=== PATIENT | female | born 1940 | race Caucasian/White ===

== ENCOUNTER → 2018-04-11 15:29 | Outpatient (CLI) | payer MEDICARE, SELFPAY ==
[2018-04-11 18:07] LABS: Anion Gap 8 (5-15); BUN 13 mg/dL (7-18); Calcium,Total 9.4 mg/dL (8.5-10.1); Chloride 106 mmol/L (98-107); Creatinine, Serum 0.76 mg/dL (0.55-1.02); EST Glomerular Filtration Rate 78 mL/min (>60); Est Glom Filt Rate - Afr Amer 94 mL/min (>60); Glucose 94 mg/dL (74-106); Potassium 4.1 mmol/L (3.5-5.1); Sodium Level 141 mmol/L (136-145); Thyroid Stim Hormone (TSH) 0.84 uIU/mL (0.358-3.74)
== END ==
PROVIDERS: Family Provider Family Medicine; PCP Family Medicine; Visit Provider Family Medicine
DX: I10 Essential (primary) hypertension (principal); L65.8 Other specified nonscarring hair loss
CPT/HCPCS: 36415; 80048; 84443

== ENCOUNTER 2019-03-14 10:12 | Emergency (ER) | payer MEDICARE, SELFPAY ==
[2019-03-14] VITALS (13 sets, daily range): BP systolic 48–124; BP diastolic 26–79; PULSE 61–100; RESP 12–33; TEMP 35.9–37.2; O2SAT 90–99; BMI 27.4
--- NOTE | 2019-03-14 10:29 | EKG12_ITS ---
Test Reason : REPEAT EKG Blood Pressure : / mmHG Vent. Rate : 066 BPM Atrial Rate : 066 BPM P-R Int : 168 ms QRS Dur : 150 ms QT Int : 460 ms P-R-T Axes : 068 -45 139 degrees QTc Int : 482 ms Sinus rhythm with Premature atrial complexes Left axis deviation Left bundle branch block Abnormal ECG Confirmed by APRIL RECINOS ([id number]), manuscript editor SANDEE CASTILLO ([id number]) on 03/18/2019 2:01:02 PM Referred By: MINE Confirmed By:APRIL RECINOS
--- NOTE | 2019-03-14 10:30 | CT_ITS ---
STUDY: CT ABDOMEN AND PELVIS WITHOUT CONTRAST REASON FOR EXAM: Female, 78 years old. RADIATION DOSAGE (If Supplied By Facility): CTDIvol = ( 17.87 ) mGy, DLP = ( 867.31 ) mGycm TECHNIQUE: Transaxial images were obtained from the dome of the diaphragm to the symphysis pubis without oral contrast, and without intravenous contrast. Sagittal and coronal images were reconstructed. Individualized dose optimization techniques were used for this CT. COMPARISON: None. FINDINGS: The visualized lung bases are unremarkable. The visualized portions of the heart are within normal limits except for coronary calcification. Normal liver. Normal gallbladder and extrahepatic biliary system. Multiple calcified granulomas seen within the spleen. The pancreas is unremarkable. Normal bilateral adrenal glands. Both kidneys are normal in size, shape and position with fullness of the renal pelves bilaterally. Normal visualized stomach. Normal small intestine. The colon is loaded with stool.. The appendix could not be seen. Normal abdominal aorta showed atherosclerotic changes. Normal inferior vena cava. Normal retroperitoneum. No free or free fluid within the peritoneal cavity. Normal urinary bladder. Normal abdominal wall. Significant spondylotic and degenerative changes in the lumbar spine with vacuum disc phenomena. CT/Abdomen/Pelvis without Cont IMPRESSION: Multiple calcified granulomas in the spleen Fullness of the renal pelves bilaterally. Degenerative changes of the spine. Electronically Signed: Radha Rodriguez, at 13:19 EDT Tel , Service support ,
--- NOTE | 2019-03-14 10:30 | CT_ITS ---
STUDY: CT CHEST WITHOUT CONTRAST REASON FOR EXAM: Female, 78 years old. RADIATION DOSAGE (If Supplied By Facility): CTDIvol = ( 15.25 ) mGy, DLP = ( 434.14 ) mGycm TECHNIQUE: Transaxial imaging was performed without the administration of intravenous contrast material. Individualized dose optimization techniques were used for this CT. COMPARISON: None. FINDINGS: The lungs are normal. There is no evidence of pleural effusion or pneumothorax. Normal heart and pericardium. Normal mediastinum. There is 1.9 cm lymph node behind the ascending aorta. Normal hilar regions there is tortuosity of the thoracic aorta. Calcifications noted in the cartilages of the trachea and main bronchi. Calcified coronary arteries noted Moderate hypertrophic changes involving the thoracic spine with mild kyphosis There is no demonstrated abnormality of the visualized upper abdomen. Except for multiple calcified granulomas in the spleen. CT/Chest without Contrast IMPRESSION: 1.9 cm lymph node in the pulmonary/aortic window i.e. behind the ascending aorta. Dose of the study is negative except for multiple calcified granulomata in the spleen Electronically Signed: Radha Rodriguez, at 12:48 EDT Tel , Service support ,
--- NOTE | 2019-03-14 10:30 | CT_ITS ---
STUDY: CT CERVICAL SPINE WITHOUT CONTRAST REASON FOR EXAM: Female, 78 years old. RADIATION DOSAGE (If Supplied By Facility): CTDIvol = ( 16.15 ) mGy, DLP = ( 283.35 ) mGycm TECHNIQUE: High resolution transaxial imaging was performed without contrast material. Sagittal and coronal images were reconstructed. Individualized dose optimization techniques were used for this CT. COMPARISON: None FINDINGS: There is anterior fixation of the cervical spine with metallic plate and screws from the level of C5 down to C7 with disc spacers in the spleen may be simply the intervertebral bodies at these levels. No abnormality detected at the craniovertebral junction ,C1-C2 or at C2-3. At the level of C3-4 there is narrowing of the intervertebral disc with endplates changes. There is narrowing at the level of C4-5. There is evidence of anterior fusion of the cervical vertebral bodies between C5-6 and C7 with disc spacers in between the these vertebral bodies. No spinal stenosis is noted. The facet joints and spinous processes are unremarkable. CT/Spine Cervical without Contras IMPRESSION: Anterior fixation of the cervical spine from the level of C5 down to C7 with disc spacers between C5-6 and C6-7. No fracture or subluxation seen. Electronically Signed: Radha Rodriguez, at 12:58 EDT Tel , Service support ,
--- NOTE | 2019-03-14 10:30 | CT_ITS ---
STUDY: CT BRAIN WITHOUT CONTRAST REASON FOR EXAM: Female, 78 years old. RADIATION DOSAGE (If Supplied By Facility): CTDIvol = ( 44.99 ) mGy, DLP = ( 880.47 ) mGycm TECHNIQUE: Transaxial CT imaging of the brain was performed without administration of intravenous contrast material. Individualized dose optimization techniques were used for this CT. COMPARISON: No relevant priors. FINDINGS: Normal soft tissue structures. Normal calvarium. Normal size ventricles and extra-axial spaces for the patient's age. Normal white matter tracts of the cerebral hemispheres. Normal basal ganglia and thalami. Normal brainstem. Normal cerebellum. There is no intracranial hemorrhage. There are no findings of an acute ischemic infarction. Normal visualized paranasal sinuses. CT/Brain/Head without Contrast IMPRESSION: Normal unenhanced CT scan of the brain. Electronically Signed: Radha Rodriguez, at 13:08 EDT Tel , Service support ,
--- NOTE | 2019-03-14 10:30 | NURSING ---
CALLED [facility] ABOUT TRANSFER.
--- NOTE | 2019-03-14 10:36 | RAD_ITS ---
STUDY: X-RAY - RIGHT RADIUS AND ULNA REASON FOR EXAM: Female, 78 years old. TECHNIQUE: view(s) of the forearm. COMPARISON: None. FINDINGS: There is comminuted fracture involving the midshaft of the radius with slight displacement. Also noted there is evidence of fracture of the distal radius. X--ray study of the wrist is suggested. Osteoarthritic changes involving the 1st metacarpal-carpal joints. Moderate osteoporosis is seen throughout the visualized bones. IMPRESSION: Fractures of the mid shaft of the radius as well as the distal radius as mentioned above. Electronically Signed: Radha Rodriguez, at 11:28 EDT Tel , Service support , RAD/Forearm 2 Views
--- NOTE | 2019-03-14 10:38 | RAD_ITS ---
STUDY: X-RAY - PELVIS REASON FOR EXAM: Female, 78 years old. TECHNIQUE: One view of the pelvis was obtained. COMPARISON: None. FINDINGS: The study is somewhat limited however both iliac bones and hips are unremarkable sacroiliac joints, evaluated because of the haziness. There are degenerative changes involving the disc in the lower lumbar spine. There is urinary bladder catheter RAD/Pelvis 1 or 2 Views IMPRESSION: No fracture noted Electronically Signed: Radha Rodriguez, at 11:50 EDT Tel , Service support ,
--- NOTE | 2019-03-14 10:39 | NURSING ---
ACCEPTED BY DR ZAMORA [facility] WITH MULTIPLE TRAUMAS, HYPOTHERMIA
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
[2019-03-14] MEDS: morphine 8 MG/ML Syringe IV (10:40)
[2019-03-14] MEDS: Ondansetron 4 MG/2 ML Vial IV ×2 (10:40→13:11)
[2019-03-14 10:47] LABS: Absolute Lymphocyte Count 1.83 X10^3/ul (0.83-4.51); Absolute Neutrophil Count 6.1 X10^3/uL (2.0-7.7); Basophil# 0.08 X10^3/uL; Basophil% 0.9 % (0-1); Eosinophil# 0.19 X10^3/uL; Eosinophils% 2.2 % (0-5); Hematocrit 39.6 % (37-47); Hemoglobin 14.1 g/dl (12.0-15.0); Lymphocyte # 1.83 X10^3/ul (4.0); Lymphocyte % 21.2 % (19-41); Mean Corp Hgb Conc 35.6 g/gl (32-36); Mean Corpuscular Hgb 31.8 pg (27.0-32.0); Mean Corpuscular Volume 89.2 fL (81-99); Mean Platelet Vol. 9.7 fl (6.2-12.0); Monocyte# 0.41 X10^3/uL; Monocyte% 4.7 % (0-10); Neutrophil % 70.7 % (47-70); Platelet Count 241 K/mm3 (150-450); RBC Distribution Width CV 13.4 % (11.6-14.6); RBC Distribution Width SD 43.5 fl (35.1-43.9); Red Blood Count 4.44 M/mm3 (4.2-5.4); White Blood Count 8.6 K/mm3 (4.4-11.0)
[2019-03-14 10:48] LABS: POSITIVE COUNT NO; POSITIVE DIFFERENTIAL NO; POSITIVE MORPHOLOGY NO
[2019-03-14] MEDS: 0.9% Normal Saline 1,000 ML 1000 ML IV (10:49)
--- NOTE | 2019-03-14 10:50 | RAD_ITS ---
STUDY: X-RAY CHEST REASON FOR EXAM: Female, 78 years old. TECHNIQUE: COMPARISON: None. FINDINGS: The heart is not enlarged. The lung wilson are clear. Both pulmonary arteries are prominent. There is mild tortuosity of the thoracic aorta. No pleural effusion or pneumothorax seen. There is anterior fixation of the cervical spine. Minimal osteoarthritis seen in the AC joint and left shoulder. The bony thorax is intact. Electronically Signed: Radha Rodriguez, at 11:45 EDT Tel , Service support , RAD/Chest 1 View (Portable)
[2019-03-14 10:54] LABS: International Normalized Ratio 1.1; Prothrombin Time (Protime)PT. 13.9 SECONDS (11.7-14.9)
[2019-03-14 11:06] LABS: AST(SGOT) 22 U/L (15-37); Alanine Aminotransfer ALT/SGPT 24 U/L (13-56); Albumin, Serum 3.6 g/dL (3.2-5.0); Alkaline Phosphatase 84 U/L (45-117); Anion Gap 12 (5-15); BUN 17 mg/dL (7-18); BUN/Creat Ratio 20.8 RATIO (10-20); Bilirubin, Direct 0.13 mg/dL (0.00-0.30); Calcium,Total 8.7 mg/dL (8.5-10.1); Chloride 109 mmol/L (98-107); Creatinine, Serum 0.82 mg/dL (0.55-1.02); EST Glomerular Filtration Rate 72 mL/min (>60); Est Glom Filt Rate - Afr Amer 87 mL/min (>60); Estimated Creatinine Clearance 45.44 ml/min; Globulin 3.8 g/dL (2.2-4.2); Glucose 110 mg/dL (74-106); Lipase 258 U/L (73-393); Potassium 3.6 mmol/L (3.5-5.1); Protein, Total 7.4 g/dL (6.4-8.2); Sodium Level 142 mmol/L (136-145)
[2019-03-14] MEDS: 0.9% Normal Saline 1,000 ML 500 ML IV ×3 (11:30→13:34)
--- NOTE | 2019-03-14 11:45 | NURSING ---
CALLED [facility] FOR TRANSPORT, NO MEDIC CALLED [facility] FOR TRANSPORT, ETA WOULD BE 2 HRS CALLED [facility] FOR TRANSPORT. ETA IS 45 MIN TO 1 HR
--- NOTE | 2019-03-14 12:40 | ED.RN ---
REPORT CALLED TO [facility] ED, JIN MELO.
--- NOTE | 2019-03-14 12:57 | ED.RN ---
PT C/O INCREASED CP, SOB AND FEELING FUNNY. SBP IN 60'S. DR MELENDEZ CALLED TO BEDSIDE. VERBAL ORDERS FOR ANOTHER 1L NACL BOLUS, EKG, AND STAT CHEST XRAY. CALLED FOR ALL.
--- NOTE | 2019-03-14 13:09 | RAD_ITS ---
STUDY: X-RAY CHEST REASON FOR EXAM: Female, 78 years old. TECHNIQUE: COMPARISON: The earlier in the day. FINDINGS: The lungs are clear and expanded with heavy markings centrally. There is no demonstrated pleural abnormality. Normal size heart. Normal mediastinum and chucky. Prominence of the pulmonary arteries. Atherosclerotic changes of the aortic knob . Normal visualized thoracic spine. Normal visualized ribs, clavicles, and shoulders except for mild osteoarthritis of the AC joint on the left. There is no demonstrated abnormality of the visualized soft tissue structures of the upper abdomen. RAD/Chest 1 View (Portable) IMPRESSION: No active intrathoracic disease Electronically Signed: Radha Rodriguez, at 13:35 EDT Tel , Service support ,
--- NOTE | 2019-03-14 13:10 | ED.RN ---
PT C/O NAUSEA AND STARTED TO DRY HEAVE. IV ZOFRAN GIVEN PER ORDERS. PT REPOSITIONED FOR COMFORT. DR MELENDEZ GIVES VERBAL ORDER FOR 1 UNIT OF TRAUMA BLOOD.
--- NOTE | 2019-03-14 13:16 | EKG12_ITS ---
Test Reason : TRAUMA Blood Pressure : / mmHG Vent. Rate : 082 BPM Atrial Rate : 082 BPM P-R Int : 170 ms QRS Dur : 140 ms QT Int : 418 ms P-R-T Axes : 062 -48 105 degrees QTc Int : 488 ms Normal sinus rhythm with sinus arrhythmia Left bundle branch block Abnormal ECG Confirmed by APRIL RECINOS ([id number]), proposal editor SANDEE CASTILLO ([id number]) on 03/18/2019 2:01:26 PM Referred By: MINE Confirmed By:APRIL RECINOS
--- NOTE | 2019-03-14 13:24 | ED.RN ---
TRAUMA BLOOD INITIATED. PT NAME, , M NUMBER VERIFIED. PER TRAUMA BLOOD POLICY.
--- NOTE | 2019-03-14 13:26 | ED.RN ---
LEFT AC IV INFILTRATED WITH IV SALINE BOLUSES. IV D/C'D PER POLICY. LEFT EJ PLACED BY Karen GARCIA RN. IV FLUID BOLUSES AND TRAUMA BLOOD RESUMED.
--- NOTE | 2019-03-14 13:51 | ED.RN ---
[facility] AT BEDSIDE. REPORT GIVEN BY DR MELENDEZ. ASSISTED IN GETTING PATIENT SWITCHED OVER TO TRANSFERS COT AND MONITOR. TRANSPORT DENIES ANY FURTHER NEED FOR HELP.
--- NOTE | 2019-03-14 13:52 | ED.RN ---
CARE HANDED OVER TO [facility] AT THIS TIME. TRANSPORT DENIES ANY NEEDS. THIS RN REMAINS AT BEDSIDE UNTIL PATIENT DEPARTURE.
--- NOTE | 2019-03-14 13:59 | ED.RN ---
PT DEPARTS ED AT THIS TIME.
== END 2019-03-14 14:01 | disposition short-term general hospital (02) ==
PROVIDERS: Emergency Provider Emergency Medicine; Family Provider Family Medicine; PCP Family Medicine
DX: S52.301A Unspecified fracture of shaft of right radius, initial encounter for closed fracture (principal); S80.02XA Contusion of left knee, initial encounter; S80.01XA Contusion of right knee, initial encounter; T68.XXXA Hypothermia, initial encounter; V59.9XXA Occupant (driver) (passenger) of pick-up truck or van injured in unspecified traffic accident, initial encounter; Y93.9 Activity, unspecified; Y92.828 Other wilderness area as the place of occurrence of the external cause; Y99.9 Unspecified external cause status; I95.9 Hypotension, unspecified; I10 Essential (primary) hypertension
CPT/HCPCS: 70450; 71045; 71250; 72125; 72170; 73090; 74176; 80048; 80076; 83690; 84484; 85025; 85610; 86850; 86900; 93005; 96361; 96374; 96375; 96376; 99285; J7030; P9016; A4216; J2405

== ENCOUNTER → 2019-07-16 10:44 | Outpatient (CLI) | payer MEDICARE, SELFPAY ==
[2019-03-14 10:13] VITALS: BMI 27.4
--- NOTE | 2019-07-16 10:52 | ECHOD_ITS ---
Reason For Study: CARDIOMYOPATHY Procedure This was a 2D Doppler, Color Flow transthoracic echocardiogram. Exam performed in department. Left Ventricle Normal LV size. Concentric left ventricular hypertrophy. The estimated ejection fraction is 60 %. Normal diastology for age. No regional wall motion abnormalities noted. Right Ventricle Normal RV size. Normal systolic function. Atria Normal left atrium. Normal right atrium. No doppler evidence for ASD. Mitral Valve There is no mitral valve stenosis. Mild (1+) mitral valve insufficiency. Tricuspid Valve There is no tricuspid stenosis. Trivial tricuspid valve insufficiency. Pulmonary artery systolic pressure is 30 mmHg. Aortic Valve Aortic sclerosis, no stenosis. There is no aortic stenosis. Mild (1+) aortic valve insufficiency. Pulmonic Valve There is no pulmonic valvular stenosis. No pulmonic valve insufficiency. Great Vessels Normal aortic root. Pericardium/Pleural No pericardial effusion. MMode/2D Measurements & Calculations LVIDd: 3.5 cm IVSd: 1.2 cm Ao root diam: 2.9 cm LVIDs: 2.4 cm LVPWd: 1.00 cm RVDd: 3.5 cm FS: 30.2 % LAV(MOD-bp): 33.9 ml LVAd ap4: 24.0 cm2 SV(MOD-sp4): 36.8 ml LAV(MOD-bp) Indexed: 23.0 ml/m2 EDV(MOD-sp4): 63.1 ml LAV(MOD-sp2): 40.6 ml EDV(sp4-el): 68.0 ml LAV(MOD-sp4): 24.8 ml LVAs ap4: 14.0 cm2 ESV(MOD-sp4): 26.3 ml ESV(sp4-el): 27.5 ml EF(MOD-sp4): 58.3 % EF(sp4-el): 59.5 % SV(sp4-el): 40.5 ml LA A4 area: 11.4 cm2 LA dimension(2D): 3.4 cm RA A4 area: 10.1 cm2 Time Measurements MV dec time: 0.34 sec Doppler Measurements & Calculations MV E max ahmet: 53.5 cm/sec Lat Peak E' Ahmet: 8.3 cm/sec Med Peak E' Ahmet: 5.6 cm/sec MV A max ahmet: 85.8 cm/sec E/E' lat: 6.4 E/E' med: 9.5 MV E/A: 0.62 Ao V2 max: 168.2 cm/sec AI max ahmet: 426.5 cm/sec LV V1 max: 166.5 cm/sec Ao max P.3 mmHg AI max P.8 mmHg LV V1 max P.1 mmHg AI dec slope: 144.1 cm/sec2 AI P1/2t: 867.1 msec PA V2 max: 132.7 cm/sec TR max ahmet: 259.1 cm/sec TR max P.9 mmHg Interpretation Summary The estimated ejection fraction is 60 %. Mild (1+) mitral valve insufficiency. Aortic sclerosis, no stenosis. Mild (1+) aortic valve insufficiency. Ordering Physician: ELAINE SERRANO Referring Physician: ISAAC TOWNSEND Performed By: Ana Lucio RDCS
== END ==
PROVIDERS: Family Provider Family Medicine; PCP Family Medicine
DX: I51.81 Takotsubo syndrome (principal)
CPT/HCPCS: 93306

== ENCOUNTER → 2020-07-14 12:01 | Outpatient (CLI) | payer MEDICARE, SELFPAY ==
[2019-03-14 10:13] VITALS: BMI 27.4
[2020-07-14 13:18] LABS: AST(SGOT) 21 U/L (15-37); Alanine Aminotransfer ALT/SGPT 24 U/L (13-56); Albumin, Serum 3.8 g/dL (3.2-5.0); Alkaline Phosphatase 87 U/L (45-117); Anion Gap 5 (5-15); BUN 13 mg/dL (7-18); BUN/Creat Ratio 18.6 RATIO (10-20); Calcium,Total 9.1 mg/dL (8.5-10.1); Chloride 107 mmol/L (98-107); Cholesterol 190 mg/dL (200); EST Glomerular Filtration Rate 86 mL/min (>60); Est Glom Filt Rate - Afr Amer 104 mL/min (>60); Globulin 3.9 g/dL (2.2-4.2); Glucose 89 mg/dL (74-106); High Density Lipoprotein 71 mg/dL; Potassium 3.8 mmol/L (3.5-5.1); Protein, Total 7.7 g/dL (6.4-8.2); Sodium Level 141 mmol/L (136-145); Triglycerides 95 mg/dL; Very Low Density Lipoprotein 19 mg/dL (5-40)
== END ==
PROVIDERS: PCP Family Medicine
DX: I25.10 Atherosclerotic heart disease of native coronary artery without angina pectoris (principal); I42.2 Other hypertrophic cardiomyopathy; I10 Essential (primary) hypertension; E78.5 Hyperlipidemia, unspecified; R06.00 Dyspnea, unspecified
CPT/HCPCS: 36415; 80053; 80061

== ENCOUNTER 2020-07-29 10:57 | Observation (INO) | payer MEDICARE, SELFPAY ==
[2019-03-14 10:13] VITALS: BMI 27.4
[2020-07-29] VITALS (10 sets, daily range): BP systolic 95–192; BP diastolic 56–117; PULSE 60–72; RESP 17–25; TEMP 36.6–37; O2SAT 96–100; BMI 24.3; BMI 22.4; BMI 22.5
--- NOTE | 2020-07-29 12:00 | ED.DCSUM_ITS ---
History of Present Illness Chief Complaint: Dizziness Narrative: Patient presenting for evaluation secondary to a near syncopal episode. Patient states that she was feeling well today, not having any signs of illness. Patient was standing at the counter filling out some birthday cards, and had a sudden onset of severe lightheadedness and feelings as though she was going to pass out. This was accompanied by a feeling of nausea. Patient then reports that she became diaphoretic. Patient states that she lowered herself down to the ground, her daughter was coming over to her house and she was unable to open the door for her. She denies that she completely lost consciousness. No recent fevers chills night sweats cough nausea vomiting or diarrhea. Patient does have a history of hypertension, she sees a structural layout worker but denies any history of of cardiac disease. No DVT or PE risk factors. She denies any sick contacts. Patient states that her symptoms have since resolved. Review of systems otherwise negative. Past Medical History - Allergies and Home Meds Allergies/Adverse Reactions: Allergies procaine [From Novocain] Allergy (Verified 07/29/20 10:58) NEEDS FOLLOW-UP Past Medical History: - - Hypertension Surgical History: noncontributory Lives: Alone Smoking Status: Never smoker Alcohol: None Drugs: None Review of Systems All systems negative except as indicated General: Reports: - - Diaphoresis Eyes: Denies: Visual changes - bilaterally, Diplopia ENT: Denies: Rhinorrhea, Sore throat Cardiovascular: Reports: - - Near syncope Respiratory: Denies: Dyspnea, Cough, Dyspnea on exertion Gastrointestinal: Reports: Nausea Genitourinary: Denies: Dysuria, Hematuria, Frequency Musculoskeletal: Denies: Back pain, Extremity Pain Skin: Denies: Rash, Wounds Neurological: Denies: Headache, Weakness, Numbness Physical Exam Vital Signs/Narrative: Vital Signs Temp Pulse Resp BP Pulse Ox 07/29/20 11:01 67 17 159/82 H 96 07/29/20 10:59 98.1 F 64 17 159/82 H 97 Inital Vital Signs reviewed: Yes General: Well nourished, Well developed, No Acute Distress Head: Normocephalic, Atraumatic Eyes: Perrl, EOMI ENT: Moist mucous membranes, No rhinorrhea Neck: Supple, Nontender Cardiovascular: Regular rhythm, No murmurs, Bradycardia - Minimal, - - 2+ radial pulses bilaterally symmetric Respiratory: No distress, CTA bilaterally, Chest nontender Abdomen: Soft, Nontender, Nondistended, Normal bowel sounds Back: Nontender, Normal Inspection Extremities: Nontender, No edema Skin: Normal color, No rash Neurological: Alert, Oriented x3, Cranial nerves II-XII grossly intact, Normal Strength, Normal Sensation Psychological: Normal affect, Normal Mood Diagnostic/Tx/Re-eval Clinical Impression(s) from Imaging Studies Chest X-Ray 07/29/20 12:56 IMPRESSION: Hyperinflation. The lungs are clear. Electronically Signed: David Arnett, at 13:34 EST , Service support , Laboratory Data 07/29/20 07/29/20 07/29/20 12:19 12:19 15:38 WBC 8.3 RBC 4.37 Hgb 13.8 Hct 39.8 MCV 91.1 MCH 31.6 MCHC 34.7 RDW Std Deviation 41.8 RDW Coeff of Criselda 12.6 Plt Count 252 MPV 10.1 Immature Gran % (Auto) 0.400 Neut % (Auto) 79.4 H Lymph % (Auto) 12.7 L Johnson % (Auto) 6.2 Eos % (Auto) 0.6 Baso % (Auto) 0.7 Absolute Neuts (auto) 6.6 Absolute Lymphs (auto) 1.06 Nucleated RBC % 0 Sodium 137 Potassium 3.8 Chloride 107 Carbon Dioxide 23.0 Anion Gap 7 BUN 15 Creatinine 0.79 Estim Creat Clear Calc 34.42 Est GFR (MDRD) Af Amer 91 Est GFR (MDRD) Non-Af 75 BUN/Creatinine Ratio 19.1 Glucose 102 Calcium 9.6 Troponin I 0.037 0.055 H - EKG Initial EKG Interpretation: - - Sinus rhythm of 59 with left bundle branch block morphology. Isoelectric ST segments, normal T waves, no gross changes from prior EKG in 2019. - Medical Decision Making Patient presented secondary to a presyncopal episode. EKG was obtained which showed left bundle branch block that was unchanged from prior EKG. Laboratory work-up initially was benign, although the patient's symptoms were concerning so I did perform a 3-hour delta troponin which unfortunately was found to be upward trending to 0.05. This point there is some concern for the possibility of patient having malignant arrhythmia causing her symptoms, but regardless she requires admission for observation and further cardiac work-up. I discussed this with the hospitalist. ED Disposition - Plan for ED Patient: Disposition: Acute Care Hospital [facility] Diagnosis: Syncope, Elevated troponin
--- NOTE | 2020-07-29 12:02 | EKG12_ITS ---
Test Reason : Blood Pressure : / mmHG Vent. Rate : 063 BPM Atrial Rate : 063 BPM P-R Int : 174 ms QRS Dur : 142 ms QT Int : 468 ms P-R-T Axes : 042 -48 103 degrees QTc Int : 478 ms Normal sinus rhythm Left axis deviation Left bundle branch block Abnormal ECG Confirmed by ZEV MENENDEZ, IGOR ([id number]), loan expeditor SANDEE CASTILLO ([id number]) on 08/01/2020 2:34:10 PM Referred By: MR Confirmed By:IGOR BROTHERS MD
[2020-07-29 12:23] LABS: Absolute Lymphocyte Count 1.06 X10^3/uL (0.83-4.51); Absolute Neutrophil Count 6.6 X10^3/uL (2.0-7.7); Basophil# 0.06 X10^3/uL; Basophil% 0.7 % (0-1); Eosinophil# 0.05 X10^3/uL; Eosinophils% 0.6 % (0-5); Hematocrit 39.8 % (37-47); Hemoglobin 13.8 g/dL (12.0-15.0); Lymphocyte # 1.06 X10^3/ul (4.0); Lymphocyte % 12.7 % (19-41); Mean Corp Hgb Conc 34.7 g/dL (32-36); Mean Corpuscular Hgb 31.6 pg (27.0-32.0); Mean Corpuscular Volume 91.1 fL (81-99); Mean Platelet Vol. 10.1 fl (6.2-12.0); Monocyte# 0.52 X10^3/uL; Monocyte% 6.2 % (0-10); NRBC Flagged by Analyzer 0 % (0-5); Neutrophil # 6.62 X10^3/uL (2.7-7.7); Neutrophil % 79.4 % (47-70); Platelet Count 252 K/mm3 (150-450); RBC Distribution Width CV 12.6 % (11.6-14.6); RBC Distribution Width SD 41.8 fl (35.1-43.9); Red Blood Count 4.37 M/mm3 (4.2-5.4); White Blood Count 8.3 K/mm3 (4.4-11.0)
[2020-07-29 12:44] LABS: Anion Gap 7 (5-15); BUN 15 mg/dL (7-18); BUN/Creat Ratio 19.1 RATIO (10-20); Calcium,Total 9.6 mg/dL (8.5-10.1); Chloride 107 mmol/L (98-107); Creatinine, Serum 0.79 mg/dL (0.55-1.02); EST Glomerular Filtration Rate 75 mL/min (>60); Est Glom Filt Rate - Afr Amer 91 mL/min (>60); Estimated Creatinine Clearance 34.42 ml/min; Glucose 102 mg/dL (74-106); Potassium 3.8 mmol/L (3.5-5.1); Sodium Level 137 mmol/L (136-145)
--- NOTE | 2020-07-29 12:56 | RAD_ITS ---
STUDY: X-RAY CHEST REASON FOR EXAM: Female, 80 years old. CHEST PAIN -- WEAKNESS TECHNIQUE: AP and lateral views of the chest. COMPARISON: Comparison is made with prior study dated 03/14/2019. FINDINGS: EKG electrodes are seen. Hyperinflation. The lungs are clear. There is no demonstrated pleural abnormality. Normal size heart. Normal mediastinum and chucky. Normal visualized pulmonary arteries. There is atherosclerotic calcification of the aortic arch with tortuosity. There are diffuse degenerative changes of the visualized thoracic spine. Demineralization of the thoracic vertebrae. Prior fusion in the lower cervical spine. There is no demonstrated abnormality of the visualized soft tissue structures of the upper abdomen. RAD/Chest PA and Lateral IMPRESSION: Hyperinflation. The lungs are clear. Electronically Signed: David Arnett, at 13:34 EST , Service support ,
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
--- NOTE | 2020-07-29 18:59 | EKG12_ITS ---
Test Reason : DIZZINESS Blood Pressure : / mmHG Vent. Rate : 059 BPM Atrial Rate : 059 BPM P-R Int : 174 ms QRS Dur : 150 ms QT Int : 482 ms P-R-T Axes : 037 -45 099 degrees QTc Int : 477 ms Sinus bradycardia Left axis deviation Left bundle branch block Abnormal ECG Confirmed by ZEV MENENDEZ, IGOR ([id number]), photographic editor SANDEE CASTILLO ([id number]) on 08/01/2020 2:34:25 PM Referred By: MR Confirmed By:IGOR BROTHERS MD
[2020-07-29] MEDS: Metoprolol Tartrate 25 MG Tablet 12.5 MG PO (21:41)
--- NOTE | 2020-07-29 22:20 | EKG12_ITS ---
Test Reason : POSITIVE TROPONIN Blood Pressure : / mmHG Vent. Rate : 060 BPM Atrial Rate : 060 BPM P-R Int : 180 ms QRS Dur : 146 ms QT Int : 464 ms P-R-T Axes : 041 -44 110 degrees QTc Int : 464 ms Normal sinus rhythm Left axis deviation Left bundle branch block Abnormal ECG When compared with ECG of 29-JUL-2020 16:01, MANUAL COMPARISON REQUIRED, DATA IS UNCONFIRMED Confirmed by CHIQUITA MENENDEZ, KAN ([id number]), science editor CHRISSY MARTINEZ ([id number]) on 08/02/2020 11:17:41 AM Referred By: DR KUMARI Confirmed By:KAN PORRAS MD
[2020-07-30] VITALS (9 sets, daily range): BP systolic 112–135; BP diastolic 60–81; PULSE 55–77; RESP 16–18; TEMP 36.5–36.8; O2SAT 95–97
[2020-07-30] MEDS: Aspirin E.C. 81 MG Tablet PO (06:32)
[2020-07-30] MEDS: Lisinopril 40 MG Tablet PO (06:32)
[2020-07-30 08:03] LABS: Cholesterol 185 mg/dL (200); High Density Lipoprotein 61 mg/dL; Triglycerides 64 mg/dL; Very Low Density Lipoprotein 13 mg/dL (5-40)
--- NOTE | 2020-07-30 08:26 | ECHOD_ITS ---
Reason For Study: SYNCOPE Procedure This was a 2D Doppler, Color Flow transthoracic echocardiogram. The exam was of adequate technical quality. Exam performed portable in patient room. Left Ventricle Normal LV size. Left ventricular systolic function is normal. The estimated ejection fraction is 55 %. No evidence for diastolic dysfunction. No regional wall motion abnormalities noted. Right Ventricle Normal RV size. Normal systolic function. Atria Normal left atrium. Normal right atrium. No doppler evidence for ASD. Mitral Valve There is no mitral annular calcification. Mild focal mitral valve calcification of the anterior leaflet. Mild (1+) eccentric mitral valve insufficiency. Tricuspid Valve Normal tricuspid valve. Mild tricuspid valve insufficiency. Right ventricular systolic pressure estimated to be 26 mmHg. Aortic Valve Trisinus/trileaflet aortic valve. Moderate focal aortic valve calcification. Trivial aortic valve insufficiency. Pulmonic Valve The pulmonic valve is not well visualized. Trivial pulmonic valve insufficiency. Great Vessels Normal sized aortic root. Pericardium/Pleural No pericardial effusion. MMode/2D Measurements & Calculations LVIDd: 3.1 cm IVSd: 1.4 cm Ao root diam: 3.4 cm LVIDs: 2.3 cm LVPWd: 0.91 cm RVDd: 3.5 cm FS: 26.1 % LAV(MOD-bp): 30.0 ml LA A4 area: 11.4 cm2 LA dimension(2D): 3.5 cm LAV(MOD-bp) Indexed: 19.8 ml/m2 LAV(MOD-sp2): 42.7 ml LAV(MOD-sp4): 21.3 ml RA A4 area: 9.4 cm2 Time Measurements MV dec time: 0.36 sec Doppler Measurements & Calculations MV E max ahmet: 57.8 cm/sec Lat Peak E' Ahmet: 9.6 cm/sec Med Peak E' Ahmet: 4.8 cm/sec MV A max ahmet: 81.2 cm/sec E/E' lat: 6.1 E/E' med: 11.9 MV E/A: 0.71 Ao V2 max: 148.3 cm/sec AI max ahmet: 423.1 cm/sec PA V2 max: 109.6 cm/sec Ao max P.2 mmHg AI max P.6 mmHg AI dec slope: 190.5 cm/sec2 AI P1/2t: 650.6 msec TR max ahmet: 237.7 cm/sec TR max P.6 mmHg Interpretation Summary Left ventricular systolic function is normal. The estimated ejection fraction is 55 %. Mild focal mitral valve calcification of the anterior leaflet. Mild (1+) eccentric mitral valve insufficiency. Mild tricuspid valve insufficiency. Moderate focal aortic valve calcification. Trivial aortic valve insufficiency. Trivial pulmonic valve insufficiency. Right ventricular systolic pressure estimated to be 26 mmHg. No evidence for diastolic dysfunction. Ordering Physician: Isaac Restrpeo Referring Physician: ISAAC TOWNSEND Performed By: Liliam Mayen, ELFEGO, RVT
--- NOTE | 2020-07-30 15:33 | PCM.DC ---
- Discharge Diagnoses Current Active Problems: Current Active and Chronic Problems Syncope (Acute) Elevated troponin (Acute) Hyperlipemia (Chronic) Takotsubo cardiomyopathy (Chronic) You will use the following diet at home:: Cardiac Discharge Activity: Return to Normal Activity Call your doctor if you observe: Shortness of breath, Dizziness, Fainting spells, Chest pain Allergies/Adverse Reactions: Allergies procaine [From Novocain] Allergy (Verified 07/29/20 17:31) passed out Medications to take at Discharge Lisinopril 40 mg PO DAILY 07/29/20 Metoprolol Succinate [Toprol Xl] 12.5 mg PO BID 07/29/20 Aspirin E.C. [Ecotrin] 81 mg PO DAILY@0800 #60 tab 07/30/20 Atorvastatin Calcium 10 mg PO QHS #60 tab 07/30/20 The following prescriptions were given: Atorvastatin Calcium 10 mg PO QHS #60 tab Transmission Status: Pending to [facility] Aspirin E.C. [Ecotrin] 81 mg PO DAILY@0800 #60 tab Transmission Status: Pending to [facility] [address] Primary Care Physician: Ilya Jade MD [Primary Care Provider] - Please follow up with your Primary Care Physician in: 1 Week Test Results: Test results from this visit will be discussed in further detail at your follow-up appointment, if applicable. Please Follow Up With: Primary Government Services Professional - [facility] When: As scheduled next week Proposed Discharge Date: 07/30/20
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
== END 2020-07-30 15:34 | disposition home or self-care (01) ==
LOC: ED 12:05 → PCU 16:59
PROVIDERS: Nurse Practitioner Family; Admitting Provider Internal Medicine; Emergency Provider Emergency Medicine; PCP Family Medicine; Visit Provider Internal Medicine
DX: R55 Syncope and collapse (principal); Z79.899 Other long term (current) drug therapy; I25.2 Old myocardial infarction; E78.5 Hyperlipidemia, unspecified; I11.9 Hypertensive heart disease without heart failure; R79.89 Other specified abnormal findings of blood chemistry; I25.10 Atherosclerotic heart disease of native coronary artery without angina pectoris
CPT/HCPCS: 36415; 71046; 80048; 80061; 84484; 85025; 93005; 93306; 97162; 97165; 99218; 99285; A4216; G0378

== ENCOUNTER 2022-09-26 21:09 | Inpatient (IN) | payer MEDICARE, SELFPAY ==
[2022-09-26 21:11] VITALS: BP 170/79; PULSE 74; RESP 15; TEMP 36.7; O2SAT 97; BMI 26.4
--- NOTE | 2022-09-26 21:45 | RAD_ITS ---
INDICATION: pt stated fall, hip pain, immobilizing mat in place, positioning limited EXAMINATION/TECHNIQUE: X-RAY - RIGHT XR Knee 1 or 2 Views 2 VIEWS COMPARISON: None. FINDINGS: SOFT TISSUES: No soft tissue swelling or gas. No radiopaque foreign body. BONES/JOINTS: There is normal bony alignment, joint space narrowing involving the medial lateral compartments is noted. No fracture or destructive bony process.. RAD/Knee 1 or 2 Views IMPRESSION: 1. No evidence of fracture or malalignment, degenerative changes noted with medial and lateral joint space narrowing. No acute destructive bony process. Electronically Signed: Casper Rivera MD at 23:29 EST ,
--- NOTE | 2022-09-26 21:45 | EKG12_ITS ---
Test Reason : DYSRHYTHMIA Blood Pressure : / mmHG Vent. Rate : 071 BPM Atrial Rate : 071 BPM P-R Int : 152 ms QRS Dur : 144 ms QT Int : 434 ms P-R-T Axes : 043 -46 114 degrees QTc Int : 471 ms Normal sinus rhythm Left axis deviation Left bundle branch block Abnormal ECG Confirmed by CULLEN MENENDEZ, JYOTSNA ([id number]), map editor CHRISSY MARTINEZ ([id number]) on 09/28/2022 6:36:54 AM Referred By: MICHELET Confirmed By:KURT BERMAN MD
--- NOTE | 2022-09-26 21:45 | RAD_ITS ---
INDICATION: pt stated fall, hip pain, immobilizing mat in place, positioning limited EXAMINATION/TECHNIQUE: X-RAY - RIGHT XR Hip Unilateral with Pelvis when performed; 2-3 Views 3 VIEWS COMPARISON: None. FINDINGS: SOFT TISSUES: No soft tissue swelling or gas. No radiopaque foreign body. BONES/JOINTS: There is a mildly displaced RIGHT femoral neck fracture. No dislocation noted. Pelvic ring is intact. LEFT hip has normal alignment. Sacrum and sacroiliac joints have normal appearance. RAD/HIP, UNI W/ Pelvis 2-3 Views IMPRESSION: 1. Mildly displaced RIGHT femoral neck fracture. 2. No other fracture, no dislocation noted. Electronically Signed: Casper Rivera MD at 23:30 EST ,
--- NOTE | 2022-09-26 21:45 | RAD_ITS ---
INDICATION: pt stated fall, hip pain, immobilizing mat in place, positioning limited EXAMINATION/TECHNIQUE: X-RAY - XR Chest 1 View COMPARISON: 07/29/2020 FINDINGS: LIFE-SUPPORT AND LINES: 1. None HEART AND VESSELS: The cardiac silhouette, pulmonary vasculature have normal appearance. No evidence of congestive failure. LUNGS AND PLEURAL SPACES: Lungs are clear. No focal infiltrate, consolidation or effusions. No evidence of pneumothorax. No pulmonary mass is noted. MEDIASTINUM AND HILAR REGIONS: No masses adenopathy noted. No areas of calcification. Visualized upper airway is normal in position. BONY ELEMENTS: No acute bony changes noted. Postop changes involving the visualized lower cervical spine. RAD/Chest 1 View (Portable) IMPRESSION: 1. No evidence of acute cardiopulmonary process Electronically Signed: Casper Rivera MD at 23:31 EST ,
--- NOTE | 2022-09-26 21:46 | EDS_ITS ---
HPI History of Present Illness Chief Complaint: Fall Narrative Narrative: 82-year-old female presenting with right hip pain and right knee pain. She states her right knee pain has been fairly chronic but she had a mechanical fall in her kitchen today and fell onto her right hip and was unable to get up. She states he was dragging her self with her left arm and left leg but it was excruciating. She states she did not hit her head or lose consciousness when she fell. She tried to grab the counter but missed. Patient states that she is only on medication for high blood pressure. Other than that she has been otherwise well. PFSH PFS Home Medications lisinopril 40 mg tablet 40 mg PO DAILY BP 07/29/20 [History Last Taken 07/29/20] Allergy/AdvReac Type Severity Reaction Status Date / Time procaine [From Novocain] Allergy passed out Verified 09/26/22 21:16 Social History Smoking Status: Never smoker ROS ROS ED Constitutional Constitutional ED: Denies chills, fever(s) or sweats Eyes Eyes: Denies blurry vision or change in vision ENT ENT ED: Denies ear pain or sore throat Cardiovascular Cardiovascular: Denies chest pain, palpitations or racing heartbeat Respiratory/Chest Respiratory/Chest: Denies cough, dyspnea or sputum Gastrointestinal Gastrointestinal: Denies abdominal pain, constipation, diarrhea, nausea or vomiting Genitourinary Genitourinary ED: Denies dysuria, hematuria or urinary frequency Musculoskeletal Musculoskeletal: Reports other Details: Right hip and knee pain ; Denies arthralgias, myalgias or neck pain Integumentary Denies abscess, Abrasions or rash Neurologic Neurologic: Denies headache(s), paresthesias or weakness Psychiatric Psychiatric: Denies anxiety, depression, suicidal ideation or suicidal thoughts Endocrine Endocrinology: Denies polydipsia or polyuria EXAM Physical Exam Const Vital Signs: 09/26/22 21:11 09/26/22 23:43 Temperature 98.1 F Temperature Source Temporal Pulse Rate 74 78 Respiratory Rate 15 15 Blood Pressure 170/79 H 155/62 H Blood Pressure Mean 109 93 Pulse Ox 97 96 Oxygen Delivery Method Room Air Room Air Positive well nourished General Appearance ED: NAD HEENT atraumatic Resp normal respiratory effort and clear to auscultation bilaterally MDM MDM MDM Narrative Medical decision making narrative: Patient presenting with right hip pain. I suspect this that she has a rib fracture. Her knee does not appear to be ultimately very tender to palpation but I will x-ray this as well because she is complaining she fell on it. Patient was given morphine and Zofran in the ER. Apparently she got 25 of fentanyl by EMS. Will obtain medical clearance labs, EKG, chest x-ray in addition to right hip and right knee x-ray. EKG obtained for medical clearance shows a normal sinus rhythm with a ventricular to 71 bpm without sign of ischemic change or dysrhythmia. Labwork was obtained also for medical clearance. CBC shows a slight leukocytosis of 14.3. Hemoglobin hematocrit are stable. Platelets are normal. Renal function electrolytes within normal limits. Chest x-ray on my interpretation shows no acute cardiopulmonary process. Radiologist services and agrees. X-rays of the right knee were obtained due to her complaint of knee pain and these are negative for acute fracture my interpretation. The right hip x-ray does show a slightly displaced right femoral neck fracture. She was given another dose of morphine. I discussed case with Dr. Conrad who recommends medical admission. I will speak to the hospitalist. Impression: 1. Mechanical fall 2. Right hip fracture 3. Leukocytosis Lab Data Attestation: I reviewed the patient's lab results. Labs: Laboratory Results - last 24 hr 09/26/22 09/26/22 22:00 22:00 WBC 14.3 H RBC 4.18 L Hgb 13.5 Hct 39.1 MCV 93.5 MCH 32.3 H MCHC 34.5 RDW Std Deviation 44.6 H RDW Coeff of Criselda 12.8 Plt Count 252 MPV 9.6 Immature Gran % (Auto) 1.200 H Neut % (Auto) 86.5 H Lymph % (Auto) 6.5 L [place] % (Auto) 5.1 Eos % (Auto) 0.2 Baso % (Auto) 0.5 Absolute Neuts (auto) 12.3 H Absolute Lymphs (auto) 0.93 Nucleated RBC % 0 Sodium 141 Potassium 3.5 Chloride 109 H Carbon Dioxide 28.0 Anion Gap 4 L BUN 18 Creatinine 0.69 Estim Creat Clear Calc 31.69 Est GFR (MDRD) Af Amer 105 Est GFR (MDRD) Non-Af 87 BUN/Creatinine Ratio 26.1 H Glucose 126 H Calcium 9.4 Radiography Diagnostic Testing: Clinical Impression(s) from Imaging Studies Chest X-Ray 09/26/22 21:45 IMPRESSION: 1. No evidence of acute cardiopulmonary process Electronically Signed: Casper Rivera MD at 23:31 EST , Hip/Pelvis X-Ray 09/26/22 21:45 IMPRESSION: 1. Mildly displaced RIGHT femoral neck fracture. 2. No other fracture, no dislocation noted. Electronically Signed: Casper Rivera MD at 23:30 EST , Knee X-Ray 09/26/22 21:45 IMPRESSION: 1. No evidence of fracture or malalignment, degenerative changes noted with medial and lateral joint space narrowing. No acute destructive bony process. Electronically Signed: Casper Rivera MD at 23:29 EST , Discharge Plan Triage Chief Complaint: Fall ED Provider: London Cruz Dx/Rx/DC Orders Prescriptions: No Action lisinopril 40 MG tablet 40 mg PO DAILY Primary Care Provider: Ilya Jade Referrals: Ilya Jade MD [Primary Care Provider] -
[2022-09-26] MEDS: Ondansetron 4 MG/2 ML Vial IV (22:08)
[2022-09-26] MEDS: Morphine 4 MG/ML Syringe IV ×2 (22:09→23:33)
[2022-09-26 22:17] LABS: Absolute Lymphocyte Count 0.93 X10^3/uL (0.83-4.51); Absolute Neutrophil Count 12.3 X10^3/uL (2.0-7.7); Basophil# 0.07 X10^3/uL; Basophil% 0.5 % (0-1); Eosinophil# 0.03 X10^3/uL; Eosinophils% 0.2 % (0-5); Hematocrit 39.1 % (37-47); Hemoglobin 13.5 g/dL (12.0-15.0); Lymphocyte # 0.93 X10^3/ul (0.83-4.51); Lymphocyte % 6.5 % (19-41); Mean Corp Hgb Conc 34.5 g/dL (32-36); Mean Corpuscular Hgb 32.3 pg (27.0-32.0); Mean Corpuscular Volume 93.5 fL (81-99); Mean Platelet Vol. 9.6 fl (6.2-12.0); Monocyte# 0.73 X10^3/uL; Monocyte% 5.1 % (0-10); NRBC Flagged by Analyzer 0 % (0-5); Neutrophil # 12.32 X10^3/uL (2.7-7.7); Neutrophil % 86.5 % (47-70); Platelet Count 252 K/mm3 (150-450); RBC Distribution Width CV 12.8 % (11.6-14.6); RBC Distribution Width SD 44.6 fl (35.1-43.9); Red Blood Count 4.18 M/mm3 (4.2-5.4); White Blood Count 14.3 K/mm3 (4.4-11.0)
[2022-09-26 22:29] LABS: Anion Gap 4 (5-15); BUN 18 mg/dL (7-18); BUN/Creat Ratio 26.1 RATIO (10-20); Calcium,Total 9.4 mg/dL (8.5-10.1); Chloride 109 mmol/L (98-107); Creatinine, Serum 0.69 mg/dL (0.55-1.02); EST Glomerular Filtration Rate 87 mL/min (>60); Est Glom Filt Rate - Afr Amer 105 mL/min (>60); Estimated Creatinine Clearance 31.69 ml/min; Glucose 126 mg/dL (74-106); Potassium 3.5 mmol/L (3.5-5.1); Sodium Level 141 mmol/L (136-145)
[2022-09-26 23:43] VITALS: BP 155/62; PULSE 78; RESP 15; O2SAT 96
[2022-09-26] MEDS: 0.9% Normal Saline 1,000 ML 1000 ML IV (23:49)
[2022-09-26 23:52] LABS: Mucous, Urine 0 SEEN /hpf (<or=2+); Red Blood Cells-Urine 0 SEEN /hpf (0-5); White Blood Cells 0 SEEN /hpf (0-5)
[2022-09-27] VITALS (16 sets, daily range): BP systolic 106–174; BP diastolic 59–113; PULSE 61–118; RESP 16–18; TEMP 36.3–38.2; O2SAT 92–100; BMI 23.7
--- NOTE | 2022-09-27 | HIP_PTH ---
PATIENT: MAK SNOW LOC: [facility] U#:[id number] AGE/SX: 82/F [facility]OM: [facility] RE09/27/[address]: Dr. Trinity Mercado MD : 1940 BED: 1 DIS: 10/01/2022 SPEC #: [id number] RECD: 09/28/22 07:59 STATUS: MAIK REQ #: [id number] DIGNA: 09/27/22 00:[address]: Guanako Conrad DEPT: SURGICAL PATHOLOGY RECD BY: Semaj Sebastian ENTERED: 09/28/22 10:34 SP TYPE: TOTAL HIP OTHR DR: MD Dr. Ilya Castro MD Dr. Nicholas F Kotsonis, MD Tissues: Hip, NOS Procedures: Decalcification bone/plaque Surgery Specimen Level IV Comments: @ Ordering doctor for DEC edited from to @ by LEANDER at 09/28/22 1511 @ Ordering doctor for SUIV edited from to @ by LEANDER at 09/28/22 1511 @ Submitting doctor edited from to @ by LEANDER at 09/28/22 1511 HEADER OPERATION: Right total hip replacement PRE-OP DIAGNOSIS: Hip fracture TISSUE SUBMITTED: Right femoral head MICROSCOPIC DIAGNOSIS Bone and tissue of right hip, fracture: Consistent with organizing fracture site. Degenerative joint disease. AM:efren 10/03/2022 MICROSCOPIC DESCRIPTION Slides are reviewed. GROSS DESCRIPTION Received is one container labeled with the patient's name and designated right femoral head. The specimen consists of a blake femoral head measuring 4 x 4 x 3.5 cm. The articular surface is smooth with a focal area of erosion. A small piece of soft tissue is noted at the top of the femoral head measuring 2 x 0.2 x 0.1 cm. Resection margin is irregular and hemorrhagic. Lumber Racker sections are submitted in three cassettes as follows: 1 - soft tissue, entirely submitted, 2 & 3 - femoral head after decalcification. / SJ:efren 09/28/2022 TC:5 CPT: 41896, 32935
[2022-09-27 00:01] LABS: Color, Urine Yellow (Yellow); Glucose, Dipstick Normal (Normal); Ketone-Dipstick Negative (Negative); Leukocyte Esterase-Dipstick Negative /ul (Negative); Nitrite-Dipstick Negative (Negative); Occult Blood-Urine 25 /ul (Negative); Protein-Dipstick 15 mg/dl (Negative); Urine Bilirubin Dipstick Negative (Negative); Urine Clarity Clear (Clear); Urine Urobilinogen Normal (Normal)
[2022-09-27 00:08] LABS: Bacteria RARE /hpf (None Seen); Squamous Epithelial Cells - UA 0-5 SEEN /hpf (5-10)
--- NOTE | 2022-09-27 00:08 | HP.PCM.HOS_ITS ---
HPI - General General Date of Admission: 09/27/22 Date of Service: 09/27/22 Chief Complaint: fall HPI Narrative MAK SNOW, is a 82 F with a significant history of hypertension who presents emergency department with a mechanical fall. Patient's shoes got stuck at her home and she fell. She reports excruciating pain in her right hip. She describes her right hip pain as spasms. The pain is so severe that she was shivering. COUNT INCLUDES THE [facility] Medical History Hypertension Home Medications lisinopril 40 mg tablet 40 mg PO DAILY BP 07/29/20 [History Last Taken 09/26/22] Allergy/AdvReac Type Severity Reaction Status Date / Time procaine [From Novocain] Allergy passed out Verified 09/26/22 21:16 Family History Other Heart disease Surgical History H/O neck surgery History of surgery on arm Social History Smoking Status: Never smoker ROS ROS Narrative Pertinent positives and pertinent negatives as noted in HPI. All other systems were reviewed and are negative Vital Signs Vital Signs Vital Signs: 09/26/22 21:11 09/26/22 23:43 Temperature 98.1 F Temperature Source Temporal Pulse Rate 74 78 Respiratory Rate 15 15 Blood Pressure 170/79 H 155/62 H Blood Pressure Mean 109 93 Pulse Ox 97 96 Oxygen Delivery Method Room Air Room Air Weight Weight: 61.4 kg Body Mass Index (BMI) 26.4 Physical Exam Narrative Physical exam: General: Well-nourished, well-developed. Head: Normocephalic, atraumatic, no tenderness Eyes: Vision is grossly intact. EOMI ENT, no trauma, moist mucous membranes, no rhinorrhea Neck: Nontender, No thyromegaly. CVS: Regular rate and rhythm. S1-S2 present. No murmur, gallop or rub. Respiratory : clear to auscultation bilaterally, chest wall nontender, no wheezing Abdomen: Soft, nontender, nondistended, normal bowel sounds, no masses : Deferred Back: Nontender, no CVA tenderness, no midline spinal tenderness, deformities, step-offs Extremities: No tenderness in bilateral lower extremities. Skin: Normal color, no trauma, abrasions Neuro: Alert, oriented, cranial nerves II through XII grossly intact. Psychiatry: Normal mood. Normal affect. Not depressed. Not anxious. Results Lab / Micro Data Result Diagrams: 09/26/22 22:00 09/27/22 05:19 Labs: Laboratory Results - last 24 hr 09/26/22 22:00: WBC 14.3 H, RBC 4.18 L, Hgb 13.5, Hct 39.1, MCV 93.5, MCH 32.3 H , MCHC 34.5, RDW Std Deviation 44.6 H, RDW Coeff of Criselda 12.8, Plt Count 252, MPV 9.6, Immature Gran % (Auto) 1.200 H, Neut % (Auto) 86.5 H, Lymph % (Auto) 6.5 L, [place] % (Auto) 5.1, Eos % (Auto) 0.2, Baso % (Auto) 0.5, Absolute Neuts (auto) 12.3 H, Absolute Lymphs (auto) 0.93, Nucleated RBC % 0 09/26/22 22:00: Sodium 141, Potassium 3.5, Chloride 109 H, Carbon Dioxide 28.0, Anion Gap 4 L, BUN 18, Creatinine 0.69, Estim Creat Clear Calc 31.69, Est GFR (MDRD) Af Amer 105, Est GFR (MDRD) Non-Af 87, BUN/Creatinine Ratio 26.1 H, Glucose 126 H, Calcium 9.4 09/26/22 23:45: Urine Color Yellow, Urine Clarity Clear, Urine pH 6.0, Ur Specific [place] 1.020, Urine Protein 15 H, Urine Glucose (UA) Normal, Urine Ketones Negative, Urine Occult Blood 25 H, Urine Nitrite Negative, Urine Bilirubin Negative, Urine Urobilinogen Normal, Ur Leukocyte Esterase Negative, Urine RBC 0 SEEN, Urine WBC 0 SEEN, Ur Squamous Epith Cells 0-5 SEEN, Urine Bacteria RARE, Urine Mucus 0 SEEN Radiology Impression Chest X-Ray 09/26/22 21:45 IMPRESSION: 1. No evidence of acute cardiopulmonary process Electronically Signed: Casper Rivera MD at 23:31 EST , Hip/Pelvis X-Ray 09/26/22 21:45 IMPRESSION: 1. Mildly displaced RIGHT femoral neck fracture. 2. No other fracture, no dislocation noted. Electronically Signed: Casper Rivera MD at 23:30 EST Reading Location ID and State: [facility] / [place] Tel , Service support , Knee X-Ray 09/26/22 21:45 IMPRESSION: 1. No evidence of fracture or malalignment, degenerative changes noted with medial and lateral joint space narrowing. No acute destructive bony process. Electronically Signed: Casper Rivera MD at 23:29 EST , Assessment & Plan Assessment/Plan (1) Hypertension: (2) Hip fracture: PLAN: Plan Right femoral neck fracture Hip and pelvis x-ray was visualized and independently interpreted and I agree with radiologist interpretation Emergent department doctor discussed the case with Dr. Dolan. Inpatient consult for orthopedic surgery. Morphine IV and oxycodone as needed ordered. Tylenol as needed ordered. Bowel protocol and antiemetics IV ordered. Keep n.p.o. While n.p.o. lactated Ringer's ordered. Check vitamin D level. Preoperative EKG unremarkable ACS NSQIP surgical risk calculator with below surgical risk. Hypertension Blood pressure is not within goal Home blood pressure medication Trend blood pressure and adjust blood pressure medications. DVT prophylaxis SCDs ordered Charges/Coding Visit Charges Inpatient E&M: 65639 Init Hosp L2
[2022-09-27] MEDS: Lactated Ringers 1,000 ML 75 ML IV ×3 (00:52→23:35)
[2022-09-27] MEDS: Morphine 2 MG/ML Syringe IV ×5 (01:12→17:07)
[2022-09-27 02:03] LABS: ALB/GLOB Ratio 1.1 RATIO (0.9-2.4); AST(SGOT) 27 U/L (15-37); Alanine Aminotransfer ALT/SGPT 26 U/L (13-56); Albumin, Serum 3.7 g/dL (3.2-5.0); Alkaline Phosphatase 90 U/L (45-117); Anion Gap 8 (5-15); BUN 15 mg/dL (7-18); BUN/Creat Ratio 22.5 RATIO (10-20); Calcium,Total 8.9 mg/dL (8.5-10.1); Chloride 112 mmol/L (98-107); Creatinine, Serum 0.67 mg/dL (0.55-1.02); EST Glomerular Filtration Rate 90 mL/min (>60); Est Glom Filt Rate - Afr Amer 109 mL/min (>60); Estimated Creatinine Clearance 31.69 ml/min; Globulin 3.5 g/dL (2.2-4.2); Glucose 109 mg/dL (74-106); Potassium 3.7 mmol/L (3.5-5.1); Protein, Total 7.2 g/dL (6.4-8.2); Sodium Level 143 mmol/L (136-145)
[2022-09-27 02:54] LABS: Vitamin D,25 Hydroxy 20.4 ng/mL
[2022-09-27 06:10] LABS: Anion Gap 9 (5-15); BUN 15 mg/dL (7-18); BUN/Creat Ratio 22.2 RATIO (10-20); Calcium,Total 8.6 mg/dL (8.5-10.1); Chloride 111 mmol/L (98-107); Creatinine, Serum 0.68 mg/dL (0.55-1.02); EST Glomerular Filtration Rate 89 mL/min (>60); Est Glom Filt Rate - Afr Amer 107 mL/min (>60); Estimated Creatinine Clearance 31.69 ml/min; Glucose 121 mg/dL (74-106); Potassium 3.5 mmol/L (3.5-5.1); Sodium Level 143 mmol/L (136-145)
[2022-09-27 14:47] LABS: Absolute Lymphocyte Count 1.38 X10^3/uL (0.83-4.51); Absolute Neutrophil Count 12.6 X10^3/uL (2.0-7.7); Basophil# 0.07 X10^3/uL; Basophil% 0.5 % (0-1); Eosinophil# 0.01 X10^3/uL; Eosinophils% 0.1 % (0-5); Hematocrit 39.6 % (37-47); Hemoglobin 13.6 g/dL (12.0-15.0); Lymphocyte # 1.38 X10^3/ul (0.83-4.51); Lymphocyte % 9.2 % (19-41); Mean Corp Hgb Conc 34.3 g/dL (32-36); Mean Corpuscular Hgb 32.3 pg (27.0-32.0); Mean Corpuscular Volume 94.1 fL (81-99); Mean Platelet Vol. 10.7 fl (6.2-12.0); Monocyte# 0.79 X10^3/uL; Monocyte% 5.3 % (0-10); NRBC Flagged by Analyzer 0 % (0-5); Neutrophil # 12.63 X10^3/uL (2.7-7.7); Neutrophil % 84.3 % (47-70); Platelet Count 240 K/mm3 (150-450); RBC Distribution Width CV 12.9 % (11.6-14.6); RBC Distribution Width SD 44.4 fl (35.1-43.9); Red Blood Count 4.21 M/mm3 (4.2-5.4)
--- NOTE | 2022-09-27 15:30 | CASEMGMT ---
JIN JONES DC Planning Assessment: Face to Face with patient for initial transition planning/care coordination assessment. JIN JONES introduced self and role at [facility], pt voiced understanding. Pt's daughter Anahi at bedside and pt provided permission to speak in front of daughter. Care providers, insurance benefits, and demographics verified. PCP: Yasmany Specialists: Loretta (cardiology) Preferred Pharmacy: [facility] Insurance: [place] [employer] Prescription Benefit: Yes Living Will/HPOA: Yes/Yes: HPOA daughter Anahi Cannon first and son Mark Napier second LNOK: childresabran Christian and Mark Living Arrangements: Pt lives alone in a single story home with two step to enter without a handrail or 2 steps from the garage with a handrail. Pt has been independent with all ADLs. Pt's daughter lives around the corner from pt and is available to assist intermittently. Transportation: Pt drives and daughter is able to drive if needed DME: None HHC/SNF: No previous providers Plan: Pt states she plans on continued rehabilitation at discharge a SNF. States her first choice is [facility]CU and second choice is [facility] based on previous experiences visiting others. Call placed to [facility] who states they do not accept pt's insurance and do not have any open beds. Call placed to Danna at [facility] who states they do not take pt's insurance. List from [facility] of SNF providers in-network with pt's insurance and consistent with pt's preferred geographic and inclusive of quality and resource use data was provided to pt. Pt and daughter to review the list and provide additional choices. Educated on star ratings and quality data provided on [facility] list and ability to visit facilities. Pt and daughter expressed understanding and denied any further questions. Will continue to monitor pt's progress and assist with transition to a SNF LOC at discharge. Pallavi Linares RN CM
--- NOTE | 2022-09-27 16:30 | CASEMGMT ---
JIN JONES Follow-up: Call received from pt's daughter stating they would like a referral sent to [facility]. Will send via [facility]. Pallavi Linares RN CM
[2022-09-27] MEDS: 0.9% Saline Lock 10 ML Syringe IV (17:07)
--- NOTE | 2022-09-27 17:32 | NURSING ---
2nd chlorahex bath given. Down to surgery via bed at this time.
--- NOTE | 2022-09-27 19:02 | CONS.ORTHO ---
HPI Consult Data Date of Consult: 09/27/22 HPI Narrative Reason for Consultation: Right hip pain HPI Narrative: MAK SNOW, is a 82 F who presents with right hip pain status post mechanical fall. Patient has minimal medical history. Currently treated for hypertension with lisinopril. 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 Patient lives at home independently. She cares for all of her ADLs. She continues to drive. She does report a history of previous right hip pain on occasion with activities. Patient has 10 out of 10 pain with motion. She is relief of her pain with immobilization. She is currently on bedrest. Her daughter who is power of arranging funeral director is at bedside for the entire consultation. She is currently unable to bear weight. Denies any chest pain or shortness of breath. Patient ambulates independently and does not use a walker or a cane. [facility] Medical History Hypertension Home Medications lisinopril 40 mg tablet 40 mg PO DAILY BP 07/29/20 [History Last Taken 09/26/22] Allergy/AdvReac Type Severity Reaction Status Date / Time procaine [From Novocain] Allergy passed out Verified 09/26/22 21:16 Family History Other Heart disease no significant family history Surgical History H/O neck surgery History of surgery on arm Social History Smoking Status: Never smoker ROS Constitutional Constitutional: Reports systems reviewed and no addt'l complaints, except as documented Eyes Eyes: Reports systems reviewed and no addt'l complaints, except as documented ENT HEENT: Reports systems reviewed and no addt'l complaints, except as documented Cardiovascular Cardiovascular: Reports systems reviewed and no addt'l complaints, except as documented Respiratory/Chest Respiratory/Chest: Reports systems reviewed and no addt'l complaints, except as documented Gastrointestinal Gastrointestinal: Reports systems reviewed and no addt'l complaints, except as documented Genitourinary Genitourinary: Reports systems reviewed and no addt'l complaints, except as documented Musculoskeletal Musculoskeletal: Reports systems reviewed and no addt'l complaints, except as documented Integumentary Integumentary: Reports systems reviewed and no addt'l complaints, except as documented Neurologic Neurologic: Reports systems reviewed and no addt'l complaints, except as documented Psychiatric Psychiatric: Reports systems reviewed and no addt'l complaints, except as documented Vital Signs Vital Signs Vital Signs: 09/26/22 21:11 09/26/22 23:43 09/27/22 01:08 Temperature 98.1 F 99.7 F H Temperature Source Temporal Oral Pulse Rate 74 78 102 H Respiratory Rate 15 15 16 Respiratory Effort Respiratory Depth Respiratory Pattern Blood Pressure 170/79 H 155/62 H 174/79 H Blood Pressure Mean 109 93 110 Blood Pressure Source Monitor Blood Pressure Position Semi-Fowlers Blood Pressure Location Right Arm Pulse Ox 97 96 93 Oxygen Delivery Method Room Air Room Air Room Air 09/27/22 01:30 09/27/22 02:59 09/27/22 03:54 Temperature 97.8 F Temperature Source Oral Pulse Rate 95 Respiratory Rate 18 Respiratory Effort Normal Respiratory Depth Normal Respiratory Pattern Normal Blood Pressure 161/83 H Blood Pressure Mean 109 Blood Pressure Source Monitor Blood Pressure Position Semi-Fowlers Blood Pressure Location Left Arm Pulse Ox 95 95 Oxygen Delivery Method Room Air Room Air Room Air 09/27/22 06:42 09/27/22 07:20 09/27/22 09:07 Temperature 97.7 F L 97.4 F L Temperature Source Oral Oral Pulse Rate 83 76 Respiratory Rate 18 18 Respiratory Effort Respiratory Depth Respiratory Pattern Blood Pressure 150/63 H 110/68 Blood Pressure Mean 92 82 Blood Pressure Source Monitor Monitor Blood Pressure Position Semi-Fowlers Semi-Fowlers Blood Pressure Location Left Arm Left Arm Pulse Ox 96 96 92 Oxygen Delivery Method Room Air Room Air Room Air 09/27/22 07:00 09/27/22 07:34 09/27/22 14:00 Temperature Temperature Source Pulse Rate 82 68 Respiratory Rate Respiratory Effort Normal Non-Labored Respiratory Depth Normal Respiratory Pattern Normal Blood Pressure Blood Pressure Mean Blood Pressure Source Blood Pressure Position Blood Pressure Location Pulse Ox Oxygen Delivery Method Room Air 09/27/22 16:53 Temperature 99.2 F H Temperature Source Oral Pulse Rate 73 Respiratory Rate 18 Respiratory Effort Respiratory Depth Respiratory Pattern Blood Pressure 144/61 H Blood Pressure Mean 88 Blood Pressure Source Monitor Blood Pressure Position Semi-Fowlers Blood Pressure Location Left Arm Pulse Ox 94 Oxygen Delivery Method Room Air Weight Weight: 121 lb 7.595 oz Body Mass Index (BMI) 23.7 Physical Exam Const alert, oriented x3 and well nourished General Appearance: cooperative HEENT normocephalic Eyes PERRL Neck no JVD Resp normal respiratory effort Cardio Cardio Narrative: Regular pulse rate GI non-distended Extremity Extremity Narrative: Right lower extremity: Skin clean, dry, and intact. Limb is shortened and externally rotated Motor is intact dorsiflexion, EHL and plantar flexion. Sensation is intact to light touch saphenous, josef,l superficial peroneal, deep peroneal and tibial distributions. Calves are soft and supple. Skin no rashes or lesions noted Neuro CN's II-XII intact bilaterally Psych affect normal Medical Records Data Attestation: I reviewed the patient's medical records Lab / Micro Data Attestation: I reviewed the patient's lab results. Result Diagrams: 09/27/22 01:17 09/27/22 05:19 Labs: Laboratory Results - last 24 hr 09/26/22 22:00: WBC 14.3 H, RBC 4.18 L, Hgb 13.5, Hct 39.1, MCV 93.5, MCH 32.3 H, MCHC 34.5, RDW Std Deviation 44.6 H, RDW Coeff of Criselda 12.8, Plt Count 252, MPV 9.6, Immature Gran % (Auto) 1.200 H, Neut % (Auto) 86.5 H, Lymph % (Auto) 6.5 L, [place] % (Auto) 5.1, Eos % (Auto) 0.2, Baso % (Auto) 0.5, Absolute Neuts (auto) 12.3 H, Absolute Lymphs (auto) 0.93, Nucleated RBC % 0 09/26/22 22:00: Sodium 141, Potassium 3.5, Chloride 109 H, Carbon Dioxide 28.0, Anion Gap 4 L, BUN 18, Creatinine 0.69, Estim Creat Clear Calc 31.69, Est GFR (MDRD) Af Amer 105, Est GFR (MDRD) Non-Af 87, BUN/Creatinine Ratio 26.1 H, Glucose 126 H, Calcium 9.4 09/26/22 23:45: Urine Color Yellow, Urine Clarity Clear, Urine pH 6.0, Ur Specific [place] 1.020, Urine Protein 15 H, Urine Glucose (UA) Normal, Urine Ketones Negative, Urine Occult Blood 25 H, Urine Nitrite Negative, Urine Bilirubin Negative, Urine Urobilinogen Normal, Ur Leukocyte Esterase Negative, Urine RBC 0 SEEN, Urine WBC 0 SEEN, Ur Squamous Epith Cells 0-5 SEEN, Urine Bacteria RARE, Urine Mucus 0 SEEN 09/27/22 01:17: Sodium 143, Potassium 3.7, Chloride 112 H, Carbon Dioxide 23.0, Anion Gap 8, BUN 15, Creatinine 0.67, Estim Creat Clear Calc 31.69, Est GFR (MDRD) Af Amer 109, Est GFR (MDRD) Non-Af 90, BUN/Creatinine Ratio 22.5 H, Glucose 109 H, Calcium 8.9, Total Bilirubin 0.50, AST 27, ALT 26, Alkaline Phosphatase 90, Total Protein 7.2, Albumin 3.7, Globulin 3.5, Albumin/Globulin Ratio 1.1 09/27/22 01:17: Vitamin D 25-Hydroxy 20.4 09/27/22 01:17: WBC 15.0 H, RBC 4.21, Hgb 13.6, Hct 39.6, MCV 94.1, MCH 32.3 H, MCHC 34.3, RDW Std Deviation 44.4 H, RDW Coeff of Criselda 12.9, Plt Count 240, MPV 10.7, Immature Gran % (Auto) 0.600, Neut % (Auto) 84.3 H, Lymph % (Auto) 9.2 L, [place] % (Auto) 5.3, Eos % (Auto) 0.1, Baso % (Auto) 0.5, Absolute Neuts (auto) 12.6 H, Absolute Lymphs (auto) 1.38, Nucleated RBC % 0 09/27/22 01:17: Blood Type A POSITIVE, Antibody Screen NEGATIVE 09/27/22 05:19: Sodium 143, Potassium 3.5, Chloride 111 H, Carbon Dioxide 23.0, Anion Gap 9, BUN 15, Creatinine 0.68, Estim Creat Clear Calc 31.69, Est GFR (MDRD) Af Amer 107, Est GFR (MDRD) Non-Af 89, BUN/Creatinine Ratio 22.2 H, Glucose 121 H, Calcium 8.6 Radiology Impression Chest X-Ray 09/26/22 21:45 IMPRESSION: 1. No evidence of acute cardiopulmonary process Electronically Signed: Casper Rivera MD at 23:31 EST , Hip/Pelvis X-Ray 09/26/22 21:45 IMPRESSION: 1. Mildly displaced RIGHT femoral neck fracture. 2. No other fracture, no dislocation noted. Electronically Signed: Casper Rivera MD at 23:30 EST , On my own review of the hip x-rays patient has subcapital right femoral neck fracture with displacement. She has mild joint space narrowing with evidence of femoral acetabular impingement and acetabular impaction on the lateral rim. Knee X-Ray 09/26/22 21:45 IMPRESSION: 1. No evidence of fracture or malalignment, degenerative changes noted with medial and lateral joint space narrowing. No acute destructive bony process. Electronically Signed: Casper Rivera MD at 23:29 EST , Assessment & Plan Assessment/Plan (1) Hip fracture: PLAN: Natural history of the disease process and treatment options were discussed with the patient as well as her family. Her power of arranging funeral director daughter was at the bedside. They were given the opportunity ask questions all questions were answered to the greatest of my ability. Treatment options were discussed including nonoperative intervention which was not recommended, percutaneous pinning which was not recommended secondary to high risk of failure and nonunion as well as a vast necrosis. We discussed partial versus total hip replacement. Based on patient's activity level x-ray findings consistent with degenerative changes and overall health and expected longevity I did explain to the patient that I recommended total replacement as an appropriate treatment option at this time. We discussed the increased risk of dislocation with total replacement as well as the increased expectation of longevity and decreased risk of failure due to acetabular erosion and arthrosis. General risk of surgery included in our discussion were infections, blood loss, DVTs, PEs, nervous damage, periprosthetic infections intra and postoperatively, general risk of anesthesia including loss of life. Infections could require multiple surgeries and debridement including loss of function of the limb. Patient and power of arranging funeral director both agreed to proceed with surgery and power of arranging funeral director was able to sign the informed consent today for the patient. Antibiotics ordered on-call to the operating room. We will proceed with surgery this evening. (2) Osteoarthritis of right hip: PLAN: Due to patient's degenerative changes on radiographs as well as her overall activity level and health I did recommend total replacement.
--- NOTE | 2022-09-27 19:12 | PCM.OPRPT ---
Report of Operation Date of Procedure: 09/27/22 Pre-Operative Diagnosis: Right hip primary osteoarthritis with acute displaced subcapital femoral neck fracture Post-Operative Diagnosis: Right hip primary osteoarthritis with acute displaced subcapital femoral neck fracture Surgery/Procedure Performed:: Right direct anterior total hip replacement Description of Surgical Findings:: Stable hip with equal leg length Surgeon: Guanako Conrad regional climate change analyst: Frantz Corral Type of Anesthesia: General Anesthesiologist: Prashant Soliz Special Medications: 2 g Ancef, 1 g TXA at incision, 1 g TXA closure, 10 mg Decadron, joint cocktail (5 mg Duramorph, 30 mL of 0.5% Ropivicaine, 1000 units of epinephrine, 30 mg of Toradol) Specimen's removed: Bony cuts Description of Procedure: Components used: 1. Insignia Yung femoral stem size 4 high offset 2. [place] trident 2 acetabular shell size 46 mm 3. Yung X3 polyethylene MDM liner 36C 4. Yung cobalt-chromium 22.2 mm, 0 mm femoral head 5. [place] cobalt-chromium MDM acetabular liner C Brief history operative indications: 82 yo f who sustained a right subcapital femoral neck fracture. Total hip replacement was discussed with the patient with risks and benefits including but not limited to blood loss, DVTs, PEs, neurovascular damage, dislocation, general risks of anesthesia including loss of life. Patient demonstrated an understanding medical clearance is obtained the patient was consented for surgery. Procedure: On the date of procedure the patient's right hip was marked in the preoperative area. Patient was then taken back to the operating room where anesthesia assumed control of the C-spine and airway and administered anesthetic. Patient was transferred to the operating table and placed in the supine position. The hips were placed at the break of the bed and a sacral bump was placed. The right lower extremity was then prepped out in a sterile fashion using chlorhexidine while the surgeon scrubbed. The PA was vital in the positioning of the patient. Upon reentering the room the right lower extremity was draped in the standard orthopedic fashion and the incision was marked. A timeout was called and everyone agreed upon the side, the site, the procedure be performed, antibody given, and patient's identity. At this time incision was made through skin, subcutaneous tissue, and fat down to fascia. The fascia was then incised and the TFL was retracted laterally. A retractor was placed on the lateral border of the femoral neck. Attention was directed to the inferior portion of the approach and all crossing vessels were identified and appropriately coagulated. A retractor was then placed on the medial portion of the femoral neck. The anterior capsule was then cleared of all soft tissue and then H shaped capsulotomy was made. The retractors were then placed inside the capsule. The femoral neck was identified and a cleanup cut was made. At this time a power corkscrew was used to remove the femoral head. Attention was then turned toward the acetabulum where the soft tissues were appropriately retracted and the acetabulum was sequentially reamed to 46 mm. A 46 mm cup was then selected and impacted into place. Acetabular liner was impacted into place and locking mechanism was verified. The position of the acetabular cup was then verified under live fluoroscopy. Attention was then turned to the femur. Soft tissue releases on the medial and lateral femoral neck were appropriately done, the leg was externally rotated and lateralized. A Black retractor was placed medially and proximally to the greater trochanter this allowed appropriate visualization and exposure of the femoral canal. [place] was then used to remove excess lateral bone. A canal finder and entry broach were used to open the proximal canal. Once we verified we were down the femoral canal we subsequently broached up to a size 4 femur. The appropriate neck was placed in the previously selected head was trialed with a 0 mm neck. Traction was pulled and the hip was reduced with internal rotation. Once it was appropriately reduced and stability was checked. There was minimal shuck, equal leg lengths and appropriate stability with hyperextension and external rotation as well as with 90? flexion and internal rotation. Fluoroscopy was then also used to verify the position of the components and leg lengths using the contralateral side for comparison. The trial components were then dislocated the proximal femur was again exposed and the components were removed from the wound. The final components were verified and opened. The wound was copiously irrigated out with normal saline. The acetabulum was checked for any residual debris. The final components were placed and impacted. Traction and internal rotation were again used to reduce the hip. After adequate reduction the hip remained stable with appropriate leg lengths. The final components were once again checked with live fluoroscopy and were found to be satisfactory. The wound was then copiously irrigated with normal saline once more, and hemostasis was obtained. Closure was then done using #1 Vicryl runner to close the fascia. A 2-0 vicryl interuppted sutures were used to close the subcutaneous skin. A 3-0 nylon sutures were used for final skin closure. A Silverlon dressing was placed. Patient was awakened by anesthesia and transferred to the [facility]. Patient was then transferred to the PACU for recovery. During the course of the procedure the physician construction grip (PE) played a vital role. Their intimate knowledge of my steps in the procedure aided in safe and expedient completion of the procedure. The PE played a vital rolls in positioning particularly in obtaining the appropriate positioning of the sacral bump. The PE was also vital in the retraction of soft tissues during the exposure and especially the femoral work as this is a vital part of the procedure to prevent complications and fractures. The PE was also vital and protecting soft tissues during times of bony cuts and reaming. He also played a vital role in closure with my direct supervision. The PE was also important during reduction and dislocation of the joint and trials intraoperatively. Postoperative plan: Patient will get 24 hours postop antibiotics. Patient will get in-house physical therapy and will be weight-bear as tolerated. Patient will follow up in office in 2 weeks for a wound check and x-rays. Aspirin 81 mg twice daily. Complications No intraoperative complications Admit VTE Documentation VTE Present on Admission: No VTE Mechan Device Prophylaxis: SCD's and Thigh High BO Hose VTE Pharm Prophylaxis ordered?: Yes
[2022-09-27] MEDS: Cefazolin 2 GM in 0.9% Normal Saline 100 ML IV (20:10)
--- NOTE | 2022-09-27 20:17 | RAD_ITS ---
EXAM: XR RIGHT HIP WITH PELVIS WHEN PERFORMED, 1 VIEW CLINICAL INDICATION: FX TECHNIQUE: Frontal view of the right hip with pelvis when performed. This report was created using [employer] report generation technology. COMPARISON: None. FINDINGS: BONES/JOINTS: Images were obtained intraoperatively which a placement of a right hip prosthesis in anatomic alignment. No displaced fracture. No destructive or sclerotic lesions. Note that overlapping bowel shadows may however obscure fine detail. Sacroiliac joint is unremarkable. No widening of the pubic symphysis. SOFT TISSUES: Unremarkable. No soft tissue swelling or gas. RAD/Hip 1 view with Pelvis IMPRESSION: Placement of a right hip prosthesis in anatomic alignment. Electronically Signed: Jason Hunt MD at 22:18 EST ,
--- NOTE | 2022-09-27 22:15 | RAD_ITS ---
EXAM: XR RIGHT HIP WITH PELVIS WHEN PERFORMED, 2 OR 3 VIEWS CLINICAL INDICATION: Post Op -- AP both hips on single tian/lateral of op hip PACU TECHNIQUE: Two or three views of the right hip with pelvis when performed. This report was created using [employer] report generation technology. COMPARISON: None. FINDINGS: BONES/JOINTS: There is a total right hip prosthesis in anatomic alignment. No displaced fracture. No destructive or sclerotic lesions. Note that overlapping bowel shadows may however obscure fine detail. Sacroiliac joint is unremarkable. No widening of the pubic symphysis. SOFT TISSUES: Unremarkable. No soft tissue swelling or gas. RAD/Hip Min 2 Views (Portable) IMPRESSION: Right hip prosthesis in anatomic alignment. There is no acute osseous abnormality. Electronically Signed: Jason Hunt MD at 22:40 EST ,
[2022-09-27] MEDS: Lactated Ringers 1,000 ML 15 ML IV (22:22)
[2022-09-28] VITALS (14 sets, daily range): BP systolic 60–148; BP diastolic 36–95; PULSE 56–100; RESP 16–18; TEMP 36.4–37.4; O2SAT 93–98
[2022-09-28] MEDS: Lactated Ringers 1,000 ML 75 ML IV (06:11)
--- NOTE | 2022-09-28 06:55 | PN.ORTHO_ITS ---
Subjective Subjective The patient was sitting in bed upon examination. Patient denies any chest pain, shortness of breath, dizziness, lightheadedness, nausea or vomiting, or calf pain. Pain is controlled on medications. No adverse overnight events. Patient overall is doing well this morning. She is in no acute distress. Patient ates her fall occurred while she was at home in the kitchen. She does live home alone. Her daughter does live close by. She denies any numbness and tingling. She does have some thigh soreness today. Objective Data Objective Data Vital Signs: Vital Signs Temp Pulse Resp BP Pulse Ox O2 Del Method O2 Flow Rate 98.3 F 68 16 97/80 98 Room Air 2 09/28/22 06:50 09/28/22 06:50 09/28/22 06:50 09/28/22 06:50 09/28/22 06:50 09/28/22 06:50 09/28/22 03:18 Oxygen Flow Rate (L/min) 2 Oxygen Delivery Method Room Air Weight: 55.1 kg Body Mass Index (BMI) 23.7 Intake & Output: Intake and Output for Last 24 Hours 09/26/22 09/27/22 09/28/22 23:59 23:59 23:59 Intake Total 3128.5 / 3128.5 795 / 795 Output Total 2075 / 2075 850 / 850 Balance 1053.5 / 1053.5 -55 / -55 Lab / Micro Data Result Diagrams: 09/27/22 01:17 09/27/22 05:19 Labs: Laboratory Results - last 24 hr 09/27/22 01:17: WBC 15.0 H, RBC 4.21, Hgb 13.6, Hct 39.6, MCV 94.1, MCH 32.3 H, MCHC 34.3, RDW Std Deviation 44.4 H, RDW Coeff of Criselda 12.9, Plt Count 240, MPV 10.7, Immature Gran % (Auto) 0.600, Neut % (Auto) 84.3 H, Lymph % (Auto) 9.2 L, [place] % (Auto) 5.3, Eos % (Auto) 0.1, Baso % (Auto) 0.5, Absolute Neuts (auto) 12.6 H, Absolute Lymphs (auto) 1.38, Nucleated RBC % 0 Radiography Diagnostic Testing: Radiology Impression Hip/Pelvis X-Ray 09/27/22 20:17 IMPRESSION: Placement of a right hip prosthesis in anatomic alignment. Electronically Signed: Jason Hunt MD at 22:18 EST , Hip X-Ray 09/27/22 22:15 IMPRESSION: Right hip prosthesis in anatomic alignment. There is no acute osseous abnormality. Electronically Signed: Jason Hunt MD at 22:40 EST , Physical Exam Narrative Vital signs stable and afebrile. SCDs and BO hose are in place bilaterally Patient is able to plantarflex and dorsiflex actively. Sensation is intact to light touch to saphenous, sural, superficial and deep peroneal, and tibial distribution. Dressing is clean dry and intact. There is some minimal reactive erythema surrounding the proximal incision under the dressing Negative Homans bilaterally, negative signs and symptoms of DVT. Const alert, oriented x3 and no apparent distress Assessment & Plan Assessment/Plan (1) S/P total right hip arthroplasty: PLAN: 1. S/P direct anterior right total hip arthroplasty secondary to fracture POD #1 2. Continue Pain Medications: Tylenol and oxycodone as needed 3. DVT Prophylaxis: Recommend patient take 81 mg aspirin twice daily for 4 weeks postoperatively for DVT prophylaxis. Patient denies any previous history of DVT or pulmonary embolism. 4. PT/OT: Weightbearing as tolerated with walker 5. H & H: No current lab work, asymptomatic. 6. Continue postoperative medical management per medicine 7. Encouraged Incentive Spirometry 8. Disposition: Patient appears to be in no acute distress this morning and her pain is well controlled. At this time patient will need to be assessed by physical therapy for appropriate discharge planning. She does live home alone but has a daughter who lives close by. Patient may require group home facility versus rehab center to continue to focus on ambulation and strength. With regards to the dressing this should remain on until October 02, 2022. Patient is able to shower with this dressing but not submerge underwater for 6 weeks postoperatively. She will remove the dressing on her own. Once the dressing is removed she can continue to shower and get the incision wet. She has not the place any ointments, Neosporin or topical sprays over the incision for 6 weeks postoperatively. Orthopedics recommends aspirin 81 mg twice daily for 4 weeks postoperatively for DVT prophylaxis. She can continue with Tylenol and oxycodone as needed for pain control. Case management will be involved for appropriate discharge planning. Please contact orthopedics with any concerns or questions while in the hospital. I also discussed with the patient with this surgery from a direct anterior approach it is common to have thigh soreness and swelling in this region. Continue to use ice over this area as needed. Patient will require 2-week follow-up with Dr. Guanako Conrad or Mahendra Corral PA-C with repeat x-rays. This dictation was created using voice recognition software. Phonetic and/or grammatical errors may exist. (2) Hip fracture:
[2022-09-28 07:10] LABS: Absolute Lymphocyte Count 1.39 X10^3/uL (0.83-4.51); Absolute Neutrophil Count 8.1 X10^3/uL (2.0-7.7); Basophil# 0.06 X10^3/uL; Basophil% 0.6 % (0-1); Eosinophil# 0.13 X10^3/uL; Eosinophils% 1.2 % (0-5); Hematocrit 31.9 % (37-47); Hemoglobin 10.6 g/dL (12.0-15.0); Lymphocyte # 1.39 X10^3/ul (0.83-4.51); Lymphocyte % 13.2 % (19-41); Mean Corp Hgb Conc 33.2 g/dL (32-36); Mean Corpuscular Hgb 32.5 pg (27.0-32.0); Mean Corpuscular Volume 97.9 fL (81-99); Monocyte# 0.76 X10^3/uL; Monocyte% 7.2 % (0-10); NRBC Flagged by Analyzer 0 % (0-5); Neutrophil # 8.09 X10^3/uL (2.7-7.7); Neutrophil % 76.9 % (47-70); Platelet Count 155 K/mm3 (150-450); RBC Distribution Width CV 13.3 % (11.6-14.6); RBC Distribution Width SD 47.8 fl (35.1-43.9); Red Blood Count 3.26 M/mm3 (4.2-5.4); White Blood Count 10.5 K/mm3 (4.4-11.0)
[2022-09-28 07:34] LABS: Anion Gap 3 (5-15); BUN 14 mg/dL (7-18); BUN/Creat Ratio 20.9 RATIO (10-20); Calcium,Total 8.1 mg/dL (8.5-10.1); Chloride 108 mmol/L (98-107); Creatinine, Serum 0.67 mg/dL (0.55-1.02); EST Glomerular Filtration Rate 90 mL/min (>60); Est Glom Filt Rate - Afr Amer 109 mL/min (>60); Estimated Creatinine Clearance 31.69 ml/min; Glucose 103 mg/dL (74-106); Potassium 4.2 mmol/L (3.5-5.1); Sodium Level 138 mmol/L (136-145)
[2022-09-28 09:19] LABS: Vitamin D,25 Hydroxy 14.1 ng/mL
[2022-09-28] MEDS: Senna/Docusate Sodium 1 Tablet 2 TABLET PO ×2 (10:29→20:48)
[2022-09-28] MEDS: Tamsulosin HCl 0.4 MG Capsule PO (10:29)
[2022-09-28] MEDS: Lisinopril 40 MG Tablet PO (10:30)
[2022-09-28] MEDS: Aspirin 81 MG TAB.CHEW PO ×2 (10:30→16:43)
[2022-09-28] MEDS: oxyCODONE 5 MG Tablet PO (10:36)
[2022-09-28] MEDS: Acetaminophen 325 MG Tablet 650 MG PO ×2 (10:36→16:43)
--- NOTE | 2022-09-28 13:00 | NURSING ---
this RN answered call light at 1245 to pt with family at bedside, pt stating she felt very warm nauseated and dizzy. negative for facial droop, arm raises even, pt remains alert and oriented x3. blood sugar and vital signs taken. BP low at 60/36, HR 64. pt assisted back to bed and laid flat. BP improved to 97/55, HR 71. MD notified.
--- NOTE | 2022-09-28 13:02 | PN.HOSP_ITS ---
Subjective Subjective Doing well, pain is controlled in the right hip. We will get her up and moving with physical therapy today Objective Data Objective Data Vital Signs: Vital Signs Temp Pulse Resp BP Pulse Ox O2 Del Method O2 Flow Rate 99.3 F H 98 16 148/72 H 94 Room Air 2 09/28/22 10:25 09/28/22 10:25 09/28/22 10:25 09/28/22 10:25 09/28/22 10:25 09/28/22 10:25 09/28/22 03:18 Oxygen Flow Rate (L/min) 2 Oxygen Delivery Method Room Air Weight: 121 lb 7.595 oz Body Mass Index (BMI) 23.7 Intake & Output: Intake and Output for Last 24 Hours 09/27/22 09/28/22 09/29/22 03:59 03:59 03:59 Intake Total 1000 / 1000 2228.5 / 2228.5 1036.25 / 1036.25 Output Total 2525 / 2525 400 / 400 Balance 1000 / 1000 -296.5 / -296.5 636.25 / 636.25 Lab / Micro Data Result Diagrams: 09/28/22 06:35 09/28/22 06:35 Labs: Laboratory Results - last 24 hr 09/27/22 01:17: WBC 15.0 H, RBC 4.21, Hgb 13.6, Hct 39.6, MCV 94.1, MCH 32.3 H, MCHC 34.3, RDW Std Deviation 44.4 H, RDW Coeff of Criselda 12.9, Plt Count 240, MPV 10.7, Immature Gran % (Auto) 0.600, Neut % (Auto) 84.3 H, Lymph % (Auto) 9.2 L, [place] % (Auto) 5.3, Eos % (Auto) 0.1, Baso % (Auto) 0.5, Absolute Neuts (auto) 12.6 H, Absolute Lymphs (auto) 1.38, Nucleated RBC % 0 09/28/22 06:35: Vitamin D 25-Hydroxy 14.1 09/28/22 06:35: WBC 10.5, RBC 3.26 L, Hgb 10.6 L, Hct 31.9 L, MCV 97.9, MCH 32.5 H, MCHC 33.2, RDW Std Deviation 47.8 H, RDW Coeff of Criselda 13.3, Plt Count 155, MPV 10.0, Immature Gran % (Auto) 0.900, Neut % (Auto) 76.9 H, Lymph % (Auto) 13.2 L, [place] % (Auto) 7.2, Eos % (Auto) 1.2, Baso % (Auto) 0.6, Absolute Neuts (auto) 8.1 H, Absolute Lymphs (auto) 1.39, Nucleated RBC % 0 09/28/22 06:35: Sodium 138, Potassium 4.2, Chloride 108 H, Carbon Dioxide 27.0, Anion Gap 3 L, BUN 14, Creatinine 0.67, Estim Creat Clear Calc 31.69, Est GFR (MDRD) Af Amer 109, Est GFR (MDRD) Non-Af 90, BUN/Creatinine Ratio 20.9 H, Glucose 103, Calcium 8.1 L Radiography Diagnostic Testing: Radiology Impression Hip/Pelvis X-Ray 09/27/22 20:17 IMPRESSION: Placement of a right hip prosthesis in anatomic alignment. Electronically Signed: Jason Hunt MD at 22:18 EST , Hip X-Ray 09/27/22 22:15 IMPRESSION: Right hip prosthesis in anatomic alignment. There is no acute osseous abnormality. Electronically Signed: Jason Hunt MD at 22:40 EST , Physical Exam Narrative General: Alert, Oriented x3, Cooperative, No apparent distress HEENT: Atraumatic, PERRLA, EOMI, Normocephalic Oral: Moist Mucosa Neck: Supple, No JVD Lungs: Clear to auscultation, Normal air movement, No rhonchi, No wheeze, No rales Cardiovascular: Regular rate, Regular Rhythm, Normal S1, Normal S2, No murmurs Abdomen: Soft, Non Tender, Non-Distended, No Hepato-splenomegaly Extremities: No edema, Capillary Refill Less than 3 Seconds Skin: Dressing intact on the right hip Musculoskeletal: No Tenderness to Palpation of Joints or Extremities Neurological: Cranial nerves II-XII grossly intact, Motor Exam 5/5 strength throughout, Sensory exam intact to light touch and pain Psych/Mental Status: Normal Affect, Appropriate Assessment & Plan Assessment/Plan (1) Hypertension: (2) Hip fracture: PLAN: Plan 1. Right femoral neck fracture status postrepair on 09/27/2022 ? Continue with PT/OT for possible placement ? Continue with pain management ? vitamin D levels pending ? He does have a Chaudhry in place and per family she has retention issues once she has a Chaudhry in so we will place her on Flomax 2. HTN ? Blood pressures are stable, can continue with her home blood pressure medic patients DVT: SCDs Charges/Coding Visit Charges Inpatient E&M: 77034 Subs Hosp L2
[2022-09-28 13:40] LABS: Bedside Glucose 114 mg/dL (74-106)
--- NOTE | 2022-09-28 16:25 | CASEMGMT ---
Social Work Referral sent to [facility]. Return call from [place] and they do not have any beds available at this time. SW met with pt and daughter and second choice is [facility]. Family would like pt to be in [place]. Referral to [facility] and they have no beds available. Phone call to [facility] and [facility] [place] who confirm they are not in network with insurance. Family requesting TCU. [facility] in TCU confirmed that they are not in network with insurance. SW met with pt and dgt and updated on the above and their next choices [facility]. Referrals sent to both facilities via [facility]. SW will await determination of acceptance. Pt will need precert to go to SNF. Plan: [facility] pending acceptance and precert RISA Arroyo
--- NOTE | 2022-09-28 17:19 | CASEMGMT ---
Social Work Phone call to [facility] and they are not in network with insurance. SW spoke with [facility] and they are able to accept pt. SW met with pt and dgt and they are agreeable to admission to [facility]. Phone call to [facility] and precert has been started with Case #[id number]. Clinicals faxed. [facility] updated. Plan: [facility], pending precert. RISA Arroyo
[2022-09-29] VITALS (9 sets, daily range): BP systolic 104–131; BP diastolic 43–95; PULSE 74–100; RESP 16–18; TEMP 36.6–37.4; O2SAT 95–98
[2022-09-29] MEDS: oxyCODONE 5 MG Tablet PO ×2 (01:00→23:01)
[2022-09-29 08:05] LABS: Absolute Lymphocyte Count 0.93 X10^3/uL (0.83-4.51); Absolute Neutrophil Count 7.8 X10^3/uL (2.0-7.7); Basophil# 0.03 X10^3/uL; Basophil% 0.3 % (0-1); Eosinophil# 0.05 X10^3/uL; Eosinophils% 0.5 % (0-5); Hematocrit 27.2 % (37-47); Hemoglobin 9.3 g/dL (12.0-15.0); Lymphocyte # 0.93 X10^3/ul (0.83-4.51); Lymphocyte % 9.7 % (19-41); Mean Corp Hgb Conc 34.2 g/dL (32-36); Mean Corpuscular Hgb 32.6 pg (27.0-32.0); Mean Corpuscular Volume 95.4 fL (81-99); Mean Platelet Vol. 10.4 fl (6.2-12.0); Monocyte# 0.73 X10^3/uL; Monocyte% 7.6 % (0-10); NRBC Flagged by Analyzer 0 % (0-5); Neutrophil # 7.79 X10^3/uL (2.7-7.7); Neutrophil % 81.4 % (47-70); Platelet Count 142 K/mm3 (150-450); RBC Distribution Width CV 12.6 % (11.6-14.6); Red Blood Count 2.85 M/mm3 (4.2-5.4); White Blood Count 9.6 K/mm3 (4.4-11.0)
[2022-09-29 08:17] LABS: Anion Gap 4 (5-15); BUN 15 mg/dL (7-18); BUN/Creat Ratio 26.6 RATIO (10-20); Calcium,Total 8.3 mg/dL (8.5-10.1); Chloride 102 mmol/L (98-107); Creatinine, Serum 0.56 mg/dL (0.55-1.02); EST Glomerular Filtration Rate 110 mL/min (>60); Est Glom Filt Rate - Afr Amer 133 mL/min (>60); Estimated Creatinine Clearance 31.69 ml/min; Glucose 113 mg/dL (74-106); Potassium 4.1 mmol/L (3.5-5.1); Sodium Level 134 mmol/L (136-145)
[2022-09-29] MEDS: Aspirin 81 MG TAB.CHEW PO ×2 (08:55→16:16)
[2022-09-29] MEDS: Senna/Docusate Sodium 1 Tablet 2 TABLET PO ×2 (08:55→23:01)
[2022-09-29] MEDS: Lisinopril 40 MG Tablet PO (08:56)
--- NOTE | 2022-09-29 10:18 | PN.HOSP_ITS ---
Subjective Subjective Doing well, no issues overnight Objective Data Objective Data Vital Signs: Vital Signs Temp Pulse Resp BP Pulse Ox O2 Del Method O2 Flow Rate 99.3 F H 90 18 112/60 95 Room Air 2 09/29/22 08:40 09/29/22 08:40 09/29/22 08:40 09/29/22 08:40 09/29/22 08:40 09/29/22 08:44 09/28/22 03:18 Oxygen Flow Rate (L/min) 2 Oxygen Delivery Method Room Air Weight: 121 lb 7.595 oz Body Mass Index (BMI) 23.7 Intake & Output: Intake and Output for Last 24 Hours 09/28/22 09/29/22 09/30/22 03:59 03:59 03:59 Intake Total 2228.5 / 2228.5 1756.25 / 1756.25 Output Total 2525 / 2525 1000 / 1000 250 / 250 Balance -296.5 / -296.5 756.25 / 756.25 -250 / -250 Lab / Micro Data Result Diagrams: 09/29/22 07:30 09/29/22 07:30 Labs: Laboratory Results - last 24 hr 09/28/22 12:46: POC Glucose 114 H 09/29/22 07:30: WBC 9.6, RBC 2.85 L, Hgb 9.3 L, Hct 27.2 L, MCV 95.4, MCH 32.6 H , MCHC 34.2, RDW Std Deviation 44.0 H, RDW Coeff of Criselda 12.6, Plt Count 142 L, MPV 10.4, Immature Gran % (Auto) 0.500, Neut % (Auto) 81.4 H, Lymph % (Auto) 9.7 L, [place] % (Auto) 7.6, Eos % (Auto) 0.5, Baso % (Auto) 0.3, Absolute Neuts (auto) 7.8 H, Absolute Lymphs (auto) 0.93, Nucleated RBC % 0 09/29/22 07:30: Sodium 134 L, Potassium 4.1, Chloride 102, Carbon Dioxide 28.0, Anion Gap 4 L, BUN 15, Creatinine 0.56, Estim Creat Clear Calc 31.69, Est GFR (MDRD) Af Amer 133, Est GFR (MDRD) Non-Af 110, BUN/Creatinine Ratio 26.6 H, Glucose 113 H, Calcium 8.3 L Physical Exam Narrative General: Alert, Oriented x3, Cooperative, No apparent distress HEENT: Atraumatic, PERRLA, EOMI, Normocephalic Oral: Moist Mucosa Neck: Supple, No JVD Lungs: Clear to auscultation, Normal air movement, No rhonchi, No wheeze, No rales Cardiovascular: Regular rate, Regular Rhythm, Normal S1, Normal S2, No murmurs Abdomen: Soft, Non Tender, Non-Distended, No Hepato-splenomegaly Extremities: No edema, Capillary Refill Less than 3 Seconds Skin: Dressing intact on the right hip Musculoskeletal: No Tenderness to Palpation of Joints or Extremities Neurological: Cranial nerves II-XII grossly intact, Motor Exam 5/5 strength throughout, Sensory exam intact to light touch and pain Psych/Mental Status: Normal Affect, Appropriate Assessment & Plan Assessment/Plan (1) Hypertension: (2) Hip fracture: PLAN: Plan 1. Right femoral neck fracture status postrepair on 09/27/2022 ? Continue with PT/OT for possible placement ? Continue with pain management ? vitamin D levels is 14, will place on vitamin D replacement ?Chaudhry has been removed, and she is urinating on her own if necessary can obtain bladder scan to make sure that she is not having any large residuals 2. HTN ? Blood pressures are stable, can continue with her home blood pressure medic patients DVT: SCDs Charges/Coding Visit Charges Inpatient E&M: 91398 Subs Hosp L2
[2022-09-29] MEDS: Ensure Surgery 237 ML LIQUID PO ×2 (11:27→16:16)
[2022-09-29] MEDS: Ergocalciferol 1.25 MG (50, 000 UNIT) Capsule PO (11:29)
[2022-09-29] MEDS: Acetaminophen 325 MG Tablet 650 MG PO (13:03)
[2022-09-30] VITALS (8 sets, daily range): BP systolic 106–128; BP diastolic 56–79; PULSE 77–87; RESP 16–18; TEMP 36.6–36.8; O2SAT 94–100
[2022-09-30] MEDS: oxyCODONE 5 MG Tablet PO ×3 (04:14→20:58)
[2022-09-30] MEDS: Aspirin 81 MG TAB.CHEW PO ×2 (08:33→17:55)
[2022-09-30] MEDS: Lisinopril 40 MG Tablet PO (10:42)
[2022-09-30] MEDS: Senna/Docusate Sodium 1 Tablet 2 TABLET PO ×2 (10:43→20:57)
--- NOTE | 2022-09-30 11:20 | PCM.PN.HOSP ---
Subjective Subjective Doing well, no issues overnight Objective Data Objective Data Vital Signs: Vital Signs Temp Pulse Resp BP Pulse Ox O2 Del Method O2 Flow Rate 98 F 77 18 128/65 H 94 Room Air 2 09/30/22 08:15 09/30/22 08:15 09/30/22 08:15 09/30/22 08:15 09/30/22 08:15 09/30/22 08:15 09/28/22 03:18 Oxygen Flow Rate (L/min) 2 Oxygen Delivery Method Room Air Weight: 121 lb 7.595 oz Body Mass Index (BMI) 23.7 Intake & Output: Intake and Output for Last 24 Hours 09/29/22 09/30/22 10/01/22 03:59 03:59 03:59 Intake Total 1756.25 / 1756.25 400 / 400 200 / 200 Output Total 1000 / 1000 800 / 800 400 / 400 Balance 756.25 / 756.25 -400 / -400 -200 / -200 Lab / Micro Data Result Diagrams: 09/29/22 07:30 09/29/22 07:30 Physical Exam Narrative General: Alert, Oriented x3, Cooperative, No apparent distress HEENT: Atraumatic, PERRLA, EOMI, Normocephalic Oral: Moist Mucosa Neck: Supple, No JVD Lungs: Clear to auscultation, Normal air movement, No rhonchi, No wheeze, No rales Cardiovascular: Regular rate, Regular Rhythm, Normal S1, Normal S2, No murmurs Abdomen: Soft, Non Tender, Non-Distended, No Hepato-splenomegaly Extremities: No edema, Capillary Refill Less than 3 Seconds Skin: Dressing intact on the right hip Musculoskeletal: No Tenderness to Palpation of Joints or Extremities Neurological: Cranial nerves II-XII grossly intact, Motor Exam 5/5 strength throughout, Sensory exam intact to light touch and pain Psych/Mental Status: Normal Affect, Appropriate Assessment & Plan Assessment/Plan (1) Hypertension: (2) Hip fracture: PLAN: Plan 1. Right femoral neck fracture status postrepair on 09/27/2022 ? Continue with PT/OT for possible placement ? Continue with pain management ? vitamin D levels is 14, will place on vitamin D replacement ?Chaudhry has been removed, and she is urinating on her own if necessary can obtain bladder scan to make sure that she is not having any large residuals 2. HTN ? Blood pressures are stable, can continue with her home blood pressure medic patients DVT: Aspirin 81 twice daily Charges/Coding Visit Charges Inpatient E&M: 80307 Subs Hosp L2
[2022-09-30] MEDS: Ensure Surgery 237 ML LIQUID PO ×2 (12:23→17:57)
[2022-10-01 02:57] VITALS: BP 113/54; PULSE 86; RESP 18; TEMP 36.5; O2SAT 99
[2022-10-01 07:33] VITALS: BP 96/58; PULSE 88; RESP 18; TEMP 37.1; O2SAT 100
[2022-10-01] MEDS: Aspirin 81 MG TAB.CHEW PO (07:45)
[2022-10-01] MEDS: Senna/Docusate Sodium 1 Tablet 2 TABLET PO (07:45)
[2022-10-01] MEDS: Ensure Surgery 237 ML LIQUID PO ×2 (07:46→12:17)
[2022-10-01 07:48] VITALS: PULSE 90
[2022-10-01 08:26] VITALS: O2SAT 98
--- NOTE | 2022-10-01 08:59 | CASEMGMT ---
Social Work SW called [facility] to check status of insurance auth. SW spoke to Jewell, who shared precert was approved on Saturday and provided the number that was called to share the approval. Number given was incorrect. Jewell stated due to error would update auth from 09/30 to 10/01-10/05. BARTOLO informed Dr. Mercado of precert. Dr. Mercado anticipates d/c this day after meeting with pt to confirm pt is medically ready. BARTOLO updated [facility] via [employer]. PLAN: D/c to [facility], after Dr. Mercado sees pt RISA Ramirez
[2022-10-01 10:25] VITALS: BP 105/64; PULSE 99
[2022-10-01] MEDS: Lisinopril 40 MG Tablet PO (10:27)
--- NOTE | 2022-10-01 14:46 | TREXTCAR_ITS ---
Diet Diet Order/Speech Therapy: 09/28/22 07:22 Diet: Regular - General Is pt able to select menu?: Yes Routine Orders/Code Status Suppository Type: Dulcolax 10mg Suppository Frequency: Daily PRN Wound(s) Rt Hip: Wound Type: Surgical Incision Therapies Weight Bearing: Weight bearing as tolerated Problem/Diagnosis (1) Hypertension: Status: Chronic Code(s): I10 - Essential (primary) hypertension (2) Hip fracture: Status: Acute Code(s): S72.009A - Fracture of unspecified part of neck of unspecified femur, initial encounter for closed fracture Plan 82-year-old with history of hypertension who presented 09/27/2022 after a mechanical fall. Her shoe got stuck at home and after she fell on her right side she began to have significant right hip pain and spasms. Hip and pelvics x-ray demonstrated right femoral neck fracture. Orthopedics consulted and she had a right direct anterior total hip replacement on 09/[address] Conrad. She tolerated this well and was continued on her lisinopril and also found to have low vitamin D of 14 and was put on replacement. Chaudhry had been removed and she was urinating on her own. Was having some problems with good bowel movements but has been placed on bowel regimen and is passing gas and does not have any significant abdominal pain. Discussed with her and her daughter at bedside in stable for correction facility. On day of discharge she reports she does still have pain when moving around but feels like it is fairly well managed and has no pain at rest. Aside from not having good stool output she denies other complaints. Discharge instructions as follows: ?You will need aspirin 81 mg twice daily for 4 weeks ? Weightbearing as tolerated with walker ? You have been having difficulty with constipation, would recommend increasing fiber and water intake as well as daily MiraLAX and scheduled senna docusate and further adjustment at the discretion of the skilled care facility ?You are also noted to have low vitamin D and you were started on supplementation, please take this daily -Mepilex dressing: This should be removed on October 02, 2022.? It is okay to shower and get wet with this dressing.? Once removed it is okay to continue to shower but only use gentle soap and water over the incision.? -Patient will require 2-week follow-up with Dr. Guanako Conrad or Mahendra Corral PA-C with repeat x-rays. -Please call your primary care provider's office upon discharge to schedule a hospital follow up within 1 week. -For any concerning signs or symptoms please call 911 or proceed to the nearest emergency department Allergies/Procedures Done in Hospital Allergies procaine [From Novocain] Allergy (Verified 09/26/22 21:16) passed out Procedures: - (Right direct anterior total hip replacement) Type of Care/Length of Stay Estimated LOS: Convalescent Care Less Than 30 days Type of Care Needed: Skilled Rehab Potential: Good Prognosis: Good Additional Orders/Day of Discharge Day of Discharge: 10/01/22 Discharge Plan Admission Admit Date/Time: 09/27/22 00:01 Primary Reason for Your Visit: Femur fracture Attending Provider: Trinity Mercado Primary Care Provider: Ilya Jade Consulting Providers: Herson Chan ; Slade Kumar Instructions Patient Instructions: ED Fall Prevention Additional Instructions / Restrictions: DISCHARGE INSTRUCTIONS PLEASE READ ?You will need aspirin 81 mg twice daily for 4 weeks ? Weightbearing as tolerated with walker ? You have been having difficulty with constipation, would recommend increasing fiber and water intake as well as daily MiraLAX and scheduled senna docusate and further adjustment at the discretion of the skilled care facility ?You are also noted to have low vitamin D and you were started on supplementation, please take this daily -Mepilex dressing: This should be removed on October 02, 2022. It is okay to shower and get wet with this dressing. Once removed it is okay to continue to shower but only use gentle soap and water over the incision. -Patient will require 2-week follow-up with Dr. Guanako Conrad or Mahendra Corral PA-C with repeat x-rays. -Please call your primary care provider's office upon discharge to schedule a hospital follow up within 1 week. -For any concerning signs or symptoms please call 911 or proceed to the nearest emergency department Discharge Orders/Prescriptions Prescriptions: New aspirin 81 mg Tablet,Chewable 81 mg PO BIDCM 26 Days Qty: 52 0RF ergocalciferol (vitamin D2) [Vitamin D2] 1,250 mcg (50,000 unit) Capsule 1,250 mcg PO Sa@1000 Qty: 30 0RF sennosides-docusate sodium [Stool Softener-Stimulant Laxat] 8.6-50 mg Tablet 2 tab PO BID Qty: 60 0RF acetaminophen [Tylenol] 325 mg Tablet 650 mg PO Q6H PRN PRN (Reason: Pain 1-10 Or Fever >100.7) Qty: 30 0RF Continued lisinopril 40 MG tablet 40 mg PO DAILY Referrals / Follow Up: Ilya Jade MD [Primary Care Provider] - Within 1 Week Guanako Conrad MD [Med Staff - Active Staff] - Within 2 Weeks Disposition Disposition (needs filled in before D/C Order can be placed): [facility]
--- NOTE | 2022-10-01 15:00 | DS.PCM_ITS ---
Providers Date of Admission: 09/27/22 Date of Discharge: 10/01/22 Primary Care Physician: Dr. Ilya Jade MD Reason For Visit: ACUTE R FEMORAL NECK FRACTURE Diagnosis Discharge Diagnosis (1) Hypertension: Status: Chronic Code(s): I10 - Essential (primary) hypertension (2) Hip fracture: Status: Acute Code(s): S72.009A - Fracture of unspecified part of neck of unspecified femur, initial encounter for closed fracture Plan ?You will need aspirin 81 mg twice daily for 4 weeks ? Weightbearing as tolerated with walker ? You have been having difficulty with constipation, would recommend increasing fiber and water intake as well as daily MiraLAX and scheduled senna docusate and further adjustment at the discretion of the skilled care facility ?You are also noted to have low vitamin D and you were started on hoyos pplementation, please take this daily -Mepilex dressing: This should be removed on October 02, 2022.? It is okay to shower and get wet with this dressing.? Once removed it is okay to continue to shower but only use gentle soap and water over the incision.? -Patient will require 2-week follow-up with Dr. Guanako Conrad or Mahendra Corral PA-C with repeat x-rays. -Please call your primary care provider's office upon discharge to schedule a hospital follow up within 1 week. -For any concerning signs or symptoms please call 911 or proceed to the nearest emergency department Medications at Discharge Home Medications lisinopril 40 mg tablet 40 mg PO DAILY BP 07/29/20 acetaminophen 325 mg tablet (Tylenol) 650 mg PO Q6H PRN PRN Pain 1-10 Or Fever >100.7 #30 tabs 10/01/22 aspirin 81 mg chewable tablet 81 mg PO BIDCM 26 days #52 tabs 10/01/22 ergocalciferol (vitamin D2) 1,250 mcg (50,000 unit) capsule (Vitamin D2) 1,250 mcg PO Sa@1000 #30 caps 10/01/22 sennosides 8.6 mg-docusate sodium 50 mg tablet (Stool Softener-Stimulant Laxative) 2 tab PO BID #60 tabs 10/01/22 Hospital Course Operations total hip replacement (R total direct hip) Summary of Care Provided Minutes Spent on Discharge: 35 Hospital Course: 82-year-old with history of hypertension who presented 09/27/2022 after a [facility] anical fall. Her shoe got stuck at home and after she fell on her right side she began to have significant right hip pain and spasms. Hip and pelvics x-ray demonstrated right femoral neck fracture. Orthopedics consulted and she had a right direct anterior total hip replacement on 09/[address] Conrad. She tolerated this well and was continued on her lisinopril and also found to have low vitamin D of 14 and was put on replacement. Chaudhry had been removed and she was urinating on her own. Was having some problems with good bowel movements but has been placed on bowel regimen and is passing gas and does not have any significant abdominal pain. Discussed with her and her daughter at [facility]. On day of discharge she reports she does still have pain when moving around but feels like it is fairly well managed and has no pain at rest. Aside from not having good stool output she denies other complaints. Discharge instructions as follows: ?You will need aspirin 81 mg twice daily for 4 weeks ? Weightbearing as tolerated with walker ? You have been having difficulty with constipation, would recommend increasing fiber and water intake as well as daily MiraLAX and scheduled senna docusate and further adjustment at the discretion of the skilled care facility ?You are also noted to have low vitamin D and you were started on supplementation, please take this daily -Mepilex dressing: This should be removed on October 02, 2022.? It is okay to shower and get wet with this dressing.? Once removed it is okay to continue to shower but only use gentle soap and water over the incision.? -Patient will require 2-week follow-up with Dr. Guanako Conrad or Mahendra Corral PA-C with repeat x-rays. -Please call your primary care provider's office upon discharge to schedule a hospital follow up within 1 week. -For any concerning signs or symptoms please call 911 or proceed to the nearest emergency department Physical Exam Const alert and no apparent distress Constitutional Narrative: Oriented HEENT normocephalic and head/scalp atraumatic Eyes Eyes Narrative: EOM grossly intact, anicteric Neck supple Resp normal respiratory effort and clear to auscultation bilaterally Cardio regular rate and regular rhythm GI soft to palpation, non-tender and non-distended GI Narrative: Good bowel sounds Extremity Extremity Narrative: No edema appreciated, SCDs in place Neuro Neuro Narrative: No overt focal deficits appreciated Psych Psych Narrative: Cooperative Weight / BMI Weight Weight: 55.1 kg Body Mass Index (BMI) 23.7 ABG / Lab / Microbiology Data Result Diagrams: 09/29/22 07:30 09/29/22 07:30 Microbiology: Microbiology 10/01/22 10:15 Nasal Secretion SARS-CoV-2 Antigen (Rapid) - Final D/C Instructions Discharge Diet: No restrictions Meaningful Use Info Meaningful Use Diagnoses (Choose all that apply): None applicable Discharge Plan Admission Admit Date/Time: 09/27/22 00:01 Primary Reason for Your Visit: Femur fracture Attending Provider: Trinity Mercado Primary Care Provider: Ilya Jade Consulting Providers: Herson Chan ; Slade Kumar Instructions Patient Instructions: ED Fall Prevention Additional Instructions / Restrictions: DISCHARGE INSTRUCTIONS PLEASE READ ?You will need aspirin 81 mg twice daily for 4 weeks ? Weightbearing as tolerated with walker ? You have been having difficulty with constipation, would recommend increasing fiber and water intake as well as daily MiraLAX and scheduled senna docusate and further adjustment at the discretion of the skilled care facility ?You are also noted to have low vitamin D and you were started on supplementation, please take this daily -Mepilex dressing: This should be removed on October 02, 2022. It is okay to shower and get wet with this dressing. Once removed it is okay to continue to shower but only use gentle soap and water over the incision. -Patient will require 2-week follow-up with Dr. Guanako Conrad or Mahendra Corral PA-C with repeat x-rays. -Please call your primary care provider's office upon discharge to schedule a hospital follow up within 1 week. -For any concerning signs or symptoms please call 911 or proceed to the nearest emergency department Discharge Orders/Prescriptions Prescriptions: New aspirin 81 mg Tablet,Chewable 81 mg PO BIDCM 26 Days Qty: 52 0RF ergocalciferol (vitamin D2) [Vitamin D2] 1,250 mcg (50,000 unit) Capsule 1,250 mcg PO Sa@1000 Qty: 30 0RF sennosides-docusate sodium [Stool Softener-Stimulant Laxat] 8.6-50 mg Tablet 2 tab PO BID Qty: 60 0RF acetaminophen [Tylenol] 325 mg Tablet 650 mg PO Q6H PRN PRN (Reason: Pain 1-10 Or Fever >100.7) Qty: 30 0RF Continued lisinopril 40 MG tablet 40 mg PO DAILY Referrals / Follow Up: Ilya Jade MD [Primary Care Provider] - Within 1 Week Guanako Conrad MD [Med Staff - Active Staff] - Within 2 Weeks Disposition Disposition (needs filled in before D/C Order can be placed[facility] Charges/Coding Visit Charges Inpatient E&M: 04910 Disch Hosp >30min
--- NOTE | 2022-10-01 15:27 | CASEMGMT ---
Social Work ? BARTOLO [facility] pt and [facility] BARTOLO completed 7000 convalescent form in [facility]. Set up cot transportation through [facility] for 3:30 pm. BARTOLO faxed all discharge orders to [facility] via [facility] and notified of discharge time. BARTOLO notified pt nurse of transport time. BARTOLO made copies of discharge orders and placed on pt chart. Sent original orders in envelope with pt upon discharge.?? Disposition: [facility], skilled, convalescent, level of care? RISA Ramirez
[2022-10-01] MEDS: oxyCODONE 5 MG Tablet PO (15:32)
--- NOTE | 2022-10-01 15:34 | NURSING ---
report called to [facility], spoke with Hoda carver.
--- NOTE | 2022-10-01 15:55 | PHA.DC.MR ---
Pharmacy Service has performed discharge medication reconciliation for this patient. The patient's discharge medication list was reviewed for discrepancies and discrepancies were resolved. Home Medications lisinopril 40 mg tablet 40 mg PO DAILY BP 07/29/20 acetaminophen 325 mg tablet (Tylenol) 650 mg PO Q6H PRN PRN Pain 1-10 Or Fever >100.7 #30 tabs 10/01/22 aspirin 81 mg chewable tablet 81 mg PO BIDCM 26 days #52 tabs 10/01/22 ergocalciferol (vitamin D2) 1,250 mcg (50,000 unit) capsule (Vitamin D2) 1,250 mcg PO Sa@1000 #30 caps 10/01/22 sennosides 8.6 mg-docusate sodium 50 mg tablet (Stool Softener-Stimulant Laxative) 2 tab PO BID #60 tabs 10/01/22
== END 2022-10-01 15:50 | disposition skilled nursing facility (03) | DRG 522 ==
LOC: ED 22:26 → MS3 09-27 03:22
PROVIDERS: Family Medicine; Specialist; Admitting Provider Hospitalist; Emergency Provider Student in an Organized Health Care Education/Training Program; PCP Family Medicine; Visit Provider Internal Medicine
PROC: 0SR902A Replacement of Right Hip Joint with Metal on Polyethylene Synthetic Substitute, Uncemented, Open Approach (ICD-10-PCS; CPT 27125; principal; 2022-09-27 18:10)
DX: S72.011A Unspecified intracapsular fracture of right femur, initial encounter for closed fracture (principal); I10 Essential (primary) hypertension; M16.11 Unilateral primary osteoarthritis, right hip; K59.00 Constipation, unspecified; W18.39XA Other fall on same level, initial encounter; Z79.899 Other long term (current) drug therapy
CPT/HCPCS: 36415; 71045; 73501; 73502; 73560; 76000; 80048; 80053; 81001; 82306; 82962; 85025; 86850; 86900; 86901; 87426; 88305; 88311; 93005; 97110; 97116; 97162; 97166; 97530; 97535; 99252; 99283; C1776; J7030; J7120; A4216; G0463; J2405

== ENCOUNTER → 2022-11-15 | Outpatient (CLI) | payer MEDICARE, SELFPAY ==
[2022-11-15 11:45] LABS: Bacteria 0 SEEN /hpf (None Seen); Mucous, Urine 0 SEEN /hpf (<or=2+)
[2022-11-15 12:11] LABS: Color, Urine Straw (Yellow); Glucose, Dipstick Normal (Normal); Ketone-Dipstick Negative (Negative); Leukocyte Esterase-Dipstick Negative /ul (Negative); Nitrite-Dipstick Negative (Negative); Occult Blood-Urine 10 /ul (Negative); Protein-Dipstick Negative (Negative); Urine Bilirubin Dipstick Negative (Negative); Urine Clarity Clear (Clear); Urine Urobilinogen Normal (Normal)
[2022-11-15 12:19] LABS: Red Blood Cells-Urine 0-5 SEEN /hpf (0-5); Squamous Epithelial Cells - UA 0-5 SEEN /hpf (5-10); White Blood Cells 0-5 SEEN /hpf (0-5)
[2022-11-15 12:31] LABS: Vitamin B12 382 pg/mL (211-911)
[2022-11-15 12:52] LABS: Absolute Lymphocyte Count 1.49 X10^3/uL (0.83-4.51); Absolute Neutrophil Count 2.6 X10^3/uL (2.0-7.7); Basophil# 0.06 X10^3/uL; Basophil% 1.3 % (0-1); Eosinophil# 0.12 X10^3/uL; Eosinophils% 2.6 % (0-5); Hematocrit 36.7 % (37-47); Hemoglobin 11.9 g/dL (12.0-15.0); Lymphocyte # 1.49 X10^3/ul (0.83-4.51); Mean Corp Hgb Conc 32.4 g/dL (32-36); Mean Corpuscular Hgb 31.2 pg (27.0-32.0); Mean Corpuscular Volume 96.1 fL (81-99); Mean Platelet Vol. 10.1 fl (6.2-12.0); Monocyte# 0.35 X10^3/uL; Monocyte% 7.5 % (0-10); NRBC Flagged by Analyzer 0 % (0-5); Neutrophil # 2.62 X10^3/uL (2.7-7.7); Neutrophil % 56.2 % (47-70); Platelet Count 306 K/mm3 (150-450); RBC Distribution Width SD 49.7 fl (35.1-43.9); Red Blood Count 3.82 M/mm3 (4.2-5.4); White Blood Count 4.7 K/mm3 (4.4-11.0)
[2022-11-15 12:59] LABS: AST(SGOT) 21 U/L (15-37); Alanine Aminotransfer ALT/SGPT 13 U/L (13-56); Albumin, Serum 3.9 g/dL (3.2-5.0); Alkaline Phosphatase 102 U/L (45-117); Anion Gap 7 (5-15); BUN 12 mg/dL (7-18); BUN/Creat Ratio 23.3 RATIO (10-20); Calcium,Total 9.9 mg/dL (8.5-10.1); Chloride 108 mmol/L (98-107); Creatinine, Serum 0.52 mg/dL (0.55-1.02); EST Glomerular Filtration Rate 122 mL/min (>60); Est Glom Filt Rate - Afr Amer 147 mL/min (>60); Glucose 93 mg/dL (74-106); Potassium 3.6 mmol/L (3.5-5.1); Protein, Total 7.9 g/dL (6.4-8.2); Sodium Level 142 mmol/L (136-145); Thyroid Stim Hormone (TSH) 0.94 uIU/mL (0.358-3.74)
== END | disposition home or self-care (01) ==
LOC: BIMLAB 11:20
PROVIDERS: PCP Internal Medicine; Referring Provider Internal Medicine; Visit Provider Internal Medicine
DX: I10 Essential (primary) hypertension (principal); R35.0 Frequency of micturition; E55.9 Vitamin D deficiency, unspecified
CPT/HCPCS: 36415; 80053; 81001; 82306; 82607; 84443; 85025

== ENCOUNTER → 2022-12-04 | Outpatient (CLI) | payer MEDICARE, SELFPAY ==
--- NOTE | 2022-12-04 15:26 | BD_ITS ---
STUDY: DUAL ENERGY X-RAY ABSORPTIOMETRY / DXA REASON FOR EXAM: Female, 82 years old. Osteoporosis TECHNIQUE: Bone Mineral Density (BMD) measurements of lumbar spine and left hip were obtained. COMPARISON: Comparison is made with prior study dated September 14, 2014. FINDINGS: Lumbar Spine (L1-L4): g/cm2 (0.692) / T-score (-3.2) / Z-score (-0.5) Findings are suggestive of osteoporosis with a high fracture risk. Left Femur Total: g/cm2 (0.521) / T-score (-3.5) / Z-score (-1.3) Left Femoral Neck: g/cm2 (0.432) / T-score (-3.8) / Z-score (-1.4) The T-Scores on the most recent prior examination were: Lumbar Spine (L1-L4): There has been worsening of bone density since the previous examination. Left Femur Total: which represents a worsening of 15.9%. BD/Dexa Bone Density Study IMPRESSION: The patient is considered osteoporotic as outlined below according to World Bladimir Organization (WHO) criteria with a high fracture risk. There has been worsening of bone density since the previous examination. Reference Information: The T-score is the number of standard deviations above or below the standard which is normal for young adults at their peak bone mineral density. The World Health Organization (WHO) interprets the T-scores as follows: Above -1 Normal bone density Between -1 and -2.5 Osteopenia Equal to / or below -2.5 Osteoporosis As a practical clinical guideline, osteopenia may be graded as follows: Mild -1 through -1.5 Moderate -1.6 through -2.0 Severe -2.1 through -2.4 The Z-score is the number of standard deviations above or below age-matched controls. A Z-score of less than -1.5 would be considered abnormal. References: 1. NIH Osteoporosis and Related Bone Diseases www osteo.org 2. International Society for Clinical Densitometry www iscd.org 3. National Osteoporosis Foundation www nof.org Electronically Signed: David Arnett MD at 12:50 EDT ,
== END | disposition home or self-care (01) ==
PROVIDERS: PCP Internal Medicine; Visit Provider Internal Medicine
DX: M81.0 Age-related osteoporosis without current pathological fracture (principal)
CPT/HCPCS: 77080

== ENCOUNTER 2023-01-20 07:16 | Inpatient (IN) | payer MEDICARE, SELFPAY ==
[2023-01-20] VITALS (7 sets, daily range): BP systolic 105–161; BP diastolic 55–86; PULSE 67–128; RESP 16–28; TEMP 36.3–36.7; O2SAT 94–99; BMI 21.9; BMI 21.2
--- NOTE | 2023-01-20 07:33 | RAD_ITS ---
STUDY: X-RAY CHEST REASON FOR EXAM: Female, 82 years old. chest pain TECHNIQUE: Single AP portable view of the chest. COMPARISON: September 26, 2022 FINDINGS: Cervical spine hardware redemonstrated. No visualized consolidation. The lungs are clear and expanded. There is no demonstrated pleural abnormality. Normal size heart. Normal mediastinum and chucky. Normal visualized pulmonary arteries. There is atherosclerotic tortuosity of the aortic arch and descending thoracic aorta. There are diffuse degenerative changes of the visualized thoracic spine. Normal visualized ribs, clavicles, and shoulders. There is no demonstrated abnormality of the visualized soft tissue structures of the upper abdomen. RAD/Chest 1 View (Portable) IMPRESSION: Degenerative changes, as described above. No demonstrated acute cardiopulmonary process. Electronically Signed: Don Davila MD at 8:47 EDT ,
--- NOTE | 2023-01-20 07:33 | EDS_ITS ---
HPI History of Present Illness Chief Complaint: Shortness of Breath Informant: patient Onset/Context/Timing Onset: Days Context: gradual Timing: Continuous Quality: Positive for Dyspnea on exertion Current Severity: Mild Maximum Severity: Mild Worsened by: Exertion Relieved by: Rest Associated Symptoms Negative for cough, fever or sore throat Chest Pain: Positive for None Narrative Narrative: 82-year-old history of hypertension mitral valve prolapse. No underlying coronary disease. No prior cardiac history. Non-smoker. States the last several days she just felt more short of breath. Worse with exertion. No chest pain. No hemoptysis. No history of DVT or PE. Most recent hospitalization and surgery was 3 months ago. Denies any leg pain or swelling. Denies any fever, chills or significant cough. No melena. No dysuria. PE Risk Factors: Negative for Cancer, OCP + Smoking + > 35, Prior DVT or PE, Recent immobilization, Recent surgery or Recent travel Prior similar symptoms: Yes Recent Illness/Hospitalization: No PFSH PFSH Medical History Arthritis Broken arm Glaucoma Hearing deficit Heart valve problem Hx of headache Hypertension Syncope Home Medications lisinopril 40 mg tablet 40 mg PO DAILY BP 07/29/20 [History Last Taken 09/26/22] acetaminophen 325 mg tablet (Tylenol) 650 mg PO Q6H PRN PRN Pain 1-10 Or Fever >100.7 #30 tabs 10/01/22 [Rx Last Taken Unknown] bisacodyl 5 mg tablet,delayed release (Dulcolax (bisacodyl)) 5 mg PO ONCE 11/15/22 [History Last Taken Unknown] handicap placard #1 ea 11/15/22 [Rx Last Taken Unknown] ergocalciferol (vitamin D2) 1,250 mcg (50,000 unit) capsule (Vitamin D2) 1,250 mcg PO Sa@1000 #4 caps 11/27/22 [Rx Last Taken Unknown] Allergy/AdvReac Type Severity Reaction Status Date / Time procaine [From Novocain] Allergy passed out Verified 01/20/23 07:19 Family History Father Heart disease Surgical History H/O neck surgery History of hip replacement History of surgery on arm Social History household members: none current occupational 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 Review of Systems ROS Unobtainable: Denies due to encephalopathy Constitutional Constitutional ED: Denies chills or fever(s) Eyes Eyes: Denies blurry vision ENT ENT ED: Denies ear pain Cardiovascular Cardiovascular: Reports palpitations; Denies chest pain Respiratory/Chest Respiratory/Chest: Reports dyspnea and dyspnea on exertion; Denies cough Gastrointestinal Gastrointestinal: Denies abdominal pain Genitourinary Genitourinary ED: Denies dysuria Musculoskeletal Musculoskeletal: Denies arthralgias Integumentary Denies abscess Neurologic Neurologic: Denies headache(s) Psychiatric Psychiatric: Denies anxiety Endocrine Endocrinology: Denies cold intolerance Hematologic/Lymphatic Hematologic/Lymphatic: Denies easy bleeding Allergic/Immunologic Allergic/Immunologic ED: Denies mouth swelling or tongue swelling EXAM Physical Exam Narrative Exam Narrative: 82-year-old female no acute distress. Vital signs stable. She is tachycardic around 115. Pulse ox 99% on room air no signs of hypoxia. She is in no distress. HEENT exam unremarkable. Neck nontender no JVD. Lungs clear to auscultation bilaterally. Heart tachycardic no murmur appreciated. Chest wall nontender. Abdomen soft nontender. Normal bowel sounds no peritoneal signs. Moving all 4 extremities. Calves are nontender without edema or cords. Back unremarkable. Neurologically she is awake alert moving all 4 extremities. Const Vital Signs: 01/20/23 07:16 01/20/23 07:33 01/20/23 09:16 Temperature 97.9 F Temperature Source Temporal Pulse Rate 117 H 115 H Respiratory Rate 24 H 16 Blood Pressure 161/86 H 155/70 H Blood Pressure Mean 111 98 Pulse Ox 99 98 Oxygen Delivery Method Room Air Room Air Room Air Positive well nourished and well developed; Negative for obese, cachectic, contractures or unkempt General Appearance ED: well developed and NAD; Negative for unkempt, cachectic, contractures or pallor Nutritional Appearance: Negative for cachectic or obese HEENT Reports moist mucous membranes; Denies dry mucous membranes atraumatic; Negative for trauma or tenderness Mouth ED: No dry mucous membranes Mouth: No dry mucous membranes Eyes PERRL and EOMs intact bilaterally General Eye ED: Negative for pale conjunctiva or scleral icterus Neck no lymphadenopathy, supple, no meningeal signs and no JVD General: Negative for tenderness Lymph Lymphatic: Negative for other Chest Wall Chest: Negative for other Resp normal respiratory effort and clear to auscultation bilaterally Effort and Inspection: Negative for pain with movement Auscultation: Negative for rales, rhonchi or wheezes Cardio regular rhythm, S1 normal heart sound, S2 normal heart sound and no murmurs; Negative for regular rate Rate: tachycardic Rhythm: Negative for abnormal rhythm GI non-tender, non-distended and no masses Inspection: Negative for other Auscultation: normoactive bowel sounds Palpation: soft; Negative for tender or guarding Back/Spine no CVA tenderness and normal to inspection General Back: Negative for CVA tenderness or tenderness Extremity normal to inspection General Extremety ED: Negative for edema or tenderness General Extremity: Negative for edema Neuro oriented x3, CN's II-XII intact bilaterally and no sensory deficits noted Sensorium / Orientation: alert, oriented to person, oriented to place and oriented to time; Negative for orientation impaired, confused, lethargic or stuporous Speech: speech normal Gait (Neuro): normal gait Motor Exam: strength 5/5 throughout Psych mental status grossly normal Appearance: Negative for unkempt Attitude: No agitated Mood & Affect: Negative for depressed, anxious or tearful Thought Process: normal thought process Skin no wounds and skin turgor normal General Skin Exam: Negative for jaundice or pallor Lesions: no lesions Rashes: no rashes Trauma: Negative for abrasion or laceration MDM MDM MDM Narrative Medical decision making narrative: Patient with subjective shortness of breath. Her pulse ox is 99%. She has no history of underlying lung disease. Exam is benign other than a mild tachycardia. She undergo a cardiac work-up. Clinically I do not think this is a pulmonary embolus she does not have any risk factors or history she is tachycardic and D-dimer will be obtained also. Differential would include CHF which clinically she does not have signs of, anemia, pneumonia, pleural effusion, underlying coronary disease, dysrhythmia etc. Repeat exam unchanged. Patient complaining of some head discomfort to be given Tylenol. We went over all of her test results. Troponin is elevated. This is the new high-sensitivity troponin. She has had a full troponins that were slightly above normal. But not on the high-sensitivity troponins been done in the past. I will speak to the hospitalist about admission. History & Record Review Discussion w/independent historian: Patient and Family Lab Data Attestation: I reviewed the patient's lab results. Lab results narrative: CBC shows white count 13.9. H&H 13.7 and 41. Platelets 231. D-dimer elevated 1.2. Electrolytes show a gap of 5 BUN and creatinine 22 0.6. Troponins elevated at 147. BNP is only 22. Due to the elevated D-dimer a CTA will be obtained. Labs: Laboratory Results - last 24 hr 01/20/23 01/20/23 01/20/23 07:48 07:48 07:48 WBC 13.9 H RBC 4.50 Hgb 13.7 Hct 41.2 MCV 91.6 MCH 30.4 MCHC 33.3 RDW Std Deviation 46.1 H RDW Coeff of Criselda 13.8 Plt Count 231 MPV 9.5 Immature Gran % (Auto) 0.400 Neut % (Auto) 90.1 H Lymph % (Auto) 5.1 L [place] % (Auto) 3.6 Eos % (Auto) 0.4 Baso % (Auto) 0.4 Absolute Neuts (auto) 12.6 H Absolute Lymphs (auto) 0.71 L Nucleated RBC % 0 D-Dimer Quant (PE/DVT) 1.20 H* Sodium 138 Potassium 3.6 Chloride 107 Carbon Dioxide 26.0 Anion Gap 5 BUN 22 H Creatinine 0.64 Est GFR (MDRD) Af Amer 114 Est GFR (MDRD) Non-Af 94 BUN/Creatinine Ratio 34.3 H Glucose 100 Calcium 9.5 Troponin I High Sens 147 H* B-Natriuretic Peptide 01/20/23 07:48 WBC RBC Hgb Hct MCV MCH MCHC RDW Std Deviation RDW Coeff of Criselda Plt Count MPV Immature Gran % (Auto) Neut % (Auto) Lymph % (Auto) [place] % (Auto) Eos % (Auto) Baso % (Auto) Absolute Neuts (auto) Absolute Lymphs (auto) Nucleated RBC % D-Dimer Quant (PE/DVT) Sodium Potassium Chloride Carbon Dioxide Anion Gap BUN Creatinine Est GFR (MDRD) Af Amer Est GFR (MDRD) Non-Af BUN/Creatinine Ratio Glucose Calcium Troponin I High Sens B-Natriuretic Peptide 22.1 Radiography Chest X-Ray - ED: 1 View, Read by ED Physician, Read by Radiologist, Heart, Lungs, Mediastinum, Bony Structures, No Acute Disease and Chronic Changes Diagnostic Testing: Clinical Impression(s) from Imaging Studies Chest X-Ray 01/20/23 07:33 IMPRESSION: Degenerative changes, as described above. No demonstrated acute cardiopulmonary process. Electronically Signed: Don Davila MD at 8:47 EDT , Chest CTA 01/20/23 09:00 IMPRESSION: 1. COPD. No visualized infiltrates or pulmonary edema or pleural effusion. 2. No pulmonary embolism or arterial dissection. Electronically Signed: Don Davila MD at 9:57 EDT , Chest x-ray, portable, single view interpreted both by the radiologist myself shows chronic changes no acute process. COPD. CTA no PE. Rhythm Strip Rhythm Strip: Sinus Tach Rate: 115 Ectopy: None EKG Initial EKG: Attestation: I personally reviewed and interpreted this EKG as follows: Interpretation: Sinus Tachycardia Comments: Sinus tachycardia rate of 115 no acute signs of [place] or ischemia. Left bundle branch block. Prior EKG tracings: available for review Prior: Unchanged Differential Diagnosis Chest pain/SOB: pulmonary embolism, ACS, pneumothorax, pneumonia, CHF and COPD Management Discussion w/another healthcare provider: Hospitalist Discharge Plan Dx/Rx/DC Orders Clinical Impression: Acute dyspnea, Elevated troponin Disposition Disposition: [facility]
[2023-01-20 07:55] LABS: Absolute Lymphocyte Count 0.71 X10^3/uL (0.83-4.51); Absolute Neutrophil Count 12.6 X10^3/uL (2.0-7.7); Basophil# 0.05 X10^3/uL; Basophil% 0.4 % (0-1); Eosinophil# 0.06 X10^3/uL; Eosinophils% 0.4 % (0-5); Hematocrit 41.2 % (37-47); Hemoglobin 13.7 g/dL (12.0-15.0); Lymphocyte # 0.71 X10^3/ul (0.83-4.51); Lymphocyte % 5.1 % (19-41); Mean Corp Hgb Conc 33.3 g/dL (32-36); Mean Corpuscular Hgb 30.4 pg (27.0-32.0); Mean Corpuscular Volume 91.6 fL (81-99); Mean Platelet Vol. 9.5 fl (6.2-12.0); Monocyte% 3.6 % (0-10); NRBC Flagged by Analyzer 0 % (0-5); Neutrophil # 12.57 X10^3/uL (2.7-7.7); Neutrophil % 90.1 % (47-70); Platelet Count 231 K/mm3 (150-450); RBC Distribution Width CV 13.8 % (11.6-14.6); RBC Distribution Width SD 46.1 fl (35.1-43.9); White Blood Count 13.9 K/mm3 (4.4-11.0)
[2023-01-20 08:22] LABS: BNP,B-Type NATRIURETIC PEPTIDE 22.1 pg/mL (0-100)
[2023-01-20 08:25] LABS: Anion Gap 5 (5-15); BUN 22 mg/dL (7-18); BUN/Creat Ratio 34.3 RATIO (10-20); Calcium,Total 9.5 mg/dL (8.5-10.1); Chloride 107 mmol/L (98-107); Creatinine, Serum 0.64 mg/dL (0.55-1.02); EST Glomerular Filtration Rate 94 mL/min (>60); Est Glom Filt Rate - Afr Amer 114 mL/min (>60); Glucose 100 mg/dL (74-106); Potassium 3.6 mmol/L (3.5-5.1); Sodium Level 138 mmol/L (136-145); Troponin-I HS 147 pg/mL (3.0-54.0)
--- NOTE | 2023-01-20 09:00 | CT_ITS ---
STUDY: CTA CHEST REASON FOR EXAM: Female, 82 years old. dyspnea. elevated d-dimer RADIATION DOSAGE (If Supplied By Facility): CTDIvol = ( 5.78 ) mGy, DLP = ( 254.13 ) mGycm TECHNIQUE: The examination was performed with the intravenous administration of IV 100mL Isovue-370. Post-processing of the angiographic images was performed, with multiplanar reformation and 3D reconstruction. Individualized dose optimization techniques were used for this CT. Respiratory motion artifact is present. COMPARISON: Chest x-ray dated January 20, 2023 FINDINGS: Normal enhancement of the main pulmonary artery and right and left pulmonary arteries. Normal enhancement of the bilateral peripheral pulmonary arteries. There is no demonstrated pulmonary embolism. There is atherosclerotic calcification of the aortic arch with tortuosity. There is no demonstrated aortic dissection. Normal heart and pericardium. There are calcifications of the coronary arteries. Normal mediastinum. Normal hilar regions. Normal visualized trachea and bronchi. The lungs are hyper expanded, with flattening of the hemidiaphragms. There is no demonstrated consolidation or pulmonary edema or pleural effusion. Normal pleura. Normal chest wall structures. There are degenerative changes of thoracic spine. Cervical spine hardware is present. Unremarkable visualized upper abdomen. Multiple splenic granulomata. There are several small cysts of the left kidney. CT/CTA Chest W/WO Contrast IMPRESSION: 1. COPD. No visualized infiltrates or pulmonary edema or pleural effusion. 2. No pulmonary embolism or arterial dissection. Electronically Signed: Don Davila MD at 9:57 EDT ,
--- NOTE | 2023-01-20 10:47 | NURSING ---
DR OLIVAS FOR DR SHANKS
--- NOTE | 2023-01-20 10:56 | NURSING ---
PCU OBS OLIVAS DYSPNEA, ELEVATED TROP
--- NOTE | 2023-01-20 11:25 | HP.PCM.HOS_ITS ---
HPI - General General Date of Admission: 01/20/23 Date of Service: 01/20/23 Chief Complaint: Shortness of breath HPI Narrative MAK SNOW, is a 82 F with history of Takotsubo cardiomyopathy, OA, hypertension presented to [facility] 01/20/2023 with intermittent shortness of breath. In the ED she was noted to have a troponin of 147 and a D- dimer of 1.2, CTA no PE or other underlying pathology appreciated. No chest pain but given NSTEMI and shortness of breath hospitalist consulted for admission. EKG with left axis deviation left bundle branch block which was previously known and in comparison looks relatively unchanged from September. She reports that for multiple years she has had intermittent episodes of presyncope and that she has been having them over this past week as well with associated shortness of breath and her blood pressure taken by her daughter this morning when she had an episode of presyncope this morning was 98/58 and subsequently increased to 120/60, but taken by daughter. She said that the monitor beeped indicating possible irregular heart rhythm. She does at times note some racing heart and possible palpitations. History confounded by feeling of hot and cold as well as some possible congestion and a little bit of cough over the past several days but nonproductive. No swelling in lower extremities. At present feeling somewhat better but does have headache and still has some shortness of breath. Also reports intermittent constipation but said she has been having fair p.o. intake. Slight tachypnea and was tachycardic on eval. [facility] Medical History Arthritis Broken arm Glaucoma Hearing deficit Heart valve problem Hx of headache Hypertension Syncope Home Medications lisinopril 40 mg tablet 40 mg PO DAILY BP 07/29/20 [History Last Taken 09/26/22] acetaminophen 325 mg tablet (Tylenol) 650 mg PO Q6H PRN PRN Pain 1-10 Or Fever >100.7 #30 tabs 10/01/22 [Rx Last Taken Unknown] bisacodyl 5 mg tablet,delayed release (Dulcolax (bisacodyl)) 5 mg PO ONCE 11/15/22 [History Last Taken Unknown] handicap placard #1 ea 11/15/22 [Rx Last Taken Unknown] ergocalciferol (vitamin D2) 1,250 mcg (50,000 unit) capsule (Vitamin D2) 1,250 mcg PO Sa@1000 #4 caps 11/27/22 [Rx Last Taken Unknown] Allergy/AdvReac Type Severity Reaction Status Date / Time procaine [From Novocain] Allergy passed out Verified 01/20/23 07:19 Family History Father Heart disease Surgical History H/O neck surgery History of hip replacement History of surgery on arm Social History household members: none 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 occupational 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 Status: Never smoker Electronic Cigarette Use: not used alcohol intake: never substance use type: does not use what type of physical activity do you participate in: none do you feel safe at home: Yes ROS ROS Narrative General: Has intermittently felt hot and cold HENT: Gets headaches and does currently have 1 EYES: Denies changes in vision Resp: Slight cough, intermittent shortness of breath Cardiac: Denies chest pain GI: Denies abdominal pain, intermittent constipation, denies nausea/vomiting : Denies changes in urination Extremity: Denies swelling MSK: Somewhat generally weak and almost passed out earlier Neuro: Denies any numbness/tingling Heme: Easy bruising Skin: Denies rashes Psychiatric: No complaints voiced Vital Signs Vital Signs Vital Signs: 01/20/23 07:16 01/20/23 07:33 01/20/23 09:16 Temperature 97.9 F Temperature Source Temporal Pulse Rate 117 H 115 H Respiratory Rate 24 H 16 Blood Pressure 161/86 H 155/70 H Blood Pressure Mean 111 98 Pulse Ox 99 98 Oxygen Delivery Method Room Air Room Air Room Air 01/20/23 11:09 Temperature 97.3 F L Temperature Source Temporal Pulse Rate 128 H Respiratory Rate 28 H Blood Pressure 127/76 H Blood Pressure Mean 93 Pulse Ox 94 Oxygen Delivery Method Room Air Weight Weight: 47.627 kg Body Mass Index (BMI) 21.9 Physical Exam Narrative General: Alert, oriented, no apparent distress HEENT: Atraumatic, normocephalic Eyes: Anicteric, normal conjunctiva, extraocular movements grossly intact Neck: Supple Respiratory: Clear to auscultation bilaterally, slight increase in respiratory effort Cardiovascular: Mildly tachycardic GI: Soft, nontender, nondistended Extremities: No edema Musculoskeletal: Moving all extremities Neuro: No overt focal neurological deficits Skin: No rashes appreciated Psych: Cooperative Results Lab / Micro Data Result Diagrams: 01/20/23 07:48 01/20/23 07:48 Labs: Laboratory Results - last 24 hr 01/20/23 07:48: WBC 13.9 H, RBC 4.50, Hgb 13.7, Hct 41.2, MCV 91.6, MCH 30.4, MCHC 33.3, RDW Std Deviation 46.1 H, RDW Coeff of Criselda 13.8, Plt Count 231, MPV 9.5, Immature Gran % (Auto) 0.400, Neut % (Auto) 90.1 H, Lymph % (Auto) 5.1 L, M marleen % (Auto) 3.6, Eos % (Auto) 0.4, Baso % (Auto) 0.4, Absolute Neuts (auto) 12.6 H, Absolute Lymphs (auto) 0.71 L, Nucleated RBC % 0 01/20/23 07:48: D-Dimer Quant (PE/DVT) 1.20 H* 01/20/23 07:48: Sodium 138, Potassium 3.6, Chloride 107, Carbon Dioxide 26.0, Anion Gap 5, BUN 22 H, Creatinine 0.64, Est GFR (MDRD) Af Amer 114, Est GFR (MDRD) Non-Af 94, BUN/Creatinine Ratio 34.3 H, Glucose 100, Calcium 9.5, Troponin I High Sens 147 H* 01/20/23 07:48: B-Natriuretic Peptide 22.1 Rhythm Strip Rhythm Strip: Sinus Tach Rate: 115 Ectopy: None Radiology Impression Chest X-Ray 01/20/23 07:33 IMPRESSION: Degenerative changes, as described above. No demonstrated acute cardiopulmonary process. Electronically Signed: Don Davila MD at 8:47 EDT Reading Location ID and State: [facility] / ID , Service support , Chest CTA 01/20/23 09:00 IMPRESSION: 1. COPD. No visualized infiltrates or pulmonary edema or pleural effusion. 2. No pulmonary embolism or arterial dissection. Electronically Signed: Don Davila MD at 9:57 EDT Reading Location ID and State: [facility] / ID , Service support , Assessment & Plan Assessment/Plan (1) Pre-syncope: (2) Elevated troponin: PLAN: Plan #Presyncope -Suspect underlying arrhythmia given her reports of palpitations and rapid heartbeat at times -EKG in the ED with left axis deviation and left bundle branch block unchanged from September -Was more tachycardic at time of exam, will repeat EKG to assess for change in rhythm -Admit to PCU -We will check TSH -Orthostats -Echo ordered #NSTEMI -Suspect type II secondary to possible A-fib with RVR/arrhythmia -Trend troponin -Echo -Admit to telemetry -Low threshold for cardiology consult #Shortness of breath -Has been intermittent and around the time she will get lightheaded, also suspect that this may be related to an underlying arrhythmia -CTA negative for PE, no infiltrates suggestive of bacterial pneumonia -We will check COVID and respiratory panel as she is also felt congested and had cough -Did have white blood cell count of 13 which may be reactive but with her reported hot and cold spells and low BP at home and tachycardia will obtain lactic acid and UA though less likely infection and more likely cardiac in nature based on history -Given the tachycardia in addition to the tachypnea will obtain ABG as well #DVT ppx: Heparin subcu CODE status: Discussed CODE status at length including difference between FULL code, DNR-CCA, and DNR-CC status. Following discussions about the differences in these status, requested full code. Had to discuss the differences at length with her and daughter as she used multiple conditions of as long as I am not brain and discussed that there is no way to know that. After further discussion explaining she did she is full code. Advanced Care Planning Face to Face Time: 15 minutes. Trinity Mercado MD Time spent in the patient's overall evaluation,decision-making process, review of diagnostic data, adjustment of management, discussion with other providers, nursing nursing and ancillary staff involved in patient's care documentation, 60 minutes Charges/Coding Visit Charges Inpatient E&M: 58403 Init Hosp L2 Procedures Hospitalists Procedures: 86786 Advncd Care Plan 30 Min
--- NOTE | 2023-01-20 11:33 | ECHOD_ITS ---
Reason For Study: Syncope Procedure This was a 2D Doppler, Color Flow transthoracic echocardiogram. Exam performed portable in patient room. Left Ventricle Normal LV size. Left ventricular systolic function is normal. The estimated ejection fraction is 55 %. Stage 1 diastolic dysfunction. No regional wall motion abnormalities noted. Right Ventricle Normal RV size. Normal systolic function. Atria Normal left atrium. Normal right atrium. Mitral Valve Normal mitral valve. Mild (1+) eccentric mitral valve insufficiency. Tricuspid Valve Normal tricuspid valve. Mild (1+) tricuspid valve insufficiency. Aortic Valve Mild diffuse aortic valve thickening. Mild (1+) aortic valve insufficiency. Pulmonic Valve Normal pulmonic valve. Great Vessels Normal aortic root. The pulmonary artery is normal size. Normal inferior vena cava. Pericardium/Pleural No pericardial effusion. MMode/2D Measurements & Calculations LVIDd: 3.7 cm IVSd: 1.2 cm LA dimension: 3.3 cm LVIDs: 2.7 cm LVPWd: 0.97 cm RVDd: 3.4 cm FS: 27.7 % LAV(MOD-bp): 36.0 ml LA A4 area: 11.1 cm2 RA A4 area: 10.4 cm2 LAV(MOD-bp) Indexed: 25.5 ml/m2 LAV(MOD-sp2): 45.7 ml LAV(MOD-sp4): 23.6 ml Time Measurements MV dec time: 0.27 sec Doppler Measurements & Calculations MV E max ahmet: 71.1 cm/sec Lat Peak E' Ahmet: 10.7 cm/sec Med Peak E' Ahmet: 7.4 cm/sec MV A max ahmet: 95.4 cm/sec E/E' lat: 6.7 E/E' med: 9.6 MV E/A: 0.75 MV V2 max: 100.0 cm/sec MV dec slope: 271.6 cm/sec2 Ao V2 max: 145.5 cm/sec MV max P.0 mmHg Ao max P.5 mmHg MV V2 mean: 51.7 cm/sec MV mean P.3 mmHg MV V2 VTI: 31.6 cm AI max ahmet: 448.1 cm/sec LV V1 max: 130.0 cm/sec MR max ahmet: 538.7 cm/sec AI max P.6 mmHg LV V1 max P.8 mmHg MR max P.1 mmHg LV V1 mean P.9 mmHg AI dec slope: 176.5 cm/sec2 LV V1 mean: 105.9 cm/sec AI P1/2t: 743.7 msec LV V1 VTI: 28.9 cm PA V2 max: 118.4 cm/sec TR max ahmet: 247.2 cm/sec PA V2 mean: 72.8 cm/sec TR max P.4 mmHg ECHO/Echo Complete Interpretation Summary Normal LV size. Left ventricular systolic function is normal. The estimated ejection fraction is 55 %. Mild (1+) eccentric mitral valve insufficiency. Mild (1+) tricuspid valve insufficiency. Stage 1 diastolic dysfunction. Mild (1+) aortic valve insufficiency. Ordering Physician: Trinity Mercado Performed By: Farhad Mccoy RCS
--- NOTE | 2023-01-20 11:33 | EKG12_ITS ---
Test Reason : INITIAL Blood Pressure : / mmHG Vent. Rate : 109 BPM Atrial Rate : 109 BPM P-R Int : 166 ms QRS Dur : 130 ms QT Int : 370 ms P-R-T Axes : 042 -46 116 degrees QTc Int : 498 ms Sinus tachycardia Left axis deviation Left bundle branch block Abnormal ECG When compared with ECG of 20-JAN-2023 07:27, MANUAL COMPARISON REQUIRED, DATA IS UNCONFIRMED Confirmed by CHIQUITA MENENDEZ, KAN ([id number]), assistant film editor CHRISSY MARTINEZ ([id number]) on 01/22/2023 11:47:04 AM Referred By: DEISY Confirmed By:KAN PORRAS MD
[2023-01-20 12:33] LABS: Lactic Acid 2.2 mmol/L (0.4-1.9)
[2023-01-20 12:35] LABS: Base Excess 0 mmol/L (-2 to +2); Bicarbonate 22.8 mmol/L (22-26); Blood Gas Specimen Type ART; PO2 69 mmHG (75-100); SITE L Radial; SO2 96 % (95-99); Total Carbon Dioxide 24 mmol/L; pCO2 26.8 mmHg (35-45); pH 7.54 (7.35-7.45)
[2023-01-20 12:48] LABS: Procalcitonin 0.69 ng/mL (0.00-0.09)
[2023-01-20] MEDS: Acetaminophen 325 MG Tablet 650 MG PO ×2 (12:53→19:00)
[2023-01-20 13:03] LABS: AST(SGOT) 20 U/L (15-37); Alanine Aminotransfer ALT/SGPT 20 U/L (13-56); Albumin, Serum 3.7 g/dL (3.2-5.0); Alkaline Phosphatase 86 U/L (45-117); Bilirubin, Direct 0.22 mg/dL (0.00-0.30); Globulin 3.8 g/dL (2.2-4.2); Magnesium 2.1 mg/dL (1.6-2.6); Protein, Total 7.5 g/dL (6.4-8.2); Thyroid Stim Hormone (TSH) 0.77 uIU/mL (0.358-3.74); Troponin-I HS 159 pg/mL (3.0-54.0)
[2023-01-20 13:05] LABS: Bacteria 0 SEEN /hpf (None Seen); Mucous, Urine 0 SEEN /hpf (<or=2+); White Blood Cells 0 SEEN /hpf (0-5)
[2023-01-20 13:07] LABS: Color, Urine Yellow (Yellow); Glucose, Dipstick Normal (Normal); Ketone-Dipstick Negative (Negative); Leukocyte Esterase-Dipstick Negative /ul (Negative); Nitrite-Dipstick Negative (Negative); Occult Blood-Urine 10 /ul (Negative); Protein-Dipstick Negative (Negative); Urine Bilirubin Dipstick Negative (Negative); Urine Clarity Clear (Clear); Urine Urobilinogen Normal (Normal)
[2023-01-20] MEDS: 0.9% Normal Saline 1,000 ML 75 ML IV (13:22)
[2023-01-20 16:03] LABS: Reflex Lactate? Y
[2023-01-20] MEDS: Heparin Injection (Vial) 5,000 UNIT/ML VIAL 5000 UNIT SC ×2 (16:25→21:09)
[2023-01-20 16:51] LABS: Lactic Acid 1.4 mmol/L (0.4-1.9)
[2023-01-20 16:55] LABS: Troponin-I HS 131 pg/mL (3.0-54.0)
--- NOTE | 2023-01-20 17:02 | PN.HOSP_ITS ---
Hospitalist Note EKG on the floor confirmed sinus tach and not A-fib with RVR or abnormal rhythm so she is not given metoprolol, patient given fluids when she got to the floor and broad labs obtained. Her Pro-Juan C was 0.69 and lactic 2.2 but there is no evidence of pneumonia on CT, UA unremarkable, nothing else that would point to infection is the culprit as she got better with just fluids and afebrile. White blood cell count was slightly elevated but again seems reactive in nature. If spikes any temperatures overnight can get cultures and start empiric a ntibiotics. Awaiting echo. Did have ABG with a pH of 7.54 with a PCO2 of 26.8 and a PaO2 of 69 but again she has improved with fluids and tachypnea improved and O2 sats are maintaining. We will continue current work-up and management.
[2023-01-20 17:23] LABS: Red Blood Cells-Urine 0-5 SEEN /hpf (0-5); Squamous Epithelial Cells - UA 0-5 SEEN /hpf (5-10)
[2023-01-21 03:30] VITALS: BP 116/56; PULSE 74; RESP 16; TEMP 36.2; O2SAT 98
[2023-01-21 05:17] VITALS: BMI 21.5
[2023-01-21] MEDS: Heparin Injection (Vial) 5,000 UNIT/ML VIAL 5000 UNIT SC ×2 (05:26→13:47)
[2023-01-21 05:46] LABS: Absolute Lymphocyte Count 1.88 X10^3/uL (0.83-4.51); Absolute Neutrophil Count 7.9 X10^3/uL (2.0-7.7); Basophil# 0.04 X10^3/uL; Basophil% 0.4 % (0-1); Eosinophil# 0.44 X10^3/uL; Eosinophils% 4.2 % (0-5); Hematocrit 33.7 % (37-47); Hemoglobin 11.7 g/dL (12.0-15.0); Lymphocyte # 1.88 X10^3/ul (0.83-4.51); Lymphocyte % 17.9 % (19-41); Mean Corp Hgb Conc 34.7 g/dL (32-36); Mean Corpuscular Hgb 31.8 pg (27.0-32.0); Mean Corpuscular Volume 91.6 fL (81-99); Mean Platelet Vol. 9.8 fl (6.2-12.0); Monocyte# 0.28 X10^3/uL; Monocyte% 2.7 % (0-10); NRBC Flagged by Analyzer 0 % (0-5); Neutrophil # 7.85 X10^3/uL (2.7-7.7); Neutrophil % 74.5 % (47-70); Platelet Count 199 K/mm3 (150-450); RBC Distribution Width CV 14.3 % (11.6-14.6); RBC Distribution Width SD 47.9 fl (35.1-43.9); Red Blood Count 3.68 M/mm3 (4.2-5.4); White Blood Count 10.5 K/mm3 (4.4-11.0)
[2023-01-21 06:10] LABS: Anion Gap 5 (5-15); BUN 16 mg/dL (7-18); BUN/Creat Ratio 33.3 RATIO (10-20); Chloride 111 mmol/L (98-107); Creatinine, Serum 0.48 mg/dL (0.55-1.02); EST Glomerular Filtration Rate 132 mL/min (>60); Est Glom Filt Rate - Afr Amer 159 mL/min (>60); Glucose 84 mg/dL (74-106); Magnesium 2.1 mg/dL (1.6-2.6); Potassium 4.1 mmol/L (3.5-5.1); Sodium Level 141 mmol/L (136-145)
--- NOTE | 2023-01-21 07:56 | PCM.PN.HOSP ---
Reason for Visit Reason for Visit: Diagnoses Syncope and collapse (01/20/23) Other specified abnormalities of plasma proteins (01/20/23) Objective Data Objective Data Vital Signs: Vital Signs Temp Pulse Resp BP Pulse Ox O2 Del Method 97.1 F L 74 16 116/56 L 98 Room Air 01/21/23 03:30 01/21/23 03:30 01/21/23 03:30 01/21/23 03:30 01/21/23 03:30 01/21/23 03:37 Oxygen Delivery Method Room Air Weight: 103 lb 2.821 oz Body Mass Index (BMI) 21.5 Intake & Output: Intake and Output for Last 24 Hours 01/19/23 01/20/23 01/21/23 23:59 23:59 23:59 Intake Total 1237.5 / 1237.5 Balance 1237.5 / 1237.5 Lab / Micro Data Result Diagrams: 01/21/23 05:24 01/21/23 05:24 Labs: Laboratory Results - last 24 hr 01/20/23 07:48: D-Dimer Quant (PE/DVT) 1.20 H* 01/20/23 07:48: Sodium 138, Potassium 3.6, Chloride 107, Carbon Dioxide 26.0, Anion Gap 5, BUN 22 H, Creatinine 0.64, Est GFR (MDRD) Af Amer 114, Est GFR (MDRD) Non-Af 94, BUN/Creatinine Ratio 34.3 H, Glucose 100, Calcium 9.5, Troponin I High Sens 147 H* 01/20/23 07:48: B-Natriuretic Peptide 22.1 01/20/23 11:57: Magnesium 2.1, Total Bilirubin 0.80, Direct Bilirubin 0.22, AST 20, ALT 20, Alkaline Phosphatase 86, Troponin I High Sens 159 H*, Total Protein 7.5, Albumin 3.7, Globulin 3.8, TSH 0.77 01/20/23 11:57: Lactic Acid 2.2 H* 01/20/23 11:57: Procalcitonin 0.69 H 01/20/23 13:00: Urine Color Yellow, Urine Clarity Clear, Urine pH 8.0, Ur Specific [place] 1.010, Urine Protein Negative, Urine Glucose (UA) Normal, Urine Ketones Negative, Urine Occult Blood 10 H, Urine Nitrite Negative, Urine Bilirubin Negative, Urine Urobilinogen Normal, Ur Leukocyte Esterase Negative, Urine RBC 0-5 SEEN, Urine WBC 0 SEEN, Ur Squamous Epith Cells 0-5 SEEN, Urine Bacteria 0 SEEN, Urine Mucus 0 SEEN 01/20/23 16:20: Lactic Acid 1.4 01/20/23 16:20: Troponin I High Sens 131 H* 01/21/23 05:24: WBC 10.5, RBC 3.68 L, Hgb 11.7 L, Hct 33.7 L, MCV 91.6, MCH 31.8, MCHC 34.7, RDW Std Deviation 47.9 H, RDW Coeff of Criselda 14.3, Plt Count 199, MPV 9.8, Immature Gran % (Auto) 0.300, Neut % (Auto) 74.5 H, Lymph % (Auto) 17.9 L, [place] % (Auto) 2.7, Eos % (Auto) 4.2, Baso % (Auto) 0.4, Absolute Neuts (auto) 7.9 H, Absolute Lymphs (auto) 1.88, Nucleated RBC % 0 01/21/23 05:24: Sodium 141, Potassium 4.1, Chloride 111 H, Carbon Dioxide 25.0, Anion Gap 5, BUN 16, Creatinine 0.48 L, Estim Creat Clear Calc 32.60, Est GFR (MDRD) Af Amer 159, Est GFR (MDRD) Non-Af 132, BUN/Creatinine Ratio 33.3 H, Glucose 84, Calcium 9.0, Magnesium 2.1 Micro: Microbiology 01/20/23 12:02 Mucosa - Nasopharyngeal Respiratory Panel (PCR) - Final 01/20/23 12:07 Nasal Secretion SARS-CoV-2 & FLU Antigen (Rapid) - Final ABG Data ABG results: ABG 01/20/23 12:31 Specimen Type ART Sample Site L Radial pH 7.54 H Bicarbonate Actual 22.8 Total CO2 24 Base Excess 0 O2 Saturation 96 ABG pCO2 26.8 L ABG pO2 69 L Radiography Diagnostic Testing: Radiology Impression Chest X-Ray 01/20/23 07:33 IMPRESSION: Degenerative changes, as described above. No demonstrated acute cardiopulmonary process. Electronically Signed: Don Davila MD at 8:47 EDT Reading Location ID and State: [facility] / [place] , Service support , Chest CTA 01/20/23 09:00 IMPRESSION: 1. COPD. No visualized infiltrates or pulmonary edema or pleural effusion. 2. No pulmonary embolism or arterial dissection. Electronically Signed: Don Davila MD at 9:57 EDT Reading Location ID and State: [facility] / [place] , Service support , Rhythm Strip Rhythm Strip: Sinus Tach Rate: 115 Ectopy: None Assessment & Plan Assessment/Plan (1) Pre-syncope: (2) Elevated troponin: PLAN: Plan #Presyncope -Suspect underlying arrhythmia given her reports of palpitations and rapid heartbeat at times -EKG in the ED with left axis deviation and left bundle branch block unchanged from September -Was more tachycardic at time of exam, will repeat EKG to assess for change in rhythm -Admit to PCU -We will check TSH -Orthostats -Echo ordered #NSTEMI -Suspect type II secondary to possible A-fib with RVR/arrhythmia -Trend troponin -Echo -Admit to telemetry -Low threshold for cardiology consult #Shortness of breath -Has been intermittent and around the time she will get lightheaded, also suspect that this may be related to an underlying arrhythmia -CTA negative for PE, no infiltrates suggestive of bacterial pneumonia -We will check COVID and respiratory panel as she is also felt congested and had cough -Did have white blood cell count of 13 which may be reactive but with her reported hot and cold spells and low BP at home and tachycardia will obtain lactic acid and UA though less likely infection and more likely cardiac in nature based on history -Given the tachycardia in addition to the tachypnea will obtain ABG as well #DVT ppx: Heparin subcu CODE status: Discussed CODE status at length including difference between FULL code, DNR-CCA, and DNR-CC status. Following discussions about the differences in these status, requested full code. Had to discuss the differences at length with her and daughter as she used multiple conditions of as long as I am not brain and discussed that there is no way to know that. After further discussion explaining she did she is full code. Advanced Care Planning Face to Face Time: 15 minutes.
[2023-01-21 09:30] VITALS: BP 122/67; PULSE 76; RESP 18; TEMP 36.6; O2SAT 99
--- NOTE | 2023-01-21 10:25 | CASEMGMT ---
JIN JONES Face to Face with patient for initial transition planning/care coordination assessment. RN CM introduced self and role at [facility]. Patient sitting in chair, alert and oriented, daughter at bedside. Patient willing to participate in assessment and is able to answer all questions appropriately. Care providers, pharmacy, and demographics verified. Patient wishes to discharge home, denies need for home health at this time. Patient states she has no further needs or concerns at this time. CM to follow for discharge planning needs that may arise. PCP: Ofelia Specialists: William assistant athletic trainer Taylor Cristina Pharmacy: [facility] Insurance: APX Prescription Benefit: yes Living Will/HPOA: yes, daughter Anahi Love LNOK: daughter Living Arrangements: Patient lives alone in a single story home with 2 steps and railing to enter the home. Patient states she is independent at home. Transportation: daughter DME/HHC: Patient has shower chair, raised toilet, cane, rollator, medical alert, and grab bars at home. Patient has been to [email or web address] in the past. Patient has had [facility] in the past. Disposition Plan: Paitent to discharge home with family support and follow-up plans in place. Fide LOBATO, RN, CM
--- NOTE | 2023-01-21 10:35 | DCINST_ITS ---
Discharge Instructions Diet Discharge Diet: 2000 mg Sodium Diet Activity Discharge Activity: Return to Normal Activity Weight Bearing Status: Weight bearing as tolerated Dressing / Incision Call your doctor if you observe: Fever of 101 or Higher, Coldness, Increased Pain, Numbness or Tingling, Change in Color, Inability to urinate, Inability to have a bowel movement, Using more than 1 pad per hour, Shortness of breath, Dizziness, Fainting spells, Swelling in the ankles, Chest pain, Prolonged hiccupping, Increased palpitations (irregular heartbeat) and Calf discomfort Follow Up Care When: IN 2 WEEKS Test Results: Test results from this visit will be discussed in further detail at your follow- up appointment, if applicable. Discharge Plan Admission Admit Date/Time: 01/20/23 11:25 Primary Reason for Your Visit: Near syncope Attending Provider: Santy Miller Primary Care Provider: Domonique Gilbert Consulting Providers: Trinity Mercado Instructions Additional Instructions / Restrictions: Follow-up with motor vehicle technician Dr. RITCHIE in 2 weeks Discharge Orders/Prescriptions Prescriptions: Continued bisacodyl [Dulcolax (bisacodyl)] 5 mg tablet,delayed release (DR/EC) 5 mg PO ONCE (DME) handicap placard See Rx Instructions .ROUTE .MEDSUPPLY Qty: 1 0RF Rx Instructions: Length of time: 1 years acetaminophen [Tylenol] 325 mg Tablet 650 mg PO Q6H PRN PRN (Reason: Pain 1-10 Or Fever >100.7) Qty: 30 0RF ergocalciferol (vitamin D2) [Vitamin D2] 1,250 mcg (50,000 unit) capsule 1,250 mcg PO Sa@1000 Label Comments: Patient states she does not take this medication anymore Changed lisinopril 40 MG tablet 20 mg PO DAILY 30 Days Qty: 0 0RF Rx Instructions: Hold for SBP less than 130 mmHg Referrals / Follow Up: Domonique Gilbert MD [Primary Care Provider] - Within 1 Week Uday Esteves MD [Med Staff - Active Staff] - Within 1 Month (for PFT, occasional cough, sore throat probably allergic respiratory disorder/asthma) Disposition Disposition (needs filled in before D/C Order can be placed): Home, Self Care
[2023-01-21 11:32] VITALS: O2SAT 97
[2023-01-21 11:34] VITALS: PULSE 85; RESP 20
[2023-01-21] MEDS: Albuterol 2.5 MG/3 ML VIAL.NEB. INHALATION (11:34)
[2023-01-21] MEDS: Acetaminophen 325 MG Tablet 650 MG PO (13:43)
[2023-01-21 16:00] VITALS: BP 118/74; PULSE 74; RESP 16; TEMP 36.3; O2SAT 98
--- NOTE | 2023-01-21 16:03 | PCM.DC.SUM ---
Providers Date of Admission: 01/20/23 Date of Discharge: 01/21/23 Primary Care Physician: Dr. Domonique Gilbert MD Reason For Visit: PRESYNCOPE Diagnosis Discharge Diagnosis (1) Pre-syncope: Status: Acute Code(s): R55 - Syncope and collapse (2) Elevated troponin: Status: Acute Code(s): R77.8 - Other specified abnormalities of plasma proteins Plan 82-year-old female was admitted with feeling of dizziness/intermittent presyncope for past 1 week along with mild shortness of breath. Her blood pressure was also low at 98/58 when she had a near syncope episode. She also felt like mildly scratchy throat, occasional cough. 1. Presyncope most likely due to low blood pressure: Patient was admitted in PCU. Twelve-lead EKG shows LAD, and left bundle branch block, unchanged from the previous September 2022 EKG. Orthostatic blood pressure was done and does not meet criteria for orthostatic hypotension. Patient also did not have chest pain or tightness. property assessment monitor shows sinus rhythm heart rate around 90s to 100.Baseline heart rate 74/min. Patient had 2D echo. 2D echo reported mild TR mild eccentric MR mild diffuse aortic valve thickening and mild aortic insufficiency. EF 55% with stage I diastolic dysfunction consistent with chronic HFpEF. Patient has history of chronic LBBB and Takotsubo syndrome and follows echo and medicinal chemist Dr. Rick Bowser. TSH normal. 2. Elevated troponin most likely due to myocardial injury probably sinus tachycardia: Her troponins were elevated 147, 159 and 131 but did not show dynamic changes. I do not think ACS/non-STEMI because of her elevated troponin. 3. Intermittent shortness of breath with scratchy throat and occasional cough probably due to acute respiratory allergy. ABG 7.54/. FiO2 not mentioned in ABG. Pulse ox 98% on room air. No hypoxia on pulse oximetry. Patient advised to follow-up in pulmonary clinic in 4 weeks for PFT. #DVT ppx: Heparin subcu Discharge medication reconciliation done. Discharge follow-up instructions completed. Discharge process discussed with the patient and all questions were answered to patient's satisfaction in presence of her daughter. Total time spent, exact 35 minutes on discharge meds reconciliation, examination, coordination of care with nurses and ancillary staff, review of imaging and blood test and discussion with the patient on follow-up instructions. Medications at Discharge Home Medications acetaminophen 325 mg tablet (Tylenol) 650 mg PO Q6H PRN PRN Pain 1-10 Or Fever >100.7 #30 tabs 10/01/22 bisacodyl 5 mg tablet,delayed release (Dulcolax (bisacodyl)) 5 mg PO ONCE constipation 11/15/22 handicap placard #1 ea 11/15/22 ergocalciferol (vitamin D2) 1,250 mcg (50,000 unit) capsule (Vitamin D2) 1,250 mcg PO Sa@1000 . 01/20/23 lisinopril 40 mg tablet 20 mg PO DAILY BP 30 days #0 tabs 01/21/23 Physical Exam Narrative Seen and examined. Patient dizziness has resolved. At present she does not have chest pain tightness shortness of breath. Physical exam General: Alert, Oriented x3, Cooperative HEENT: Atraumatic, PERRLA, EOMI, Normocephalic Oral: No Gingival or Mucosal Lesions/ Ulcerations Neck: Supple, No JVD, Negative Carotid Bruits. Lungs: Air entry diminished in bilateral lung bases. No crepitation/rhonchi Cardiovascular: Regular rate, Regular Rhythm, Normal S1, Normal S2, Systolic murmur LLSB and cardiac apex. Abdomen: Bowel Sounds Present, Soft, Non Tender, Non-Distended : No renal angle tenderness. No suprapubic tenderness. Extremities: No edema, Capillary Refill Less than 3 Seconds Skin: No rashes, No breakdown Musculoskeletal: No Tenderness to Palpation of Joints or Extremities Neurological: Cranial nerves II-XII grossly intact, DTR 2+/4 and Symmetrical, Neuro grossly intact Psych/Mental Status: Normal Affect, Appropriate. Weight / BMI Weight Weight: 103 lb 2.821 oz Body Mass Index (BMI) 21.5 ABG / Lab / Microbiology Data Result Diagrams: 01/21/23 05:24 01/21/23 05:24 Laboratory: Laboratory Results - last 24 hr 01/20/23 13:00: Urine RBC 0-5 SEEN, Urine WBC 0 SEEN, Ur Squamous Epith Cells 0-5 SEEN, Urine Bacteria 0 SEEN, Urine Mucus 0 SEEN 01/20/23 16:20: Lactic Acid 1.4 01/20/23 16:20: Troponin I High Sens 131 H* 01/21/23 05:24: WBC 10.5, RBC 3.68 L, Hgb 11.7 L, Hct 33.7 L, MCV 91.6, MCH 31.8, MCHC 34.7, RDW Std Deviation 47.9 H, RDW Coeff of Criselda 14.3, Plt Count 199, MPV 9.8, Immature Gran % (Auto) 0.300, Neut % (Auto) 74.5 H, Lymph % (Auto) 17.9 L, [place] % (Auto) 2.7, Eos % (Auto) 4.2, Baso % (Auto) 0.4, Absolute Neuts (auto) 7.9 H, Absolute Lymphs (auto) 1.88, Nucleated RBC % 0 01/21/23 05:24: Sodium 141, Potassium 4.1, Chloride 111 H, Carbon Dioxide 25.0, Anion Gap 5, BUN 16, Creatinine 0.48 L, Estim Creat Clear Calc 32.60, Est GFR (MDRD) Af Amer 159, Est GFR (MDRD) Non-Af 132, BUN/Creatinine Ratio 33.3 H, Glucose 84, Calcium 9.0, Magnesium 2.1 Microbiology: Microbiology 01/20/23 12:02 Mucosa - Nasopharyngeal Respiratory Panel (PCR) - Final 01/20/23 12:07 Nasal Secretion SARS-CoV-2 & FLU Antigen (Rapid) - Final D/C Instructions Discharge Diet: 2000 mg Sodium Diet Weight Bearing Status: Weight bearing as tolerated Call your doctor if you observe: Fever of 101 or Higher, Coldness, Increased Pain, Numbness or Tingling, Change in Color, Inability to urinate, Inability to have a bowel movement, Using more than 1 pad per hour, Shortness of breath, Dizziness, Fainting spells, Swelling in the ankles, Chest pain, Prolonged hiccupping, Increased palpitations (irregular heartbeat) and Calf discomfort When: IN 2 WEEKS Meaningful Use Info Meaningful Use Diagnoses (Choose all that apply): None applicable Discharge Plan Admission Admit Date/Time: 01/20/23 11:25 Primary Reason for Your Visit: Near syncope Attending Provider: Santy Miller Primary Care Provider: Domonique Gilbert Consulting Providers: Trinity Mercado Instructions Additional Instructions / Restrictions: Follow-up with medicinal chemist Dr. BOWSER in 2 weeks Discharge Orders/Prescriptions Prescriptions: Continued bisacodyl [Dulcolax (bisacodyl)] 5 mg tablet,delayed release (DR/EC) 5 mg PO ONCE (DME) handicap placard See Rx Instructions .ROUTE .MEDSUPPLY Qty: 1 0RF Rx Instructions: Length of time: 1 years acetaminophen [Tylenol] 325 mg Tablet 650 mg PO Q6H PRN PRN (Reason: Pain 1-10 Or Fever >100.7) Qty: 30 0RF ergocalciferol (vitamin D2) [Vitamin D2] 1,250 mcg (50,000 unit) capsule 1,250 mcg PO Sa@1000 Label Comments: Patient states she does not take this medication anymore Changed lisinopril 40 MG tablet 20 mg PO DAILY 30 Days Qty: 0 0RF Rx Instructions: Hold for SBP less than 130 mmHg Referrals / Follow Up: Domonique Gilbert MD [Primary Care Provider] - Within 1 Week Uday Esteves MD [Med Staff - Active Staff] - Within 1 Month (for PFT, occasional cough, sore throat probably allergic respiratory disorder/asthma) Disposition Disposition (needs filled in before D/C Order can be placed): Home, Self Care Charges/Coding Visit Charges Inpatient E&M: 95461 Disch Hosp >30min
== END 2023-01-21 16:17 | disposition home or self-care (01) | DRG 315 ==
LOC: ED 10:55 → PCU 11:41
PROVIDERS: Admitting Provider Internal Medicine; Emergency Provider Emergency Medicine; PCP Internal Medicine; Visit Provider Internal Medicine
DX: I95.9 Hypotension, unspecified (principal); I5A Non-ischemic myocardial injury (non-traumatic); I50.32 Chronic diastolic (congestive) heart failure; I11.0 Hypertensive heart disease with heart failure; I44.7 Left bundle-branch block, unspecified; R00.0 Tachycardia, unspecified; Z79.899 Other long term (current) drug therapy
CPT/HCPCS: 36415; 36600; 71045; 71275; 80048; 80076; 81001; 82803; 83605; 83735; 83880; 84145; 84443; 84484; 85025; 85379; 87428; 87633; 93005; 93306; 94640; 97162; 97166; 99283; J7030; J7040; Q9967

== ENCOUNTER 2023-03-08 15:42 | Inpatient (IN) | payer MEDICARE, SELFPAY ==
[2023-03-08 15:43] VITALS: BP 150/78; PULSE 77; RESP 19; TEMP 37.1; O2SAT 100
[2023-03-08 15:45] VITALS: BMI 23.0
[2023-03-08 16:14] VITALS: BMI 23.0
[2023-03-08 16:19] VITALS: BMI 22.2
--- NOTE | 2023-03-08 16:19 | EKG12_ITS ---
Test Reason : Blood Pressure : / mmHG Vent. Rate : 068 BPM Atrial Rate : 068 BPM P-R Int : 166 ms QRS Dur : 138 ms QT Int : 460 ms P-R-T Axes : 059 -53 111 degrees QTc Int : 489 ms Normal sinus rhythm Left axis deviation Left bundle branch block Abnormal ECG Confirmed by CULLEN MENENDEZ, JYOTSNA ([id number]), development editor CHRISSY MARTINEZ ([id number]) on 03/11/2023 10:51:09 A M Referred By: Confirmed By:KURT BERMAN MD
--- NOTE | 2023-03-08 16:19 | CT_ITS ---
We are attempting to reach an attending provider to discuss findings. An addendum with communication details will be sent when the communication is complete. INDICATION: Neuro deficit, acute, stroke suspected EXAMINATION: CT BRAIN - CT Head Stroke Protocol W/O Contrast Injection TECHNIQUE: Multiple axial images were obtained of the head without intravenous contrast. A radiation dose optimization technique was used for this scan. IV Contrast dosage and agent: None. COMPARISON: 03/14/2019 FINDINGS: BRAIN PARENCHYMA: Irregular mildly heterogeneous decreased attenuation along the medial right temporal lobe and right occipital lobe. Findings are consistent with acute or subacute infarct. No hemorrhage. No significant mass effect. No other changes. No intra- or extra-axial hemorrhage. No intracranial mass or mass effect. There is preservation of the castaneda/white matter interface. Posterior fossa structures are unremarkable. CSF SPACES: Mild diffuse atrophy, stable No hydrocephalus. Basal cisterns are patent. CALVARIUM, SKULL BASE, PARANASAL SINUSES AND MASTOID AIR CELLS: Clear. No discrete lytic or blastic abnormalities. ORBITS: Both globes, extraocular muscles, optic nerves and retrobulbar fat appear unremarkable. 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 No hemorrhage. Electronically Signed: Telly Lopez MD at 17:08 EDT ,
--- NOTE | 2023-03-08 16:21 | ED.VIS.STROK ---
HPI History of Present Illness Chief Complaint: Neuro S/Sx Narrative Narrative: 82-year-old female presents with left upper quadrant hemianopsia/strokelike symptoms. She denies any headache or paresthesias. She states that her symptoms began on Saturday night at around 10 PM, greater than 48 hours ago. She is having problems seeing in the left upper quadrant in her field of vision out of both eyes. She reportedly went to the [facility] who sent her in for concern for right-sided CVA affecting the left upper quadrant of her vision in both eyes. She and her family relate history that she was seen here in January, and did have elevated markers and was concerned for blood clot in the lungs because she was very short of breath. They state that the CTA was negative but wondered if she had problems at that time. She denies any exacerbating or alleviating factors. She states she was seen in the pulmonary lab today, and then she had extensive work-up by ophthalmology and sent for further evaluation. [facility] Medical History Arthritis Broken arm Chronic dyspnea Glaucoma Hearing deficit Heart valve problem Hx of headache Hypertension Syncope Home Medications acetaminophen 325 mg tablet (Tylenol) 650 mg PO Q6H PRN PRN Pain 1-10 Or Fever >100.7 #30 tabs 10/01/22 [Rx Last Taken Unknown] bisacodyl 5 mg tablet,delayed release (Dulcolax (bisacodyl)) 5 mg PO ONCE constipation 11/15/22 [History Last Taken Unknown] handicap placard #1 ea 11/15/22 [Rx Last Taken Unknown] lisinopril 40 mg tablet 20 mg PO DAILY BP 30 days #0 tabs 01/21/23 [Rx Last Taken 09/26/22] ipratropium 20 mcg-albuterol 100 mcg/actuation mist for inhalation (Combivent Respimat) 1 puff inhalation Q6H #4 grams 03/05/23 [Rx Last Taken Unknown] naproxen sodium 220 mg tablet (Aleve) 220 mg PO BID PRN 03/05/23 [History Last Taken Unknown] Allergy/AdvReac Type Severity Reaction Status Date / Time procaine [From Novocain] Allergy passed out Verified 03/08/23 15:45 Family History Father Heart disease Surgical History H/O neck surgery History of hip replacement History of surgery on arm Social History household members: none current occupational 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 HEENT: No sore throat. No neck pain. Positive loss of vision out of both wilson of vision left upper quadrant. No rhinorrhea. Cardiovascular: No chest pain. No palpitations. No pedal edema. Respiratory: No cough, no shortness of breath. Abdominal: No abdominal pain. No nausea. No vomiting. Genitourinary: No dysuria. No hematuria. Musculoskeletal: No myalgias. No arthralgias. Neurologic: No headaches. No dizziness. No lightheadedness. Skin: No rash. No change in color. Psychiatric: No depression. No anxiety. EXAM Physical Exam Narrative Exam Narrative: Afebrile. Vital signs noted. HEENT: Normocephalic. Atraumatic. 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 Neck soft and supple. No point tenderness or step off. Cardiovascular: Regular rate and rhythm. No murmurs, rubs, or gallops appreciated. Respiratory: No tachypnea. Lungs clear to auscultation bilaterally. Gastrointestinal: Abdomen soft, nontender, with normoactive bowel sounds. No rebound or guarding. Neurological: Awake. Alert. Nonfocal, nonlateralizing. Positive left upper quadrant hemianopsia. Skin: No rash. Normal color. No pallor. Musculoskeletal: No pedal edema. Full range of motion extremities. Const Vital Signs: 03/08/23 15:43 Temperature 98.7 F Temperature Source Temporal Pulse Rate 77 Respiratory Rate 19 H Blood Pressure 150/78 H Blood Pressure Mean 102 Pulse Ox 100 Oxygen Delivery Method Room Air MDM MDM MDM Narrative Medical decision making narrative: Patient is greater than 48 hours since the beginning of her symptoms. I do not feel that stroke team is indicated. CT imaging will be obtained of the brain to look for ischemic change/stroke. I will also obtain initial stroke orders. I interpreted her EKG independently and on my interpretation it demonstrates normal sinus rhythm at 68 bpm without ectopy or acute ST changes. No STEMI. There is a left bundle branch block and there is no significant change from previous EKG dated January 20, 2023. She does have an elevated troponin above 200, but her baseline appears to be in the 130s. I feel this is a chronic elevation of her troponins. I do not feel that she requires heparin infusion or emergent cardiac catheterization. I reviewed her laboratory work and she has normal white count of 5.7, hemoglobin 12.5, hematocrit 36.5, platelet count normal at 234. Coagulation studies are normal with an INR of 1.1 and a PTT of 27.5, BMP shows sodium normal at 140 with potassium 3.8, BUN elevated at 20 with a creatinine of 0.56. Glucose is 88. CT of the brain was reviewed and I do see a right occipital stroke on my interpretation. I reviewed the radiology report and did receive a call from the radiologist regarding this, and they are calling in a right medial temporal to right occipital infarct. At this point in time, I do feel that given her subacute stroke, that she will require admission in the PCU. Patient discussed with the hospitalist, Dr. Baez. Disposition is admit in stable condition.. History & Record Review Discussion w/independent historian: Patient and Family Additional record(s) reviewed:: Prior inpatient record, Prior ED visit and Prior labs Lab Data Attestation: I reviewed the patient's lab results. Labs: Laboratory Results - last 24 hr 03/08/23 03/08/23 03/08/23 16:35 16:35 16:35 WBC 5.7 RBC 4.00 L Hgb 12.5 Hct 36.5 L MCV 91.3 MCH 31.3 MCHC 34.2 RDW Std Deviation 46.2 H RDW Coeff of Criselda 13.6 Plt Count 234 MPV 10.1 Immature Gran % (Auto) 0.400 Neut % (Auto) 65.4 Lymph % (Auto) 25.8 [place] % (Auto) 6.3 Eos % (Auto) 0.7 Baso % (Auto) 1.4 H Absolute Neuts (auto) 3.7 Absolute Lymphs (auto) 1.47 Nucleated RBC % 0 PT 14.4 INR 1.1 APTT 27.5 Sodium 140 Potassium 3.8 Chloride 106 Carbon Dioxide 24.0 Anion Gap 10 BUN 20 H Creatinine 0.56 Estim Creat Clear Calc 34.69 Est GFR (MDRD) Af Amer 132 Est GFR (MDRD) Non-Af 109 BUN/Creatinine Ratio 35.5 H Glucose 88 Calcium 9.9 Troponin I High Sens 216 H* Radiography Diagnostic Testing: Clinical Impression(s) from Imaging Studies Brain CT 03/08/23 16:19 IMPRESSION: Finding consistent with acute or subacute right medial temporal and occipital infarct. No hemorrhage. Electronically Signed: Telly Lopez MD at 17:08 EDT Reading Location ID and State: [facility] / [place] , Service support , ADDENDUM: 03/08/23 1720 IMPRESSION: Finding consistent with acute or subacute right medial temporal and occipital infarct. No hemorrhage. N.B. : The above Results were Read Back by Telly Lopez MD to Simone Beasley MD, and understanding confirmed on 03/08/2023 17:13:29 (ET). Electronically Signed: Telly Lopez MD at 17:08 EDT Reading Location ID and State: [facility] / [place] , Service support , Chest X-Ray 03/08/23 16:58 IMPRESSION: No definite acute or significant abnormality seen. Electronically Signed: Telly Lopez MD at 17:09 EDT Reading Location ID and State: [facility] / [place] , Service support , Discharge Plan Dx/Rx/DC Orders Clinical Impression: Stroke, Elevated troponin, Bilateral hemianopia Disposition Disposition: Acute Care [facility]
[2023-03-08 16:46] LABS: Absolute Lymphocyte Count 1.47 X10^3/uL (0.83-4.51); Absolute Neutrophil Count 3.7 X10^3/uL (2.0-7.7); Basophil# 0.08 X10^3/uL; Basophil% 1.4 % (0-1); Eosinophil# 0.04 X10^3/uL; Eosinophils% 0.7 % (0-5); Hematocrit 36.5 % (37-47); Hemoglobin 12.5 g/dL (12.0-15.0); Lymphocyte # 1.47 X10^3/ul (0.83-4.51); Lymphocyte % 25.8 % (19-41); Mean Corp Hgb Conc 34.2 g/dL (32-36); Mean Corpuscular Hgb 31.3 pg (27.0-32.0); Mean Corpuscular Volume 91.3 fL (81-99); Mean Platelet Vol. 10.1 fl (6.2-12.0); Monocyte# 0.36 X10^3/uL; Monocyte% 6.3 % (0-10); NRBC Flagged by Analyzer 0 % (0-5); Neutrophil # 3.73 X10^3/uL (2.7-7.7); Neutrophil % 65.4 % (47-70); Platelet Count 234 K/mm3 (150-450); RBC Distribution Width CV 13.6 % (11.6-14.6); RBC Distribution Width SD 46.2 fl (35.1-43.9); White Blood Count 5.7 K/mm3 (4.4-11.0)
[2023-03-08 16:55] LABS: International Normalized Ratio 1.1; Prothrombin Time (Protime)PT. 14.4 SECONDS (11.7-14.9)
[2023-03-08 16:56] LABS: Partial Thromboplast Time 27.5 Seconds (24.1-36.2)
--- NOTE | 2023-03-08 16:58 | RAD_ITS ---
STUDY: X-RAY CHEST REASON FOR EXAM: Female, 82 years old. Neuro deficit, acute, stroke suspected TECHNIQUE: Single AP portable view of the chest. COMPARISON: 01/20/2023. FINDINGS: The lungs are clear and expanded. There is no demonstrated pleural abnormality. Normal size heart. Normal mediastinum and chucky. Normal visualized pulmonary arteries. There is atherosclerotic tortuosity of the aortic arch and descending thoracic aorta. Normal visualized thoracic spine. Normal visualized ribs, clavicles, and shoulders. There is no demonstrated abnormality of the visualized soft tissue structures of the upper abdomen. RAD/Chest 1 View IMPRESSION: No definite acute or significant abnormality seen. Electronically Signed: Telly Lopez MD at 17:09 EDT ,
[2023-03-08 17:07] LABS: Anion Gap 10 (5-15); BUN 20 mg/dL (7-18); BUN/Creat Ratio 35.5 RATIO (10-20); Calcium,Total 9.9 mg/dL (8.5-10.1); Chloride 106 mmol/L (98-107); Creatinine, Serum 0.56 mg/dL (0.55-1.02); EST Glomerular Filtration Rate 109 mL/min (>60); Est Glom Filt Rate - Afr Amer 132 mL/min (>60); Estimated Creatinine Clearance 34.69 ml/min; Glucose 88 mg/dL (74-106); Potassium 3.8 mmol/L (3.5-5.1); Sodium Level 140 mmol/L (136-145); Troponin-I HS 216 pg/mL (3.0-54.0)
--- NOTE | 2023-03-08 17:40 | ED.RN ---
OK TO STOP [facility] PER DR KAMINSKI
--- NOTE | 2023-03-08 17:42 | HP.PCM.HOS_ITS ---
HPI - General General Date of Admission: 03/08/23 Date of Service: 03/08/23 Chief Complaint: stroke like symptoms HPI Narrative MAK SNOW, is a 82 F with a PMH as outlined who presents via the ED on 02/26/2023 with a complaint of stroke like symptoms. She couldnt see out of her left eye, mainly in the left upper field. Her symptoms had started 3 days prior to admission at around 10pm on Saturday night, and couldnt see out of the left upper quadrant of both eyes. She went the ophthalmology office today and was sent to the ED due to concern for occipital stroke. She denied any weakness in any extremity, any mouth droop or slurred speech or any tingling or numbness. Review of systems otherwise negative. She was seen in the hospital in January 2023 due to concern for blood clots as she was very short of breath. CT of the chest was negative for any evidence of PE at that time. Review of systems otherwise negative. Vitals in the ED where blood pressure 150/78, pulse rate of 77 and respiratory rate of 19. Temperature was 98.7 Fahrenheit and he was saturating at 100% on room air. CBC showed hemoglobin of 12.5 with WBC of 5.7 and platelets of 234. INR was 1.1. Chemistry shows sodium of 140 with bicarb of 24 and creatinine of 0.56. Initial troponin was 216. Chest x-ray showed no acute cardiopulmonary pathology. CT of the brain showed findings consistent with acute or subacute right medial temporal and occipital infarcts with no hemorrhage. She has been admitted to be managed for acute versus subacute CVA. [facility] Medical History Arthritis Broken arm Chronic dyspnea Glaucoma Hearing deficit Heart valve problem Hx of headache Hypertension Syncope Home Medications acetaminophen 325 mg tablet (Tylenol) 650 mg PO Q6H PRN PRN Pain 1-10 Or Fever >100.7 #30 tabs 10/01/22 [Rx Last Taken Unknown] handicap placard #1 ea 11/15/22 [Rx Last Taken Unknown] lisinopril 40 mg tablet 20 mg PO DAILY BP 30 days #0 tabs 01/21/23 [Rx Last Taken 09/26/22] naproxen sodium 220 mg tablet (Aleve) 220 mg PO BID PRN Pain 03/05/23 [History Last Taken Unknown] ipratropium 20 mcg-albuterol 100 mcg/actuation mist for inhalation (Combivent Respimat) 1 puff inhalation Q6H shortness of breath 03/09/23 [History Last Taken Unknown] Allergy/AdvReac Type Severity Reaction Status Date / Time procaine [From Novocain] Allergy passed out Verified 03/08/23 15:45 Family History Father Heart disease Surgical History H/O neck surgery History of hip replacement History of surgery on arm Social History household members: none 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 occupational 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 Status: Never smoker Electronic Cigarette Use: not used alcohol intake: never substance use type: does not use what type of physical activity do you participate in: none do you feel safe at home: Yes ROS Constitutional Constitutional: Denies anorexia, change in weight, chills, fatigue, fever(s), malaise or weakness Eyes Eyes: Reports change in vision and loss of vision; Denies discharge from eye(s) or double vision ENT HEENT: Denies abnormal hearing, dysphagia, ear pain or headache(s) Cardiovascular Cardiovascular: Denies chest pain, dyspnea on exertion, edema, lightheadedness, orthopnea, palpitations, paroxysmal nocturnal dyspnea, rapid heart rate or syncope Respiratory/Chest Respiratory/Chest: Denies cough, dyspnea, productive cough, shortness of breath at rest or shortness of breath with exertion Gastrointestinal Gastrointestinal: Denies abdominal pain, nausea or vomiting Genitourinary Genitourinary: Denies burning urination Musculoskeletal Musculoskeletal: Denies arthralgias Neurologic Neurologic: Denies confusion, dizziness, focal weakness, headache(s), numbness, paresthesias, seizure-like activity, seizures or syncope Psychiatric Psychiatric: Denies anxiety Vital Signs Vital Signs Vital Signs: 03/08/23 15:43 Temperature 98.7 F Temperature Source Temporal Pulse Rate 77 Respiratory Rate 19 H Blood Pressure 150/78 H Blood Pressure Mean 102 Pulse Ox 100 Oxygen Delivery Method Room Air Weight Weight: 109 lb 12.643 oz Body Mass Index (BMI) 23.0 Physical Exam Const alert, oriented x3 and no apparent distress General Appearance: cooperative HEENT normocephalic, head/scalp atraumatic, hearing grossly normal bilaterally and moist oral mucous membranes Mouth: oral and palatal mucosa normal Eyes PERRL, EOMs intact bilaterally and conjunctivae normal Neck no lymphadenopathy, supple and no JVD Resp normal respiratory effort, no use of accessory muscles and clear to auscultation bilaterally Cardio regular rate, regular rhythm, S1 normal heart sound, S2 normal heart sound and no murmurs GI normal to inspection, nondistended, normoactive bowel sounds, soft to palpation, non-tender and non-distended Extremity normal to inspection, full ROM and no clubbing, cyanosis or edema Neuro oriented x3, moves all extremities and no focal motor deficits Sensorium / Orientation: awake and alert Motor Exam: strength 5/5 throughout Psych affect normal Results Lab / Micro Data Result Diagrams: 03/09/23 06:20 03/09/23 06:20 Labs: Laboratory Results - last 24 hr 03/08/23 16:35: WBC 5.7, RBC 4.00 L, Hgb 12.5, Hct 36.5 L, MCV 91.3, MCH 31.3, MCHC 34.2, RDW Std Deviation 46.2 H, RDW Coeff of Criselda 13.6, Plt Count 234, MPV 10.1, Immature Gran % (Auto) 0.400, Neut % (Auto) 65.4, Lymph % (Auto) 25.8, [place] % (Auto) 6.3, Eos % (Auto) 0.7, Baso % (Auto) 1.4 H, Absolute Neuts (auto) 3.7, Absolute Lymphs (auto) 1.47, Nucleated RBC % 0 03/08/23 16:35: PT 14.4, INR 1.1, APTT 27.5 03/08/23 16:35: Sodium 140, Potassium 3.8, Chloride 106, Carbon Dioxide 24.0, Anion Gap 10, BUN 20 H, Creatinine 0.56, Estim Creat Clear Calc 34.69, Est GFR (MDRD) Af Amer 132, Est GFR (MDRD) Non-Af 109, BUN/Creatinine Ratio 35.5 H, Glucose 88, Calcium 9.9, Troponin I High Sens 216 H* Radiology Impression Brain CT 03/08/23 16:19 IMPRESSION: Finding consistent with acute or subacute right medial temporal and occipital infarct. No hemorrhage. Electronically Signed: Telly Lopez MD at 17:08 EDT , ADDENDUM: 03/08/23 1720 IMPRESSION: Finding consistent with acute or subacute right medial temporal and occipital infarct. No hemorrhage. N.B. : The above Results were Read Back by Telly Lopez MD to Simone Beasley MD, and understanding confirmed on 03/08/2023 17:13:29 (ET). Electronically Signed: Telly Lopez MD at 17:08 EDT , Chest X-Ray 03/08/23 16:58 IMPRESSION: No definite acute or significant abnormality seen. Electronically Signed: Telly Lopez MD at 17:09 EDT , Assessment & Plan Assessment/Plan (1) Stroke: (2) Bilateral hemianopia: PLAN: Plan #Acute vs subacute CVA * Patient admitted with 3-day history of change in vision from both eyes. She is unable to see out of the upper left quadrants of both eyes. * She went to the test consultant today and was sent to the ED to be evaluated for an occipital stroke. * CT of the brain shows findings consistent with acute or subacute right medial temporal and occipital infarct with no hemorrhage. * Will admit to PCU. * P.o. aspirin and Plavix as well as high intensity statin. Get 2D echo. * Get MRI of the brain and CTA of the head and neck. Consult neurology * PT OT consulted. Fall precautions * #Tach hypertension: Hold lisinopril to allow for permissive hypertension. #Elevated troponin. * Initial troponin is 216. Does have a history of chronically elevated troponin but this is the most elevated has been. * 2D echo ordered for tomorrow. * Cycle troponins to see if there is a further upward trend. * DVT prophylaxis; SCDs Code status: full code * Patient counseled extensively about different types of CODE STATUS including full code, DNR CCA and DNR CCA. Patient elects to be full code. Total [id number] time 16 minutes. Charges/Coding Visit Charges Inpatient E&M: 27826 Init Hosp L2 Procedures Hospitalists Procedures: 94170 Advncd Care Plan 30 Min
[2023-03-08 17:43] VITALS: BP 129/67
[2023-03-08 17:45] VITALS: BP 129/67; PULSE 94; RESP 21; TEMP 36.6
[2023-03-08 18:00] VITALS: BP 118/66
--- NOTE | 2023-03-08 18:00 | CT_ITS ---
STUDY: CTA HEAD AND NECK WITH CONTRAST REASON FOR EXAM: Female, 82 years old. Neuro deficit, acute, stroke suspected RADIATION DOSAGE (If Supplied By Facility): CTDIvol = ( 19.98 ) mGy, DLP = ( 514.23 ) mGycm TECHNIQUE: CT angiography was performed with a multi-detector CT scanner. Data acquisition was obtained from the skull base through the vertex following intravenous administration of IV 100mL [id number]-370. MIP images were reconstructed from the axial data set. Post-processing of the angiographic images was performed, with multiplanar reformation and 3D reconstruction. Individualized dose optimization techniques were used for this CT. COMPARISON: No relevant priors. FINDINGS: Normal bilateral petrous carotid arteries. There is calcified plaque formation of the right cavernous carotid artery, with a mild stenosis (less than 50%). There is calcified plaque formation of the left cavernous carotid artery, with a mild stenosis (less than 50%). Normal right A1 segments of the anterior cerebral artery. Normal left A1 segments of the anterior cerebral artery. Normal intact anterior communicating artery (ACOM). Normal bilateral A2 segments of the anterior cerebral arteries. Normal right M1 and M2 segments of the middle cerebral arteries, with a normal M1 bifurcation. Normal left M1 and M2 segments of the middle cerebral arteries, with a normal M1 bifurcation. Normal right posterior communicating artery (PCOM). Normal left posterior communicating artery (PCOM). Normal bilateral vertebral arteries. Normal basilar artery with a normal basilar bifurcation. The visualized bilateral superior cerebellar (SCA) arteries are normal. Normal bilateral P1, P2 and visualized P3 segments of the posterior cerebral arteries. There is no demonstrated aneurysm of the moapa of Lin. There is no demonstrated abnormality of the visualized brain. AORTIC ARCH: Normal visualized aortic arch. Normal origins of the brachiocephalic, left common carotid, and left subclavian arteries. RIGHT CAROTID ARTERIES: Normal right common carotid artery (CCA). Normal right common carotid bulb. There is mild atherosclerotic plaque formation of the origin of the right internal carotid artery with less than 50% cross sectional diameter stenosis. There is atherosclerotic tortuous elongation of the cervical portion of the right internal carotid artery. Normal origin of the right external carotid artery (ECA). LEFT CAROTID ARTERIES: Normal left common carotid artery (CCA). There is mild atherosclerotic plaque formation with minimal narrowing of the left carotid bulb. There is mild atherosclerotic plaque formation of the origin of the left internal carotid artery with less than 50% cross sectional diameter stenosis. There is atherosclerotic tortuous elongation of the cervical portion of the left internal carotid artery. Normal origin of the left external carotid artery (ECA). VERTEBRAL ARTERIES: Normal bilateral vertebral arteries. CT/STROKE CTA Head AND Neck W/Con IMPRESSION: Bilateral carotid bulb and ICA plaque with less than 50% stenosis. No large vessel occlusion seen within the head. Bilateral carotid plaque with less than 50% stenosis of the cavernous carotid arteries. N.B. : The above Results were Read Back by Telly Lopez MD to Simone Britt RN, and understanding confirmed on 03/08/2023 18:44:04 (ET). Electronically Signed: Telly Lopez MD at 18:46 EDT ,
[2023-03-08 19:35] VITALS: BMI 22.2
--- NOTE | 2023-03-08 19:35 | ECHOD_ITS ---
Version 2 Reason For Study: CVA/TIA Procedure This was a limited 2D transthoracic echocardiogram. Exam performed portable in patient room. Left Ventricle Normal LV size. The estimated ejection fraction is 60 %. Unable to assess diastolic dysfunction. No regional wall motion abnormalities noted. Right Ventricle Normal RV size. Normal systolic function. Atria Normal left atrium. Normal right atrium. Few bubbles seen on the left side 3-4 beats after arriving on the right side. Borderline positive bubble study. Mitral Valve There is no mitral valve stenosis. Not assessed. Tricuspid Valve There is no tricuspid stenosis. Not assessed. Aortic Valve Aortic sclerosis, no stenosis. Not assessed. Pulmonic Valve There is no pulmonic valvular stenosis. Great Vessels Normal aortic root. Pericardium/Pleural No pericardial effusion. Medication Performed a rapid injection of agitated mix of 9 cc saline and 1cc air to assess for atrial septal defect. MMode/2D Measurements & Calculations LVIDd: 3.8 cm IVSd: 1.3 cm Ao root diam: 2.5 cm LVIDs: 2.4 cm LVPWd: 0.79 cm RVDd: 3.1 cm FS: 36.1 % LAV(MOD-bp): 20.7 ml LVAd ap4: 22.3 cm2 LVAd ap2: 23.1 cm2 LAV(MOD-bp) Indexed: 14.7 ml/m2 LVLd ap4: 7.2 cm LVLd ap2: 7.5 cm LAV(MOD-sp2): 27.8 ml EDV(MOD-sp4): 53.2 ml EDV(MOD-sp2): 58.0 ml LAV(MOD-sp4): 15.0 ml EDV(sp4-el): 58.7 ml EDV(sp2-el): 60.2 ml LVAs ap4: 13.5 cm2 LVAs ap2: 12.4 cm2 LVLs ap4: 6.2 cm LVLs ap2: 6.4 cm ESV(MOD-sp4): 24.1 ml ESV(MOD-sp2): 20.6 ml ESV(sp4-el): 25.1 ml ESV(sp2-el): 20.5 ml EF(MOD-sp4): 54.7 % EF(MOD-sp2): 64.5 % EF(sp4-el): 57.3 % SV(MOD-sp4): 29.1 ml SV(MOD-sp2): 37.4 ml SV(sp4-el): 33.6 ml LA A4 area: 8.7 cm2 LA dimension(2D): 2.5 cm RA A4 area: 11.3 cm2 ECHO/Echo Complete Interpretation Summary The estimated ejection fraction is 60 %. Unable to assess diastolic dysfunction. Few bubbles seen on the left side 3-4 beats after arriving on the right side. B orderline positive bubble study Ordering Physician: Connie Baez Performed By: Courtney Mancera RDCS
[2023-03-08 19:42] VITALS: BP 133/51; PULSE 64; RESP 14; TEMP 36.5; O2SAT 100
[2023-03-08 21:06] LABS: Troponin-I HS 221 pg/mL (3.0-54.0)
[2023-03-08] MEDS: Atorvastatin Calcium 80 MG Tablet PO (22:12)
[2023-03-08] MEDS: Clopidogrel Bisulfate 75 MG Tablet PO (22:12)
[2023-03-08 22:23] LABS: Troponin-I HS 207 pg/mL (3.0-54.0)
[2023-03-08] MEDS: Contrast Allergy Safety Check IV (22:38)
[2023-03-09] VITALS (9 sets, daily range): BP systolic 100–162; BP diastolic 58–102; PULSE 58–96; RESP 16–20; TEMP 36.4–37; O2SAT 95–99; BMI 22.2
[2023-03-09 06:38] LABS: Absolute Lymphocyte Count 1.64 X10^3/uL (0.83-4.51); Basophil# 0.08 X10^3/uL; Basophil% 1.8 % (0-1); Eosinophil# 0.24 X10^3/uL; Eosinophils% 5.5 % (0-5); Hematocrit 37.2 % (37-47); Hemoglobin 12.7 g/dL (12.0-15.0); Lymphocyte # 1.64 X10^3/ul (0.83-4.51); Lymphocyte % 37.6 % (19-41); Mean Corp Hgb Conc 34.1 g/dL (32-36); Mean Corpuscular Hgb 31.3 pg (27.0-32.0); Mean Corpuscular Volume 91.6 fL (81-99); Mean Platelet Vol. 9.8 fl (6.2-12.0); Monocyte% 9.2 % (0-10); NRBC Flagged by Analyzer 0 % (0-5); Neutrophil # 1.99 X10^3/uL (2.7-7.7); Neutrophil % 45.7 % (47-70); Platelet Count 231 K/mm3 (150-450); RBC Distribution Width CV 13.6 % (11.6-14.6); RBC Distribution Width SD 46.2 fl (35.1-43.9); Red Blood Count 4.06 M/mm3 (4.2-5.4); White Blood Count 4.4 K/mm3 (4.4-11.0)
[2023-03-09 07:38] LABS: Anion Gap 6 (5-15); BUN 18 mg/dL (7-18); BUN/Creat Ratio 31.7 RATIO (10-20); Calcium,Total 9.7 mg/dL (8.5-10.1); Chloride 108 mmol/L (98-107); Cholesterol 185 mg/dL (200); Creatinine, Serum 0.57 mg/dL (0.55-1.02); EST Glomerular Filtration Rate 109 mL/min (>60); Est Glom Filt Rate - Afr Amer 132 mL/min (>60); Estimated Creatinine Clearance 33.65 ml/min; Glucose 87 mg/dL (74-106); High Density Lipoprotein 65 mg/dL; Potassium 3.9 mmol/L (3.5-5.1); Sodium Level 139 mmol/L (136-145); Triglycerides 51 mg/dL; Very Low Density Lipoprotein 10 mg/dL (5-40)
[2023-03-09] MEDS: Clopidogrel Bisulfate 75 MG Tablet PO (08:25)
[2023-03-09] MEDS: Aspirin 81 MG TAB.CHEW PO (08:25)
[2023-03-09] MEDS: Enoxaparin 40 MG/0.4 ML Syringe SC (08:25)
--- NOTE | 2023-03-09 10:00 | MRI_ITS ---
EXAM: MR HEAD WITHOUT INTRAVENOUS CONTRAST CLINICAL INDICATION: Stroke. TECHNIQUE: Multiplanar and multisequence MR images of the brain were obtained without intravenous contrast. COMPARISON: CT head without contrast 03/08/2023. FINDINGS: BRAIN AND EXTRA-AXIAL SPACES: Abnormal diffusion restriction along the right lingual gyrus and a small portion of the right cuneus. These are also visible on the T2 FLAIR sequence. They''re consistent with subacute cortical gyral ischemic infarction. Few scattered T2 FLAIR hyperintensity in the white matter of the cerebral hemispheres are chronic white matter ischemic changes. They are confluent in the forceps major. No intra- or extra-axial hemorrhage. No intracranial mass or mass effect. Posterior fossa structures are unremarkable. Ventricles are appropriate for age. No hydrocephalus. Basal cisterns are patent. SELLA: Unremarkable. Normal sella turcica, pituitary gland, infundibular stalk, optic chiasm and hypothalamus. AUDITORY SYSTEM: Unremarkable. The internal auditory canals are patent. BONES/JOINTS: Unremarkable. No discrete lytic or blastic abnormalities. SINUSES: Unremarkable as visualized. Clear. MASTOID AIR CELLS: Unremarkable as visualized. Clear. ORBITS: Unremarkable as visualized. Both globes, extraocular muscles, optic nerves and retrobulbar fat appear unremarkable. VASCULATURE: Unremarkable as visualized. Normal flow voids in the major intracranial circulation. MRI/Brain without Contrast IMPRESSION: 1. Subacute cortical gyral ischemic infarct along the right lingual gyrus and a portion of the right cuneus. This corresponds to the hypodense ischemic infarct seen on CT head scan done yesterday. 2. No MRI evidence of intracranial bleeding. 3. Few chronic white matter ischemic changes in the cerebral hemispheres. Electronically Signed: Simone Casanova MD at 10:27 EDT ,
[2023-03-09 10:26] LABS: Hemoglobin A1c 4.8 % (3.8-5.6)
--- NOTE | 2023-03-09 10:50 | CASEMGMT ---
RN?CM?[employer]?CM?to room to meet with patient for initial transition planning/care coordination?assessment.?RN?CM?introduced self and role at [facility].? Pt voices understanding and consents to?assessment?at this time.? Pt resting in bed in no distress at this time.?Dtr/POEj, Anahi, @ bedside and pt agreeable to her being present during assessment. Pt is A/O at this time and answers all questions appropriately.?? Care providers, pharmacy, and demographics verified/updated at this time. PCP: Dr Gilbert Specialists:Dr Thomas-steaming cabinet tender @ [facility]/[place], Dr Esteves-pulmonology Preferred Pharmacy: [facility] Insurance: [place] Secure Prescription Benefit:?Yes Living Will/HPOA:?Has both LW and HCPOA, who is her dtr, Anahi. Pt and Anahi made aware these are not on file @ [facility]. Anahi states will bring them in some time. LNOK: Dtr/Anahi BLACKMAN. Son, Mark Living Arrangements: Lives alone in one-story home w/basement and one step to enter. Pt does not have to go to the basement. Pt is indep w/ADL's, manages her meds, and prepares her own meals. Dtr gets her groceries and able to assist as needed. Transportation:?Dtr/Anahi DME: ?States has the following DME:?walker, adjustable bed, grab bars, medical alert ?Pt states no need for further DME at this time.? HHC/SNF: Hx going to [facility] and has had [facility] HHC in the past. Pt declines wanting HHC, stating she still continues to do the exercises she was taught to do in the past. Pt and dtr made aware, if she is interested in HHC once she returns home, to f/u with PCP. They voice understanding. Pt wishes to return home and states has no concerns with going home at time of discharge.? PLAN:?Home? Karri BSN?RN?CM
--- NOTE | 2023-03-09 12:37 | NURSING ---
This RN into room, SOC presently evaluating patient. Noted pt to start pursed lip breathing, constantly yawning. Pt stating that she is short of breath and just needs to catch her breath. SpO2 99% RA, HR 65, RR 20, lung sounds clear, 2L NC placed on pt. Pt breathing short and through her mouth as if panting; coached on breathing in through nose and out through mouth. Pt stated that the panting helps her to catch her breath. Educated on hyperventilating and how it can cause respiratory status to worsen. Agus RT at bedside, reinforced breathing techniques. Per daughter at bedside, these episodes have been occurring and this is why they have been following with Dr Brown, and pt was just recently prescribed combivent inhaler. Notified Dr Baez of episode, order obtained for duonebs q4hr PRN. Agus RT aware of new duoneb order.
--- NOTE | 2023-03-09 13:05 | CASEMGMT ---
Social Work Pt completed PHQ-9 with pt, pt scored a 0, no indications of depression at this time. MCKENZIE Maldonado
--- NOTE | 2023-03-09 14:49 | PN_ITS ---
Subjective Subjective Patient seen and examined. She still complained of loss of peripheral vision mainly in the left eye. She however had no complaints overnight and has remained stable. Review of systems otherwise negative. Patient was hemodynamically stable all morning and so she was reviewed by neurology and during that review she became acutely short of breath and was panting for air. Objective Data Objective Data Vital Signs: Vital Signs Temp Pulse Resp BP Pulse Ox O2 Del Method 98 F 65 20 H 162/102 H 99 Room Air 03/09/23 12:35 03/09/23 12:35 03/09/23 12:35 03/09/23 12:35 03/09/23 12:35 03/09/23 12:35 Oxygen Delivery Method Room Air Weight: 106 lb 8 oz Body Mass Index (BMI) 22.2 Intake & Output: Intake and Output for Last 24 Hours 03/07/23 03/08/23 03/09/23 23:59 23:59 23:59 Intake Total 560 / 560 Balance 560 / 560 Lab / Micro Data Result Diagrams: 03/09/23 06:20 03/09/23 06:20 Labs: Laboratory Results - last 24 hr 03/08/23 16:35: WBC 5.7, RBC 4.00 L, Hgb 12.5, Hct 36.5 L, MCV 91.3, MCH 31.3, MCHC 34.2, RDW Std Deviation 46.2 H, RDW Coeff of Criselda 13.6, Plt Count 234, MPV 10.1, Immature Gran % (Auto) 0.400, Neut % (Auto) 65.4, Lymph % (Auto) 25.8, [place] % (Auto) 6.3, Eos % (Auto) 0.7, Baso % (Auto) 1.4 H, Absolute Neuts (auto) 3.7, Absolute Lymphs (auto) 1.47, Nucleated RBC % 0 03/08/23 16:35: PT 14.4, INR 1.1, APTT 27.5 03/08/23 16:35: Sodium 140, Potassium 3.8, Chloride 106, Carbon Dioxide 24.0, Anion Gap 10, BUN 20 H, Creatinine 0.56, Estim Creat Clear Calc 34.69, Est GFR (MDRD) Af Amer 132, Est GFR (MDRD) Non-Af 109, BUN/Creatinine Ratio 35.5 H, Glucose 88, Calcium 9.9, Troponin I High Sens 216 H* 03/08/23 20:33: Troponin I High Sens 221 H* 03/08/23 21:58: Troponin I High Sens 207 H* 03/09/23 06:20: WBC 4.4, RBC 4.06 L, Hgb 12.7, Hct 37.2, MCV 91.6, MCH 31.3, MCHC 34.1, RDW Std Deviation 46.2 H, RDW Coeff of Criselda 13.6, Plt Count 231, MPV 9.8, Immature Gran % (Auto) 0.200, Neut % (Auto) 45.7 L, Lymph % (Auto) 37.6, [place] % (Auto) 9.2, Eos % (Auto) 5.5 H, Baso % (Auto) 1.8 H, Absolute Neuts (auto) 2.0, Absolute Lymphs (auto) 1.64, Nucleated RBC % 0 03/09/23 06:20: Sodium 139, Potassium 3.9, Chloride 108 H, Carbon Dioxide 25.0, Anion Gap 6, BUN 18, Creatinine 0.57, Estim Creat Clear Calc 33.65, Est GFR (MDRD) Af Amer 132, Est GFR (MDRD) Non-Af 109, BUN/Creatinine Ratio 31.7 H, Glucose 87, Calcium 9.7, Triglycerides 51, Cholesterol 185, LDL Cholesterol 110, VLDL Cholesterol 10, HDL Cholesterol 65 03/09/23 06:20: Hemoglobin A1c 4.8 Radiography Diagnostic Testing: Radiology Impression Brain CT 03/08/23 16:19 IMPRESSION: Finding consistent with acute or subacute right medial temporal and occipital infarct. No hemorrhage. Electronically Signed: Telly Lopez MD at 17:08 EDT , ADDENDUM: 03/08/23 1720 IMPRESSION: Finding consistent with acute or subacute right medial temporal and occipital infarct. No hemorrhage. N.B. : The above Results were Read Back by Telly Lopez MD to Simone Beasley MD, and understanding confirmed on 03/08/2023 17:13:29 (ET). Electronically Signed: Telly Lopez MD at 17:08 EDT , Chest X-Ray 03/08/23 16:58 IMPRESSION: No definite acute or significant abnormality seen. Electronically Signed: Telly Lopez MD at 17:09 EDT , Head/Neck CTA 03/08/23 18:00 IMPRESSION: Bilateral carotid bulb and ICA plaque with less than 50% stenosis. No large vessel occlusion seen within the head. Bilateral carotid plaque with less than 50% stenosis of the cavernous carotid arteries. N.B. : The above Results were Read Back by Telly Lopez MD to Simone Britt RN, and understanding confirmed on 03/08/2023 18:44:04 (ET). Electronically Signed: Telly Lopez MD at 18:46 EDT , ADDENDUM: 03/08/23 1853 IMPRESSION: Bilateral carotid bulb and ICA plaque with less than 50% stenosis. No large vessel occlusion seen within the head. Bilateral carotid plaque with less than 50% stenosis of the cavernous carotid arteries. N.B. : The above Results were Read Back by Telly Lopez MD to Siomne Britt RN, and understanding confirmed on 03/08/2023 18:44:04 (ET). Electronically Signed: Telly Lopez MD at 18:46 EDT , Echocardiogram 03/08/23 19:35 Interpretation Summary The estimated ejection fraction is 60 %. Unable to assess diastolic dysfunction. Few bubbles seen on the left side 3-4 beats after arriving on the right side. Borderline positive bubble study Ordering Physician: Connie Baez Performed By: Courtney Mancera RDCS Brain MRI 03/09/23 10:00 IMPRESSION: 1. Subacute cortical gyral ischemic infarct along the right lingual gyrus and a portion of the right cuneus. This corresponds to the hypodense ischemic infarct seen on CT head scan done yesterday. 2. No MRI evidence of intracranial bleeding. 3. Few chronic white matter ischemic changes in the cerebral hemispheres. Electronically Signed: Simone Casanova MD at 10:27 EDT , Physical Exam Const alert, oriented x3 and no apparent distress General Appearance: cooperative HEENT normocephalic, head/scalp atraumatic, moist oral mucous membranes and oropharynx normal Mouth: dry mucous membranes Eyes PERRL and EOMs intact bilaterally Neck no lymphadenopathy and supple Lymph Lymphatic: no lymphadenopathy noted and no lymphedema noted Resp normal respiratory effort, no use of accessory muscles and clear to auscultation bilaterally Resp Narrative: diminished breath sounds bibasally, no wheezes or crackles. On room air. Cardio regular rate, regular rhythm, S1 normal heart sound, S2 normal heart sound and no murmurs GI normal to inspection, nondistended, normoactive bowel sounds, soft to palpation, non-tender and non-distended Extremity normal capillary refill, no clubbing, cyanosis or edema and no calf tenderness Skin General Skin Exam: no breakdown Neuro no focal motor deficits, no sensory deficits noted and deep tendon reflexes 2+ bilaterally Neuro Narrative: loss of peripheral vision in upper outer quadrant of left eye Sensorium / Orientation: awake and alert Motor Exam: strength 5/5 throughout Psych affect normal Assessment & Plan Assessment/Plan (1) Stroke: (2) Bilateral hemianopia: PLAN: Plan #Acute vs subacute CVA * Patient admitted with 3-day history of change in vision from both eyes. She was unable to see out of the upper left quadrants of both eyes. * She went to the counselor [facility] today and was sent to the ED to be evaluated for an occipital stroke. * CT of the brain shows findings consistent with acute or subacute right medial temporal and occipital infarct with no hemorrhage. * MRI of the brain showed subacute cortical gyral ischemic infarct along the right sublingual gyrus and a portion of the right continuous but no evidence of bleeding and few chronic white matter ischemic changes in the cerebral hemisphere. * 2D echo shows EF of 60% with no regional wall motion abnormalities noted and borderline positive bubble study. * Neurology reviewed patient. On aspirin and Plavix. To continue dual antiplatelet therapy for 21 days and then to continue with aspirin monotherapy * High intensity statin * CTA of the head and neck showed no evidence of large vessel occlusion. * PT OT consulted. Fall precautions * # hypertension: lisinopril resumed #Elevated troponin. * Initial troponin is 216, and trended upwards to 221 and came down to 207. Does have a history of chronically elevated troponin but this is the most elevated has been. * 2D echo as above * Cardiology consulted as patient became acutely short of breath today but this subsequently resolved. * I believe this has been going on every so pulmonology recently who placed patient on breathing treatments. * EKG done showed no acute ST changes and showed no evidence of A-fib. Await cardiology recs. DVT prophylaxis; SCDs Code status: full code Charges/Coding Visit Charges Inpatient E&M: 37998 Subs Hosp L2
--- NOTE | 2023-03-09 15:38 | PCM.CONS.C ---
Assessment & Plan Assessment/Plan (1) Elevated troponin: PLAN: Troponin was elevated during prior admission as well. Troponin is currently elevated in the indeterminate range. No specific treatment needed for this at this time. Echo showed no regional wall motion abnormalities. EF was preserved. (2) Palpitations: PLAN: Telemetry was unremarkable except for sinus tachycardia. It appears that she has been following with a master electrician for this. 2-week event monitor in 2019 did not reveal any A-fib. Apparently she had short runs of tachycardia which from her description appears to be sinus tachycardia. She may benefit from a 30-day event monitor at the time of discharge. Continue telemetry monitoring while she is in the hospital (3) Abnormal echocardiogram: PLAN: Bubble study was borderline positive. Patient has difficulty swallowing pills. Discussed NISHA versus cardiac MRI versus clinical monitoring without further testing with the patient in detail. At this point when we look at the risks versus benefits of NISHA the risks outweigh the benefits because of patient's significant dysphagia. She will discuss the bubble study findings with her primary master electrician as an outpatient. Antiplatelet/anticoagulation recommendations for CVA with borderline positive bubble study as per neurology. HPI Consult Data Date of Consult: 03/09/23 HPI Narrative Reason for Consultation: Shortness of breath, palpitations HPI Narrative: MAK SNOW, is a 82 F who presents with a CVA. While she was talking to the neurologist patient had an episode where she was short of breath and had palpitations. Telemetry was reviewed and showed no significant supraventricular or ventricular arrhythmias. Patient has a master electrician in [place] who she follows with. Apparently she had a 2-week event monitor in 2019 which revealed short episodes of fast heart rate but these were apparently when she got up in the middle of the night to go to the bathroom. She was just being monitored for this. She has no history of atrial fibrillation and her telemetry monitoring does not reveal any episodes of A-fib. 2D echo reveals preserved EF and a borderline positive bubble study. [facility] Medical History Arthritis Broken arm Chronic dyspnea Glaucoma Hearing deficit Heart valve problem Hx of headache Hypertension Syncope Home Medications acetaminophen 325 mg tablet (Tylenol) 650 mg PO Q6H PRN PRN Pain 1-10 Or Fever >100.7 #30 tabs 10/01/22 [Rx Last Taken Unknown] handicap placard #1 ea 11/15/22 [Rx Last Taken Unknown] lisinopril 40 mg tablet 20 mg PO DAILY BP 30 days #0 tabs 01/21/23 [Rx Last Taken 09/26/22] naproxen sodium 220 mg tablet (Aleve) 220 mg PO BID PRN Pain 03/05/23 [History Last Taken Unknown] ipratropium 20 mcg-albuterol 100 mcg/actuation mist for inhalation (Combivent Respimat) 1 puff inhalation Q6H shortness of breath 03/09/23 [History Last Taken Unknown] Allergy/AdvReac Type Severity Reaction Status Date / Time procaine [From Novocain] Allergy passed out Verified 03/08/23 15:45 Family History (Reviewed 03/08/23 @ : by Simone Beasley MD) Father Heart disease Surgical History H/O neck surgery History of hip replacement History of surgery on arm Social History household members: none current occupational status: 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 [employer] Smoking Status: Never smoker Electronic Cigarette Use: not used alcohol intake: never substance use type: does not use what type of physical activity do you participate in: none do you feel safe at home: Yes Physical Exam Const alert and oriented x3 HEENT normocephalic Eyes no scleral icterus Resp normal respiratory effort and clear to auscultation bilaterally Cardio regular rate and regular rhythm Extremity no pedal edema Skin no rashes or lesions noted Psych mental status grossly normal Risk Stratification Risk Stratification Applicable: No Charges/Coding Visit Charges Inpatient E&M: 91767 Init Hosp L1 Objective Data Vital Signs: Vital Signs Temp Pulse Resp BP Pulse Ox O2 Del Method 98 F 65 20 H 162/102 H 99 Room Air 03/09/23 12:35 03/09/23 12:35 03/09/23 12:35 03/09/23 12:35 03/09/23 12:35 03/09/23 12:35 Oxygen Delivery Method Room Air Weight: 106 lb 8 oz Body Mass Index (BMI) 22.2 Intake & Output: Intake and Output for Last 24 Hours 03/07/23 03/08/23 03/09/23 23:59 23:59 23:59 Intake Total 560 / 560 Balance 560 / 560 Lab / Micro Data Result Diagrams: 03/09/23 06:20 03/09/23 06:20 Labs: Laboratory Results - last 24 hr 03/08/23 16:35: WBC 5.7, RBC 4.00 L, Hgb 12.5, Hct 36.5 L, MCV 91.3, MCH 31.3, MCHC 34.2, RDW Std Deviation 46.2 H, RDW Coeff of Criselda 13.6, Plt Count 234, MPV 10.1, Immature Gran % (Auto) 0.400, Neut % (Auto) 65.4, Lymph % (Auto) 25.8, [place] % (Auto) 6.3, Eos % (Auto) 0.7, Baso % (Auto) 1.4 H, Absolute Neuts (auto) 3.7, Absolute Lymphs (auto) 1.47, Nucleated RBC % 0 03/08/23 16:35: PT 14.4, INR 1.1, APTT 27.5 03/08/23 16:35: Sodium 140, Potassium 3.8, Chloride 106, Carbon Dioxide 24.0, Anion Gap 10, BUN 20 H, Creatinine 0.56, Estim Creat Clear Calc 34.69, Est GFR (MDRD) Af Amer 132, Est GFR (MDRD) Non-Af 109, BUN/Creatinine Ratio 35.5 H, Glucose 88, Calcium 9.9, Troponin I High Sens 216 H* 03/08/23 20:33: Troponin I High Sens 221 H* 03/08/23 21:58: Troponin I High Sens 207 H* 03/09/23 06:20: WBC 4.4, RBC 4.06 L, Hgb 12.7, Hct 37.2, MCV 91.6, MCH 31.3, MCHC 34.1, RDW Std Deviation 46.2 H, RDW Coeff of Criselda 13.6, Plt Count 231, MPV 9.8, Immature Gran % (Auto) 0.200, Neut % (Auto) 45.7 L, Lymph % (Auto) 37.6, [place] % (Auto) 9.2, Eos % (Auto) 5.5 H, Baso % (Auto) 1.8 H, Absolute Neuts (auto) 2.0, Absolute Lymphs (auto) 1.64, Nucleated RBC % 0 03/09/23 06:20: Sodium 139, Potassium 3.9, Chloride 108 H, Carbon Dioxide 25.0, Anion Gap 6, BUN 18, Creatinine 0.57, Estim Creat Clear Calc 33.65, Est GFR (MDRD) Af Amer 132, Est GFR (MDRD) Non-Af 109, BUN/Creatinine Ratio 31.7 H, Glucose 87, Calcium 9.7, Triglycerides 51, Cholesterol 185, LDL Cholesterol 110, VLDL Cholesterol 10, HDL Cholesterol 65 03/09/23 06:20: Hemoglobin A1c 4.8 Cardiology Labs/Tests 03/08/23 16:35: WBC 5.7, RBC 4.00 L, Hgb 12.5, Hct 36.5 L, MCV 91.3, MCH 31.3, MCHC 34.2, Plt Count 234, MPV 10.1, Immature Gran % (Auto) 0.400, Neut % (Auto) 65.4, Lymph % (Auto) 25.8, [place] % (Auto) 6.3, Eos % (Auto) 0.7, Baso % (Auto) 1.4 H, Absolute Neuts (auto) 3.7, Nucleated RBC % 0 03/08/23 16:35: PT 14.4, INR 1.1, APTT 27.5 03/08/23 16:35: Sodium 140, Potassium 3.8, Chloride 106, Carbon Dioxide 24.0, Anion Gap 10, BUN 20 H, Creatinine 0.56, Est GFR (MDRD) Af Amer 132, Est GFR (MDRD) Non-Af 109, BUN/Creatinine Ratio 35.5 H, Glucose 88, Calcium 9.9 03/09/23 06:20: WBC 4.4, RBC 4.06 L, Hgb 12.7, Hct 37.2, MCV 91.6, MCH 31.3, MCHC 34.1, Plt Count 231, MPV 9.8, Immature Gran % (Auto) 0.200, Neut % (Auto) 45.7 L, Lymph % (Auto) 37.6, [place] % (Auto) 9.2, Eos % (Auto) 5.5 H, Baso % (Auto) 1.8 H, Absolute Neuts (auto) 2.0, Nucleated RBC % 0 03/09/23 06:20: Sodium 139, Potassium 3.9, Chloride 108 H, Carbon Dioxide 25.0, Anion Gap 6, BUN 18, Creatinine 0.57, Est GFR (MDRD) Af Amer 132, Est GFR (MDRD) Non-Af 109, BUN/Creatinine Ratio 31.7 H, Glucose 87, Calcium 9.7, Triglycerides 51, Cholesterol 185, LDL Cholesterol 110, VLDL Cholesterol 10, HDL Cholesterol 65 03/09/23 06:20: Hemoglobin A1c 4.8 Rhythm: EKG: ECHO: Stress Test: Cardiac Cath: PCI: CT Surgery: Holter monitor: EPS: PPM: CXR: Chest CT Scan: Radiography Diagnostic Testing: Radiology Impression Brain CT 03/08/23 16:19 IMPRESSION: Finding consistent with acute or subacute right medial temporal and occipital infarct. No hemorrhage. Electronically Signed: Telly Lopez MD at 17:08 EDT Reading Location ID and State: [facility] / [place] , Service support , ADDENDUM: 03/08/23 1720 IMPRESSION: Finding consistent with acute or subacute right medial temporal and occipital infarct. No hemorrhage. N.B. : The above Results were Read Back by Telly Lopez MD to Simone Beasley MD, and understanding confirmed on 03/08/2023 17:13:29 (ET). Electronically Signed: Telly Lopez MD at 17:08 EDT Reading Location ID and State: [facility] / [place] , Service support , Chest X-Ray 03/08/23 16:58 IMPRESSION: No definite acute or significant abnormality seen. Electronically Signed: Telly Lopez MD at 17:09 EDT Reading Location ID and State: [facility] / [place] , Service support , Head/Neck CTA 03/08/23 18:00 IMPRESSION: Bilateral carotid bulb and ICA plaque with less than 50% stenosis. No large vessel occlusion seen within the head. Bilateral carotid plaque with less than 50% stenosis of the cavernous carotid arteries. N.B. : The above Results were Read Back by Telly Lopez MD to Simone Britt RN, and understanding confirmed on 03/08/2023 18:44:04 (ET). Electronically Signed: Telly Lopez MD at 18:46 EDT Reading Location ID and State: [facility] / [place] , Service support , ADDENDUM: 03/08/23 1853 IMPRESSION: Bilateral carotid bulb and ICA plaque with less than 50% stenosis. No large vessel occlusion seen within the head. Bilateral carotid plaque with less than 50% stenosis of the cavernous carotid arteries. N.B. : The above Results were Read Back by Telly Lopez MD to Simone Britt RN, and understanding confirmed on 03/08/2023 18:44:04 (ET). Electronically Signed: Telly Lopez MD at 18:46 EDT Reading Location ID and State: [facility] / [place] , Service support , Echocardiogram 03/08/23 19:35 Interpretation Summary The estimated ejection fraction is 60 %. Unable to assess diastolic dysfunction. Few bubbles seen on the left side 3-4 beats after arriving on the right side. Borderline positive bubble study Ordering Physician: Connie Baez Performed By: Courtney Mancera RDCS Brain MRI 03/09/23 10:00 IMPRESSION: 1. Subacute cortical gyral ischemic infarct along the right lingual gyrus and a portion of the right cuneus. This corresponds to the hypodense ischemic infarct seen on CT head scan done yesterday. 2. No MRI evidence of intracranial bleeding. 3. Few chronic white matter ischemic changes in the cerebral hemispheres. Electronically Signed: Simone Casanova MD at 10:27 EDT ,
--- NOTE | 2023-03-09 15:46 | OT ---
Edu pt on BUE AROM exercises to increase strength and endurance for adls and transfers.
[2023-03-09] MEDS: Ipratropium/Albuterol Sulfate 3 ML AMPUL.NEB INHALATION (16:39)
[2023-03-10] VITALS (7 sets, daily range): BP systolic 127–138; BP diastolic 51–76; PULSE 62–72; RESP 16; TEMP 36.3–36.5; O2SAT 97–98; BMI 22.2
[2023-03-10] MEDS: Atorvastatin Calcium 80 MG Tablet PO (00:25)
[2023-03-10 06:43] LABS: Absolute Lymphocyte Count 0.75 X10^3/uL (0.83-4.51); Absolute Neutrophil Count 2.7 X10^3/uL (2.0-7.7); Basophil# 0.07 X10^3/uL; Basophil% 1.6 % (0-1); Eosinophil# 0.25 X10^3/uL; Eosinophils% 5.9 % (0-5); Hematocrit 34.5 % (37-47); Hemoglobin 11.9 g/dL (12.0-15.0); Lymphocyte # 0.75 X10^3/ul (0.83-4.51); Lymphocyte % 17.6 % (19-41); Mean Corp Hgb Conc 34.5 g/dL (32-36); Mean Corpuscular Hgb 31.6 pg (27.0-32.0); Mean Corpuscular Volume 91.5 fL (81-99); Mean Platelet Vol. 10.1 fl (6.2-12.0); Monocyte# 0.46 X10^3/uL; Monocyte% 10.8 % (0-10); NRBC Flagged by Analyzer 0 % (0-5); Neutrophil # 2.72 X10^3/uL (2.7-7.7); Neutrophil % 63.6 % (47-70); Platelet Count 227 K/mm3 (150-450); RBC Distribution Width CV 13.4 % (11.6-14.6); RBC Distribution Width SD 45.2 fl (35.1-43.9); Red Blood Count 3.77 M/mm3 (4.2-5.4); White Blood Count 4.3 K/mm3 (4.4-11.0)
[2023-03-10 07:02] LABS: Anion Gap 6 (5-15); BUN 18 mg/dL (7-18); BUN/Creat Ratio 34.7 RATIO (10-20); Calcium,Total 9.3 mg/dL (8.5-10.1); Chloride 108 mmol/L (98-107); Creatinine, Serum 0.52 mg/dL (0.55-1.02); EST Glomerular Filtration Rate 121 mL/min (>60); Est Glom Filt Rate - Afr Amer 146 mL/min (>60); Estimated Creatinine Clearance 33.65 ml/min; Glucose 82 mg/dL (74-106); Potassium 3.7 mmol/L (3.5-5.1); Sodium Level 139 mmol/L (136-145)
[2023-03-10] MEDS: Enoxaparin 40 MG/0.4 ML Syringe SC (09:03)
[2023-03-10] MEDS: Clopidogrel Bisulfate 75 MG Tablet PO (09:03)
[2023-03-10] MEDS: Aspirin 81 MG TAB.CHEW PO (09:03)
[2023-03-10] MEDS: Lisinopril 20 MG Tablet PO (09:07)
[2023-03-10] MEDS: Umeclidinium Bromide Inhaler 1 PUFF INHALATION (09:07)
--- NOTE | 2023-03-10 09:15 | DCINST_ITS ---
Discharge Instructions Diet Discharge Diet: Low fat / Low cholesterol Activity Discharge Activity: Return to Normal Activity Weight Bearing Status: Weight bearing as tolerated Dressing / Incision Call your doctor if you observe: Fever of 101 or Higher, Shortness of breath, Dizziness, Swelling in the ankles and Chest pain Follow Up Care Test Results: Test results from this visit will be discussed in further detail at your follow- up appointment, if applicable. Discharge Plan Admission Admit Date/Time: 03/08/23 17:53 Primary Reason for Your Visit: acute CVA Attending Provider: Connie Baez Primary Care Provider: Domonique Gilbert Consulting Providers: Vielka Medel Instructions Patient Instructions: Preparing Your Home After Stroke, Risk Factors for Stroke, Stroke Prevention Eating Healthy Additional Instructions / Restrictions: Patient counseled no driving due to her impaired peripheral vision from stroke Discharge Orders/Prescriptions Prescriptions: New aspirin 81 mg Tablet,Chewable 81 mg PO BREAKFAST Qty: 30 2RF clopidogrel 75 mg Tablet 75 mg PO DAILY Qty: 21 0RF atorvastatin 40 mg tablet 40 mg PO QHS Qty: 30 2RF Continued (DME) handicap placard See Rx Instructions .ROUTE .MEDSUPPLY Qty: 1 0RF Rx Instructions: Length of time: 1 years acetaminophen [Tylenol] 325 mg Tablet 650 mg PO Q6H PRN PRN (Reason: Pain 1-10 Or Fever >100.7) Qty: 30 0RF lisinopril 40 MG tablet 20 mg PO DAILY 30 Days Qty: 0 0RF Rx Instructions: Hold for SBP less than 130 mmHg Combivent Respimat 20-100 mcg/actuation mist 1 puff INHALATION Q6H Label Comments: inhale 1 puff by mouth and INTO THE LUNGS every 6 hours ; HOLD FOR 24 HOURS PRIOR TO BREATHING TEST Discontinued naproxen sodium [Aleve] 220 mg tablet 220 mg PO BID PRN (Reason: Pain) Referrals / Follow Up: Domonique Gilbert MD [Primary Care Provider] - Within 2 Weeks Vielka Medel MD [Med Staff - Active Staff] - Within 2 Weeks Mahendra Farrell MD [Non-Staff -Ordering Privileges] - Within 2 Weeks Disposition Disposition (needs filled in before D/C Order can be placed): Home, Self Care
--- NOTE | 2023-03-10 09:21 | DS.PCM_ITS ---
Providers Date of Admission: 03/08/23 Date of Discharge: 03/10/23 Primary Care Physician: Dr. Domonique Gilbert MD Consultations 03/09/23 12:25 Consult: Cardiology Routine Consulting Provider: Vielka Medel Reason for Consult: elevated troponin EMERGENT Consult: No MD Notified: Yes Date Notified: 03/09/23 Time Notified: 12:26 Method of Notification: Text Reason For Visit: STROKE Diagnosis Discharge Diagnosis (1) Stroke: Status: Acute Code(s): I63.9 - Cerebral infarction, unspecified (2) Bilateral hemianopia: Status: Acute Code(s): H53.47 - Heteronymous bilateral field defects Plan #Acute vs subacute CVA * Patient admitted with 3-day history of change in vision from both eyes. She is unable to see out of the upper left quadrants of both eyes. * She went to the desktop support specialist today and was sent to the ED to be evaluated for an occipital stroke. * CT of the brain shows findings consistent with acute or subacute right medial temporal and occipital infarct with no hemorrhage. * Will admit to PCU. * P.o. aspirin and Plavix as well as high intensity statin. Get 2D echo. * Get MRI of the brain and CTA of the head and neck. Consult neurology * PT OT consulted. Fall precautions * #Tach hypertension: Hold lisinopril to allow for permissive hypertension. #Elevated troponin. * Initial troponin is 216. Does have a history of chronically elevated troponin but this is the most elevated has been. * 2D echo ordered for tomorrow. * Cycle troponins to see if there is a further upward trend. * DVT prophylaxis; SCDs Code status: full code * Patient counseled extensively about different types of CODE STATUS including full code, DNR CCA and DNR CCA. Patient elects to be full code. Total [id number] time 16 minutes. Medications at Discharge Home Medications acetaminophen 325 mg tablet (Tylenol) 650 mg PO Q6H PRN PRN Pain 1-10 Or Fever >100.7 #30 tabs 10/01/22 handicap placard #1 ea 11/15/22 lisinopril 40 mg tablet 20 mg PO DAILY BP 30 days #0 tabs 01/21/23 ipratropium 20 mcg-albuterol 100 mcg/actuation mist for inhalation (Combivent Respimat) 1 puff inhalation Q6H shortness of breath 03/09/23 aspirin 81 mg chewable tablet 81 mg PO BREAKFAST #30 tabs 03/10/23 atorvastatin 40 mg tablet 40 mg PO QHS #30 tabs 03/10/23 clopidogrel 75 mg tablet 75 mg PO DAILY #21 tabs 03/10/23 Hospital Course Operations None Procedures 2-D Echocardiogram Summary of Care Provided Minutes Spent on Discharge: 50 Hospital Course: MAK SNOW, is a 82 F with a PMH as outlined who presents via the ED on 02/26/2023 with a complaint of stroke like symptoms. She couldnt see out of her left eye, mainly in the left upper field. Her symptoms had started 3 days prior to admission at around 10pm on Saturday night, and couldnt see out of the left upper quadrant of both eyes. She went the ophthalmology office today and was sent to the ED due to concern for occipital stroke.? She denied any weakness in any extremity, any mouth droop or slurred speech or any tingling or numbness.? Review of systems otherwise negative.? She was seen in the hospital in January 2023 due to concern for blood clots as she was very short of breath.? CT of the chest was negative for any evidence of PE at that time.? Review of systems otherwise negative. Vitals in the ED where blood pressure 150/78, pulse rate of 77 and respiratory rate of 19.? Temperature was 98.7 Fahrenheit and he was saturating at 100% on room air.? CBC showed hemoglobin of 12.5 with WBC of 5.7 and platelets of 234.? INR was 1.1.? Chemistry shows sodium of 140 with bicarb of 24 and creatinine of 0.56.? Initial troponin was 216.? Chest x-ray showed no acute cardiopulmonary pathology.? CT of the brain showed findings consistent with acute or subacute right medial temporal and occipital infarcts with no hemorrhage.? She was admitted to be managed for acute versus subacute CVA. She was started on aspirin and Plavix as well as high intensity statin. She had an MRI of the brain which showed subacute cortical gyral ischemic infarct along the right lingual gyrus and a portion of the right continuous and no evidence of bleeding. CT of the head and neck showed bilateral carotid bulb and ICA plaque with less than 50% stenosis and no large vessel occlusion seen within the head as well as bilateral carotid plaque with less than 50% stenosis of the cavernous carotid arteries. 2D echo showed EF of 60% and unable to assess diastolic dysfunction with few bubbles seen on the left side 3-4 beats after arriving on the right side indicating a borderline positive bubble study. Hospital course was complicated by brief episode of shortness of breath. Cardiology was consulted on account of the borderline positive bubble study on echo and recommended a NISHA versus cardiac MRI. Patient stated that she had had difficulty swallowing and did not want to have a NISHA and preferred to have cardiac MRI. She will follow- up with a PCP and cardiology on outpatient basis for this to be ordered and scheduled. She remained stable and was discharged on 03/10/2023 on p.o. aspirin and Plavix. She is to be on dual antiplatelet therapy for 3 weeks and then to continue with aspirin monotherapy. She is to also be on atorvastatin 40 mg nightly. Patient and daughter stated that she had had a history of elevated liver enzymes while is on Plavix. Patient counseled that her liver enzymes will be monitored and it was imperative that she try to be on high intense statin in light of the subacute stroke. They were agreeable to this. She was also counseled not to drive in light of her impaired vision. Patient was discharged on 03/10/2023 and is to follow-up with her primary care doctor and cardiology as well as neurology within 1 to 2 weeks. Patient seen and examined prior to discharge. She had no active complaints and felt well. Review of symptoms otherwise negative. Labs and vitals reviewed. Home medication reviewed and reconciled. Physical Exam Const alert, oriented x3 and no apparent distress General Appearance: cooperative, comfortable and well kempt HEENT normocephalic, head/scalp atraumatic, hearing grossly normal bilaterally, moist oral mucous membranes and oropharynx normal Mouth: oral and palatal mucosa normal Eyes PERRL, EOMs intact bilaterally and conjunctivae normal Neck no lymphadenopathy, supple and no JVD Lymph Lymphatic: no lymphadenopathy noted and no lymphedema noted Resp normal respiratory effort, no use of accessory muscles and clear to auscultation bilaterally Resp Narrative: diminished breath sounds bibasally, no wheezes or crackles. On room air. Cardio regular rate, regular rhythm, S1 normal heart sound, S2 normal heart sound and no murmurs GI normal to inspection, nondistended, normoactive bowel sounds, soft to palpation, non-tender and non-distended Extremity normal to inspection, full ROM, normal capillary refill, no clubbing, cyanosis or edema and no calf tenderness Skin no rashes or lesions noted General Skin Exam: no breakdown Neuro oriented x3, moves all extremities, no focal motor deficits, no sensory deficits noted and deep tendon reflexes 2+ bilaterally Neuro Narrative: loss of peripheral vision in upper outer quadrant of left eye Sensorium / Orientation: awake and alert Motor Exam: strength 5/5 throughout Psych affect normal Weight / BMI Weight Weight: 106 lb 8 oz Body Mass Index (BMI) 22.2 ABG / Lab / Microbiology Data Result Diagrams: 03/10/23 06:10 03/10/23 06:10 Laboratory: Laboratory Results - last 24 hr 03/09/23 06:20: Hemoglobin A1c 4.8 03/10/23 06:10: WBC 4.3 L, RBC 3.77 L, Hgb 11.9 L, Hct 34.5 L, MCV 91.5, MCH 31.6, MCHC 34.5, RDW Std Deviation 45.2 H, RDW Coeff of Criselda 13.4, Plt Count 227, MPV 10.1, Immature Gran % (Auto) 0.500, Neut % (Auto) 63.6, Lymph % (Auto) 17.6 L, [place] % (Auto) 10.8 H, Eos % (Auto) 5.9 H, Baso % (Auto) 1.6 H, Absolute Neuts (auto) 2.7, Absolute Lymphs (auto) 0.75 L, Nucleated RBC % 0 03/10/23 06:10: Sodium 139, Potassium 3.7, Chloride 108 H, Carbon Dioxide 25.0, Anion Gap 6, BUN 18, Creatinine 0.52 L, Estim Creat Clear Calc 33.65, Est GFR (MDRD) Af Amer 146, Est GFR (MDRD) Non-Af 121, BUN/Creatinine Ratio 34.7 H, Glucose 82, Calcium 9.3 Radiography Diagnostic Testing: Radiology Impression Echocardiogram 03/08/23 19:35 Interpretation Summary The estimated ejection fraction is 60 %. Unable to assess diastolic dysfunction. Few bubbles seen on the left side 3-4 beats after arriving on the right side. Borderline positive bubble study Ordering Physician: Connie Baez Performed By: Courtney Mancera RDCS Brain MRI 03/09/23 10:00 IMPRESSION: 1. Subacute cortical gyral ischemic infarct along the right lingual gyrus and a portion of the right cuneus. This corresponds to the hypodense ischemic infarct seen on CT head scan done yesterday. 2. No MRI evidence of intracranial bleeding. 3. Few chronic white matter ischemic changes in the cerebral hemispheres. Electronically Signed: Simone Casanova MD at 10:27 EDT , D/C Instructions Discharge Diet: Low fat / Low cholesterol Discharge Activity: Return to Normal Activity Weight Bearing Status: Weight bearing as tolerated Call your doctor if you observe: Fever of 101 or Higher, Shortness of breath, Dizziness, Swelling in the ankles and Chest pain Meaningful Use Info Meaningful Use Diagnoses (Choose all that apply): Ischemic CVA CVA Therapy Assessed for PT,OT and/or ST?: Yes Ischemic Stroke Antithrombotic order at d/c?: Yes Dx of Atrial fib/flutter?: No Anticoagulant at discharge?: No Reason anticoagulant not ordered: Treatment not Indicated Statins at discharge?: Yes Primary Dx Acute Ischemic CVA?: Yes IV thrombolytic ordered during stay?: No Reason IV thrombolytic not ordered: Treatment not Indicated Discharge Plan Admission Admit Date/Time: 03/08/23 17:53 Primary Reason for Your Visit: acute CVA Attending Provider: Connie Baez Primary Care Provider: Domonique Gilbert Consulting Providers: Vielka Medel Instructions Patient Instructions: Preparing Your Home After Stroke, Risk Factors for Stroke, Stroke Prevention Eating Healthy Additional Instructions / Restrictions: Patient counseled no driving due to her impaired peripheral vision from stroke Discharge Orders/Prescriptions Prescriptions: New aspirin 81 mg Tablet,Chewable 81 mg PO BREAKFAST Qty: 30 2RF clopidogrel 75 mg Tablet 75 mg PO DAILY Qty: 21 0RF atorvastatin 40 mg tablet 40 mg PO QHS Qty: 30 2RF Continued (DME) handicap placard See Rx Instructions .ROUTE .MEDSUPPLY Qty: 1 0RF Rx Instructions: Length of time: 1 years acetaminophen [Tylenol] 325 mg Tablet 650 mg PO Q6H PRN PRN (Reason: Pain 1-10 Or Fever >100.7) Qty: 30 0RF lisinopril 40 MG tablet 20 mg PO DAILY 30 Days Qty: 0 0RF Rx Instructions: Hold for SBP less than 130 mmHg Combivent Respimat 20-100 mcg/actuation mist 1 puff INHALATION Q6H Label Comments: inhale 1 puff by mouth and INTO THE LUNGS every 6 hours ; HOLD FOR 24 HOURS PRIOR TO BREATHING TEST Discontinued naproxen sodium [Aleve] 220 mg tablet 220 mg PO BID PRN (Reason: Pain) Referrals / Follow Up: Domonique Gilbert MD [Primary Care Provider] - Within 2 Weeks Vielka Medel MD [Med Staff - Active Staff] - Within 2 Weeks Mahendra Farrell MD [Non-Staff -Ordering Privileges] - Within 2 Weeks Disposition Disposition (needs filled in before D/C Order can be placed): Home, Self Care Charges/Coding Visit Charges Inpatient E&M: 28127 Disch Hosp >30min
== END 2023-03-10 10:40 | disposition home or self-care (01) | DRG 66 ==
LOC: ED 17:52 → PCU 18:02
PROVIDERS: Admitting Provider Student in an Organized Health Care Education/Training Program; Emergency Provider Emergency Medicine; PCP Internal Medicine; Visit Provider Student in an Organized Health Care Education/Training Program
DX: I63.9 Cerebral infarction, unspecified (principal); H53.47 Heteronymous bilateral field defects; I10 Essential (primary) hypertension; R29.701 NIHSS score 1; R77.8 Other specified abnormalities of plasma proteins; R06.09 Other forms of dyspnea; R00.2 Palpitations; R94.31 Abnormal electrocardiogram [ECG] [EKG]; Z79.02 Long term (current) use of antithrombotics/antiplatelets; Z79.82 Long term (current) use of aspirin; Z79.899 Other long term (current) drug therapy
CPT/HCPCS: 36415; 70450; 70496; 70498; 70551; 71045; 80048; 80061; 83036; 84484; 85025; 85610; 85730; 93005; 93306; 94060; 94640; 94726; 94729; 94762; 97110; 97116; 97162; 97166; 97530; 99285; Q9967; A4216

== ENCOUNTER → 2023-03-08 | Outpatient (CLI) | payer MEDICARE, SELFPAY ==
--- NOTE | 2023-03-08 11:43 | PFTCOMP ---
COMPLETE PULMONARY FUNCTION TEST REPORT Date March 08, 2023 Patient: Maria Esther Napier Date of : 1940 Referring physician: Uday Esteves MD Indication: Dyspnea, non-smoker Spirometry pre and post bronchodilator showed: 1. Possible mild airway obstruction, which normalized after bronchodilator. 2. No significant response to bronchodilator. 3. The patient has an increased prebronchodilator FVC of 132% predicted, FEV1 of 118% predicted, and FEF 25/75 of 129% predicted, among other values measured, Possibly a physiologic variant. Lung volume studies by plethysmography were normal. 1. No evidence of restriction. The total lung capacity was 115% predicted, other lung volumes were elevated, likely physiologic variant. 2. No evidence of hyperinflation. Residual volume was 101% predicted, RV/TLC was 90% predicted. Diffusing capacity by single breath carbon monoxide technique was greater than normal, probably also a physiologic variant. The DLCO was 134% predicted, DL/VA was 138%. Clinical and radiographic correlation is recommended. The patient stated that the patient was very dyspneic during the test, and gave her best effort. Uday Esteves MD [facility] Pulmonary Medicine [facility] Date dictated: 03/08/2023, 1149 hrs.
== END | disposition home or self-care (01) ==
LOC: PSN 07:57
PROVIDERS: PCP Internal Medicine; Referring Provider Internal Medicine; Visit Provider Internal Medicine
DX: R06.09 Other forms of dyspnea (principal)
CPT/HCPCS: 94060; 94726; 94729

== ENCOUNTER → 2023-06-04 | Outpatient (CLI) | payer MEDICARE, SELFPAY ==
--- NOTE | 2023-06-04 16:29 | RAD_ITS ---
STUDY: X-RAY - THORACIC SPINE REASON FOR EXAM: Female, 83 years old. mid back pain TECHNIQUE: 2 view(s) of the thoracic spine were obtained. COMPARISON: 01/20/2023 CT chest FINDINGS: There is an increase in the normal thoracic kyphosis. There is no substantial scoliosis. There is demineralization of the thoracic spine with endplate spondylosis. There is multilevel disc space narrowing of the thoracic spine. There are mild compressive deformities along the mid thoracic spine which are age indeterminate. The soft tissue structures are unremarkable. RAD/Thoracic Spine 2 Views IMPRESSION: Midthoracic spine vertebral body chronic appearing compressive deformities mildly worsened compared to the previous CT on 01/20/2023 with acute on chronic microfracture not excluded. If continued back pain recommend MRI imaging to assess acuity. Electronically Signed: Sharif Saez DO at 17:20 EDT ,
--- NOTE | 2023-06-04 16:29 | RAD_ITS ---
INDICATION: mid-lower back pain EXAMINATION/TECHNIQUE: X-RAY - XR Spine Lumbar 2 or 3 Views COMPARISON: None. FINDINGS: VERTEBRAE: Preserved vertebral body height. No fracture. Mild retrolisthesis of L1 over L2. Preservation of the normal lumbar lordosis. Mild levoscoliosis. DISCS: Severe disc space narrowing of L4-5 and L5-S1 as well as L1-L2. INCLUDED ABDOMEN: Atherosclerotic calcifications of the abdominal aorta RAD/Lumbar Spine 2 or 3 Views IMPRESSION: Degenerative changes of the lumbar spine. Electronically Signed: Cristobal Balderas MD at 19:42 EDT ,
[2023-06-04 16:42] LABS: Absolute Lymphocyte Count 0.87 X10^3/uL (0.83-4.51); Absolute Neutrophil Count 2.3 X10^3/uL (2.0-7.7); Basophil# 0.01 X10^3/uL; Basophil% 0.3 % (0-1); Eosinophil# 0.01 X10^3/uL; Eosinophils% 0.3 % (0-5); Hematocrit 39.9 % (37-47); Hemoglobin 14.1 g/dL (12.0-15.0); Lymphocyte # 0.87 X10^3/ul (0.83-4.51); Lymphocyte % 24.9 % (19-41); Mean Corp Hgb Conc 35.3 g/dL (32-36); Mean Corpuscular Volume 90.7 fL (81-99); Monocyte# 0.29 X10^3/uL; Monocyte% 8.3 % (0-10); NRBC Flagged by Analyzer 0 % (0-5); Neutrophil % 65.9 % (47-70); Platelet Count 113 K/mm3 (150-450); RBC Distribution Width CV 12.7 % (11.6-14.6); RBC Distribution Width SD 42.3 fl (35.1-43.9); White Blood Count 3.5 K/mm3 (4.4-11.0)
[2023-06-04 16:58] LABS: ALB/GLOB Ratio 0.9 RATIO (0.9-2.4); AST(SGOT) 70 U/L (15-37); Alanine Aminotransfer ALT/SGPT 56 U/L (13-56); Albumin, Serum 3.5 g/dL (3.2-5.0); Alkaline Phosphatase 224 U/L (45-117); Anion Gap 5 (5-15); BUN 13 mg/dL (7-18); BUN/Creat Ratio 22.9 RATIO (10-20); Calcium,Total 9.1 mg/dL (8.5-10.1); Chloride 106 mmol/L (98-107); Cholesterol 117 mg/dL (200); Creatinine, Serum 0.57 mg/dL (0.55-1.02); EST Glomerular Filtration Rate 109 mL/min (>60); Est Glom Filt Rate - Afr Amer 131 mL/min (>60); Globulin 4.1 g/dL (2.2-4.2); Glucose 98 mg/dL (74-106); High Density Lipoprotein 63 mg/dL; Potassium 3.9 mmol/L (3.5-5.1); Protein, Total 7.6 g/dL (6.4-8.2); Sodium Level 137 mmol/L (136-145); Triglycerides 70 mg/dL; Very Low Density Lipoprotein 14 mg/dL (5-40)
[2023-06-04 16:59] LABS: Vitamin B12 969 pg/mL (211-911); Vitamin D,25 Hydroxy 48.1 ng/mL
== END | disposition home or self-care (01) ==
PROVIDERS: PCP Internal Medicine; Referring Provider Internal Medicine; Visit Provider Internal Medicine
DX: I10 Essential (primary) hypertension (principal); E55.9 Vitamin D deficiency, unspecified; M81.0 Age-related osteoporosis without current pathological fracture; M54.6 Pain in thoracic spine; M54.50 Low back pain, unspecified
CPT/HCPCS: 36415; 72070; 72100; 80053; 80061; 82306; 82607; 85025

== ENCOUNTER 2023-11-19 18:22 | Emergency (ER) | payer MEDICARE, SELFPAY ==
[2023-11-19 18:23] VITALS: BP 175/98; PULSE 51; RESP 16; TEMP 36.6; O2SAT 96
--- NOTE | 2023-11-19 19:31 | RAD_ITS ---
INDICATION: pain EXAMINATION/TECHNIQUE: X-RAY - XR Spine Thoracic 3Views COMPARISON: FINDINGS: VERTEBRAE: Preserved vertebral body height with mild spurring at the endplates. No fracture. No spondylolisthesis. Slightly increased thoracic kyphosis. No significant facet arthropathy. Generalized osteopenia. DISCS: Disc spaces are maintained. INCLUDED CHEST/ABDOMEN: No acute abnormalities. RAD/Thoracic Spine 2 Views IMPRESSION: Degenerative changes with increased kyphosis. Generalized osteopenia. Electronically Signed: Husam Lui DO at 20:37 EST ,
--- NOTE | 2023-11-19 19:31 | RAD_ITS ---
INDICATION: pain EXAMINATION/TECHNIQUE: X-RAY - XR Pelvis 2 Views COMPARISON: FINDINGS: PELVIC BONES: No displaced fracture, destructive or sclerotic lesions. Note that overlapping bowel shadows may however obscure fine detail. Sacroiliac joints are unremarkable. No widening of the pubic symphysis. HIPS: The articular structures are unremarkable. There is a right hip prosthesis in place. SOFT TISSUES: There is a probable left inguinal hernia with a bowel noted. RAD/Pelvis 1 or 2 Views IMPRESSION: No evidence of displaced pelvic or hip fracture. Probable left inguinal hernia. Electronically Signed: Husam Lui DO at 21:44 EST ,
--- NOTE | 2023-11-19 19:32 | EDS_ITS ---
HPI History of Present Illness Chief Complaint: Back Informant: patient Onset/Context/Timing Onset: Days (10 days) Context: Gradual Onset Timing: Waxes and wanes Narrative Narrative: Patient presents with a 10-day history of back pain. She states she has pain between her shoulder blades down her back and into her hips. It is worse with movement. Is improved somewhat with naproxen and Lidoderm patches. She is not supposed be taking anti-inflammatories as she is currently on Eliquis. She denies any fall or injury, but states she did feel a pop in her back when the pain started. [facility] Medical History Abnormal echocardiogram Arthritis Bilateral hemianopia Broken arm Chronic dyspnea Elevated troponin Glaucoma Hearing deficit Heart valve problem Hx of headache Hypertension Stroke Syncope Home Medications acetaminophen 325 mg tablet (Tylenol) 650 mg (2 x 325 mg) PO Q6H PRN PRN Pain 1- 10 Or Fever >100.7 #30 tabs 10/01/22 [Rx Last Taken Unknown] ipratropium 20 mcg-albuterol 100 mcg/actuation mist for inhalation (Combivent Respimat) 1 puff inhalation Q6H shortness of breath 03/09/23 [History Last Taken Unknown] apixaban 2.5 mg tablet (Eliquis) 2.5 mg PO BID 06/04/23 [History Last Taken Unknown] fluticasone propionate 250 mcg/actuation blister powder for inhalation (Flovent Diskus) 1 inh inhalation BID #60 ea 07/02/23 [Rx Last Taken Unknown] rosuvastatin 5 mg tablet (Crestor) 5 mg PO DAILY #90 tabs 08/22/23 [Rx Last Taken Unknown] handicap placard #1 ea 09/30/23 [Rx Last Taken Unknown] oxycodone 5 mg tablet 5 mg PO Q8H PRN pain 3 days #10 tabs 11/19/23 [Rx Last Taken Unknown] Allergy/AdvReac Type Severity Reaction Status Date / Time procaine [From Novocain] Allergy Severe passed out Verified 11/19/23 18:24 Family History Father Heart disease Surgical History H/O neck surgery History of hip replacement History of surgery on arm Social History household members: none current occupational 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 Status: Never smoker Electronic Cigarette Use: not used alcohol intake: never substance use type: does not use what type of physical activity do you participate in: none do you feel safe at home: Yes ROS ROS ED Constitutional Constitutional ED: Denies chills or fever(s) Eyes Eyes: Denies discharge from eye(s) ENT ENT ED: Denies discharge from eye(s), rhinorrhea or sore throat Cardiovascular Cardiovascular: Denies chest pain or palpitations Respiratory/Chest Respiratory/Chest: Denies cough or dyspnea Gastrointestinal Gastrointestinal: Denies abdominal pain, nausea or vomiting Genitourinary Genitourinary ED: Denies dysuria Musculoskeletal Musculoskeletal: Reports back pain and extremity pain Integumentary Denies Abrasions or rash Neurologic Neurologic: Denies headache(s) or weakness Allergic/Immunologic Allergic/Immunologic ED: Denies lip swelling or urticaria EXAM Physical Exam Const Vital Signs: 11/19/23 18:23 11/19/23 20:31 Temperature 97.8 F Temperature Source Temporal Pulse Rate 51 L 65 Respiratory Rate 16 14 Blood Pressure 175/98 H 179/78 H Blood Pressure Mean 123 111 Pulse Ox 96 98 Oxygen Delivery Method Room Air Positive well nourished and well developed General Appearance ED: well developed HEENT Reports moist mucous membranes Eyes EOMs intact bilaterally Chest Wall inspection of chest normal and palpation of chest normal Resp normal respiratory effort and clear to auscultation bilaterally Cardio regular rate and regular rhythm GI non-tender Palpation: soft Back/Spine Back/Spine Narrative: Tenderness in the lumbar paraspinal muscles bilaterally and over the SI joints of the pelvis. Mild tenderness in the mid thoracic midline. Extremity Extremity Narrative: Good strength noted in the bilateral lower extremities. Normal cap refill. Neuro oriented x3 Neuro Narrative: No focal neurologic deficit. Skin no rashes or lesions noted MDM MDM MDM Narrative Medical decision making narrative: Patient be given a dose of oxycodone here for pain. She had this a year ago when she had a hip replacement and did well with it. X-rays of her thoracic spine, lumbar spine, and pelvis will be obtained to evaluate for any acute bony abnormality. History & Record Review Discussion w/independent historian: Patient Radiography Diagnostic Testing: Clinical Impression(s) from Imaging Studies Thoracic Spine X-Ray 11/19/23 19:31 IMPRESSION: Degenerative changes with increased kyphosis. Generalized osteopenia. Electronically Signed: Husam Lui at 20:37 EST , Lumbar Spine X-Ray 11/19/23 19:47 IMPRESSION: Degenerative changes and scoliosis of the lumbar spine. Generalized osteopenia. Electronically Signed: Husamsolitario Lui DO at 20:36 EST , Treatment and Re-Evaluation :: Thoracic and lumbar spine x-rays per my interpretation reveal arthritic changes with osteoporosis. No obvious malalignment. Radiology interpretation reviewed and agrees. Pelvis x-ray per my interpretation reveals prior right hip replacement. Chronic bony changes with no obvious fracture. Patient does report some improvement in her pain after oxycodone. I will write her a short course of this for home. She was advised she could take just a half a pill at a time if she needs. We will avoid prednisone and anti-inflammatories given her use of Eliquis. I also recommended using Voltaren cream topically to see if this would help give her some relief. Return instructions provided. Discharge Plan Triage Chief Complaint: Back ED Provider: Lindy Kennedy Dx/Rx/DC Orders Clinical Impression: Back pain Instructions: ED Back Pain (Acute or Chronic) Prescriptions: New oxycodone 5 mg tablet 5 mg PO Q8H PRN (Reason: pain) 3 Days Qty: 10 0RF No Action Flovent Diskus 250 mcg/actuation blister with device 1 inh inhalation BID Qty: 60 6RF Eliquis 2.5 mg tablet 2.5 mg PO BID Patient Comments: take 1 tablet by mouth twice a day acetaminophen [Tylenol] 325 mg Tablet 650 mg PO Q6H PRN PRN (Reason: Pain 1-10 Or Fever >100.7) Qty: 30 0RF Combivent Respimat 20-100 mcg/actuation mist 1 puff INHALATION Q6H Patient Comments: inhale 1 puff by mouth and INTO THE LUNGS every 6 hours ; HOLD FOR 24 HOURS PRIOR TO BREATHING TEST rosuvastatin [Crestor] 5 mg tablet 5 mg PO DAILY Qty: 90 1RF (DME) handicap placard See Rx Instructions .ROUTE .MEDSUPPLY Qty: 1 0RF Rx Instructions: Diagnosis: Impaired physical mobility Z74.09 Length of time: 4 years Primary Care Provider: Domonique Gilbert Referrals: Domonique Gilbert MD [Primary Care Provider] - 3-5 Days Disposition Disposition: Home, Self Care
--- NOTE | 2023-11-19 19:47 | RAD_ITS ---
STUDY: X-RAY - LUMBAR SPINE REASON FOR EXAM: Female, 83 years old. Pain TECHNIQUE: 2 view(s) of the lumbar spine were obtained. COMPARISON: None FINDINGS: Normal lumbar lordosis. There is a slight levoscoliosis. There is generalized osteopenia. Degenerative changes of the vertebral bodies with spurring at the endplates. Narrow disc space heights. The soft tissue structures are unremarkable. There is a right hip prosthesis noted. Diffusely calcified aorta. RAD/Lumbar Spine 2 or 3 Views IMPRESSION: Degenerative changes and scoliosis of the lumbar spine. Generalized osteopenia. Electronically Signed: Husam Lui DO at 20:36 EST Reading Location ID and State: [facility] / [place] Tel [phone], Service support ,
[2023-11-19] MEDS: oxyCODONE 5 MG Tablet PO (20:11)
[2023-11-19 20:31] VITALS: BP 179/78; PULSE 65; RESP 14; O2SAT 98; BMI 23.5
[2023-11-19 21:59] VITALS: BP 168/70; PULSE 70; RESP 16; TEMP 36.4; O2SAT 95
== END 2023-11-19 22:00 | disposition home or self-care (01) ==
PROVIDERS: Emergency Provider Emergency Medicine; PCP Internal Medicine; Visit Provider Emergency Medicine
DX: M54.6 Pain in thoracic spine (principal); M54.50 Low back pain, unspecified; Z96.641 Presence of right artificial hip joint; Z79.01 Long term (current) use of anticoagulants; Z86.73 Personal history of transient ischemic attack (TIA), and cerebral infarction without residual deficits
CPT/HCPCS: 72070; 72100; 72170; 99282

== ENCOUNTER 2023-11-20 18:25 | Observation (INO) | payer MEDICARE, SELFPAY ==
[2023-11-20 18:26] VITALS: BP 163/83; PULSE 98; RESP 16; TEMP 36.6; O2SAT 97; O2SAT 98; BMI 25.3
--- NOTE | 2023-11-20 18:46 | EX.ED.DYSGE1 ---
HPI History of Present Illness Chief Complaint: Fall Informant: patient and family Narrative Narrative: Patient presents via EMS after a fall at home. She was seen in the ER yesterday with low back pain that has been going on for the last 1 to 2 weeks. She had x-rays that revealed degenerative changes. She is currently on Eliquis and not able to take anti-inflammatories. She was discharged with a short course of oxycodone to help her pain. She states today she was trying to get up to move. She went to the laundry room and bent over to fruit picker the detergent. She states that she was unable to stand herself upright. She tried to get herself out of the laundry room and her left leg kept wanting to give out on her. She grabbed the shells and lowered herself to the ground. She is adamant that she did not fall or injure herself. EMS was called to help her up. [facility] Medical History Abnormal echocardiogram Arthritis Bilateral hemianopia Broken arm Chronic dyspnea Elevated troponin Glaucoma Hearing deficit Heart valve problem Hx of headache Hypertension Stroke Syncope Home Medications acetaminophen 325 mg tablet (Tylenol) 650 mg (2 x 325 mg) PO Q6H PRN PRN Pain 1-10 Or Fever >100.7 #30 tabs 10/01/22 [Rx Last Taken Unknown] ipratropium 20 mcg-albuterol 100 mcg/actuation mist for inhalation (Combivent Respimat) 1 puff inhalation Q6H shortness of breath 03/09/23 [History Last Taken Unknown] apixaban 2.5 mg tablet (Eliquis) 2.5 mg PO BID 06/04/23 [History Last Taken Unknown] fluticasone propionate 250 mcg/actuation blister powder for inhalation (Flovent Diskus) 1 inh inhalation BID #60 ea 07/02/23 [Rx Last Taken Unknown] rosuvastatin 5 mg tablet (Crestor) 5 mg PO DAILY #90 tabs 08/22/23 [Rx Last Taken Unknown] handicap placard #1 ea 09/30/23 [Rx Last Taken Unknown] oxycodone 5 mg tablet 5 mg PO Q8H PRN pain 3 days #10 tabs 11/19/23 [Rx Last Taken Unknown] Allergy/AdvReac Type Severity Reaction Status Date / Time procaine [From Novocain] Allergy Severe passed out Verified 11/19/23 18:24 Family History Father Heart disease Surgical History H/O neck surgery History of hip replacement History of surgery on arm Social History household members: none current occupational status: 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 Smoking Status: Never smoker Electronic Cigarette Use: not used alcohol intake: never substance use type: does not use what type of physical activity do you participate in: none do you feel safe at home: Yes ROS ROS ED Constitutional Constitutional ED: Denies chills or fever(s) Eyes Eyes: Denies discharge from eye(s) ENT ENT ED: Denies discharge from eye(s), rhinorrhea or sore throat Cardiovascular Cardiovascular: Denies chest pain or palpitations Respiratory/Chest Respiratory/Chest: Denies cough or dyspnea Gastrointestinal Gastrointestinal: Denies abdominal pain, nausea or vomiting Musculoskeletal Musculoskeletal: Reports back pain; Denies extremity pain Integumentary Denies Abrasions or rash Neurologic Neurologic: Denies headache(s) or weakness Psychiatric Psychiatric: Denies anxiety or depression Allergic/Immunologic Allergic/Immunologic ED: Denies lip swelling or urticaria EXAM Physical Exam Const Vital Signs: 11/20/23 18:26 11/20/23 18:26 Temperature 97.9 F Temperature Source Temporal Pulse Rate 98 Respiratory Rate 16 Respiratory Effort Normal Respiratory Depth Normal Respiratory Pattern Normal Blood Pressure 163/83 H Blood Pressure Mean 109 Pulse Ox 97 98 Oxygen Delivery Method Room Air Room Air Positive well nourished and well developed General Appearance ED: well developed HEENT Reports moist mucous membranes Eyes EOMs intact bilaterally Neck no lymphadenopathy Chest Wall inspection of chest normal and palpation of chest normal Resp normal respiratory effort and clear to auscultation bilaterally Cardio regular rate and regular rhythm GI non-tender Palpation: soft Back/Spine Back/Spine Narrative: Tenderness to palpation in the lumbar paraspinal muscles, left greater than right. Extremity Extremity Narrative: No pain with logroll of the lower extremities. No focal tenderness with palpation. Good strength and sensation. Psych mental status grossly normal Skin no rashes or lesions noted MDM MDM MDM Narrative Medical decision making narrative: Patient was seen yesterday and treated for back pain. She lives alone and failed outpatient therapy. I will obtain screening labs for admission with plan to admit for pain control and physical therapy evaluation. History & Record Review Discussion w/independent historian: Patient and Family Lab Data Attestation: I reviewed the patient's lab results. Labs: Laboratory Results - last 24 hr 11/20/23 18:53 WBC 8.1 RBC 4.05 L Hgb 12.3 Hct 36.4 L MCV 89.9 MCH 30.4 MCHC 33.8 RDW Std Deviation 43.7 RDW Coeff of Criselda 13.3 Plt Count 201 MPV 10.0 Immature Gran % (Auto) 0.600 Neut % (Auto) 75.7 H Lymph % (Auto) 11.7 L Frio % (Auto) 9.4 Eos % (Auto) 1.7 Baso % (Auto) 0.9 Absolute Neuts (auto) 6.1 Absolute Lymphs (auto) 0.95 Nucleated RBC % 0 Sodium 136 Potassium 3.8 Chloride 106 Carbon Dioxide 24.0 Anion Gap 6 BUN 18 Creatinine 0.61 Estim Creat Clear Calc 38.94 Est GFR (MDRD) Af Amer 120 Est GFR (MDRD) Non-Af 99 BUN/Creatinine Ratio 29.4 H Glucose 117 H Calcium 9.2 Treatment and Re-Evaluation :: CBC reveals normal white count 8.1 with a hemoglobin of 12.3. Chemistry studies unremarkable. On repeat evaluation patient is resting comfortably. She denies need for pain medication while sitting at rest. She was seen in the ER yesterday and pain managed with analgesics, however she lives alone and was not able to take care of herself today when her leg gave out on her and she had to lower herself to the ground. Family at bedside would like her to be admitted for therapy. She is willing to go for rehab if that is required. I will speak with the hospitalist. Discharge Plan Triage Chief Complaint: Fall ED Provider: Lindy Kennedy Dx/Rx/DC Orders Clinical Impression: Low back pain, Weakness Prescriptions: No Action Flovent Diskus 250 mcg/actuation blister with device 1 inh inhalation BID Qty: 60 6RF Eliquis 2.5 mg tablet 2.5 mg PO BID Patient Comments: take 1 tablet by mouth twice a day acetaminophen [Tylenol] 325 mg Tablet 650 mg PO Q6H PRN PRN (Reason: Pain 1-10 Or Fever >100.7) Qty: 30 0RF Combivent Respimat 20-100 mcg/actuation mist 1 puff INHALATION Q6H Patient Comments: inhale 1 puff by mouth and INTO THE LUNGS every 6 hours ; HOLD FOR 24 HOURS PRIOR TO BREATHING TEST oxycodone 5 mg tablet 5 mg PO Q8H PRN (Reason: pain) 3 Days Qty: 10 0RF rosuvastatin [Crestor] 5 mg tablet 5 mg PO DAILY Qty: 90 1RF (DME) handicap placard See Rx Instructions .ROUTE .MEDSUPPLY Qty: 1 0RF Rx Instructions: Diagnosis: Impaired physical mobility Z74.09 Length of time: 4 years Primary Care Provider: Domonique Gilbert Referrals: Domonique Gilbert MD [Primary Care Provider] -
[2023-11-20 19:03] LABS: Absolute Lymphocyte Count 0.95 X10^3/uL (0.83-4.51); Absolute Neutrophil Count 6.1 X10^3/uL (2.0-7.7); Basophil# 0.07 X10^3/uL; Basophil% 0.9 % (0-1); Eosinophil# 0.14 X10^3/uL; Eosinophils% 1.7 % (0-5); Hematocrit 36.4 % (37-47); Hemoglobin 12.3 g/dL (12.0-15.0); Lymphocyte # 0.95 X10^3/ul (0.83-4.51); Lymphocyte % 11.7 % (19-41); Mean Corp Hgb Conc 33.8 g/dL (32-36); Mean Corpuscular Hgb 30.4 pg (27.0-32.0); Mean Corpuscular Volume 89.9 fL (81-99); Monocyte# 0.76 X10^3/uL; Monocyte% 9.4 % (0-10); NRBC Flagged by Analyzer 0 % (0-5); Neutrophil # 6.14 X10^3/uL (2.7-7.7); Neutrophil % 75.7 % (47-70); Platelet Count 201 K/mm3 (150-450); RBC Distribution Width CV 13.3 % (11.6-14.6); RBC Distribution Width SD 43.7 fl (35.1-43.9); Red Blood Count 4.05 M/mm3 (4.2-5.4); White Blood Count 8.1 K/mm3 (4.4-11.0)
[2023-11-20 19:17] LABS: Anion Gap 6 (5-15); BUN 18 mg/dL (7-18); BUN/Creat Ratio 29.4 RATIO (10-20); Calcium,Total 9.2 mg/dL (8.5-10.1); Chloride 106 mmol/L (98-107); Creatinine, Serum 0.61 mg/dL (0.55-1.02); EST Glomerular Filtration Rate 99 mL/min (>60); Est Glom Filt Rate - Afr Amer 120 mL/min (>60); Estimated Creatinine Clearance 38.94 ml/min; Glucose 117 mg/dL (74-106); Potassium 3.8 mmol/L (3.5-5.1); Sodium Level 136 mmol/L (136-145)
--- NOTE | 2023-11-20 19:28 | PCM.HP.STD ---
[facility] - General General Date of Admission: 11/20/23 Date of Service: 11/20/23 Chief Complaint: Fall at Home with Low Back Pain. HPI Narrative MAK NAPIER, is a 83 F with a past medical history of essential hypertension, hyperlipidemia, history of X; on Eliquis, history of CVA (2022), history of Takotsubo's cardiomyopathy, history of syncope, asthma, glaucoma, severe OA; s/p Neck surgery and Right THR and recent evaluation in the ER here on November 19, 2023 after she fell at home with subsequent low back pain who was then discharged home on prn Oxycodone who presents to [facility] ER complaining of worsening back pain. Ms. Napier reports her symptoms began approximately 2 weeks prior to admission with progressively worsening low back pain with X-rays that revealed only degenerative changes. Then earlier today she bent over to sheepskin pickler a heavy bottle of laundry detergent when she could not then stand up straight. She also states she felt like her Left leg was trying to give out on her so she grabbed the wall and lowered herself down to the floor with patient adamant that she did not injure herself in the process. Both the patient and her family are concerned about her because she lives at home alone and she understands she will likely need rehabilitation. In the ER she was diagnosed with Generalized Weakness with Ambulatory Dysfunction and Fall at home with subsequent Back Pain and she was then admitted to the general medical floor under observation status for ongoing care for a stay that is expected to be less than 48 hours. [facility] Medical History Abnormal echocardiogram Arthritis Bilateral hemianopia Broken arm Chronic dyspnea Elevated troponin Glaucoma Hearing deficit Heart valve problem Hx of headache Hypertension Stroke Syncope Home Medications apixaban 2.5 mg tablet (Eliquis) 2.5 mg PO BID 06/04/23 [History Last Taken Unknown] fluticasone propionate 250 mcg/actuation blister powder for inhalation (Flovent Diskus) 1 inh inhalation BID #60 ea 07/02/23 [Rx Last Taken Unknown] rosuvastatin 5 mg tablet (Crestor) 5 mg PO DAILY #90 tabs 08/22/23 [Rx Last Taken Unknown] handicap placard #1 ea 09/30/23 [Rx Last Taken Unknown] Allergy/AdvReac Type Severity Reaction Status Date / Time procaine [From Novocain] Allergy Severe passed out Verified 11/19/23 18:24 Family History Father Heart disease Surgical History H/O neck surgery History of hip replacement History of surgery on arm Social History household members: none 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 Resp: Denies cough, denies shortness of breath Cardiac: Denies chest pain or palpitations. GI: Denies abdominal pain, denies changes in bowel, denies nausea or vomiting. : Denies changes in urination Extremity: Denies swelling Musculoskeletal: Feels somewhat generally weak and unwell with back pain worse since recent fall Neuro: Denies any numbness/tingling Heme: Denies any bleeding or bruising Skin: Denies rashes Psychiatric: No complaints voiced related to uncontrolled depression or anxiety. Endocrine: No polyuria, polydipsia or polyphagia. The rest of the 14 point ROS was negative except for positives in HPI. Vital Signs Vital Signs Vital Signs: 11/20/23 18:26 11/20/23 18:26 Temperature 97.9 F Temperature Source Temporal Pulse Rate 98 Respiratory Rate 16 Respiratory Effort Normal Respiratory Depth Normal Respiratory Pattern Normal Blood Pressure 163/83 H Blood Pressure Mean 109 Pulse Ox 97 98 Oxygen Delivery Method Room Air Room Air Weight Weight: 117 lb 1.047 oz Body Mass Index (BMI) 25.3 Physical Exam Const alert, oriented x3, no apparent distress, average body habitus and healthy appearing General Appearance: cooperative HEENT normocephalic, head/scalp atraumatic, hearing grossly normal bilaterally, moist oral mucous membranes and oropharynx normal Eyes PERRL, EOMs intact bilaterally and conjunctivae normal Neck no lymphadenopathy and supple Resp normal respiratory effort, no retractions, no use of accessory muscles and clear to auscultation bilaterally Cardio regular rate and regular rhythm GI normal to inspection, nondistended, normoactive bowel sounds, soft to palpation, non-tender and non-distended Extremity normal to inspection, full ROM and no clubbing, cyanosis or edema Skin Skin Narrative: Patient has no evidence of rash at this time. Neuro oriented x3, CN's II-XII intact bilaterally, moves all extremities and no focal motor deficits Neuro Narrative: Patient has tenderness to palpation of the lumbar paraspinal muscles on the left greater than right. Sensorium / Orientation: awake, alert, oriented to person, oriented to place and oriented to time Speech: speech normal Motor Exam: strength 5/5 throughout Psych affect normal Results Medical Records Data Attestation: I reviewed the patient's medical records Lab / Micro Data Attestation: I reviewed the patient's lab results. 11/20/23 18:53 11/20/23 18:53 Labs: Laboratory Results - last 24 hr 11/20/23 18:53: WBC 8.1, RBC 4.05 L, Hgb 12.3, Hct 36.4 L, MCV 89.9, MCH 30.4, MCHC 33.8, RDW Std Deviation 43.7, RDW Coeff of Criselda 13.3, Plt Count 201, MPV 10.0, Immature Gran % (Auto) 0.600, Neut % (Auto) 75.7 H, Lymph % (Auto) 11.7 L, [place] % (Auto) 9.4, Eos % (Auto) 1.7, Baso % (Auto) 0.9, Absolute Neuts (auto) 6.1, Absolute Lymphs (auto) 0.95, Nucleated RBC % 0, Sodium 136, Potassium 3.8, Chloride 106, Carbon Dioxide 24.0, Anion Gap 6, BUN 18, Creatinine 0.61, Estim Creat Clear Calc 38.94, Est GFR (MDRD) Af Amer 120, Est GFR (MDRD) Non-Af 99, BUN/Creatinine Ratio 29.4 H, Glucose 117 H, Calcium 9.2 Imaging [facility] Imaging Services [address] [place] [id number] Spine Lumbar without Contrast MR#: [id number] Acct: [id number] Name: MAK NAPIER Rep #: [id number] : 1940 F 83 From: Tavia Moyer MD PCP: Dr. Domonique Gilbert MD Status: ADM HASMUKH Study: Spine Lumbar without Contrast Date of Exam: 11/20/23 Exam# [id number] Ordering Dr: Rex Renteria DO ADDENDUM by Dr. Tavia Moyer MD on 11/20/23 at 2342 EXAM: CT LUMBAR SPINE WITHOUT INTRAVENOUS CONTRAST CLINICAL INDICATION: Back Pain with LLE Weakness and Pain. TECHNIQUE: Helically acquired images were obtained of the lumbar spine without intravenous contrast. 2D reformats were reviewed. This CT exam was performed using one or more of the following dose reduction techniques: automated exposure control, adjustment of the mA and/or kV according to patient size, and/or use of iterative reconstruction technique. RADIATION DOSE: CTDIvol = 13.82 mGy, DLP = 654.27 mGy-cm COMPARISON: Abdomen and pelvis CT the same day. FINDINGS: VERTEBRAE: Subtle fracture lines are seen through both sacral wings, with mild buckling and offset and lucent fracture line best seen on the right. There is confirmed fracture extension across the anterior-superior margin of S2 body, best seen on the sagittal images. Consistent with insufficiency fractures, fractures through demineralized bone with typical bone stress levels. DISCS/SPINAL CANAL/NEURAL FORAMINA: Multilevel degenerative lumbar spine changes and demineralization but no visible fracture lines or decreased body height. Slight anterolisthesis of L5 with SPECT to S1 without pars defect. Multilevel disc space narrowing and spondylosis. Slight anterolisthesis of L2 with respect to L1. No evidence of high-grade spinal stenosis. VASCULATURE: Visualized abdominal aorta is not dilated. LYMPH NODES: Unremarkable. No retroperitoneal adenopathy. 11/20/232341 Date cc: Dr. Domonique Gilbert MD; Dr. Rex Renteria DO ~* Signed ADDENDUM by Dr. Tavia Moyer MD on 11/20/[address]/Spine Lumbar without Contrast IMPRESSION: 1. Sacral insufficiency type fractures, bilateral sacral wings and S2 body. Diffuse demineralization. 2. Moderate multilevel degenerative lumbar spine changes, no evidence of significant spinal stenosis. 3. No visible S2 canal or neural foraminal stenosis. N.B. : The above Results were Read Back by Tavia Moyer MD to Rex Renteria MD, and understanding confirmed on 11/21/2023 00:04:09 (ET). Electronically Signed: Tavia Moyer MD at 23:42 EST , 11/21/23 0011 Date cc: Dr. Domonique Gilbert MD; Dr. Rex Renteria DO ~* Signed We are attempting to reach an attending provider to discuss findings. An addendum with communication details will be sent when the communication is complete. EXAM: CT LUMBAR SPINE WITHOUT INTRAVENOUS CONTRAST CLINICAL INDICATION: Back Pain with LLE Weakness and Pain. TECHNIQUE: Helically acquired images were obtained of the lumbar spine without intravenous contrast. 2D reformats were reviewed. This CT exam was performed using one or more of the following dose reduction techniques: automated exposure control, adjustment of the mA and/or kV according to patient size, and/or use of iterative reconstruction technique. RADIATION DOSE: CTDIvol = 13.82 mGy, DLP = 654.27 mGy-cm COMPARISON: Abdomen and pelvis CT the same day. FINDINGS: VERTEBRAE: Subtle fracture lines are seen through both sacral wings, with mild buckling and offset and lucent fracture line best seen on the right. There is confirmed fracture extension across the anterior-superior margin of S2 body, best seen on the sagittal images. Consistent with insufficiency fractures, fractures through demineralized bone with typical bone stress levels. DISCS/SPINAL CANAL/NEURAL FORAMINA: Multilevel degenerative lumbar spine changes and demineralization but no visible fracture lines or decreased body height. Slight anterolisthesis of L5 with SPECT to S1 without pars defect. Multilevel disc space narrowing and spondylosis. Slight anterolisthesis of L2 with respect to L1. No evidence of high-grade spinal stenosis. VASCULATURE: Visualized abdominal aorta is not dilated. LYMPH NODES: Unremarkable. No retroperitoneal adenopathy. CT/Spine Lumbar without Contrast IMPRESSION: 1. Sacral insufficiency type fractures, bilateral sacral wings and S2 body. Diffuse demineralization. 2. Moderate multilevel degenerative lumbar spine changes, no evidence of significant spinal stenosis. 3. No visible S2 canal or neural foraminal stenosis. Electronically Signed: Tavia Moyer MD at 23:42 EST , CC: Dr. Domonique Gilbert MD; Dr. Rex Renteria DO ~ [employer] Signed Assessment & Plan Assessment/Plan (1) Sacral fracture, closed: QUALIFIERS: Encounter type: initial encounter Zone of sacrum fracture: unspecified portion of sacrum Qualified Code(s): S32.10XA - Unspecified fracture of sacrum, initial encounter for closed fracture (2) Low back pain: QUALIFIERS: Chronicity: acute Back pain laterality: bilateral Sciatica presence: without sciatica Qualified Code(s): M54.50 - Low back pain, unspecified (3) Paresthesia and pain of left extremity: (4) Weakness: PLAN: Plan 1. Sacral Insufficiency Fractures with Generalized Weakness and Ambulatory Dysfunction after fall at home with subsequent Back Pain - Admit to general medical floor under observation status. Give Tylenol as needed for mild to moderate (level 1-5 out of 10) pain or fever. Give morphine IV as needed for severe (level 6-10 out of 10) pain. Give Decadron 6 mg IV once to diminish inflammation and pain. Checked CT scan of lumbar spine with sudden weakness and abnormal sensation in the Left hip and leg with results noted above. Finally, we will consult PT/OT and case management to see this patient on rounds in the a.m. for further recommendations regarding placement and rehabilitation with help appreciated in advance. 2. Severe OA; s/p Neck surgery and Right THR and recent evaluation in the ER here on November 19, 2023 after she fell at home with subsequent low back pain who was then discharged home on prn Oxycodone complicating #1 - Noted. 3. Essential hypertension - Continue current regimen plus give prn IV Hydralazine for systolic blood pressure > 160 mm Hg. 4. Hyperlipidemia - Resume statin. 5. History of X; on Eliquis - Continue Eliquis as previous. 6. History of CVA (2022) - Stable. 7. History of Takotsubo's cardiomyopathy - Noted. Check echocardiogram to evaluate LVEF in light of #1. 8. History of syncope - Noted. 9. Asthma - Stable with no evidence of acute flare. Give prn nebulizers. 10. Glaucoma - Stable. 11. DVT prophylaxis - Patient is already on Eliquis for #5 which will be continued. Total time: Approximately 45 minutes. Charges/Coding Visit Charges OBSV E&M: 21781 Observ/hosp same date L1
[2023-11-20 19:38] VITALS: BP 165/79; PULSE 78; RESP 16; TEMP 36; O2SAT 95
[2023-11-20 21:19] VITALS: BP 161/73; PULSE 89; RESP 16; TEMP 36.8; O2SAT 98
[2023-11-20 21:27] VITALS: BMI 22.1
--- NOTE | 2023-11-20 21:36 | CT_ITS ---
EXAM: CT ABDOMEN AND PELVIS WITHOUT INTRAVENOUS CONTRAST CLINICAL INDICATION: Severe bilateral hip pain. Evaluate for occult Fx TECHNIQUE: Helically acquired images were obtained of the abdomen and pelvis without intravenous contrast. This CT exam was performed using one or more of the following dose reduction techniques: automated exposure control, adjustment of the mA and/or kV according to patient size, and/or use of iterative reconstruction technique. RADIATION DOSE: CTDIvol = 6.08 mGy, DLP = 654.27 mGy-cm COMPARISON: No relevant prior studies available. FINDINGS: LOWER THORAX: Minimal linear bands of atelectasis or scarring in the lung bases. No significant pericardial effusion. Normal heart size, not fully included. ABDOMEN: LIVER: Unremarkable. Homogeneous. GALLBLADDER AND BILE DUCTS: Unremarkable. No calcified gallstones. No gallbladder distention or wall edema. No intra- or extrahepatic biliary ductal dilation. PANCREAS: Unremarkable. No focal cystic mass. SPLEEN: Multiple calcified granulomas in the spleen. ADRENALS: Right or bilateral adrenal fullness, not well evaluated on unenhanced exam. KIDNEYS AND URETERS: Presumed 2.6 cm left renal cyst, not fully characterized on unenhanced exam but no visible complex features. Normal renal size and position. STOMACH AND BOWEL: There is at least moderate diverticulosis of sigmoid colon. Moderate stool in most of the proximal two thirds of the colon. No stomach or bowel distention. No focal inflammatory change. PELVIS: APPENDIX: Normal gas-filled retrocecal appendix is noted. BLADDER: Prominently distended urinary bladder and prominent cystocele, the urinary bladder is 11.2 cm craniocaudal with bladder outlet extending at least 2.6 cm inferior to the inferior margin of the pubic symphysis consistent with cystocele in floor relaxation. REPRODUCTIVE: Inferiorly positioned atrophic uterus is also noted, bulging into the posterior inferiorly bulging pelvic floor and to the right of midline. ABDOMEN and PELVIS: INTRAPERITONEAL SPACE: Unremarkable. No ascites or other fluid collection. No free air. BONES/JOINTS: There is a serpiginous fracture at the anterior right sacral wing, best seen on coronal images 73 and 72, oblique and slightly vertical, and similar but very small oblique lucent line in the most anterior-superior left sacral wing on coronal image #70. There is also visible buckled fracture line extending across the upper anterior body of S2 best seen on the sagittal image #70. Presumed insufficiency type fractures due to normal stress on demineralized bone. Intact right hip prosthesis and components. Degenerative spine changes, moderate and multifocal, with almost diffuse disc space narrowing, vacuum disc, demineralization, slight anterolisthesis of L5 with respect to S1 of roughly 2 mm. No lynne spinal stenosis spine fracture. No suspicious lytic or blastic abnormality. SOFT TISSUES: Slight fat in the right inguinal ring. No discrete abdominal or pelvic wall hernia. VASCULATURE: Moderate peripheral calcification of aortoiliac vessels, no evidence of aneurysm or dissection. LYMPH NODES: Unremarkable. No enlarged lymph nodes. CT/Abdomen/Pelvis without Cont IMPRESSION: 1. Bilateral sacral insufficiency fractures, extending at least across the midline at S2. 2. No other specific acute abnormality. 3. Marked pelvic floor relaxation with prominent cystocele, moderately distended urinary bladder, and inferior displacement of the atrophic uterus at the markedly lax pelvic floor. 4. Large amount of stool in much of the colon. Moderate sigmoid diverticulosis. Electronically Signed: Tavia Moyer MD at 23:32 EST ,
--- NOTE | 2023-11-20 21:36 | CT_ITS ---
We are attempting to reach an attending provider to discuss findings. An addendum with communication details will be sent when the communication is complete. EXAM: CT LUMBAR SPINE WITHOUT INTRAVENOUS CONTRAST CLINICAL INDICATION: Back Pain with LLE Weakness and Pain. TECHNIQUE: Helically acquired images were obtained of the lumbar spine without intravenous contrast. 2D reformats were reviewed. This CT exam was performed using one or more of the following dose reduction techniques: automated exposure control, adjustment of the mA and/or kV according to patient size, and/or use of iterative reconstruction technique. RADIATION DOSE: CTDIvol = 13.82 mGy, DLP = 654.27 mGy-cm COMPARISON: Abdomen and pelvis CT the same day. FINDINGS: VERTEBRAE: Subtle fracture lines are seen through both sacral wings, with mild buckling and offset and lucent fracture line best seen on the right. There is confirmed fracture extension across the anterior-superior margin of S2 body, best seen on the sagittal images. Consistent with insufficiency fractures, fractures through demineralized bone with typical bone stress levels. DISCS/SPINAL CANAL/NEURAL FORAMINA: Multilevel degenerative lumbar spine changes and demineralization but no visible fracture lines or decreased body height. Slight anterolisthesis of L5 with SPECT to S1 without pars defect. Multilevel disc space narrowing and spondylosis. Slight anterolisthesis of L2 with respect to L1. No evidence of high-grade spinal stenosis. VASCULATURE: Visualized abdominal aorta is not dilated. LYMPH NODES: Unremarkable. No retroperitoneal adenopathy. CT/Spine Lumbar without Contrast IMPRESSION: 1. Sacral insufficiency type fractures, bilateral sacral wings and S2 body. Diffuse demineralization. 2. Moderate multilevel degenerative lumbar spine changes, no evidence of significant spinal stenosis. 3. No visible S2 canal or neural foraminal stenosis. Electronically Signed: Tavia Moyer MD at 23:42 EST ,
[2023-11-20] MEDS: dexAMETHasone 10 MG/ML Vial 6 MG IV (22:20)
[2023-11-20] MEDS: Atorvastatin Calcium 10 MG Tablet PO (22:20)
[2023-11-20] MEDS: APIXABAN 2.5 MG TABLET (WCH) PO (22:21)
[2023-11-20] MEDS: Morphine 2 MG/ML Syringe IV (22:21)
[2023-11-20] MEDS: 0.9% Normal Saline (1000mL) 1,000 ML 70 ML IV (22:27)
[2023-11-21 04:00] VITALS: BP 138/71; PULSE 98; RESP 18; TEMP 36.8; O2SAT 97
[2023-11-21 06:00] VITALS: BMI 22.5
[2023-11-21 07:05] LABS: Absolute Lymphocyte Count 0.31 X10^3/uL (0.83-4.51); Absolute Neutrophil Count 3.4 X10^3/uL (2.0-7.7); Basophil# 0.01 X10^3/uL; Basophil% 0.3 % (0-1); Hematocrit 36.3 % (37-47); Hemoglobin 12.3 g/dL (12.0-15.0); Lymphocyte # 0.31 X10^3/ul (0.83-4.51); Lymphocyte % 8.2 % (19-41); Mean Corp Hgb Conc 33.9 g/dL (32-36); Mean Corpuscular Hgb 30.6 pg (27.0-32.0); Mean Corpuscular Volume 90.3 fL (81-99); Mean Platelet Vol. 9.9 fl (6.2-12.0); Monocyte# 0.04 X10^3/uL; Monocyte% 1.1 % (0-10); NRBC Flagged by Analyzer 0 % (0-5); Neutrophil # 3.42 X10^3/uL (2.7-7.7); Neutrophil % 89.9 % (47-70); POSITIVE DIFFERENTIAL YES; Platelet Count 200 K/mm3 (150-450); RBC Distribution Width CV 13.1 % (11.6-14.6); RBC Distribution Width SD 43.2 fl (35.1-43.9); Red Blood Count 4.02 M/mm3 (4.2-5.4); White Blood Count 3.8 K/mm3 (4.4-11.0)
[2023-11-21 07:47] LABS: ALB/GLOB Ratio 0.9 RATIO (0.9-2.4); AST(SGOT) 26 U/L (15-37); Alanine Aminotransfer ALT/SGPT 18 U/L (13-56); Albumin, Serum 3.1 g/dL (3.2-5.0); Alkaline Phosphatase 107 U/L (45-117); Anion Gap 4 (5-15); BUN 16 mg/dL (7-18); BUN/Creat Ratio 33.3 RATIO (10-20); Chloride 111 mmol/L (98-107); Creatinine, Serum 0.48 mg/dL (0.55-1.02); EST Glomerular Filtration Rate 131 mL/min (>60); Est Glom Filt Rate - Afr Amer 159 mL/min (>60); Estimated Creatinine Clearance 38.94 ml/min; Globulin 3.6 g/dL (2.2-4.2); Glucose 149 mg/dL (74-106); Magnesium 2.1 mg/dL (1.6-2.6); Phosphorus 2.8 mg/dL (2.5-4.9); Protein, Total 6.7 g/dL (6.4-8.2); Sodium Level 139 mmol/L (136-145); Thyroid Stim Hormone (TSH) 0.42 uIU/mL (0.358-3.74)
--- NOTE | 2023-11-21 08:37 | PN.HOSP_ITS ---
Reason for Visit Reason for Visit: Diagnoses Low back pain, unspecified (11/20/23) Pain in unspecified limb (11/20/23) Osteonecrosis, unspecified (11/20/23) Paresthesia of skin (11/20/23) Weakness (11/20/23) Unspecified fracture of sacrum, initial encounter for closed fracture (11/20/23) Subjective Subjective Feels well. Denies recent falls. Was doing laundry and was bent over and was unable to straighten herself up, then sat herself down. Objective Data Objective Data Vital Signs: Vital Signs Temp Pulse Resp BP Pulse Ox O2 Del Method 36.8 C 98 18 138/71 H 97 Room Air 11/21/23 04:00 11/21/23 04:00 11/21/23 04:00 11/21/23 04:00 11/21/23 04:00 11/21/23 04:00 Oxygen Delivery Method Room Air Weight: 48.9 kg Body Mass Index (BMI) 22.5 Intake & Output: Intake and Output for Last 24 Hours 11/19/23 11/20/23 11/21/23 23:59 23:59 23:59 Intake Total 0 / 0 240 / 240 Output Total 350 / 350 Balance 0 / 0 -110 / -110 Lab / Micro Data 11/21/23 06:10 11/21/23 06:10 Labs: Laboratory Results - last 24 hr 11/20/23 18:53: WBC 8.1, RBC 4.05 L, Hgb 12.3, Hct 36.4 L, MCV 89.9, MCH 30.4, MCHC 33.8, RDW Std Deviation 43.7, RDW Coeff of Criselda 13.3, Plt Count 201, MPV 10.0, Immature Gran % (Auto) 0.600, Neut % (Auto) 75.7 H, Lymph % (Auto) 11.7 L, Traverse % (Auto) 9.4, Eos % (Auto) 1.7, Baso % (Auto) 0.9, Absolute Neuts (auto) 6.1, Absolute Lymphs (auto) 0.95, Nucleated RBC % 0, Sodium 136, Potassium 3.8, Chloride 106, Carbon Dioxide 24.0, Anion Gap 6, BUN 18, Creatinine 0.61, Estim Creat Clear Calc 38.94, Est GFR (MDRD) Af Amer 120, Est GFR (MDRD) Non-Af 99, BUN/Creatinine Ratio 29.4 H, Glucose 117 H, Calcium 9.2 11/21/23 06:10: WBC 3.8 L, RBC 4.02 L, Hgb 12.3, Hct 36.3 L, MCV 90.3, MCH 30.6, MCHC 33.9, RDW Std Deviation 43.2, RDW Coeff of Criselda 13.1, Plt Count 200, MPV 9.9, Immature Gran % (Auto) 0.500, Neut % (Auto) 89.9 H, Lymph % (Auto) 8.2 L, Traverse % (Auto) 1.1, Eos % (Auto) 0.0, Baso % (Auto) 0.3, Absolute Neuts (auto) 3.4, Absolute Lymphs (auto) 0.31 L, Nucleated RBC % 0, Sodium 139, Potassium 4.0, Chloride 111 H, Carbon Dioxide 24.0, Anion Gap 4 L, BUN 16, Creatinine 0.48 L, Estim Creat Clear Calc 38.94, Est GFR (MDRD) Af Amer 159, Est GFR (MDRD) Non- Af 131, BUN/Creatinine Ratio 33.3 H, Glucose 149 H, Calcium 9.0, Phosphorus 2.8, Magnesium 2.1, Total Bilirubin 0.70, AST 26, ALT 18, Alkaline Phosphatase 107, Total Protein 6.7, Albumin 3.1 L, Globulin 3.6, Albumin/Globulin Ratio 0.9, TSH 0.42 Radiography Diagnostic Testing: Radiology Impression Abdomen/Pelvis CT 11/20/23 21:36 IMPRESSION: 1. Bilateral sacral insufficiency fractures, extending at least across the midline at S2. 2. No other specific acute abnormality. 3. Marked pelvic floor relaxation with prominent cystocele, moderately distended urinary bladder, and inferior displacement of the atrophic uterus at the markedly lax pelvic floor. 4. Large amount of stool in much of the colon. Moderate sigmoid diverticulosis. Electronically Signed: Tavia Moyer MD at 23:32 EST , Lumbar Spine CT 11/20/23 21:36 IMPRESSION: 1. Sacral insufficiency type fractures, bilateral sacral wings and S2 body. Diffuse demineralization. 2. Moderate multilevel degenerative lumbar spine changes, no evidence of significant spinal stenosis. 3. No visible S2 canal or neural foraminal stenosis. Electronically Signed: Tavia Moyer MD at 23:42 EST Reading Location ID and State: [facility] / [place] Tel , Service support , ADDENDUM: 11/21/23 0011 IMPRESSION: 1. Sacral insufficiency type fractures, bilateral sacral wings and S2 body. Diffuse demineralization. 2. Moderate multilevel degenerative lumbar spine changes, no evidence of significant spinal stenosis. 3. No visible S2 canal or neural foraminal stenosis. N.B. : The above Results were Read Back by Tavia Moyer MD to Rex Montano MD, and understanding confirmed on 11/21/2023 00:04:09 (ET). Electronically Signed: Tavia Moyer MD at 23:42 EST Reading Location ID and State: [facility] / [place] Tel , Service support , Physical Exam Const alert and no apparent distress HEENT head/scalp atraumatic and moist oral mucous membranes Resp normal respiratory effort and no retractions Extremity normal to inspection Neuro Motor Exam: strength 5/5 throughout Assessment & Plan Assessment/Plan (1) Sacral fracture, closed: QUALIFIERS: Encounter type: initial encounter Zone of sacrum fracture: unspecified portion of sacrum Qualified Code(s): S32.10XA - Unspecified fracture of sacrum, initial encounter for closed fracture PLAN: Plan Sacral Insufficiency Fractures * supportive mgmt * 25 OH-d level low at 22. * non-surgical Debility * with falls * PT OT eval and treat * suspect patient is too unsafe to return home would anticipate long-term facility Vitamin d-deficiency * start ergocalciferol Chronic conditions: * Essential hypertension - Continue current regimen plus give prn IV Hydralazine for systolic blood pressure > 160 mm Hg. * hyperlipidemia - Resume statin. 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 * History of CVA (2023) - Stable. * History of Takotsubo's cardiomyopathy * Asthma - Stable with no evidence of acute flare. Give prn nebulizers. * Glaucoma - Stable. VTE prophylaxis: Not indicated as patient is on apixaban. DW pt's son
[2023-11-21 08:39] VITALS: BP 136/59; PULSE 81; RESP 15; TEMP 36.6; O2SAT 96
[2023-11-21] MEDS: APIXABAN 2.5 MG TABLET (WCH) PO ×2 (08:44→19:51)
[2023-11-21 09:15] LABS: Vitamin D,25 Hydroxy 22.2 ng/mL
--- NOTE | 2023-11-21 10:55 | CASEMGMT ---
RN KAREN Face to Face with patient for initial transition planning/care coordination assessment. RN CM introduced self and role at [facility]. Patient lying in bed, alert and oriented, daughter on speaker phone. Patient willing to participate in assessment and is able to answer all questions appropriately. Care providers, pharmacy, and demographics verified. Patient and daughter wish for patient to go to SNF if needed. Patient and daughter state they has no further needs or concerns at this time. CM to follow for discharge planning needs that may arise. PCP: Ofelia Specialists: William tavern keeper [facility] Preferred Pharmacy: [facility] Insurance: [employer] Secure Prescription Benefit: yes Living Will/HPOA: yes, daughter Anahi Cannon LNOK: daughter, son Living Arrangements: Patient lives alone in a single story home with 2 steps and railing to enter the home. Patient states she is independent at home. Transportation: son, daughter DME/HHC: Patient has shower chair, raised toilet, walker, rollator, and grab bars at [facility]e Patient has had [facility] in the past. Patient has been to [facility] in the past. Daughter has reviewed SNFs in-network with patient's insurance and prefers 1.[facility], 2. [facility], [facility]. [facility]. SW updated. Disposition Plan: SNF pending progress with therapy, acceptance, and precert. Fide LOBATO, RN, CM
[2023-11-21] MEDS: 0.9% Normal Saline (1000mL) 1,000 ML 70 ML IV (11:55)
[2023-11-21] MEDS: Acetaminophen 500 MG Tablet 1000 MG PO ×2 (13:21→19:50)
[2023-11-21 14:00] VITALS: BP 130/54; PULSE 94; RESP 16; TEMP 36.6; O2SAT 97
--- NOTE | 2023-11-21 14:24 | CASEMGMT ---
BARTOLO called patient's daughter Anahi to discuss d/c plan as SW was informed patient wanted TCU. Anahi said she would love for patient to go to TCU, but it was not on the list. BARTOLO let Anahi know that TCU is taking some patient's with that insurance on a case by case basis. BARTOLO let Anahi know SW did make a referral and they are waiting to review patient's PT/OT. BARTOLO told Anahi someone will let her know if TCU accepts or not. BARTOLO made a referral to TCU. Krystal Head MSW ROBY
[2023-11-21] MEDS: Budesonide Respules 0.5 MG/2 ML AMPUL.NEB. INHALATION (14:25)
[2023-11-21 14:26] VITALS: PULSE 86; RESP 16
--- NOTE | 2023-11-21 15:00 | CASEMGMT ---
Social Work - Discharge planning Spoke with Harmony in [facility] TCU that therapy evaluations are completed to review. Social Work following. -LILIA Tyson
--- NOTE | 2023-11-21 15:16 | CASEMGMT ---
Met with patient (daughter on phone) to complete VO form. VO form explained to?both who voiced understanding and signed form. Original form placed in pt?s chart and copy provided to?patient. Diana Mccormack, Discharge Planning Asst
[2023-11-21] MEDS: Atorvastatin Calcium 10 MG Tablet PO (19:50)
[2023-11-21] MEDS: oxyCODONE 5 MG Tablet PO (19:51)
[2023-11-21 20:15] VITALS: BP 170/83; PULSE 75; RESP 16; TEMP 36.9; O2SAT 97
[2023-11-21 21:00] VITALS: BP 170/83; PULSE 75; RESP 16; TEMP 36.9; O2SAT 97
[2023-11-22 02:29] VITALS: BMI 23.5
[2023-11-22] MEDS: 0.9% Normal Saline (1000mL) 1,000 ML 70 ML IV (02:30)
[2023-11-22] MEDS: Acetaminophen 500 MG Tablet 1000 MG PO ×2 (05:22→13:23)
[2023-11-22] MEDS: APIXABAN 2.5 MG TABLET (WCH) PO (07:45)
[2023-11-22] MEDS: oxyCODONE 5 MG Tablet PO ×2 (07:45→12:10)
[2023-11-22 07:54] VITALS: BP 157/69; PULSE 53; RESP 14; TEMP 36.6; O2SAT 98
--- NOTE | 2023-11-22 07:54 | PN.HOSP_ITS ---
Subjective Subjective Still with buttock pain. Objective Data Objective Data Vital Signs: Vital Signs Temp Pulse Resp BP Pulse Ox O2 Del Method 36.9 C 75 16 170/83 H 97 Room Air 11/21/23 21:00 11/21/23 21:00 11/21/23 21:00 11/21/23 21:00 11/21/23 21:00 11/22/23 07:46 Oxygen Delivery Method Room Air Weight: 51 kg Body Mass Index (BMI) 23.5 Intake & Output: Intake and Output for Last 24 Hours 11/20/23 11/21/23 11/22/23 23:59 23:59 23:59 Intake Total 0 / 0 2522.67 / 2762.67 1480 / 1480 Output Total 350 / 350 Balance 0 / 0 2172.67 / 2412.67 1480 / 1480 Lab / Micro Data 11/21/23 06:10 11/21/23 06:10 Labs: Laboratory Results - last 24 hr 11/21/23 06:10: Vitamin D 25-Hydroxy 22.2 Physical Exam Const alert and no apparent distress HEENT head/scalp atraumatic and moist oral mucous membranes Assessment & Plan Assessment/Plan (1) Sacral fracture, closed: QUALIFIERS: Encounter type: initial encounter Zone of sacrum fracture: unspecified portion of sacrum Qualified Code(s): S32.10XA - Unspecifi ed fracture of sacrum, initial encounter for closed fracture PLAN: Plan Sacral Insufficiency Fractures * supportive mgmt * 25 OH-d level low at 22. * non-surgical * pain control. Debility * with falls * PT OT eval and treat * plan for TCU Vitamin d-deficiency * start ergocalciferol for 8 weeks. Recheck 25-hydroxy vitamin D level. Chronic conditions: * Essential hypertension - Continue current regimen plus give prn IV Hydralazine for systolic blood pressure > 160 mm Hg. * hyperlipidemia - Resume statin. 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 * History of CVA (2022) - Stable. * History of Takotsubo's cardiomyopathy * Asthma - Stable with no evidence of acute flare. Give prn nebulizers. * Glaucoma - Stable. VTE prophylaxis: Not indicated as patient is on apixaban. DW pt's dtr at bedside.
--- NOTE | 2023-11-22 10:20 | CASEMGMT ---
Social Work SW did receive an email from Harmony in TCU, she did start precert. SW let pt's daughter Anahi know that pt was accepted and precert started for pt to go to TCU. BARTOLO will continue to follow. MCKENZIE Maldonado
--- NOTE | 2023-11-22 12:30 | TREXTCAR_ITS ---
Diet Diet Order/Speech Therapy: 11/20/23 21:36 Diet: Cardiac - Heart Healthy Food consistency:: Regular Liquid Consistency:: Regular/Thin Is pt able to select menu?: Yes Therapies Weight Bearing: Weight bearing as tolerated Physical Therapy: Eval and Treat Occupational Therapy: Eval and Treat Problem/Diagnosis (1) Sacral fracture, closed: Status: Acute Code(s): S32.10XA - Unspecified fracture of sacrum, initial encounter for closed fracture Plan Sacral Insufficiency Fractures * supportive mgmt * 25 OH-d level low at 22. * non-surgical * pain control. Debility * with falls * PT OT eval and treat * plan for TCU Vitamin d-deficiency * start ergocalciferol for 8 weeks. Recheck 25-hydroxy vitamin D level. Chronic conditions: * Essential hypertension - Continue current regimen plus give prn IV Hydralazine for systolic blood pressure > 160 mm Hg. * hyperlipidemia - Resume statin. 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 * History of CVA (2022) - Stable. * History of Takotsubo's cardiomyopathy * Asthma - Stable with no evidence of acute flare. Give prn nebulizers. * Glaucoma - Stable. VTE prophylaxis: Not indicated as patient is on apixaban. DW pt's dtr at bedside. Allergies/Procedures Done in Hospital Allergies procaine [From Novocain] Allergy (Severe, Verified 11/19/23 18:24) passed out Procedures: None Type of Care/Length of Stay Estimated LOS: Convalescent Care Less Than 30 days Type of Care Needed: Skilled Rehab Potential: Good Prognosis: Good Additional Orders/Day of Discharge Day of Discharge: 11/22/23 Discharge Plan Admission Admit Date/Time: 11/20/23 19:54 Primary Reason for Your Visit: Debility. Attending Provider: Prashant Hahn Primary Care Provider: Domonique Gilbert Consulting Providers: Rex Renteria Discharge Orders/Prescriptions Prescriptions: New acetaminophen 500 mg Tablet 1,000 mg PO Q8 Qty: 0 0RF ergocalciferol (vitamin D2) 1,250 mcg (50,000 unit) capsule 1,250 mcg PO QWEEK Qty: 8 0RF Continued Eliquis 2.5 mg tablet 2.5 mg PO BID Patient Comments: take 1 tablet by mouth twice a day fluticasone propionate 250 mcg/actuation blister with device 1 inh inhalation BID PRN (Reason: sob) oxycodone 5 mg capsule 5 mg PO Q6H PRN (Reason: pain (scale score 7-10)) 3 Days Qty: 12 0RF rosuvastatin [Crestor] 5 mg tablet 5 mg PO DAILY Qty: 90 1RF (DME) handicap placard See Rx Instructions .ROUTE .MEDSUPPLY Qty: 1 0RF Rx Instructions: Diagnosis: Impaired physical mobility Z74.09 Length of time: 4 years Referrals / Follow Up: Domonique Gilbert MD [Primary Care Provider] - Within 2 Weeks Disposition Disposition (needs filled in before D/C Order can be placed): Senior Care Facility (1) Sacral fracture, closed Qualifiers: Encounter type: initial encounter Zone of sacrum fracture: unspecified portion of sacrum Qualified Code(s): S32.10XA - Unspecified fracture of sacrum, initial encounter for closed fracture
--- NOTE | 2023-11-22 13:21 | DS.PCM_ITS ---
Providers Date of Admission: 11/20/23 Primary Care Physician: Dr. Domonique Gilbert MD Reason For Visit: GENERALIZED WEAKNESS WITH AMBULATORY DYSFUNCTION Diagnosis Discharge Diagnosis (1) Sacral fracture, closed: Status: Acute Code(s): S32.10XA - Unspecified fracture of sacrum, initial encounter for closed fracture Qualifiers: Encounter type: initial encounter Zone of sacrum fracture: unspecified portion of sacrum Qualified Code(s): S32.10XA - Unspecified fracture of sacrum, initial encounter for closed fracture Plan Sacral Insufficiency Fractures * supportive mgmt * 25 OH-d level low at 22. * non-surgical * pain control. Debility * with falls * PT OT eval and treat * plan for TCU Vitamin d-deficiency * start ergocalciferol for 8 weeks. Recheck 25-hydroxy vitamin D level. Chronic conditions: * Essential hypertension - Continue current regimen plus give prn IV Hydralazine for systolic blood pressure > 160 mm Hg. * hyperlipidemia - Resume statin. 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 * History of CVA (2022) - Stable. * History of Takotsubo's cardiomyopathy * Asthma - Stable with no evidence of acute flare. Give prn nebulizers. * Glaucoma - Stable. VTE prophylaxis: Not indicated as patient is on apixaban. DW pt's dtr at bedside. Medications at Discharge Home Medications apixaban 2.5 mg tablet (Eliquis) 2.5 mg PO BID 06/04/23 rosuvastatin 5 mg tablet (Crestor) 5 mg PO DAILY cholesterol #90 tabs 08/22/23 handicap placard #1 ea 09/30/23 fluticasone propionate 250 mcg/actuation blister powder for inhalation 1 inh inhalation BID PRN sob 11/21/23 acetaminophen 500 mg tablet 1,000 mg (2 x 500 mg) PO Q8 #0 tabs 11/22/23 ergocalciferol (vitamin D2) 1,250 mcg (50,000 unit) capsule 1,250 mcg PO QWEEK #8 caps 11/22/23 oxycodone 5 mg capsule 5 mg PO Q6H PRN pain (scale score 7-10) 3 days #12 caps 11/22/23 Hospital Course Operations None Procedures None Summary of Care Provided Minutes Spent on Discharge: 35 Hospital Course: Patient presents with weakness. Patient was bent over doing her laundry and felt her left leg go underneath her. She was able to lower self down without any injury but was noted to have some sacral insufficiency fractures. Patient does have pain with movement in the buttock region due to this. Patient was seen by therapy and recommended additional therapy services and patient be discharged to transitional care unit. For the sacral insufficiency fractures, her vitamin D level was low at 22. Patient will be started on ergocalciferol 50,000 units weekly for 8 weeks. This will need to be followed up as outpatient. Weight / BMI Weight Weight: 51 kg Body Mass Index (BMI) 23.5 ABG / Lab / Microbiology Data 11/21/23 06:10 11/21/23 06:10 D/C Instructions Discharge Diet: No restrictions Meaningful Use Info Meaningful Use Diagnoses (Choose all that apply): None applicable Discharge Plan Admission Admit Date/Time: 11/20/23 19:54 Primary Reason for Your Visit: Debility. Attending Provider: Prashant Hahn Primary Care Provider: Domonique Gilbert Consulting Providers: Rex Renteria Discharge Orders/Prescriptions Prescriptions: New acetaminophen 500 mg Tablet 1,000 mg PO Q8 Qty: 0 0RF ergocalciferol (vitamin D2) 1,250 mcg (50,000 unit) capsule 1,250 mcg PO QWEEK Qty: 8 0RF Continued Eliquis 2.5 mg tablet 2.5 mg PO BID Patient Comments: take 1 tablet by mouth twice a day fluticasone propionate 250 mcg/actuation blister with device 1 inh inhalation BID PRN (Reason: sob) oxycodone 5 mg capsule 5 mg PO Q6H PRN (Reason: pain (scale score 7-10)) 3 Days Qty: 12 0RF rosuvastatin [Crestor] 5 mg tablet 5 mg PO DAILY Qty: 90 1RF (DME) handicap placard See Rx Instructions .ROUTE .MEDSUPPLY Qty: 1 0RF Rx Instructions: Diagnosis: Impaired physical mobility Z74.09 Length of time: 4 years Referrals / Follow Up: Domonique Gilbert MD [Primary Care Provider] - Within 2 Weeks Disposition Disposition (needs filled in before D/C Order can be placed): Care Home Facility Charges/Coding Visit Charges Inpatient E&M: 51170 Disch Hosp >30min
--- NOTE | 2023-11-22 13:55 | CASEMGMT ---
Social Work Precert was attained for pt to go to TCU today. BARTOLO let physician know, he discharged pt. BARTOLO let pt and daughter Anahi know as well, they are both in agreement w/pt going to TCU today. BARTOLO faxed all discharge instructions to TCU. No further social service needs, pt to TCU, skilled, today. MCKENZIE Maldonado
--- NOTE | 2023-11-22 15:08 | NURSING ---
report called to cliff Ibanez
[2023-11-22 15:12] VITALS: BP 121/76; PULSE 62; RESP 14; TEMP 36.6; O2SAT 98
== END 2023-11-22 15:15 | disposition skilled nursing facility (03) ==
LOC: ED 19:12 → PCU 21:01
PROVIDERS: Admitting Provider Internal Medicine; Emergency Provider Emergency Medicine; PCP Internal Medicine
DX: S32.10XA Unspecified fracture of sacrum, initial encounter for closed fracture (principal); I48.0 Paroxysmal atrial fibrillation; R53.1 Weakness; W19.XXXA Unspecified fall, initial encounter; R20.2 Paresthesia of skin; E78.5 Hyperlipidemia, unspecified; M47.816 Spondylosis without myelopathy or radiculopathy, lumbar region; I10 Essential (primary) hypertension; Z79.01 Long term (current) use of anticoagulants; R53.81 Other malaise; Z79.899 Other long term (current) drug therapy; Z79.51 Long term (current) use of inhaled steroids; Z86.73 Personal history of transient ischemic attack (TIA), and cerebral infarction without residual deficits; Y92.009 Unspecified place in unspecified non-institutional (private) residence as the place of occurrence of the external cause; J45.909 Unspecified asthma, uncomplicated
CPT/HCPCS: 36415; 72131; 74176; 80048; 80053; 82306; 83735; 84100; 84443; 85025; 94640; 94668; 96374; 96375; 97162; 97166; 99221; 99285; J7030; A4216; G0378

== ENCOUNTER 2023-11-22 15:30 | Inpatient (IN) | payer MEDICARE, SELFPAY ==
[2023-11-22 15:40] VITALS: BP 148/60; PULSE 61; RESP 16; TEMP 35.9; O2SAT 97
[2023-11-22 15:50] VITALS: BMI 23.0
--- NOTE | 2023-11-22 16:16 | NURSING ---
Patient's fluticasone inhaler is prescribed to be taken 1 puff BID OLLIE. Patient takes inhaled as needed at home and does not want to take it as prescribed. Call placed to Dr. Soni. New order with read back to discontinue inhaler.
[2023-11-22] MEDS: oxyCODONE 5 MG Tablet PO (17:59)
[2023-11-22] MEDS: APIXABAN 2.5 MG TABLET (WCH) PO (21:07)
[2023-11-22] MEDS: Atorvastatin Calcium 10 MG Tablet PO (21:07)
[2023-11-22] MEDS: Acetaminophen 500 MG Tablet 1000 MG PO (21:07)
--- NOTE | 2023-11-22 22:30 | PCM.HP.STD ---
HPI - General General Date of Admission: 11/22/23 Date of Service: 11/22/23 Chief Complaint: Here for rehabilitation. HPI Narrative 11/20/2023 MAK SNOW, is a 83 Female who presents to [facility] ED with fall. LBP x 1-2 weeks, on Eliquis. Seen in ER 1 day prior for LBP, given oxycodone. 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 Left leg giving out, lowered herself to floor. WBC 8.1, Hemoglobin 12.3, CMP okay. Unable to care for herself at home. 11/20/2023 Admit to [facility]. CT shows sacral insufficiency fracture. Tylenol, Morphine, Decadron for LBP. PT/OT for debility. Hydralazine PRN high blood pressure. 11/21/2023 Feels well. PT/OT for SNF. Start Vitamin D. 11/22/2023 Admit to TCU with debility, here for rehabilitation, strengthening, prior to discharge home alone. [facility] Medical History Abnormal echocardiogram Arthritis Bilateral hemianopia Broken arm Chronic dyspnea Constipation Elevated troponin Glaucoma Hearing deficit Heart valve problem Hx of headache Hypertension Prolapsed bladder Stroke Syncope Home Medications apixaban 2.5 mg tablet (Eliquis) 2.5 mg PO BID blood thinner 06/04/23 [History Last Taken 11/22/23] rosuvastatin 5 mg tablet (Crestor) 5 mg PO DAILY cholesterol #90 tabs 08/22/23 [Rx Last Taken Unknown] handicap placard #1 ea 09/30/23 [Rx Last Taken Unknown] fluticasone propionate 250 mcg/actuation blister powder for inhalation 1 inh inhalation BID sob 11/21/23 [History Last Taken 11/21/23] acetaminophen 500 mg tablet 1,000 mg (2 x 500 mg) PO Q8 pain #0 tabs 11/22/23 [Rx Last Taken 11/22/23] ergocalciferol (vitamin D2) 1,250 mcg (50,000 unit) capsule 1,250 mcg PO QWEEK supplement #8 caps 11/22/23 [Rx Last Taken Unknown] oxycodone 5 mg capsule 5 mg PO Q6H PRN pain (scale score 7-10) 3 days #12 caps 11/22/23 [Rx Last Taken 11/22/23] Allergy/AdvReac Type Severity Reaction Status Date / Time procaine [From Novocain] Allergy Severe passed out Verified 11/19/23 18:24 Family History Father Heart disease Surgical History H/O neck surgery History of hip replacement History of surgery on arm Social History household members: none current occupational 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 Status: Never smoker Electronic Cigarette Use: not used alcohol intake: never substance use type: does not use what type of physical activity do you participate in: none do you feel safe at home: Yes ROS Constitutional Constitutional: Denies chills, fever(s) or weight gain ENT HEENT: Denies headache(s), nasal congestion or nasal discharge Cardiovascular Cardiovascular: Denies chest pain or palpitations Respiratory/Chest Respiratory/Chest: Denies cough, excessive phlegm production or shortness of breath with exertion Gastrointestinal Gastrointestinal: Denies abdominal pain, nausea or vomiting Genitourinary Genitourinary: Denies dysuria Musculoskeletal Musculoskeletal: Reports back pain; Denies joint pain or joint swelling Integumentary Integumentary: Denies rash or wounds Neurologic Neurologic: Denies focal weakness, numbness or tingling Psychiatric Psychiatric: Denies anxiety, auditory hallucinations, depression, homicidal ideation or suicidal ideation Vital Signs Vital Signs Vital Signs: 11/22/23 15:40 11/22/23 15:40 Temperature 96.7 F L Temperature Source Temporal Pulse Rate 61 61 Pulse Rhythm Regular Pulse Strength Normal (2+) Respiratory Rate 16 16 Respiratory Effort Normal Non-Labored Respiratory Depth Normal Respiratory Pattern Normal Blood Pressure 148/60 H Blood Pressure Mean 89 Blood Pressure Source Monitor Blood Pressure Position Semi-Fowlers Blood Pressure Location Right Arm Pulse Ox 97 97 Oxygen Delivery Method Room Air Room Air Weight Weight: 50.031 kg Body Mass Index (BMI) 23.0 Physical Exam Const alert General Appearance: cooperative HEENT normocephalic Eyes PERRL and EOMs intact bilaterally Neck supple, no JVD and no carotid bruits Resp normal respiratory effort, normal air movement and clear to auscultation bilaterally Cardio regular rate and regular rhythm GI normal to inspection, nondistended, normoactive bowel sounds, non-tender and non-distended Extremity normal capillary refill General Extremity: Negative for edema Skin no rashes or lesions noted General Skin Exam: no breakdown Psych affect normal Appearance: appropriate Assessment & Plan Assessment/Plan (1) Debility: (2) Sacral fracture, closed: QUALIFIERS: Encounter type: initial encounter Zone of sacrum fracture: unspecified portion of sacrum Qualified Code(s): S32.10XA - Unspecified fracture of sacrum, initial encounter for closed fracture (3) Atrial fibrillation: (4) Asthma: QUALIFIERS: Asthma complication type: uncomplicated Asthma persistence: intermittent Asthma severity: mild Qualified Code(s): J45.20 - Mild intermittent asthma, uncomplicated (5) Hyperlipemia: PLAN: Plan 83 year old female with below past medical history hospitalized for sacral fracture, admitted to TCU with debility, here for rehabilitation, strengthening, prior to discharge home alone. Debility - PT/OT. Pain - Tylenol 1000mg q8, Tramadol 50mg q6 prn pain (1-5), Oxycodone 5mg q4 prn pain (6-10). Bowel - senna/colace 1 tablet bid, Magnesiu citrate 300ml daily prn. Adult immunization - Administer pneumonia vaccine, covid vaccine, flu vaccine as appropriate. DVT prophylaxis - Eliquis. Atrial fibrillation - Eliquis 2.5mg bid. Hyperlipidemia - Atorvastatin 10mg qhs. Vitamin D deficiency - Vitamin D 1.25mg qweek.
[2023-11-23] MEDS: oxyCODONE 5 MG Tablet PO ×2 (02:48→08:41)
[2023-11-23] MEDS: Acetaminophen 500 MG Tablet 1000 MG PO ×3 (05:38→21:42)
[2023-11-23 05:59] VITALS: PULSE 85; RESP 16; O2SAT 97
[2023-11-23 06:52] LABS: Absolute Lymphocyte Count 1.69 X10^3/uL (0.83-4.51); Absolute Neutrophil Count 3.7 X10^3/uL (2.0-7.7); Basophil# 0.05 X10^3/uL; Basophil% 0.8 % (0-1); Eosinophil# 0.17 X10^3/uL; Eosinophils% 2.8 % (0-5); Hemoglobin 11.9 g/dL (12.0-15.0); Lymphocyte # 1.69 X10^3/ul (0.83-4.51); Lymphocyte % 27.5 % (19-41); Mean Corpuscular Hgb 30.8 pg (27.0-32.0); Mean Corpuscular Volume 90.7 fL (81-99); Monocyte# 0.55 X10^3/uL; NRBC Flagged by Analyzer 0 % (0-5); Neutrophil # 3.67 X10^3/uL (2.7-7.7); Neutrophil % 59.7 % (47-70); Platelet Count 224 K/mm3 (150-450); RBC Distribution Width CV 13.5 % (11.6-14.6); RBC Distribution Width SD 45.1 fl (35.1-43.9); Red Blood Count 3.86 M/mm3 (4.2-5.4); White Blood Count 6.1 K/mm3 (4.4-11.0)
[2023-11-23 07:11] LABS: Anion Gap 3 (5-15); BUN 16 mg/dL (7-18); BUN/Creat Ratio 31.4 RATIO (10-20); Calcium,Total 9.5 mg/dL (8.5-10.1); Chloride 112 mmol/L (98-107); Creatinine, Serum 0.51 mg/dL (0.55-1.02); EST Glomerular Filtration Rate 123 mL/min (>60); Est Glom Filt Rate - Afr Amer 149 mL/min (>60); Estimated Creatinine Clearance 38.94 ml/min; Glucose 75 mg/dL (74-106); Potassium 3.8 mmol/L (3.5-5.1); Sodium Level 140 mmol/L (136-145)
[2023-11-23] MEDS: Ergocalciferol 1.25 MG (50, 000 UNIT) Capsule PO (08:41)
[2023-11-23] MEDS: APIXABAN 2.5 MG TABLET (WCH) PO ×2 (08:41→21:42)
[2023-11-23] MEDS: Senna/Docusate Sodium 1 Tablet PO (08:41)
[2023-11-23] MEDS: traMADol 50 MG Tablet PO (09:56)
[2023-11-23] MEDS: Tuberculin,Purif.prot.deriv. 50 TU/ML Vial 0.1 ML ID (09:56)
[2023-11-23 14:11] VITALS: BP 162/72; PULSE 64; RESP 16; TEMP 36.5; O2SAT 96
[2023-11-23 15:03] VITALS: BP 157/75; PULSE 66
--- NOTE | 2023-11-23 15:04 | NURSING ---
pt had small liquid emesis x2 today after eating mashed potatoes at lunch and drinking orange juice. pt states I do this at home to, don't worry, I am ok Speech therapy consulted for evaluation of swallowing, pt agreeable. will continue to monitor with meals.
--- NOTE | 2023-11-23 18:13 | NURSING ---
pt with elevated BP today, pt states that she does not take BP meds because her BP bottoms out. dr lo updated on BP elevation, new order for losartan 25mg daily with parameters.
[2023-11-23 18:18] VITALS: BP 168/78; PULSE 82
[2023-11-23] MEDS: Losartan Potassium 25 MG Tablet PO (18:46)
[2023-11-24] MEDS: oxyCODONE 5 MG Tablet PO ×2 (02:00→13:14)
[2023-11-24] MEDS: Acetaminophen 500 MG Tablet 1000 MG PO ×3 (05:37→22:21)
[2023-11-24] MEDS: traMADol 50 MG Tablet PO ×2 (05:38→22:21)
[2023-11-24 08:47] VITALS: BP 135/62; PULSE 69; RESP 17; TEMP 37.2; O2SAT 95
[2023-11-24] MEDS: Polyethylene Glycol 3350 17 GM PACKET PO (08:51)
[2023-11-24] MEDS: APIXABAN 2.5 MG TABLET (WCH) PO ×2 (08:51→22:17)
[2023-11-24 09:46] VITALS: BP 161/77; PULSE 84
[2023-11-24] MEDS: Losartan Potassium 25 MG Tablet PO (09:48)
--- NOTE | 2023-11-24 15:57 | NURSING ---
pt refusing lipitor d/t causing severe muscle aches/cramps in legs at night. dr lo updated, new order to DC.
--- NOTE | 2023-11-24 15:58 | NURSING ---
speech saw pt today and requesting a GI consult d/t swallowing issues with certain foods and will vomit small amts up that get stuck. pt reports having this issue prior to hospitalization. will update dr lo
--- NOTE | 2023-11-24 20:50 | NURSING ---
Spoke w/ Dr. Soni via phone on recommendation per ST for a GI consult d/t emesis after ingesting certain foods. New order received for GI consult- does not need called tonight. Informed Dr. Soni per inward toll operator this evening GI is only taking calls for established pts and pt w/ GI bleeds.
--- NOTE | 2023-11-24 22:15 | NURSING ---
Pt toileted per this nurse. Given privacy but this nurse remained in the pt's room. Noted sound of toileting flushing. Entered bathroom and pt was standing. Instructed pt she is not permitted to stand without assistance until cleared per therapy and places herself at risk for increased injury. Pt verbalizes understanding. Room camera initiated at this time to monitor for any additional self-transfer attempts. Will continue to monitor.
[2023-11-24] MEDS: Menthol/Lanolin/Calamine/Znox 113 GM Tube 1 APPLIC TOPICAL (22:16)
[2023-11-24] MEDS: Senna/Docusate Sodium 1 Tablet PO (22:17)
[2023-11-25] MEDS: Acetaminophen 500 MG Tablet 1000 MG PO ×3 (05:03→22:36)
--- NOTE | 2023-11-25 08:36 | NURSING ---
Addendum entered by Maya Martinez 11/25/23 15:56: Dtr brought home med, sent to pharmacy via secure tube. Order placed in [facility]. Original Note: Updated patient that she is able to take her own Crestor. She called and let her dtr know. Daughter will bring med in [facility].
[2023-11-25 10:34] VITALS: BP 128/63; PULSE 69; RESP 16; O2SAT 96
[2023-11-25] MEDS: Polyethylene Glycol 3350 17 GM PACKET PO (10:37)
[2023-11-25] MEDS: Senna/Docusate Sodium 1 Tablet PO ×2 (10:37→22:36)
[2023-11-25] MEDS: Losartan Potassium 25 MG Tablet PO (10:38)
[2023-11-25] MEDS: APIXABAN 2.5 MG TABLET (WCH) PO ×2 (10:39→22:36)
[2023-11-25] MEDS: Menthol/Lanolin/Calamine/Znox 113 GM Tube 1 APPLIC TOPICAL ×2 (10:41→22:43)
--- NOTE | 2023-11-25 10:47 | NURSING ---
Offered Covid vaccine, VIS provided. Patient refuses at this time.
[2023-11-25] MEDS: oxyCODONE 5 MG Tablet PO (11:16)
--- NOTE | 2023-11-25 12:41 | NURSING ---
Notched Blade Loader Note: Activity Asset: Maya Mayo is independent in her choice of daily activities. She enjoys thing w/other, watching tv, reading and visiting w/family and friends. Her daughter will bring her items from home if she needs them. She welcomes visit from both the director service and therapy dog when available. Staff will remind her of weekly activities and respect her right to say no.
[2023-11-25 15:56] VITALS: BP 150/69; PULSE 88; RESP 18; TEMP 36.3; O2SAT 94
--- NOTE | 2023-11-25 18:31 | EX.PCM.CON.G ---
HPI Consult Data Date of Consult: 11/25/23 HPI Narrative Reason for Consultation: Dysphagia HPI Narrative: MAK SNOW, is a 83 F with a past medical history of essential hypertension, hyperlipidemia, history of X; on Eliquis, history of CVA (2022), history of Takotsubo's cardiomyopathy, history of syncope, asthma, glaucoma, severe OA; s/p Neck surgery and Right THR and recent evaluation in the ER here on November 19, 2023 after she fell at home with subsequent low back pain. She was then discharged home on prn Oxycodone who presents to [facility] ER complaining of worsening back pain. Ms. Snow reports her symptoms began approximately 2 weeks prior to admission with progressively worsening low back pain with X-rays that revealed only degenerative changes. 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 She also states she felt like her Left leg was trying to give out on her so she grabbed the wall and lowered herself down to the floor with patient adamant that she did not injure herself in the process. Both the patient and her family are concerned about her because she lives at home alone and she understands she will likely need rehabilitation. In the ER she was diagnosed with Generalized Weakness with Ambulatory Dysfunction and Fall at home with subsequent Back Pain. She was discharged from the hospital and transferred to TCU. While in TCU she underwent a swallowing evaluation and was discovered to have mild oropharyngeal dysphagia and esophageal dysphagia. I was consulted to evaluate her esophageal dysphagia. She complains of intermittent choking episodes when she gets pills breads and meat stuck in her midesophagus and has to vomit in order to relieve the obstruction. This happens probably once every couple weeks and has been getting progressively worse. She had a CT scan abdomen pelvis that reported: 1. Bilateral sacral insufficiency fractures, extending at least across the midline at S2. 2. No other specific acute abnormality. 3. Marked pelvic floor relaxation with prominent cystocele, moderately distended urinary bladder, and inferior displacement of the atrophic uterus at the markedly lax pelvic floor. 4. Large amount of stool in much of the colon. Moderate sigmoid diverticulosis. [facility] Medical History Abnormal echocardiogram Arthritis Bilateral hemianopia Broken arm Chronic dyspnea Constipation Elevated troponin Glaucoma Hearing deficit Heart valve problem Hx of headache Hypertension Prolapsed bladder Stroke Syncope Home Medications apixaban 2.5 mg tablet (Eliquis) 2.5 mg PO BID blood thinner 06/04/23 [History Last Taken 11/22/23] rosuvastatin 5 mg tablet (Crestor) 5 mg PO DAILY cholesterol #90 tabs 08/22/23 [Rx Last Taken Unknown] handicap placard #1 ea 09/30/23 [Rx Last Taken Unknown] fluticasone propionate 250 mcg/actuation blister powder for inhalation 1 inh inhalation BID sob 11/21/23 [History Last Taken 11/21/23] acetaminophen 500 mg tablet 1,000 mg (2 x 500 mg) PO Q8 pain #0 tabs 11/22/23 [Rx Last Taken 11/22/23] ergocalciferol (vitamin D2) 1,250 mcg (50,000 unit) capsule 1,250 mcg PO QWEEK supplement #8 caps 11/22/23 [Rx Last Taken Unknown] oxycodone 5 mg capsule 5 mg PO Q6H PRN pain (scale score 7-10) 3 days #12 caps 11/22/23 [Rx Last Taken 11/22/23] Allergy/AdvReac Type Severity Reaction Status Date / Time procaine [From Novocain] Allergy Severe passed out Verified 11/19/23 18:24 Family History Father Heart disease Surgical History H/O neck surgery History of hip replacement History of surgery on arm Social History household members: none 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 occupational 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 Status: Never smoker Electronic Cigarette Use: not used alcohol intake: never substance use type: does not use what type of physical activity do you participate in: none do you feel safe at home: Yes ROS Constitutional Constitutional: Denies chills, fever(s) or weight gain ENT HEENT: Denies headache(s), nasal congestion or nasal discharge Cardiovascular Cardiovascular: Denies chest pain or palpitations Respiratory/Chest Respiratory/Chest: Denies cough, excessive phlegm production or shortness of breath with exertion Gastrointestinal Gastrointestinal: Denies abdominal pain, nausea or vomiting Genitourinary Genitourinary: Denies dysuria Musculoskeletal Musculoskeletal: Reports back pain; Denies joint pain or joint swelling Integumentary Integumentary: Denies rash or wounds Neurologic Neurologic: Denies focal weakness, numbness or tingling Psychiatric Psychiatric: Denies anxiety, auditory hallucinations, depression, homicidal ideation or suicidal ideation Physical Exam Const alert General Appearance: cooperative HEENT normocephalic Eyes PERRL and EOMs intact bilaterally Neck supple, no JVD and no carotid bruits Resp normal respiratory effort, normal air movement and clear to auscultation bilaterally Cardio regular rate and regular rhythm GI normal to inspection, nondistended, normoactive bowel sounds, non-tender and non-distended Extremity normal capillary refill General Extremity: Negative for edema Skin no rashes or lesions noted General Skin Exam: no breakdown Psych affect normal Appearance: appropriate Lab / Micro Data 11/23/23 06:09 11/23/23 06:09 Assessment & Plan Assessment/Plan (1) Esophageal dysphagia: PLAN: 83-year-old with esophageal dysphagia. Differential diagnosis does include achalasia, cricopharyngeal achalasia, pseudo achalasia, ineffective esophageal motility disorder, esophageal stricture, sliding hiatal hernia, paraesophageal hernia, Brook esophagitis, erosive esophagitis and less likely neoplasia. She will undergo an upper endoscopy to evaluate over the GI tract. She was explained alternatives, risk, benefits include not withstanding bleeding, infection, sepsis, perforation, need for discharge and . She will have an ASA of 3. Charges/Coding Visit Charges Inpatient E&M: 59104 SNF Init L2
[2023-11-25] MEDS: Rosuvastatin Calcium 5 MG Tablet PO (22:36)
[2023-11-26] MEDS: Acetaminophen 500 MG Tablet 1000 MG PO ×2 (04:37→21:11)
--- NOTE | 2023-11-26 04:47 | NURSING ---
Patient very painful this AM. Tylenol administered with sips of water. Patient scheduled for EGD this morning.
[2023-11-26] MEDS: oxyCODONE 5 MG Tablet PO ×2 (07:38→18:31)
[2023-11-26] MEDS: Menthol/Lanolin/Calamine/Znox 113 GM Tube 1 APPLIC TOPICAL ×2 (11:08→21:14)
--- NOTE | 2023-11-26 14:35 | NURSING ---
Pt. left floor for EGD
--- NOTE | 2023-11-26 17:10 | PCM.HP.BLA ---
History and Physical Date of Admission: 11/26/23 MAK SNOW, is a 83 F with a past medical history of essential hypertension, hyperlipidemia, history of X; on Eliquis, history of CVA (2022), history of Takotsubo's cardiomyopathy, history of syncope, asthma, glaucoma, severe OA; s/p Neck surgery and Right THR and recent evaluation in the ER here on November 19, 2023 after she fell at home with subsequent low back pain. She was then discharged home on prn Oxycodone who presents to [facility] ER complaining of worsening back pain. Ms. Snow reports her symptoms began approximately 2 weeks prior to admission with progressively worsening low back pain with X-rays that revealed only degenerative changes. 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 She also states she felt like her Left leg was trying to give out on her so she grabbed the wall and lowered herself down to the floor with patient adamant that she did not injure herself in the process. Both the patient and her family are concerned about her because she lives at home alone and she understands she will likely need rehabilitation. In the ER she was diagnosed with Generalized Weakness with Ambulatory Dysfunction and Fall at home with subsequent Back Pain. She was discharged from the hospital and transferred to TCU. While in TCU she underwent a swallowing evaluation and was discovered to have mild oropharyngeal dysphagia and esophageal dysphagia. I was consulted to evaluate her esophageal dysphagia. She complains of intermittent choking episodes when she gets pills breads and meat stuck in her midesophagus and has to vomit in order to relieve the obstruction. This happens probably once every couple weeks and has been getting progressively worse. She had a CT scan abdomen pelvis that reported: 1. Bilateral sacral insufficiency fractures, extending at least across the midline at S2. 2. No other specific acute abnormality. 3. Marked pelvic floor relaxation with prominent cystocele, moderately distended urinary bladder, and inferior displacement of the atrophic uterus at the markedly lax pelvic floor. 4. Large amount of stool in much of the colon. Moderate sigmoid diverticulosis. [facility] Medical History Abnormal echocardiogram Arthritis Bilateral hemianopia Broken arm Chronic dyspnea Constipation Elevated troponin Glaucoma Hearing deficit Heart valve problem Hx of headache Hypertension Prolapsed bladder Stroke Syncope Home Medications apixaban 2.5 mg tablet (Eliquis) 2.5 mg PO BID blood thinner 06/04/23 [History Last Taken 11/22/23] rosuvastatin 5 mg tablet (Crestor) 5 mg PO DAILY cholesterol #90 tabs 08/22/23 [Rx Last Taken Unknown] handicap placard #1 ea 09/30/23 [Rx Last Taken Unknown] fluticasone propionate 250 mcg/actuation blister powder for inhalation 1 inh inhalation BID sob 11/21/23 [History Last Taken 11/21/23] acetaminophen 500 mg tablet 1,000 mg (2 x 500 mg) PO Q8 pain #0 tabs 11/22/23 [Rx Last Taken 11/22/23] ergocalciferol (vitamin D2) 1,250 mcg (50,000 unit) capsule 1,250 mcg PO QWEEK supplement #8 caps 11/22/23 [Rx Last Taken Unknown] oxycodone 5 mg capsule 5 mg PO Q6H PRN pain (scale score 7-10) 3 days #12 caps 11/22/23 [Rx Last Taken 11/22/23] Allergy/AdvReac Type Severity Reaction Status Date / Time procaine [From Novocain] Allergy Severe passed out Verified 11/19/23 18:24 Family History Father Heart disease Surgical History H/O neck surgery History of hip replacement History of surgery on arm Social History household members: none 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 occupational status: 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 Status: Never smoker Electronic Cigarette Use: not used alcohol intake: never substance use type: does not use what type of physical activity do you participate in: none do you feel safe at home: Yes ROS Constitutional Constitutional: Denies chills, fever(s) or weight gain ENT HEENT: Denies headache(s), nasal congestion or nasal discharge Cardiovascular Cardiovascular: Denies chest pain or palpitations Respiratory/Chest Respiratory/Chest: Denies cough, excessive phlegm production or shortness of breath with exertion Gastrointestinal Gastrointestinal: Denies abdominal pain, nausea or vomiting Genitourinary Genitourinary: Denies dysuria Musculoskeletal Musculoskeletal: Reports back pain; Denies joint pain or joint swelling Integumentary Integumentary: Denies rash or wounds Neurologic Neurologic: Denies focal weakness, numbness or tingling Psychiatric Psychiatric: Denies anxiety, auditory hallucinations, depression, homicidal ideation or suicidal ideation Physical Exam Const alert General Appearance: cooperative HEENT normocephalic Eyes PERRL and EOMs intact bilaterally Neck supple, no JVD and no carotid bruits Resp normal respiratory effort, normal air movement and clear to auscultation bilaterally Cardio regular rate and regular rhythm GI normal to inspection, nondistended, normoactive bowel sounds, non-tender and non-distended Extremity normal capillary refill General Extremity: Negative for edema Skin no rashes or lesions noted General Skin Exam: no breakdown Psych affect normal Appearance: appropriate Lab / Micro Data 11/23/23 06:09 11/23/23 06:09 Assessment & Plan Assessment/Plan (1) Esophageal dysphagia: PLAN: 83-year-old with esophageal dysphagia. Differential diagnosis does include achalasia, cricopharyngeal achalasia, pseudo achalasia, ineffective esophageal motility disorder, esophageal stricture, sliding hiatal hernia, paraesophageal hernia, Brook esophagitis, erosive esophagitis and less likely neoplasia. She will undergo an upper endoscopy to evaluate over the GI tract. She was explained alternatives, risk, benefits include not withstanding bleeding, infection, sepsis, perforation, need for discharge and . She will have an ASA of 3. I have examined the patient and the H&P has been reviewed. There are no clinical changes since date of exam.
[2023-11-26] MEDS: Magnesium Citrate 300 ML PO (18:44)
[2023-11-26] MEDS: traMADol 50 MG Tablet PO (21:10)
[2023-11-26] MEDS: Senna/Docusate Sodium 1 Tablet PO (21:11)
[2023-11-26] MEDS: APIXABAN 2.5 MG TABLET (WCH) PO (21:12)
[2023-11-26] MEDS: Pantoprazole Sodium 40 MG Tablet PO (21:14)
[2023-11-26] MEDS: Rosuvastatin Calcium 5 MG Tablet PO (21:14)
[2023-11-27] MEDS: oxyCODONE 5 MG Tablet PO ×4 (01:00→21:58)
[2023-11-27] MEDS: Acetaminophen 500 MG Tablet 1000 MG PO ×3 (05:41→22:00)
[2023-11-27] MEDS: Losartan Potassium 25 MG Tablet PO (08:59)
[2023-11-27] MEDS: APIXABAN 2.5 MG TABLET (WCH) PO ×2 (09:02→22:00)
[2023-11-27] MEDS: Polyethylene Glycol 3350 17 GM PACKET PO (09:02)
[2023-11-27] MEDS: Menthol/Lanolin/Calamine/Znox 113 GM Tube 1 APPLIC TOPICAL ×2 (09:03→22:01)
[2023-11-27] MEDS: Senna/Docusate Sodium 1 Tablet PO ×2 (09:03→22:00)
[2023-11-27] MEDS: Pantoprazole Sodium 40 MG Tablet PO ×2 (09:03→22:01)
[2023-11-27 09:16] VITALS: PULSE 74; RESP 18; O2SAT 94
--- NOTE | 2023-11-27 13:45 | CASEMGMT ---
Social Work IDT met with patient and dtr for care plan meeting. Discussed patient's progress in PT/OT/ST/SN. [facility] and continued stay is not guaranteed with each review. Pt's goal is to return home at [facility]. Acknowledging currently pt is limited by pain, but pt reports she is motivated to improving. SW will continue to follow for DC planning. Mare Stein, SAMMYING MACHINE OPERATOR PRESIDENT & FOUNDER
[2023-11-27 13:58] VITALS: BP 186/77; PULSE 120; RESP 16; TEMP 36.9; O2SAT 96
--- NOTE | 2023-11-27 15:37 | CASEMGMT ---
Lead Qa Analyst Sw met with patient to complete initial assessment. Sw introduced self to patient and identified role during hospitalization. Sw verified contacts. Patient confirmed code status as full. Patient states that she has completed advanced directive paperwork and reports that daughter brought documents in to have them scanned into her file. Patient educated to insurance benefits. Patient reports that her ultimate goal is to be able to be discharged to home once medically ready. Sw will remain involved and available throughout admission to assist with discharge planning. Chino Ponce, CODING COMPLIANCE AUDITOR, TIPPLE REPAIRER
[2023-11-27] MEDS: Rosuvastatin Calcium 5 MG Tablet PO (21:59)
[2023-11-27] MEDS: MENTHOL 226.8 GM JAR 1 APPLIC TOPICAL (22:03)
[2023-11-28] MEDS: oxyCODONE 5 MG Tablet PO ×3 (05:39→21:20)
[2023-11-28] MEDS: Acetaminophen 500 MG Tablet 1000 MG PO ×3 (05:40→21:19)
--- NOTE | 2023-11-28 08:03 | RAD_ITS ---
HISTORY: Constipation. TECHNIQUE: XR Abdomen 1 View. COMPARISON: CT 11/20/2023. FINDINGS: BOWEL GAS PATTERN: No dilated small bowel loops identified. Large amount of stool throughout the colon. FREE AIR: Not assessed on supine view. CALCIFICATIONS: Vascular calcifications observed. BONES: Right hip arthroplasty in place. Mild lumbar levoscoliosis. SOFT TISSUES: No acute consolidation in the lung bases. RAD/Abdomen Single View IMPRESSION: Large amount of stool throughout the colon. Electronically Signed: Nina Barrett MD at 9:51 EST ,
[2023-11-28] MEDS: traMADol 50 MG Tablet PO (09:01)
[2023-11-28] MEDS: Senna/Docusate Sodium 1 Tablet 2 TABLET PO ×2 (09:04→21:19)
[2023-11-28] MEDS: Pantoprazole Sodium 40 MG Tablet PO ×2 (09:06→21:19)
[2023-11-28] MEDS: APIXABAN 2.5 MG TABLET (WCH) PO ×2 (09:06→21:19)
[2023-11-28] MEDS: Polyethylene Glycol 3350 17 GM PACKET PO ×2 (09:06→21:20)
[2023-11-28] MEDS: Menthol/Lanolin/Calamine/Znox 113 GM Tube 1 APPLIC TOPICAL ×2 (09:11→21:20)
--- NOTE | 2023-11-28 09:54 | PHA.CONS_ITS ---
TCU RX Drug Regimen Review Subjective/Objective Subjective/Objective: Subjective: 83 YOF admitted to [facility] due to a fall at home while performing ADL. Imaging showed a sacral insufficiency fracture. While hospitalized, it was determined the patient needed rehabilitation prior to returning home. Admitted to TCU on 11/21 for strengthening and rehabilitation prior to discharge home where she resides alone. Objective: Allergies procaine [From Novocain] Allergy (Severe, Verified 11/19/23 18:24) passed out Current Medications Generic Name Dose Route Start Last Admin Trade Name Freq PRN Reason Stop Dose Admin Acetaminophen 1,000 mg 11/22/23 22:00 11/28/23 05:40 Acetaminophen 500 Mg Tablet PO 1,000 mg Q8 OLLIE Administration Apixaban 2.5 mg 11/22/23 22:00 11/28/23 09:06 Apixaban 2.5 Mg Tablet ([facility]) PO 2.5 mg BID OLLIE Administration Calamine/Phenol 1 applic 11/24/23 22:00 11/28/23 09:11 Menthol/Lanolin/Calamine/Znox 113 Gm Tube TOPICAL 1 applic BID OLLIE Administration Protocol Ergocalciferol 1.25 mg 11/23/23 10:00 11/23/23 08:41 Ergocalciferol 1.25 Mg (50, 000 Unit) Capsule PO 1.25 mg QWEEK OLLIE Administration Losartan Potassium 25 mg 11/23/23 18:30 11/28/23 09:10 Losartan Potassium 25 Mg Tablet PO Not Given DAILY OLLIE Protocol Magnesium Citrate 300 ml 11/22/23 22:47 11/26/23 18:44 Magnesium Citrate 300 Ml PO 300 ml DAILY PRN Administration Constipation Menthol 1 applic 11/27/23 07:38 11/27/23 22:03 Menthol 226.8 Gm Jar TOPICAL 1 applic 4X/DAY PRN PRN Administration Pain Score 1-10 Oxycodone HCl 5 mg 11/22/23 22:48 11/28/23 05:39 Oxycodone 5 Mg Tablet PO 5 mg Q4H PRN PRN Administration Pain Score 6-10 Pantoprazole Sodium 40 mg 11/26/23 22:00 11/28/23 09:06 Pantoprazole Sodium 40 Mg Tablet PO 40 mg BID OLLIE Administration Polyethylene Glycol 17 gm 11/28/23 10:00 11/28/23 09:06 Polyethylene Glycol 3350 17 Gm Packet PO 17 gm BID OLLIE Administration Rosuvastatin Calcium 5 mg 11/25/23 22:00 11/27/23 21:59 Rosuvastatin Calcium 5 Mg Tablet PO 5 mg QHS OLLIE Administration Senna/Docusate Sodium 2 tablet 11/28/23 10:00 11/28/23 09:04 Senna/Docusate Sodium 1 Tablet PO 2 tablet BID OLLIE Administration Tramadol HCl 50 mg 11/22/23 22:47 11/28/23 09:01 Tramadol 50 Mg Tablet PO 50 mg Q6H PRN PRN Administration Pain Score 1-5 Tuberculin PPD 0.1 ml 11/30/23 10:00 Tuberculin,Purif.Prot.Deriv. 50 Tu/Ml Vial ID 11/30/23 10:01 X1 ONE Problem List (Updated 11/27/23 @ 00:02 by Sandie Arizmendi) Esophageal dysphagia (Acute) Atrial fibrillation (Acute) Debility (Acute) Sacral fracture, closed (Acute) Vital Signs Temp Pulse Resp BP Pulse Ox O2 Del Method 98.4 F 120 H 16 186/77 H 96 Room Air 11/27/23 13:58 11/27/23 13:58 11/27/23 13:58 11/27/23 13:58 11/27/23 13:58 11/27/23 13:58 Oxygen Delivery Method Room Air Weight: 50.031 kg Body Mass Index (BMI) 23.0 Sodium 140 mmol/L (136-145) 11/23/23 06:09 Potassium 3.8 mmol/L (3.5-5.1) 11/23/23 06:09 Chloride 112 mmol/L (98-107) H 11/23/23 06:09 Carbon Dioxide 25.0 mmol/L (21.0-32.0) 11/23/23 06:09 Anion Gap 3 (5-15) L 11/23/23 06:09 BUN 16 mg/dL (7-18) 11/23/23 06:09 Creatinine 0.51 mg/dL (0.55-1.02) L 11/23/23 06:09 Est GFR (MDRD) Af Amer 149 mL/min (>60) 11/23/23 06:09 Est GFR (MDRD) Non-Af 123 mL/min (>60) 11/23/23 06:09 BUN/Creatinine Ratio 31.4 RATIO (10-20) H 11/23/23 06:09 Glucose 75 mg/dL (74-106) 11/23/23 06:09 Assessment/Plan: 1. Pain: Tylenol 1000mg PO Q8h, Tramadol 50mg PO Q6h PRN Pain 1-5, Oxycodone 5mg PO Q4h PRN Pain 6-10, Menthol Gel topically 4x/day PRN. Please continue to monitor for increased/decreased S/S pain, local skin irritation with topical gel, constipation/oversedation/respiratory depression with narcotic use. - To date, the patient has used on average 1 dose of tramadol/ day with pain rated 5-7/10, post medication pain rated 0-2. The patient has used 12 doses of oxycodone since admission. It is noted that over the past few days, the patient has only used 1-2 doses of oxycodone per day, compared to more frequent administrations when first admitted. Pain appears to be managed at this time. 2. Atrial Fibrillation/ HLD: Eliquis 2.5mg PO BID, Losartan 25mg PO Daily, Cr estor 5mg PO QHS. Please continue to monitor for S/S bleeding/bruising, H/H (Hgb 11.9, Hct 35% on 11/22), BP (last 112/89), pulse (last 82), lipid panel annually or sooner if clinically indicated (labs WNL, last checked 05/2023). Patient is not currently on any rate control for afib, please continue to monitor closely to see if medical therapy warranted. Patient's pulse for the most part has been WNL, but did have a reading which was >120 BPM). 3. Esophageal Dysphagia: Protonix 40mg PO BID. Please continue to monitor for headache, stomach upset. Patient established and follows with GI provider. 4. Vitamin D Deficiency: Ergocalciferol 50,000 units PO once weekly. Please continue to monitor Vitamin D levels (last 22.2 from 11/21/23). 5. Skin Integrity: Calmoseptine topically BID. Please continue to monitor for skin irritation, redness, open sores, ulcer formation. 6. Bowel: Senna/Docusate 2 tab PO BID, Miralax 17g PO BID, Magnesium Citrate 300mL PO Daily PRN. Please continue to monitor for increased/decreased constipation and/or diarrhea - The patient's last BM was 11/26 Assessment/Plan for indications treated with psychotropic medications: -The patient is not currently taking any psychotropic medications at time of medication list review. Medical chart and medication regimen reviewed. The following medication irregularities or issues were identified: 1. Hyperlipidemia: Crestor 5mg PO QHS. Last lipid panel done was 05/2023 per chart review. Please consider obtaining an updated lipid panel if clinically warranted, thank you. Date Date of Note:: 11/28/23
[2023-11-28 09:59] VITALS: BP 112/89; PULSE 82; RESP 18; TEMP 36.3; O2SAT 96
[2023-11-28 10:00] VITALS: PULSE 73; RESP 18; O2SAT 95
--- NOTE | 2023-11-28 12:17 | MDS.RN ---
Pain interview for MDS completed.
[2023-11-28] MEDS: MENTHOL 226.8 GM JAR 1 APPLIC TOPICAL (12:21)
--- NOTE | 2023-11-28 12:28 | CASEMGMT ---
Social Work BIMS () and PHQ-2 () completed for MDS assessment. Mare Stein MSW KILN TESTER
--- NOTE | 2023-11-28 18:27 | NURSING ---
Enema not given due to patient therapy times. This nurse attempted to administer enema again after dinner, patient stated she was having company in from [place] and was not able to visit the other day due to EGD. Visitor is supposed to be coming soon, patient instructed to put switchboard operator receptionist light once he leaves to get the enema. Patient agreeable.
[2023-11-28 21:16] VITALS: BP 133/66; PULSE 96
[2023-11-28] MEDS: Rosuvastatin Calcium 5 MG Tablet PO (21:20)
[2023-11-29] MEDS: oxyCODONE 5 MG Tablet PO ×3 (02:37→18:25)
[2023-11-29] MEDS: Acetaminophen 500 MG Tablet 1000 MG PO ×3 (06:01→21:45)
[2023-11-29 06:11] LABS: Absolute Lymphocyte Count 1.36 X10^3/uL (0.83-4.51); Absolute Neutrophil Count 5.2 X10^3/uL (2.0-7.7); Basophil# 0.05 X10^3/uL; Basophil% 0.7 % (0-1); Eosinophil# 0.21 X10^3/uL; Eosinophils% 2.7 % (0-5); Hematocrit 34.2 % (37-47); Hemoglobin 11.6 g/dL (12.0-15.0); Lymphocyte # 1.36 X10^3/ul (0.83-4.51); Lymphocyte % 17.8 % (19-41); Mean Corp Hgb Conc 33.9 g/dL (32-36); Mean Corpuscular Hgb 31.4 pg (27.0-32.0); Mean Corpuscular Volume 92.7 fL (81-99); Mean Platelet Vol. 9.5 fl (6.2-12.0); Monocyte# 0.77 X10^3/uL; Monocyte% 10.1 % (0-10); NRBC Flagged by Analyzer 0 % (0-5); Platelet Count 255 K/mm3 (150-450); RBC Distribution Width CV 13.7 % (11.6-14.6); RBC Distribution Width SD 45.9 fl (35.1-43.9); Red Blood Count 3.69 M/mm3 (4.2-5.4); White Blood Count 7.6 K/mm3 (4.4-11.0)
[2023-11-29 06:46] LABS: Anion Gap 6 (5-15); BUN 17 mg/dL (7-18); BUN/Creat Ratio 31.1 RATIO (10-20); Calcium,Total 9.3 mg/dL (8.5-10.1); Chloride 105 mmol/L (98-107); Creatinine, Serum 0.55 mg/dL (0.55-1.02); EST Glomerular Filtration Rate 113 mL/min (>60); Est Glom Filt Rate - Afr Amer 137 mL/min (>60); Estimated Creatinine Clearance 38.94 ml/min; Glucose 101 mg/dL (74-106); Sodium Level 139 mmol/L (136-145)
[2023-11-29] MEDS: Senna/Docusate Sodium 1 Tablet 2 TABLET PO ×2 (08:19→20:18)
[2023-11-29] MEDS: Losartan Potassium 25 MG Tablet PO (08:19)
[2023-11-29] MEDS: APIXABAN 2.5 MG TABLET (WCH) PO ×2 (08:20→20:18)
[2023-11-29] MEDS: Polyethylene Glycol 3350 17 GM PACKET PO ×2 (08:20→20:18)
[2023-11-29] MEDS: Menthol/Lanolin/Calamine/Znox 113 GM Tube 1 APPLIC TOPICAL ×2 (08:20→21:46)
[2023-11-29] MEDS: Pantoprazole Sodium 40 MG Tablet PO ×2 (08:20→20:18)
--- NOTE | 2023-11-29 08:47 | NURSING ---
Weatherization And Housing Inspector Note; MDS for 11/29/2023 Complete
[2023-11-29 10:00] VITALS: PULSE 71; RESP 17
[2023-11-29] MEDS: MENTHOL 226.8 GM JAR 1 APPLIC TOPICAL ×2 (11:14→16:35)
[2023-11-29] MEDS: traMADol 50 MG Tablet PO ×2 (12:50→20:17)
--- NOTE | 2023-11-29 13:33 | NURSING ---
dr lo updated on pt not having results from SSE, new order for golytely 1 liter.
--- NOTE | 2023-11-29 14:51 | CHAPLAIN ---
Type of Pastoral Visit _x__ Initial Visit ___ Follow-up Visit ___ On-call Visit ___ General Patient Visit ___ Spiritual Assessment ___ Family Conference ___ Bereavement ___ Rapid Response ___ Code Blue ___ Other (describe below) Pastoral Care Referral From _x__ Patient ___ Family ___ Nurse ___ Physician ___ Gas Pipe Layer ___ Weed Thinner ___ Other (describe below) Sacrament/Intervention _x__ Active listening ___ Anointing ___ Evangelical ___ Bereavement ___ Communion ___ [place] exploration ___ _x__ Life review _x__ Prayer ___ Reconciliation ___ Sacrament of Sick _x__ Supportive presence ___ Wedding ___ Other (describe below) Pastoral Comments patient is resting in bed but clearly awake and alert; pt is welcoming and when given the opportunity to talk about her life and concerns she gives several stories about her life and the lessons learned; pt is talkative about her family and that she has a great family that is local and available to her needs; pt is but talks freely about her ; pt is very open to [place] and prayer as important to her recovery and support; presence and prayer given; pt expreses appreciation for the visit
[2023-11-29 15:18] VITALS: BP 112/50; PULSE 100; RESP 17; TEMP 36.1; O2SAT 96
[2023-11-29] MEDS: Electrolyte Solution/Peg's 4000 ML 1000 ML PO (16:23)
--- NOTE | 2023-11-29 17:35 | NURSING ---
CALLED TO PT ROOM. PT IS THROWING UP THE NULYTELY. RN AWARE
--- NOTE | 2023-11-29 18:21 | NURSING ---
dr lo notified of pt vomiting up nulytley, new order to administer lactulose enema. pt requesting pain medication. will give d/t pain
[2023-11-29] MEDS: Lactulose 20 GM/30 ML UDC 200 GM RC (20:03)
[2023-11-29] MEDS: Rosuvastatin Calcium 5 MG Tablet PO (20:19)
--- NOTE | 2023-11-29 20:35 | NURSING ---
Addendum entered by Ayla Gallego 11/29/23 21:41: Small BM as results. Dr. Soni updated. Order for pt to drink mag citrate 300ml. Original Note: Lactulose enema completed. Poor retention during administration, but pt tolerated well.
[2023-11-29] MEDS: Magnesium Citrate 300 ML PO (21:44)
[2023-11-30] MEDS: oxyCODONE 5 MG Tablet PO ×3 (04:44→23:38)
[2023-11-30] MEDS: MENTHOL 226.8 GM JAR 1 APPLIC TOPICAL ×3 (04:47→23:27)
[2023-11-30] MEDS: Acetaminophen 500 MG Tablet 1000 MG PO ×2 (06:20→23:23)
[2023-11-30] MEDS: Menthol/Lanolin/Calamine/Znox 113 GM Tube 1 APPLIC TOPICAL ×2 (08:54→23:27)
[2023-11-30] MEDS: APIXABAN 2.5 MG TABLET (WCH) PO ×2 (08:54→23:25)
[2023-11-30] MEDS: Senna/Docusate Sodium 1 Tablet 2 TABLET PO (08:55)
[2023-11-30] MEDS: Pantoprazole Sodium 40 MG Tablet PO ×2 (08:55→23:24)
[2023-11-30] MEDS: Ergocalciferol 1.25 MG (50, 000 UNIT) Capsule PO (08:55)
[2023-11-30] MEDS: Polyethylene Glycol 3350 17 GM PACKET PO (08:55)
--- NOTE | 2023-11-30 10:18 | RAD_ITS ---
EXAM: XR ABDOMEN, 1 VIEW CLINICAL INDICATION: Constipation TECHNIQUE: Frontal supine view of the abdomen/pelvis. COMPARISON: 11/28/2023. FINDINGS: LOWER THORAX: No acute pathology. GASTROINTESTINAL TRACT: Decreased fecal contents in the colon. No bowel obstruction. ORGANS: Unremarkable as visualized. No organomegaly. No abnormal calcifications. BONES/JOINTS: Right metallic hip arthroplasty is unchanged. SOFT TISSUES: No acute pathology. RAD/Abdomen Single View IMPRESSION: 1. Interval decrease in fecal contents in the colon when compared to 11/28/2023. 2. No acute abnormality. Electronically Signed: Simone Casanova MD at 12:10 EST ,
[2023-11-30] MEDS: Fleet Enema 133 ML RC (10:34)
[2023-11-30] MEDS: Lactulose 20 GM/30 ML UDC PO (11:55)
[2023-11-30] MEDS: Tuberculin,Purif.prot.deriv. 50 TU/ML Vial 0.1 ML ID (11:59)
[2023-11-30] MEDS: traMADol 50 MG Tablet PO (12:02)
[2023-11-30] MEDS: Glycerin 1 Suppository 1 SUPP RC (12:04)
[2023-11-30] MEDS: 0.9% Normal Saline (1000mL) 1,000 ML 75 ML IV ×2 (13:28→23:26)
[2023-11-30 15:49] VITALS: BP 133/62; PULSE 94; RESP 16; TEMP 36.8; O2SAT 96
--- NOTE | 2023-11-30 16:50 | NURSING ---
MD notified of continuos constipation following enema yesterday. New orders for fleet enema and suppository. Both ineffective, new orders for lactulose enema. Pt. refused enema and requested to be sent to ER to be decompacted. This nurse spoke to MD and received order to send patient to ER. This nurse called and gave report to ER nurse.
[2023-11-30] MEDS: Rosuvastatin Calcium 5 MG Tablet PO (23:25)
[2023-11-30 23:30] VITALS: O2SAT 94
--- NOTE | 2023-11-30 23:40 | NURSING ---
Patient returned to unit from ED at approximatly 23:10. New order received for Augmentin 875-125 bid x 10 days for Colitis. Per ED, patient did appear to pass most if not all of stool in abdomen. Patient assisted to bed, medications administered.
--- NOTE | 2023-12-01 | NURSING ---
Pt adamantly refused stool agents with HS medication pass, despite education. Pt states she has been to the bedside commode every 15 minutes from 1700 until 2200 to have bowel movements. Pt agreed to resume stool agents in the morning.
[2023-12-01] MEDS: oxyCODONE 5 MG Tablet PO ×4 (05:27→20:08)
[2023-12-01] MEDS: Acetaminophen 500 MG Tablet 1000 MG PO ×3 (05:27→20:06)
[2023-12-01 10:17] VITALS: BP 102/45; PULSE 85; RESP 17; TEMP 37.2; O2SAT 97
[2023-12-01] MEDS: Menthol/Lanolin/Calamine/Znox 113 GM Tube 1 APPLIC TOPICAL ×2 (10:23→20:08)
[2023-12-01] MEDS: Amox/Clavulanate 875 MG Tablet PO ×2 (10:23→20:06)
[2023-12-01] MEDS: APIXABAN 2.5 MG TABLET (WCH) PO ×2 (10:26→20:07)
[2023-12-01] MEDS: Pantoprazole Sodium 40 MG Tablet PO ×2 (10:26→20:08)
--- NOTE | 2023-12-01 11:57 | NURSING ---
IV fluids were paused for shower.
[2023-12-01] MEDS: 0.9% Normal Saline (1000mL) 1,000 ML 75 ML IV (12:27)
[2023-12-01] MEDS: MENTHOL 226.8 GM JAR 1 APPLIC TOPICAL ×2 (14:44→20:11)
[2023-12-01] MEDS: Rosuvastatin Calcium 5 MG Tablet PO (20:05)
[2023-12-01] MEDS: Senna/Docusate Sodium 1 Tablet 2 TABLET PO (20:07)
[2023-12-02] MEDS: 0.9% Normal Saline (1000mL) 1,000 ML 75 ML IV (00:44)
[2023-12-02] MEDS: oxyCODONE 5 MG Tablet PO ×5 (00:44→21:07)
[2023-12-02] MEDS: Acetaminophen 500 MG Tablet 1000 MG PO ×3 (05:58→21:09)
[2023-12-02] MEDS: Amox/Clavulanate 875 MG Tablet PO ×2 (08:21→21:08)
[2023-12-02] MEDS: Losartan Potassium 25 MG Tablet PO (08:22)
[2023-12-02] MEDS: Pantoprazole Sodium 40 MG Tablet PO ×2 (08:22→21:07)
[2023-12-02] MEDS: APIXABAN 2.5 MG TABLET (WCH) PO ×2 (08:22→21:09)
[2023-12-02] MEDS: Senna/Docusate Sodium 1 Tablet 2 TABLET PO (08:22)
[2023-12-02] MEDS: Lactulose 20 GM/30 ML UDC PO (08:23)
[2023-12-02] MEDS: Menthol/Lanolin/Calamine/Znox 113 GM Tube 1 APPLIC TOPICAL ×2 (08:28→21:10)
[2023-12-02] MEDS: Baclofen 10 MG Tablet 5 MG PO ×2 (08:50→21:07)
[2023-12-02] MEDS: traMADol 50 MG Tablet PO ×2 (08:50→15:15)
[2023-12-02] MEDS: MENTHOL 226.8 GM JAR 1 APPLIC TOPICAL ×2 (08:54→16:20)
--- NOTE | 2023-12-02 13:19 | NURSING ---
AID CAME TO THIS NURSE AND STATED THAT PT WAS BLEEDING ALOT FROM IV SITE. THIS NURSE TO ROOM AND FOUND PT IV HAD BEEN PULLED OUT COMPLETELY AND BLOOD ON FLOOR,ETC. ASKED PT WHAT HAPPENED T STATED JOO NOT SURE I THINK I MIGHT HAVE HIT IT ON SOME THING. PT ETC CLEANED UP. REPORTED TO RN.
[2023-12-02 14:05] VITALS: BP 105/86; PULSE 76; RESP 16; TEMP 36.4; O2SAT 99
[2023-12-02] MEDS: Rosuvastatin Calcium 5 MG Tablet PO (21:07)
[2023-12-03 04:42] VITALS: PULSE 64; RESP 16; O2SAT 96
[2023-12-03] MEDS: oxyCODONE 5 MG Tablet PO ×3 (04:54→20:56)
[2023-12-03] MEDS: MENTHOL 226.8 GM JAR 1 APPLIC TOPICAL ×3 (04:55→20:30)
[2023-12-03] MEDS: Acetaminophen 500 MG Tablet 1000 MG PO ×3 (05:01→22:19)
[2023-12-03] MEDS: traMADol 50 MG Tablet PO (08:14)
[2023-12-03] MEDS: Menthol/Lanolin/Calamine/Znox 113 GM Tube 1 APPLIC TOPICAL ×2 (09:21→20:34)
[2023-12-03] MEDS: Amox/Clavulanate 875 MG Tablet PO ×2 (09:21→20:33)
[2023-12-03 09:24] VITALS: BP 138/69; PULSE 87; RESP 24; TEMP 36.8; O2SAT 94
[2023-12-03] MEDS: Senna/Docusate Sodium 1 Tablet 2 TABLET PO (09:24)
[2023-12-03] MEDS: Pantoprazole Sodium 40 MG Tablet PO ×2 (09:24→20:32)
[2023-12-03] MEDS: APIXABAN 2.5 MG TABLET (WCH) PO ×2 (09:24→20:32)
[2023-12-03 10:33] VITALS: PULSE 98; RESP 26; O2SAT 97
[2023-12-03 15:25] VITALS: BMI 22.4
[2023-12-03] MEDS: Rosuvastatin Calcium 5 MG Tablet PO (20:32)
[2023-12-04] MEDS: oxyCODONE 5 MG Tablet PO ×4 (03:55→21:57)
[2023-12-04] MEDS: Acetaminophen 500 MG Tablet 1000 MG PO ×3 (05:38→21:58)
[2023-12-04 08:51] VITALS: BP 132/65; PULSE 72; RESP 24; TEMP 36.4; O2SAT 98
[2023-12-04] MEDS: MENTHOL 226.8 GM JAR 1 APPLIC TOPICAL ×3 (09:00→21:57)
[2023-12-04] MEDS: Baclofen 10 MG Tablet 5 MG PO ×2 (09:00→21:56)
[2023-12-04] MEDS: traMADol 50 MG Tablet PO ×2 (09:00→15:50)
[2023-12-04] MEDS: Menthol/Lanolin/Calamine/Znox 113 GM Tube 1 APPLIC TOPICAL ×2 (09:09→21:59)
[2023-12-04] MEDS: Amox/Clavulanate 875 MG Tablet PO ×2 (09:09→21:59)
[2023-12-04] MEDS: Lactulose 20 GM/30 ML UDC PO (09:11)
[2023-12-04] MEDS: Pantoprazole Sodium 40 MG Tablet PO ×2 (09:13→21:58)
[2023-12-04] MEDS: Senna/Docusate Sodium 1 Tablet 2 TABLET PO ×2 (09:13→21:58)
[2023-12-04] MEDS: APIXABAN 2.5 MG TABLET (WCH) PO ×2 (09:13→21:58)
[2023-12-04] MEDS: Losartan Potassium 25 MG Tablet PO (09:38)
[2023-12-04] MEDS: Rosuvastatin Calcium 5 MG Tablet PO (21:59)
[2023-12-05] MEDS: oxyCODONE 5 MG Tablet PO ×2 (03:34→13:38)
[2023-12-05] MEDS: traMADol 50 MG Tablet PO ×3 (06:02→23:39)
[2023-12-05] MEDS: Acetaminophen 500 MG Tablet 1000 MG PO ×3 (06:03→22:24)
--- NOTE | 2023-12-05 08:29 | MDS.RN ---
Information for the mds was obtained from review of the clinical record, interview of resident, staff, and direct observation of resident's care.
[2023-12-05 08:39] VITALS: BP 120/50; PULSE 72; RESP 18; O2SAT 95
[2023-12-05] MEDS: Losartan Potassium 25 MG Tablet PO (08:40)
[2023-12-05] MEDS: APIXABAN 2.5 MG TABLET (WCH) PO ×2 (08:40→22:23)
[2023-12-05] MEDS: Baclofen 10 MG Tablet 5 MG PO (08:41)
[2023-12-05] MEDS: Pantoprazole Sodium 40 MG Tablet PO ×2 (08:41→22:23)
[2023-12-05] MEDS: Senna/Docusate Sodium 1 Tablet 2 TABLET PO ×2 (08:41→22:24)
[2023-12-05] MEDS: Lactulose 20 GM/30 ML UDC PO ×2 (08:41→13:39)
[2023-12-05] MEDS: Amox/Clavulanate 875 MG Tablet PO ×2 (08:41→22:23)
[2023-12-05] MEDS: Menthol/Lanolin/Calamine/Znox 113 GM Tube 1 APPLIC TOPICAL ×2 (08:43→22:23)
[2023-12-05] MEDS: MENTHOL 226.8 GM JAR 1 APPLIC TOPICAL ×2 (13:39→22:25)
[2023-12-05 16:00] VITALS: TEMP 36.5
--- NOTE | 2023-12-05 16:59 | NURSING ---
Addendum entered by Tg Mas 12/05/23 18:03: Dr. Soni spoke with pt and family, entered new orders: Baclofen 10mg TID PRN, Gabapentin 100mg TID, and Tramadol 50mg q6hrs. Original Note: Pt complains of constant dull, aching pain, increases to 10/10 sharp, stabbing pain to sacral area, radiates down towards knee with movement. Pt received PRN Oxyir and blue gel ~1340, was tearful and complaining of 10/10 pain with therapy (~1500) today. Pt's family requesting MD review pain meds and adjust if needed. Will leave communication for Dr. Soni.
[2023-12-05] MEDS: Gabapentin 100 MG Capsule PO (18:25)
[2023-12-05] MEDS: Rosuvastatin Calcium 5 MG Tablet PO (22:23)
[2023-12-05] MEDS: Baclofen 10 MG Tablet PO (22:23)
[2023-12-06 06:01] LABS: Absolute Lymphocyte Count 1.58 X10^3/uL (0.83-4.51); Absolute Neutrophil Count 3.2 X10^3/uL (2.0-7.7); Basophil# 0.06 X10^3/uL; Basophil% 1.1 % (0-1); Eosinophil# 0.23 X10^3/uL; Eosinophils% 4.2 % (0-5); Hematocrit 31.8 % (37-47); Hemoglobin 10.9 g/dL (12.0-15.0); Lymphocyte # 1.58 X10^3/ul (0.83-4.51); Lymphocyte % 28.5 % (19-41); Mean Corp Hgb Conc 34.3 g/dL (32-36); Mean Corpuscular Hgb 31.4 pg (27.0-32.0); Mean Corpuscular Volume 91.6 fL (81-99); Mean Platelet Vol. 9.2 fl (6.2-12.0); Monocyte# 0.39 X10^3/uL; NRBC Flagged by Analyzer 0 % (0-5); Neutrophil # 3.24 X10^3/uL (2.7-7.7); Neutrophil % 58.5 % (47-70); Platelet Count 338 K/mm3 (150-450); RBC Distribution Width SD 46.7 fl (35.1-43.9); Red Blood Count 3.47 M/mm3 (4.2-5.4); White Blood Count 5.5 K/mm3 (4.4-11.0)
[2023-12-06 06:31] LABS: Anion Gap 6 (5-15); BUN 10 mg/dL (7-18); BUN/Creat Ratio 18.6 RATIO (10-20); Calcium,Total 8.7 mg/dL (8.5-10.1); Chloride 108 mmol/L (98-107); Creatinine, Serum 0.54 mg/dL (0.55-1.02); EST Glomerular Filtration Rate 116 mL/min (>60); Est Glom Filt Rate - Afr Amer 140 mL/min (>60); Estimated Creatinine Clearance 38.94 ml/min; Glucose 92 mg/dL (74-106); Potassium 4.1 mmol/L (3.5-5.1); Sodium Level 140 mmol/L (136-145)
[2023-12-06] MEDS: traMADol 50 MG Tablet PO ×4 (06:40→23:58)
[2023-12-06] MEDS: Acetaminophen 500 MG Tablet 1000 MG PO ×3 (06:40→21:13)
[2023-12-06] MEDS: Baclofen 10 MG Tablet PO ×3 (06:40→21:14)
[2023-12-06] MEDS: Amox/Clavulanate 875 MG Tablet PO ×2 (08:34→21:14)
[2023-12-06] MEDS: Gabapentin 100 MG Capsule PO (08:34)
[2023-12-06] MEDS: APIXABAN 2.5 MG TABLET (WCH) PO ×2 (08:35→21:13)
[2023-12-06] MEDS: Losartan Potassium 25 MG Tablet PO (08:35)
[2023-12-06] MEDS: Pantoprazole Sodium 40 MG Tablet PO ×2 (08:35→21:13)
[2023-12-06] MEDS: Menthol/Lanolin/Calamine/Znox 113 GM Tube 1 APPLIC TOPICAL ×2 (08:36→21:15)
[2023-12-06] MEDS: oxyCODONE 5 MG Tablet PO ×2 (09:13→21:11)
[2023-12-06 15:51] VITALS: BP 131/66; PULSE 62; RESP 16; TEMP 36.2; O2SAT 98
--- NOTE | 2023-12-06 16:26 | NURSING ---
Patient c/o tiredness, weakness, dizziness and vision changes today. Started gabapentin yesterday evening for nerve pain and patient made aware these can be side effects of gabapentin. Patient request afternoon gabapentin be held to see if symptoms improve. Dr. Soni made aware.
[2023-12-06] MEDS: Rosuvastatin Calcium 5 MG Tablet PO (21:13)
[2023-12-06] MEDS: MENTHOL 226.8 GM JAR 1 APPLIC TOPICAL (21:18)
--- NOTE | 2023-12-06 21:28 | CASEMGMT ---
Social Work BIMS () and PHQ-2 () completed for IPA MDS Assessment. JARED AnW
[2023-12-07] MEDS: traMADol 50 MG Tablet PO ×3 (06:10→17:45)
[2023-12-07] MEDS: Baclofen 10 MG Tablet PO ×3 (06:11→21:52)
[2023-12-07] MEDS: Acetaminophen 500 MG Tablet 1000 MG PO ×3 (06:12→21:51)
[2023-12-07 06:45] LABS: Hematocrit 31.5 % (37-47); Hemoglobin 10.7 g/dL (12.0-15.0)
[2023-12-07 08:44] VITALS: BP 134/61; PULSE 63; RESP 17; TEMP 36.1; O2SAT 96
[2023-12-07] MEDS: Amox/Clavulanate 875 MG Tablet PO ×2 (08:51→21:48)
[2023-12-07] MEDS: Gabapentin 100 MG Capsule PO (08:51)
[2023-12-07] MEDS: Menthol/Lanolin/Calamine/Znox 113 GM Tube 1 APPLIC TOPICAL ×2 (08:52→21:49)
[2023-12-07] MEDS: APIXABAN 2.5 MG TABLET (WCH) PO ×2 (08:53→21:49)
[2023-12-07] MEDS: Senna/Docusate Sodium 1 Tablet 2 TABLET PO ×2 (08:54→21:50)
[2023-12-07] MEDS: Pantoprazole Sodium 40 MG Tablet PO ×2 (08:54→21:50)
[2023-12-07] MEDS: Ergocalciferol 1.25 MG (50, 000 UNIT) Capsule PO (08:55)
[2023-12-07 10:04] VITALS: BP 150/62
--- NOTE | 2023-12-07 10:11 | NURSING ---
BP this morning 134/61, BP 150/62 on recheck. Cozaar not given per parameters.
[2023-12-07] MEDS: Iron Polysaccharide Complex 150 MG CAPSULE PO (12:10)
[2023-12-07] MEDS: Rosuvastatin Calcium 5 MG Tablet PO (21:49)
[2023-12-07] MEDS: MENTHOL 226.8 GM JAR 1 APPLIC TOPICAL (22:27)
[2023-12-07 22:40] VITALS: PULSE 67; RESP 16; O2SAT 96
[2023-12-08] MEDS: traMADol 50 MG Tablet PO ×5 (00:02→23:53)
[2023-12-08] MEDS: Acetaminophen 500 MG Tablet 1000 MG PO ×3 (05:56→21:11)
[2023-12-08] MEDS: Baclofen 10 MG Tablet PO ×3 (05:56→21:11)
[2023-12-08 06:14] VITALS: PULSE 70; RESP 18; O2SAT 94
[2023-12-08] MEDS: Amox/Clavulanate 875 MG Tablet PO ×2 (07:59→21:11)
[2023-12-08] MEDS: Iron Polysaccharide Complex 150 MG CAPSULE PO (08:00)
[2023-12-08] MEDS: Menthol/Lanolin/Calamine/Znox 113 GM Tube 1 APPLIC TOPICAL ×2 (08:01→21:14)
[2023-12-08] MEDS: APIXABAN 2.5 MG TABLET (WCH) PO ×2 (08:03→21:11)
[2023-12-08] MEDS: Pantoprazole Sodium 40 MG Tablet PO ×2 (08:03→21:11)
[2023-12-08] MEDS: Senna/Docusate Sodium 1 Tablet 2 TABLET PO ×2 (08:04→21:11)
[2023-12-08] MEDS: Ascorbic Acid 500 MG Tablet PO (08:05)
[2023-12-08 08:15] VITALS: BP 145/65; PULSE 60; RESP 16; TEMP 36.8; O2SAT 97
[2023-12-08 10:08] VITALS: BP 157/55
[2023-12-08] MEDS: Rosuvastatin Calcium 5 MG Tablet PO (21:11)
[2023-12-08] MEDS: MENTHOL 226.8 GM JAR 1 APPLIC TOPICAL (21:14)
[2023-12-09] MEDS: Acetaminophen 500 MG Tablet 1000 MG PO ×3 (05:45→20:58)
[2023-12-09] MEDS: Baclofen 10 MG Tablet PO ×3 (05:45→21:01)
[2023-12-09] MEDS: traMADol 50 MG Tablet PO ×3 (05:45→17:25)
[2023-12-09 05:50] LABS: Hematocrit 31.2 % (37-47); Hemoglobin 10.6 g/dL (12.0-15.0)
[2023-12-09] MEDS: Menthol/Lanolin/Calamine/Znox 113 GM Tube 1 APPLIC TOPICAL ×2 (07:43→21:01)
[2023-12-09] MEDS: Iron Polysaccharide Complex 150 MG CAPSULE PO (07:43)
[2023-12-09] MEDS: Amox/Clavulanate 875 MG Tablet PO ×2 (07:43→20:57)
[2023-12-09] MEDS: Losartan Potassium 25 MG Tablet PO (07:46)
[2023-12-09] MEDS: Pantoprazole Sodium 40 MG Tablet PO ×2 (07:47→20:56)
[2023-12-09] MEDS: APIXABAN 2.5 MG TABLET (WCH) PO (07:47)
[2023-12-09] MEDS: Ascorbic Acid 500 MG Tablet PO (07:49)
[2023-12-09] MEDS: Senna/Docusate Sodium 1 Tablet 2 TABLET PO ×2 (07:53→20:56)
[2023-12-09] MEDS: oxyCODONE 5 MG Tablet PO (07:54)
[2023-12-09 08:11] VITALS: BP 158/74; PULSE 61; RESP 18; TEMP 36.8; O2SAT 61
[2023-12-09 13:46] VITALS: BP 117/61; PULSE 61; RESP 16; TEMP 36.2; O2SAT 97
--- NOTE | 2023-12-09 18:14 | NURSING ---
N.O. MRI without contrast to lumbar and sacral spine. Insurance company was called to verify if precert is needed, office hours close at 5pm and unable to start precert tonight.
--- NOTE | 2023-12-09 18:30 | NURSING ---
Resident c/o 07/02 pain in therapy, Dr. Choudhury consulted for pain management. Dr. Choudhury came in this evening to see patient and gave new order to decrease prn oxycodone to 2.5mg and hold eliquis for caudal epidural steroid injection. Dr. Soni updated, family updated
[2023-12-09] MEDS: oxyCODONE 5 MG Tablet 2.5 MG PO (20:54)
[2023-12-09] MEDS: Rosuvastatin Calcium 5 MG Tablet PO (20:55)
[2023-12-09] MEDS: MENTHOL 226.8 GM JAR 1 APPLIC TOPICAL (20:55)
[2023-12-09 22:00] VITALS: PULSE 73; RESP 16; O2SAT 97
[2023-12-10] MEDS: traMADol 50 MG Tablet PO ×5 (00:13→23:20)
[2023-12-10] MEDS: Acetaminophen 500 MG Tablet 1000 MG PO ×3 (06:30→20:16)
[2023-12-10] MEDS: Baclofen 10 MG Tablet PO ×3 (06:30→20:24)
[2023-12-10 06:37] VITALS: PULSE 105; RESP 18; O2SAT 96
[2023-12-10] MEDS: Iron Polysaccharide Complex 150 MG CAPSULE PO (08:38)
[2023-12-10] MEDS: Amox/Clavulanate 875 MG Tablet PO ×2 (08:38→20:17)
[2023-12-10] MEDS: Menthol/Lanolin/Calamine/Znox 113 GM Tube 1 APPLIC TOPICAL ×2 (08:38→20:18)
[2023-12-10] MEDS: Ascorbic Acid 500 MG Tablet PO (08:39)
[2023-12-10] MEDS: Pantoprazole Sodium 40 MG Tablet PO ×2 (08:39→20:16)
[2023-12-10] MEDS: Senna/Docusate Sodium 1 Tablet 2 TABLET PO ×2 (08:39→20:16)
[2023-12-10] MEDS: oxyCODONE 5 MG Tablet 2.5 MG PO ×3 (10:06→20:23)
[2023-12-10 10:38] VITALS: BMI 21.5
--- NOTE | 2023-12-10 12:36 | MDS.RN ---
Information for the mds was obtained from review of the clinical record, interview of resident, staff, and direct observation of resident's care.
[2023-12-10 13:13] VITALS: BP 143/53; PULSE 61; RESP 16; TEMP 36.3; O2SAT 97
--- NOTE | 2023-12-10 15:32 | CASEMGMT ---
Social Work SW spoke with pt's dtr to follow up on DC planning. Insurance [employer] is still pending from 12/08. Discussed IDTs recommendations for pt returning home and physically doing well, but d/t cognitive and safety concerns being affected likely be pain medication, to increase support in the home for that transition period. IDT and dtr's goal is for pt to get MRI and injection completed during stay, see pain relief, and then pt can DC home safely. ST evaled pt this date d/t to cognitive safety concerns and also concluded likely d/t pain medication. Dtr agrees as well and states family has assisted pt with IADLs prior, but has also made some adjustments in pt's home to better accommodate pt's needs. SW suggested for family members to create a schedule for being in the home with pt initially, even though the 3 of them live within minutes of pt, per dtr. Dtr agreeable. Dtr stated she would like skilled HHC at DC and pt used [facility] prior. SW to coordinate DC needs. Will continue to follow for DC planning. Mare Stein, DEPARTMENT OF MATHEMATICS CHAIR DRAPERY WORKER
[2023-12-10] MEDS: MENTHOL 226.8 GM JAR 1 APPLIC TOPICAL (20:15)
[2023-12-10] MEDS: Rosuvastatin Calcium 5 MG Tablet PO (20:15)
[2023-12-11] MEDS: Baclofen 10 MG Tablet PO ×3 (05:57→21:39)
[2023-12-11] MEDS: traMADol 50 MG Tablet PO ×4 (05:57→23:15)
[2023-12-11] MEDS: Acetaminophen 500 MG Tablet 1000 MG PO ×3 (05:58→21:36)
[2023-12-11 06:03] LABS: Hematocrit 32.1 % (37-47)
--- NOTE | 2023-12-11 08:47 | NURSING ---
Addendum entered by Maya Martinez 12/19/23 13:55: fax [email or web address] [place] about P2P for lumbar MRI. Called and cancelled, had been a week since staff had been notified it was declined. Addendum entered by Maya Martinez 12/13/23 11:09: Updated by Chasidy ABDI on 12/12/23, that she received phone call stating lumbar MRI was not approved. Addendum entered by Maya Martinez 12/12/23 14:27: MRI questions completed. Faxed to MRI. Still awaiting approval for lumbar MRI. Original Note: Awaiting approval of lumbar MRI, clinical info faxed but not yet reviewed. Approval received for sacral MRI, auth #[id number].
[2023-12-11] MEDS: oxyCODONE 5 MG Tablet 2.5 MG PO (09:02)
[2023-12-11] MEDS: Amox/Clavulanate 875 MG Tablet PO (09:22)
[2023-12-11] MEDS: Iron Polysaccharide Complex 150 MG CAPSULE PO (09:22)
[2023-12-11] MEDS: Ascorbic Acid 500 MG Tablet PO (09:23)
[2023-12-11] MEDS: Losartan Potassium 25 MG Tablet PO (09:23)
[2023-12-11] MEDS: Senna/Docusate Sodium 1 Tablet 2 TABLET PO ×2 (09:23→21:35)
[2023-12-11] MEDS: Lactulose 20 GM/30 ML UDC PO ×2 (09:23→15:32)
[2023-12-11] MEDS: Pantoprazole Sodium 40 MG Tablet PO ×2 (09:23→21:36)
[2023-12-11] MEDS: Menthol/Lanolin/Calamine/Znox 113 GM Tube 1 APPLIC TOPICAL ×2 (09:26→21:34)
[2023-12-11 16:00] VITALS: BP 136/50; PULSE 65; RESP 16; TEMP 36.6; O2SAT 95
[2023-12-11 21:10] VITALS: PULSE 99; RESP 16; O2SAT 96
[2023-12-11] MEDS: Rosuvastatin Calcium 5 MG Tablet PO (21:35)
[2023-12-12 05:21] VITALS: PULSE 88; O2SAT 97
[2023-12-12] MEDS: traMADol 50 MG Tablet PO ×4 (05:29→23:56)
[2023-12-12] MEDS: Acetaminophen 500 MG Tablet 1000 MG PO ×3 (05:29→21:27)
[2023-12-12] MEDS: Baclofen 10 MG Tablet PO ×3 (05:29→21:30)
[2023-12-12] MEDS: oxyCODONE 5 MG Tablet 2.5 MG PO ×2 (08:37→13:05)
[2023-12-12] MEDS: Losartan Potassium 25 MG Tablet PO (08:37)
[2023-12-12] MEDS: Iron Polysaccharide Complex 150 MG CAPSULE PO (08:37)
[2023-12-12] MEDS: Senna/Docusate Sodium 1 Tablet 2 TABLET PO ×2 (08:38→21:26)
[2023-12-12] MEDS: Ascorbic Acid 500 MG Tablet PO (08:38)
[2023-12-12] MEDS: Pantoprazole Sodium 40 MG Tablet PO ×2 (08:38→21:27)
[2023-12-12] MEDS: Menthol/Lanolin/Calamine/Znox 113 GM Tube 1 APPLIC TOPICAL ×2 (08:38→21:31)
[2023-12-12 09:00] VITALS: BP 131/58; PULSE 66; RESP 16; TEMP 36.1; O2SAT 97
[2023-12-12] MEDS: Lactulose 20 GM/30 ML UDC PO ×2 (11:32→15:05)
--- NOTE | 2023-12-12 17:00 | NURSING ---
pt to MRI
--- NOTE | 2023-12-12 17:54 | NURSING ---
Daughter updated on procedure tomorrow.
--- NOTE | 2023-12-12 18:02 | NURSING ---
pt returned from MRI
[2023-12-12] MEDS: Rosuvastatin Calcium 5 MG Tablet PO (21:26)
[2023-12-13 05:59] LABS: Absolute Lymphocyte Count 1.62 X10^3/uL (0.83-4.51); Absolute Neutrophil Count 2.3 X10^3/uL (2.0-7.7); Basophil# 0.06 X10^3/uL; Basophil% 1.3 % (0-1); Eosinophil# 0.21 X10^3/uL; Eosinophils% 4.5 % (0-5); Hematocrit 32.6 % (37-47); Hemoglobin 10.9 g/dL (12.0-15.0); Lymphocyte # 1.62 X10^3/ul (0.83-4.51); Lymphocyte % 34.6 % (19-41); Mean Corp Hgb Conc 33.4 g/dL (32-36); Mean Corpuscular Hgb 30.5 pg (27.0-32.0); Mean Corpuscular Volume 91.3 fL (81-99); Mean Platelet Vol. 9.5 fl (6.2-12.0); Monocyte# 0.45 X10^3/uL; Monocyte% 9.6 % (0-10); NRBC Flagged by Analyzer 0 % (0-5); Neutrophil # 2.32 X10^3/uL (2.7-7.7); Neutrophil % 49.6 % (47-70); Platelet Count 320 K/mm3 (150-450); RBC Distribution Width CV 14.5 % (11.6-14.6); RBC Distribution Width SD 48.4 fl (35.1-43.9); Red Blood Count 3.57 M/mm3 (4.2-5.4); White Blood Count 4.7 K/mm3 (4.4-11.0)
[2023-12-13 06:34] LABS: Anion Gap 5 (5-15); BUN 12 mg/dL (7-18); BUN/Creat Ratio 22.9 RATIO (10-20); Calcium,Total 8.9 mg/dL (8.5-10.1); Chloride 108 mmol/L (98-107); Creatinine, Serum 0.52 mg/dL (0.55-1.02); EST Glomerular Filtration Rate 119 mL/min (>60); Est Glom Filt Rate - Afr Amer 143 mL/min (>60); Estimated Creatinine Clearance 38.94 ml/min; Glucose 91 mg/dL (74-106); Potassium 3.7 mmol/L (3.5-5.1); Sodium Level 141 mmol/L (136-145)
--- NOTE | 2023-12-13 08:18 | NURSING ---
PT remains NPO for injection by Basali today.
[2023-12-13 08:27] VITALS: BP 152/64; PULSE 60; RESP 16; TEMP 36.3; O2SAT 97
[2023-12-13] MEDS: oxyCODONE 5 MG Tablet 2.5 MG PO (08:38)
--- NOTE | 2023-12-13 08:42 | NURSING ---
notified DR Choudhury's office to see if pt can have pain medication, new order ok to give. pt procedure is not until 2:45pm per surgery. pt and daughter updated on both.
[2023-12-13] MEDS: Menthol/Lanolin/Calamine/Znox 113 GM Tube 1 APPLIC TOPICAL ×2 (11:01→20:24)
--- NOTE | 2023-12-13 13:33 | NURSING ---
pt off unit via bed for epidural injection procedure
--- NOTE | 2023-12-13 14:38 | PN.TCU_ITS ---
Subjective Subjective Resident seen, examined for regulatory visit. She is resting this afternoon, waiting to go for epidural steroid injection with Dr. Choudhury. Her low back pain has been difficult to control, pain medications are helpful, but tend to cause mental cloudiness. In the interim, she had obstipation, colitis requiring trip to [facility]. Obstipation resolved with good bowel movements from CT contrast, colitis treated with Augmentin. 11/26/2023 Dr. Marin EGD: Impressions : - Benign-appearing esophageal stenosis. Dilated. Biopsied. - Large hiatal hernia. - Normal duodenal bulb. 12/12/2023: MRI pelvis. IMPRESSION: 1. Redemonstration bilateral sacral fractures, unchanged in alignment from before. 2. Grade 1 degenerative anterolisthesis of L4 on L5 and of L5 on S1. Objective Data Objective Data Vital Signs: Vital Signs Temp Pulse Resp BP Pulse Ox O2 Del Method O2 Flow Rate 97.3 F L 60 16 152/64 H 97 Room Air 4 12/13/23 08:27 12/13/23 08:27 12/13/23 08:27 12/13/23 08:27 12/13/23 08:27 12/13/23 08:27 12/03/23 10:33 Oxygen Flow Rate (L/min) 4 Oxygen Delivery Method Room Air Weight: 46.72 kg Body Mass Index (BMI) 21.5 Intake & Output: Intake and Output for Last 24 Hours 12/11/23 12/12/23 12/13/23 23:59 23:59 23:59 Intake Total 720 / 720 720 / 720 Balance 720 / 720 720 / 720 Lab / Micro Data Attestation: I reviewed the patient's lab results. 12/13/23 05:26 12/13/23 05:26 Labs: Laboratory Results - last 24 hr 12/13/23 05:26: WBC 4.7, RBC 3.57 L, Hgb 10.9 L, Hct 32.6 L, MCV 91.3, MCH 30.5, MCHC 33.4, RDW Std Deviation 48.4 H, RDW Coeff of Criselda 14.5, Plt Count 320, MPV 9.5, Immature Gran % (Auto) 0.400, Neut % (Auto) 49.6, Lymph % (Auto) 34.6, [place] % (Auto) 9.6, Eos % (Auto) 4.5, Baso % (Auto) 1.3 H, Absolute Neuts (auto) 2.3, Absolute Lymphs (auto) 1.62, Nucleated RBC % 0, Sodium 141, Potassium 3.7, Chlo ride 108 H, Carbon Dioxide 28.0, Anion Gap 5, BUN 12, Creatinine 0.52 L, Estim Creat Clear Calc 38.94, Est GFR (MDRD) Af Amer 143, Est GFR (MDRD) Non-Af 119, BUN/Creatinine Ratio 22.9 H, Glucose 91, Calcium 8.9 Micro: Microbiology 12/08/23 21:05 Stool Stool Occult Blood (JUAN) - Final Occult Blood Positive Physical Exam Const alert General Appearance: cooperative HEENT normocephalic Eyes PERRL and EOMs intact bilaterally Neck supple, no JVD and no carotid bruits Resp normal respiratory effort, normal air movement and clear to auscultation bilaterally Cardio regular rate and regular rhythm GI normal to inspection, nondistended, normoactive bowel sounds, non-tender and non-distended Extremity normal capillary refill General Extremity: Negative for edema Skin no rashes or lesions noted General Skin Exam: no breakdown Psych affect normal Appearance: appropriate Assessment & Plan Assessment/Plan (1) Debility: (2) Sacral fracture, closed: QUALIFIERS: Encounter type: initial encounter Zone of sacrum fracture: unspecified portion of sacrum Qualified Code(s): S32.10XA - Unspecified fracture of sacrum, initial encounter for closed fracture (3) Atrial fibrillation: (4) Asthma: QUALIFIERS: Asthma severity: mild Asthma persistence: intermittent Asthma complication type: uncomplicated Qualified Code(s): J45.20 - Mild intermittent asthma, uncomplicated (5) Hyperlipemia: PLAN: Plan 83 year old female with below past medical history hospitalized for sacral fracture, admitted to TCU with debility, here for rehabilitation, strengthening, prior to discharge home alone, undergoing epidural steroid injection today for low back pain. * Debility - PT/OT. * Pain - Tylenol 1000mg q8, Tramadol 50mg q6, Oxycodone 2.5mg q4 prn pain (6- 10). * Bowel - senna/colace 2 tablet bid, Lactulose 20gm bid. * Adult immunization - Administer pneumonia vaccine, covid vaccine, flu vaccine as appropriate. * DVT prophylaxis - Eliquis. * Atrial fibrillation - Eliquis 2.5mg bid. * Hyperlipidemia - Rosuvastatin 5mg qhs. * Vitamin D deficiency - Vitamin D 1.25mg qweek. * Iron deficiency anemia - Ferrex 150mg daily, Vitamin C 500mg daily. * Muscle spasm - Baclofen 10mg tid. * Hypertension - Losartan 50mg daily. * Esophageal stenosis - s/p dilatation with Dr. Marin, Pantoprazole 40mg bid. * Skin irritation - Calmoseptine topical bid, 4x/day prn.
--- NOTE | 2023-12-13 16:51 | NURSING ---
Leatha from PACU called report and pt will be returning to unit shortly. pt can resume all previous orders.
--- NOTE | 2023-12-13 17:05 | NURSING ---
pt back from PACU at this time via bed.
[2023-12-13 20:15] VITALS: PULSE 95; RESP 16; O2SAT 97
[2023-12-13] MEDS: MENTHOL 226.8 GM JAR 1 APPLIC TOPICAL (20:23)
[2023-12-13] MEDS: Acetaminophen 500 MG Tablet 1000 MG PO (21:11)
[2023-12-13] MEDS: Baclofen 10 MG Tablet PO (21:12)
[2023-12-13] MEDS: Rosuvastatin Calcium 5 MG Tablet PO (21:12)
[2023-12-13] MEDS: Pantoprazole Sodium 40 MG Tablet PO (21:12)
[2023-12-14] MEDS: traMADol 50 MG Tablet PO ×5 (00:17→23:55)
[2023-12-14] MEDS: Baclofen 10 MG Tablet PO ×3 (06:13→21:01)
[2023-12-14] MEDS: Acetaminophen 500 MG Tablet 1000 MG PO ×3 (06:13→21:00)
[2023-12-14 06:20] VITALS: PULSE 68; RESP 16; O2SAT 96
[2023-12-14 08:50] VITALS: BP 136/77; PULSE 69; RESP 16; TEMP 36.6; O2SAT 97
[2023-12-14] MEDS: Ascorbic Acid 500 MG Tablet PO (08:57)
[2023-12-14] MEDS: APIXABAN 2.5 MG TABLET (WCH) PO ×2 (08:57→21:01)
[2023-12-14] MEDS: Ergocalciferol 1.25 MG (50, 000 UNIT) Capsule PO (08:57)
[2023-12-14] MEDS: Pantoprazole Sodium 40 MG Tablet PO ×2 (08:57→21:00)
[2023-12-14] MEDS: Iron Polysaccharide Complex 150 MG CAPSULE PO (08:57)
[2023-12-14] MEDS: Losartan Potassium 50 MG Tablet PO (08:57)
[2023-12-14] MEDS: Menthol/Lanolin/Calamine/Znox 113 GM Tube 1 APPLIC TOPICAL ×2 (08:57→21:03)
[2023-12-14] MEDS: Senna/Docusate Sodium 1 Tablet 2 TABLET PO (21:00)
[2023-12-14] MEDS: Rosuvastatin Calcium 5 MG Tablet PO (21:00)
[2023-12-15] MEDS: traMADol 50 MG Tablet PO ×3 (05:23→18:00)
[2023-12-15] MEDS: Acetaminophen 500 MG Tablet 1000 MG PO ×3 (05:24→21:38)
[2023-12-15] MEDS: Baclofen 10 MG Tablet PO ×3 (05:24→21:38)
[2023-12-15 08:41] VITALS: BP 133/61; PULSE 67; RESP 17; TEMP 36.6; O2SAT 96
[2023-12-15] MEDS: Iron Polysaccharide Complex 150 MG CAPSULE PO (08:44)
[2023-12-15] MEDS: APIXABAN 2.5 MG TABLET (WCH) PO ×2 (08:45→21:38)
[2023-12-15] MEDS: Pantoprazole Sodium 40 MG Tablet PO ×2 (08:45→21:38)
[2023-12-15] MEDS: Ascorbic Acid 500 MG Tablet PO (08:46)
[2023-12-15 10:15] VITALS: BP 148/55; PULSE 64
[2023-12-15 10:17] VITALS: BP 136/62
[2023-12-15] MEDS: Menthol/Lanolin/Calamine/Znox 113 GM Tube 1 APPLIC TOPICAL (21:34)
[2023-12-15] MEDS: Senna/Docusate Sodium 1 Tablet 2 TABLET PO (21:38)
[2023-12-15] MEDS: Rosuvastatin Calcium 5 MG Tablet PO (21:38)
[2023-12-15 23:15] VITALS: PULSE 67; RESP 18; O2SAT 96
--- NOTE | 2023-12-16 | NURSING ---
Patient reports significant improvement with pain since procedure with Dr. Choudhury, patient states I hardly have any pain at all. Patient reports no pain at rest, and some pain, about a 2 out of 10 with movement. No distress observed or reported. Denies requests. A&Ox3, forgetful at times. Call light in reach.
[2023-12-16] MEDS: traMADol 50 MG Tablet PO ×4 (00:01→21:56)
[2023-12-16] MEDS: Acetaminophen 500 MG Tablet 1000 MG PO ×3 (05:32→21:50)
[2023-12-16] MEDS: Baclofen 10 MG Tablet PO ×3 (05:32→21:56)
[2023-12-16] MEDS: Iron Polysaccharide Complex 150 MG CAPSULE PO (09:29)
[2023-12-16] MEDS: oxyCODONE 5 MG Tablet 2.5 MG PO (09:29)
[2023-12-16] MEDS: Menthol/Lanolin/Calamine/Znox 113 GM Tube 1 APPLIC TOPICAL ×2 (10:16→21:57)
[2023-12-16 10:17] VITALS: BP 113/62; PULSE 66; RESP 20; O2SAT 97
[2023-12-16] MEDS: APIXABAN 2.5 MG TABLET (WCH) PO ×2 (10:22→21:50)
[2023-12-16] MEDS: Pantoprazole Sodium 40 MG Tablet PO ×2 (10:23→21:51)
[2023-12-16] MEDS: Ascorbic Acid 500 MG Tablet PO (10:23)
[2023-12-16] MEDS: Senna/Docusate Sodium 1 Tablet 2 TABLET PO ×2 (10:23→21:51)
[2023-12-16 14:18] VITALS: TEMP 36.4
[2023-12-16] MEDS: Rosuvastatin Calcium 5 MG Tablet PO (21:49)
[2023-12-17] MEDS: Acetaminophen 500 MG Tablet 1000 MG PO ×3 (06:09→22:25)
[2023-12-17] MEDS: Baclofen 10 MG Tablet PO ×3 (06:09→22:24)
[2023-12-17 09:44] VITALS: BMI 21.2
[2023-12-17] MEDS: Losartan Potassium 50 MG Tablet PO (09:51)
[2023-12-17] MEDS: Ascorbic Acid 500 MG Tablet PO (09:51)
[2023-12-17] MEDS: Pantoprazole Sodium 40 MG Tablet PO ×2 (09:51→22:24)
[2023-12-17] MEDS: APIXABAN 2.5 MG TABLET (WCH) PO ×2 (09:51→22:24)
[2023-12-17] MEDS: Iron Polysaccharide Complex 150 MG CAPSULE PO (09:51)
[2023-12-17] MEDS: Senna/Docusate Sodium 1 Tablet 2 TABLET PO (09:51)
[2023-12-17] MEDS: Menthol/Lanolin/Calamine/Znox 113 GM Tube 1 APPLIC TOPICAL ×2 (09:52→22:27)
[2023-12-17] MEDS: Lactulose 20 GM/30 ML UDC PO ×2 (09:52→14:54)
[2023-12-17 10:00] VITALS: BP 160/66; PULSE 66; RESP 16; TEMP 36.7; O2SAT 91
--- NOTE | 2023-12-17 15:28 | CASEMGMT ---
Social Work SW met with patient and daughter at bedside to discuss transition of care plans. Patient requested discharge to home with home health. SW offered discharge date of 12/21/2023. Patient and daughter agreed with proposed discharge date. Patient requested for home health referral to be submitted to [facility]. The patient confirmed that she has utilized [facility] services in the past. SW inquired about any DME required to support safe discharge to home. Patient and daughter confirmed that necessary provisions are in place to support safe ambulation in the home. SW and daughter discussed personal care services. Resources were provided for personal care in the home. The patient's daughter informed SW that family will provide additional support/supervision in the home and review resources for potential personal care services. Patient's daughter confirmed that she will provide transportation at discharge. SW submitted referral to [facility] via [facility]; referral pending acceptance. Plan: DC home alone 12/20, [facility] PT/OT/SN ROBY Cruz
[2023-12-17] MEDS: Rosuvastatin Calcium 5 MG Tablet PO (22:21)
[2023-12-18] MEDS: Baclofen 10 MG Tablet PO ×2 (06:10→13:16)
[2023-12-18] MEDS: Acetaminophen 500 MG Tablet 1000 MG PO ×3 (06:10→22:08)
[2023-12-18 06:16] VITALS: PULSE 64; RESP 16; O2SAT 96
[2023-12-18] MEDS: Senna/Docusate Sodium 1 Tablet 2 TABLET PO (08:57)
[2023-12-18] MEDS: Ascorbic Acid 500 MG Tablet PO (08:58)
[2023-12-18] MEDS: Pantoprazole Sodium 40 MG Tablet PO ×2 (08:58→22:08)
[2023-12-18] MEDS: Iron Polysaccharide Complex 150 MG CAPSULE PO (08:58)
[2023-12-18] MEDS: Losartan Potassium 50 MG Tablet PO (08:58)
[2023-12-18] MEDS: APIXABAN 2.5 MG TABLET (WCH) PO ×2 (08:59→22:08)
[2023-12-18] MEDS: Menthol/Lanolin/Calamine/Znox 113 GM Tube 1 APPLIC TOPICAL ×2 (09:00→22:09)
[2023-12-18 09:05] VITALS: BP 154/75; PULSE 91
--- NOTE | 2023-12-18 11:29 | NURSING ---
PT COMPLAINING OF URINATION FREQUENCY. PT STATED SHE DOES NOT HAVE ANY PAIN,ITCHING OR BURNING AND SMELL IS NORMAL. BLADDER SCANNED FOR 53 ML. WILL BE NOTIFIED.
[2023-12-18 16:00] VITALS: BP 134/63; PULSE 71; RESP 14; TEMP 36.6; O2SAT 97
[2023-12-18] MEDS: traMADol 50 MG Tablet PO (17:30)
--- NOTE | 2023-12-18 19:54 | DS.PCM_ITS ---
Providers Date of Admission: 11/22/23 Primary Care Physician: Dr. Domonique Gilbert MD Consultations 11/24/23 20:48 Consult: Gastroenterology Routine Consulting Provider: [facility] Reason for Consult: Episodes of emesis after certain foods- ST recommends consult EMERGENT Consult: No Notified: Yes Date Notified: 11/25/23 Time Notified: 08:16 Method of Notification: Text 12/09/23 16:49 Consult: Pain Management Routine Consulting Provider: Casey Choudhury Reason for Consult: Sacral fracture, lumbar radiculopathy. EMERGENT Consult: No Notified: Yes Date Notified: 12/09/23 Time Notified: 16:49 Method of Notification: Verbal Reason For Visit: GENERALIZED WEAKNESS AMBULATORY DYSFUNCTION Diagnosis Discharge Diagnosis (1) Debility: Status: Acute Code(s): R53.81 - Other malaise (2) Sacral fracture, closed: Status: Acute Code(s): S32.10XA - Unspecified fracture of sacrum, initial encounter for closed fracture Qualifiers: Encounter type: initial encounter Zone of sacrum fracture: unspecified portion of sacrum Qualified Code(s): S32.10XA - Unspecified fracture of sacrum, initial encounter for closed fracture (3) Atrial fibrillation: Status: Acute Code(s): I48.91 - Unspecified atrial fibrillation (4) Asthma: Status: Inactive Code(s): J45.909 - Unspecified asthma, uncomplicated Qualifiers: Asthma severity: mild Asthma persistence: intermittent Asthma complica tion type: uncomplicated Qualified Code(s): J45.20 - Mild intermittent asthma, uncomplicated (5) Hyperlipemia: Status: Inactive Code(s): E78.5 - Hyperlipidemia, unspecified Plan 83 year old female with below past medical history hospitalized for sacral fracture, admitted to TCU with debility, here for rehabilitation, strengthening, prior to discharge home alone, undergoing epidural steroid injection today for low back pain. * Debility - PT/OT. * Pain - Tylenol 1000mg q8, Tramadol 50mg q6, Oxycodone 2.5mg q4 prn pain (6- 10). * Bowel - senna/colace 2 tablet bid, Lactulose 20gm bid. * Adult immunization - Administer pneumonia vaccine, covid vaccine, flu vaccine as appropriate. * DVT prophylaxis - Eliquis. * Atrial fibrillation - Eliquis 2.5mg bid. * Hyperlipidemia - Rosuvastatin 5mg qhs. * Vitamin D deficiency - Vitamin D 1.25mg qweek. * Iron deficiency anemia - Ferrex 150mg daily, Vitamin C 500mg daily. * Muscle spasm - Baclofen 10mg tid. * Hypertension - Losartan 50mg daily. * Esophageal stenosis - s/p dilatation with Dr. Marin, Pantoprazole 40mg bid. * Skin irritation - Calmoseptine topical bid, 4x/day prn. Medications at Discharge Home Medications apixaban 2.5 mg tablet (Eliquis) 2.5 mg PO BID blood thinner 06/04/23 rosuvastatin 5 mg tablet (Crestor) 5 mg PO DAILY cholesterol #90 tabs 08/22/23 handicap placard #1 ea 09/30/23 acetaminophen 500 mg tablet 1,000 mg (2 x 500 mg) PO Q8 pain #0 tabs 11/22/23 oxycodone 5 mg capsule 5 mg PO Q6H PRN pain (scale score 7-10) 3 days #12 caps 11/22/23 ascorbic acid (vitamin C) 500 mg chewable tablet (Acerola C) 1 g PO DAILY 12/13/23 baclofen 10 mg tablet 10 mg PO TID 12/13/23 lactulose 20 gram/30 mL oral solution 10 g PO BID 12/13/23 pantoprazole 40 mg tablet,delayed release (Protonix) 40 mg PO BID 12/13/23 polysaccharide iron complex 150 mg iron capsule (Ferrex) 150 mg PO DAILY 12/13/23 sennosides 8.6 mg-docusate sodium 50 mg tablet (Colace 2-In-1) 2 tab-cap PO BID 12/13/23 tramadol 50 mg tablet 50 mg PO Q6H 12/13/23 Hospital Course Operations None Procedures - (See below.) Summary of Care Provided Minutes Spent on Discharge: 35 Hospital Course: 83 year old female with below past medical history hospitalized for sacral fracture, admitted to TCU with debility, here for rehabilitation, strengthening, prior to discharge home alone. 11/26/2023 Dr. Marin EGD: Impressions : - Benign-appearing esophageal stenosis. Dilated. Biopsied. - Large hiatal hernia. - Normal duodenal bulb. 12/13/2023 Dr. Choudhury performed caudal epidural steroid injection. DC home alone 12/20, [facility] PT/OT/SN Physical Exam Const alert General Appearance: cooperative HEENT normocephalic Eyes PERRL and EOMs intact bilaterally Neck supple, no JVD and no carotid bruits Resp normal respiratory effort, normal air movement and clear to auscultation bilaterally Cardio regular rate and regular rhythm GI normal to inspection, nondistended, normoactive bowel sounds, non-tender and non-distended Extremity normal capillary refill General Extremity: Negative for edema Skin no rashes or lesions noted General Skin Exam: no breakdown Psych affect normal Appearance: appropriate Weight / BMI Weight Weight: 45.994 kg Body Mass Index (BMI) 21.2 ABG / Lab / Microbiology Data 12/13/23 05:26 12/13/23 05:26 Microbiology: Microbiology 12/08/23 21:05 Stool Stool Occult Blood (JUAN) - Final Occult Blood Positive D/C Instructions Discharge Diet: No restrictions Discharge Activity: Return to Normal Activity, May Shower and Use Walker Weight Bearing Status: Weight bearing as tolerated Call your doctor if you observe: Fever of 101 or Higher, Inability to urinate, Inability to have a bowel movement, Shortness of breath, Dizziness, Fainting spells, Swelling in the ankles, Chest pain and Uncontrolled pain Additional Instructions: DC home alone 12/20, [facility] PT/OT/SN Please Follow Up With: Domonique Gilbert MD When: Within 1 week. Meaningful Use Info Meaningful Use Diagnoses (Choose all that apply): None applicable Discharge Plan Admission Admit Date/Time: 11/22/23 15:30 Primary Reason for Your Visit: Debility. Attending Provider: Robb Soni Chi Primary Care Provider: Domonique Gilbert Consulting Providers: Casey Choudhury Instructions Additional Instructions / Restrictions: DC home alone 12/20, [facility] PT/OT/SN. Discharge Orders/Prescriptions Prescriptions: No Action Eliquis 2.5 mg tablet 2.5 mg PO BID Patient Comments: take 1 tablet by mouth twice a day acetaminophen 500 mg Tablet 1,000 mg PO Q8 Qty: 0 0RF oxycodone 5 mg capsule 5 mg PO Q6H PRN (Reason: pain (scale score 7-10)) 3 Days Qty: 12 0RF tramadol 50 mg tablet 50 mg PO Q6H baclofen 10 mg tablet 10 mg PO TID polysaccharide iron complex [Ferrex 150] 150 mg iron capsule 150 mg PO DAILY ascorbic acid (vitamin C) [Acerola C] 500 mg tablet,chewable 1 g PO DAILY lactulose 20 gram/30 mL solution 10 g PO BID pantoprazole [Protonix] 40 mg tablet,delayed release (DR/EC) 40 mg PO BID sennosides-docusate sodium [Colace 2-In-1] 8.6-50 mg tablet 2 tab-cap PO BID rosuvastatin [Crestor] 5 mg tablet 5 mg PO DAILY Qty: 90 1RF (DME) handicap placard See Rx Instructions .ROUTE .MEDSUPPLY Qty: 1 0RF Rx Instructions: Diagnosis: Impaired physical mobility Z74.09 Length of time: 4 years Referrals / Follow Up: Domonique Gilbert MD [Primary Care Provider] - Disposition Disposition (needs filled in before D/C Order can be placed): Home Health [facility]
[2023-12-18] MEDS: Rosuvastatin Calcium 5 MG Tablet PO (22:09)
[2023-12-19] MEDS: Acetaminophen 500 MG Tablet 1000 MG PO ×3 (05:04→20:56)
[2023-12-19 08:18] VITALS: BP 111/51; PULSE 62; RESP 16; TEMP 36.6; O2SAT 97
[2023-12-19] MEDS: Pantoprazole Sodium 40 MG Tablet PO ×2 (08:22→20:57)
[2023-12-19] MEDS: Iron Polysaccharide Complex 150 MG CAPSULE PO (08:22)
[2023-12-19] MEDS: APIXABAN 2.5 MG TABLET (WCH) PO ×2 (08:22→20:57)
[2023-12-19] MEDS: Baclofen 10 MG Tablet PO (08:22)
[2023-12-19] MEDS: Ascorbic Acid 500 MG Tablet PO (08:22)
[2023-12-19] MEDS: Menthol/Lanolin/Calamine/Znox 113 GM Tube 1 APPLIC TOPICAL ×2 (08:24→20:57)
--- NOTE | 2023-12-19 11:07 | CASEMGMT ---
Social Work SW contacted [facility] to follow up regarding acceptance for home health care. [facility] was patient requested provider as she has utilize services in the past. SW spoke with [facility] [phone] and received notification that the provider is unable to accept anyone for [facility] services. SW attempted to provide patient with home health care list for alternative patient choice; patient requested that SW contact her daughter who manages care plans. SW contacted the patient's daughter to discuss plans. SW contacted patient's daughter to inform of home health care determination. SW provided home health care patient choice list via e-mail for choice. Patient choice required for home health care provider Discharge: Home with home health 12/21/2023 ROBY Cruz
--- NOTE | 2023-12-19 12:15 | MDS.RN ---
Pain interview for MDS completed.
--- NOTE | 2023-12-19 14:36 | CASEMGMT ---
Social Work BARTOLO received a call from [facility] confirming acceptance for home health care services SN/PT/OT. [facility] is patient first choice for home health. Start of Care (SOC) will be delayed until Saturday12/24/23. BARTOLO contacted patient's daughter to notify of home health care arrangements. BARTOLO informed patient's daughter of delay in SOC for home health care services. Patient's daughter provided verbal understanding and consent to move forward with home health care service via [facility]. Patient's daughter requested that [facility] contact her to arrange time of visit. SW contacted [facility] to notify of family request. Daughter to provide transportation at discharge. BARTOLO updated discharge disposition and referral via [facility]. Discharge: Home with Home Health [facility] SN/PT/OT on 12/21/2023 ROBY Cruz
[2023-12-19] MEDS: MENTHOL 226.8 GM JAR 1 APPLIC TOPICAL (18:41)
[2023-12-19] MEDS: Rosuvastatin Calcium 5 MG Tablet PO (20:52)
[2023-12-19] MEDS: traMADol 50 MG Tablet PO (20:53)
[2023-12-19] MEDS: Senna/Docusate Sodium 1 Tablet 2 TABLET PO (20:56)
[2023-12-19 21:00] VITALS: O2SAT 97
[2023-12-20] MEDS: Acetaminophen 500 MG Tablet 1000 MG PO ×3 (05:18→21:14)
[2023-12-20] MEDS: traMADol 50 MG Tablet PO ×2 (05:20→13:19)
[2023-12-20 05:48] LABS: Absolute Lymphocyte Count 1.21 X10^3/uL (0.83-4.51); Absolute Neutrophil Count 2.5 X10^3/uL (2.0-7.7); Basophil# 0.01 X10^3/uL; Basophil% 0.2 % (0-1); Eosinophil# 0.02 X10^3/uL; Eosinophils% 0.5 % (0-5); Hematocrit 35.9 % (37-47); Hemoglobin 12.3 g/dL (12.0-15.0); Lymphocyte # 1.21 X10^3/ul (0.83-4.51); Lymphocyte % 28.9 % (19-41); Mean Corp Hgb Conc 34.3 g/dL (32-36); Mean Corpuscular Hgb 31.1 pg (27.0-32.0); Mean Corpuscular Volume 90.7 fL (81-99); Mean Platelet Vol. 10.1 fl (6.2-12.0); Monocyte# 0.43 X10^3/uL; Monocyte% 10.3 % (0-10); NRBC Flagged by Analyzer 0 % (0-5); Neutrophil # 2.46 X10^3/uL (2.7-7.7); Neutrophil % 58.9 % (47-70); Platelet Count 290 K/mm3 (150-450); RBC Distribution Width CV 14.7 % (11.6-14.6); RBC Distribution Width SD 48.5 fl (35.1-43.9); Red Blood Count 3.96 M/mm3 (4.2-5.4); White Blood Count 4.2 K/mm3 (4.4-11.0)
[2023-12-20 06:18] VITALS: O2SAT 95
[2023-12-20 07:03] LABS: Anion Gap 5 (5-15); BUN 17 mg/dL (7-18); BUN/Creat Ratio 28.8 RATIO (10-20); Calcium,Total 8.7 mg/dL (8.5-10.1); Chloride 109 mmol/L (98-107); Creatinine, Serum 0.59 mg/dL (0.55-1.02); EST Glomerular Filtration Rate 104 mL/min (>60); Est Glom Filt Rate - Afr Amer 125 mL/min (>60); Estimated Creatinine Clearance 38.94 ml/min; Glucose 103 mg/dL (74-106); Potassium 4.2 mmol/L (3.5-5.1); Sodium Level 137 mmol/L (136-145)
[2023-12-20] MEDS: Menthol/Lanolin/Calamine/Znox 113 GM Tube 1 APPLIC TOPICAL ×2 (07:59→21:15)
[2023-12-20] MEDS: Iron Polysaccharide Complex 150 MG CAPSULE PO (07:59)
[2023-12-20] MEDS: APIXABAN 2.5 MG TABLET (WCH) PO ×2 (08:01→21:13)
[2023-12-20] MEDS: Senna/Docusate Sodium 1 Tablet 2 TABLET PO ×2 (08:02→21:13)
[2023-12-20] MEDS: Losartan Potassium 50 MG Tablet PO (08:02)
[2023-12-20] MEDS: Pantoprazole Sodium 40 MG Tablet PO ×2 (08:02→21:13)
[2023-12-20] MEDS: Ascorbic Acid 500 MG Tablet PO (08:03)
[2023-12-20] MEDS: Baclofen 10 MG Tablet PO (08:08)
--- NOTE | 2023-12-20 11:26 | CASEMGMT ---
Social Work SW met with patient at bedside to complete MDS assessment. SW introduced self to patient; patient confirmed verbal consent to participate in MDS assessment. Patient completed BIM () and PHQ-2 (0/0). SW reviewed discharge disposition with patient. The patient confirmed that she would like to discharge home with home health care services. Patient was accepted via [facility] for SN/PT/OT services. No DME required for discharge. The patient informed SW that her daughter will provide transportation to home between 11A-1P. Discharge: Home with [facility] 12/21/23 ROBY Cruz
[2023-12-20 15:43] VITALS: BP 120/60; PULSE 69; RESP 16; TEMP 35.8; O2SAT 96
[2023-12-20] MEDS: Rosuvastatin Calcium 5 MG Tablet PO (21:13)
[2023-12-21] MEDS: Acetaminophen 500 MG Tablet 1000 MG PO (06:27)
[2023-12-21 07:30] VITALS: PULSE 77; RESP 16; O2SAT 98
[2023-12-21 08:20] VITALS: BP 134/63; PULSE 61; RESP 16; TEMP 36.4; O2SAT 92
[2023-12-21] MEDS: Menthol/Lanolin/Calamine/Znox 113 GM Tube 1 APPLIC TOPICAL (08:21)
[2023-12-21] MEDS: Senna/Docusate Sodium 1 Tablet 2 TABLET PO (08:22)
[2023-12-21] MEDS: Ascorbic Acid 500 MG Tablet PO (08:22)
[2023-12-21] MEDS: Losartan Potassium 50 MG Tablet PO (08:22)
[2023-12-21] MEDS: APIXABAN 2.5 MG TABLET (WCH) PO (08:22)
[2023-12-21] MEDS: Ergocalciferol 1.25 MG (50, 000 UNIT) Capsule PO (08:23)
[2023-12-21] MEDS: Pantoprazole Sodium 40 MG Tablet PO (08:23)
[2023-12-21] MEDS: Iron Polysaccharide Complex 150 MG CAPSULE PO (08:23)
[2023-12-21 11:02] VITALS: BP 108/62; PULSE 73; RESP 16; TEMP 37.1; O2SAT 97
--- NOTE | 2023-12-21 11:12 | NURSING ---
Pt discharging to home today. Vitals: 108/62, p-73, t-98.7, r-18, sp02-97% on room air. Pt denies pain and PRN meds at this time. Returned pt's home supply of Crestor to pt's daughter. No comments/concerns at this time. Staff assists pt off unit @1110.
== END 2023-12-21 11:16 | disposition home health service (06) | DRG 561 ==
PROVIDERS: Admitting Provider Family Medicine Geriatric Medicine; PCP Internal Medicine; Referring Provider Family Medicine Geriatric Medicine; Visit Provider Family Medicine Geriatric Medicine
DX: M80.08XD Age-related osteoporosis with current pathological fracture, vertebra(e), subsequent encounter for fracture with routine healing (principal); K22.2 Esophageal obstruction; I48.91 Unspecified atrial fibrillation; D50.9 Iron deficiency anemia, unspecified; G62.9 Polyneuropathy, unspecified; J45.20 Mild intermittent asthma, uncomplicated; I10 Essential (primary) hypertension; E55.9 Vitamin D deficiency, unspecified; E78.5 Hyperlipidemia, unspecified; W19.XXXD Unspecified fall, subsequent encounter; K52.9 Noninfective gastroenteritis and colitis, unspecified; M43.16 Spondylolisthesis, lumbar region; K44.9 Diaphragmatic hernia without obstruction or gangrene; Z79.01 Long term (current) use of anticoagulants; Z79.899 Other long term (current) drug therapy; Z79.51 Long term (current) use of inhaled steroids; R13.10 Dysphagia, unspecified
CPT/HCPCS: 36415; 74018; 80048; 82274; 85014; 85018; 85025; 92508; 92523; 92526; 92610; 97110; 97112; 97116; 97162; 97166; 97530; 97535; 97802; J7030; J7120; J0585

== ENCOUNTER 2023-11-26 14:31 | Day surgery (SDC) | payer MEDICARE, SELFPAY ==
[2023-11-26 14:53] VITALS: BP 136/69; PULSE 75; RESP 18; TEMP 36.8; O2SAT 97; BMI 22.7
[2023-11-26] MEDS: Lactated Ringers 1,000 ML 15 ML IV (15:03)
--- NOTE | 2023-11-26 15:30 | EGD_PTH ---
PATHOLOGY RESULTS PATIENT: MAK SNOW LOC: EN U#:[id number] AGE/SX: 83/F ROOM: RE11/26/[address]: Dr. Rey Marin DO : 1940 BED: DIS: 11/26/2023 SPEC #: [id number] RECD: 11/27/23 12:09 STATUS: MAIK OPAL #: [id number] DIGNA: 11/26/23 15:[address]: Rey Marin DEPT: SURGICAL PATHOLOGY RECD BY: Dee Schwab ENTERED: 11/27/23 12:09 SP TYPE: EGD BIOPSY OT DR: Dr. Domonique Gilbert MD Tissues: Esophageal mucous membrane Procedures: Surgery Specimen Level IV HEADER OPERATION: EGD, biopsy PRE-OP DIAGNOSIS: Dysphagia TISSUE SUBMITTED: Esophageal stricture biopsy MICROSCOPIC DIAGNOSIS Esophageal stricture, biopsy: Gastroesophageal junctional mucosa with chronic inflammation. Focal goblet cell metaplasia consistent with Crowley's esophagus. No evidence of dysplasia. See comment. AM:efren 11/28/2023 COMMENT Immunohistochemistry ([id number]) for P53 and Ki-67 will be performed and results will be reported separately. Alcian blue/PAS stain with matched control supports the above diagnosis. MICROSCOPIC DESCRIPTION Slides are reviewed. GROSS DESCRIPTION Received in fixative is one container labeled with the patient's name and designated esophageal stricture biopsy. The specimen consists of multiple irregular fragments of light blake soft tissue that in aggregate measure 1.5 x 0.5 x 0.1 cm. The specimen is totally submitted in one cassette. / SJ:efren 11/27/2023 TC:3 CPT: 25109, 16718
--- NOTE | 2023-11-26 15:30 | IMM_PTH ---
PATHOLOGY RESULTS PATIENT: MAK SNOW LOC: EN U#:[id number] AGE/SX: 83/F ROOM: RE11/26/[address]: Dr. Rey Marin DO : 1940 BED: DIS: 11/26/2023 SPEC #: [id number] RECD: 11/28/23 13:06 STATUS: MAIK REUday #: [id number] DIGNA: 11/26/23 15:[address]: Rey Marin DEPT: IMMUNOHISTOCHEMISTRY RECD BY: Brielle Lozano ENTERED: 11/28/23 13:06 SP TYPE: IMMUNO OTHR DR: Dr. Domonique Gilbert MD Tissues: Esophagus, NOS Procedures: P53 (initial) KI-67 (add) PHYSICIAN & INSTITUTION [place] [id number] SPECIMEN INFORMATION: Tissue Source: Esophageal stricture Clinical Info: Dysphagia Specimen Number: [id number] CPT code: 01375, 21330 METHODOLOGY: Deparaffinized sections of prefer/formalin-fixed tissue or PAP/DQ stained slides are incubated with monoclonal/polyclonal antibodies/oligonucleotide probes. Localization is made via biotin free immunoperoxidase method. Appropriate controls are performed and reacted as expected. Results on target cell population are indicated in the following table: RESULTS: ANTIBODY / CLONE RESULT P53 (DO-7) positive, wild type pattern Ki-67 (30-9) positive, low These tests were developed and their performance characteristics determined by [facility]. They may not have been cleared or approved by the U.S. Food and Drug Administration. The FDA has determined that such clearance or approval is not necessary. The above immunohistochemical/dualISH markers are ordered and reviewed by the Pathologist. INTERPRETATION: Esophageal stricture, biopsy: No evidence of dysplasia. AM:efren 11/29/2023
[2023-11-26 17:30] VITALS: BP 106/63; BP 136/69; PULSE 94; RESP 16; TEMP 37.5; O2SAT 94
[2023-11-26 17:35] VITALS: BP 111/68; BP 136/69; PULSE 80; RESP 16; O2SAT 96
[2023-11-26 17:40] VITALS: BP 106/57; BP 136/69; PULSE 88; RESP 14; O2SAT 96
[2023-11-26 17:45] VITALS: BP 121/63; BP 136/69; PULSE 84; RESP 16; TEMP 36.8; O2SAT 97
--- NOTE | 2023-11-26 17:57 | OP.EGD_ITS ---
Patient Name: Maria Esther Napier Procedure Date: 11/26/2023 5:13 PM Date of : 1940 Age: 83 Procedure: Upper GI endoscopy Indications: Dysphagia Providers: Rey Marin DO Medicines: Monitored Anesthesia Care Patient Profile: This is an 83 year old female. Refer to note in patient chart for documentation of history and physical. Patient has symptoms of acute dysphagia. Complications: No immediate complications. Procedure: Pre-Anesthesia Assessment: - Prior to the procedure, a History and Physical was performed, and patient medications and allergies were reviewed. The risks and benefits of the procedure and the sedation options and risks were discussed with the patient. All questions were answered and informed consent was obtained. Patient identification and proposed procedure were verified by the physician in the pre-procedure area. Mental Status Examination: alert and oriented. Airway Examination: normal oropharyngeal airway and neck mobility. Respiratory Examination: clear to auscultation. CV Examination: normal. Prophylactic Antibiotics: The patient does not require prophylactic antibiotics. Prior Anticoagulants: The patient has taken no anticoagulant or antiplatelet agents. After reviewing the risks and benefits, the patient was deemed in satisfactory condition to undergo the procedure. The anesthesia plan was to use minimal sedation / analgesia (anxiolysis). Immediately prior to administration of medications, the patient was re-assessed for adequacy to receive sedatives. The heart rate, respiratory rate, oxygen saturations, blood pressure, adequacy of pulmonary ventilation, and response to care were monitored throughout the procedure. The physical status of the patient was re-assessed after the procedure. After obtaining informed consent, the endoscope was passed under direct vision. Throughout the procedure, the patient's blood pressure, pulse, and oxygen saturations were monitored continuously. The gastroscope was introduced through the mouth, and advanced to the second part of duodenum. The upper GI endoscopy was accomplished without difficulty. The patient tolerated the procedure well. Scope In: 5:20:07 PM Scope Out: 5:25:52 PM Total Procedure Duration Time 0 hours 5 minutes 45 seconds Findings: One benign-appearing, intrinsic severe (stenosis; an endoscope cannot pass) stenosis was found 36 to 40 cm from the incisors. This stenosis measured 2 mm (inner diameter) x 6 cm (in length). The stenosis was traversed. A TTS dilator was passed through the scope. Dilation with a 12-13.5-15 mm balloon dilator was performed to 15 mm. The dilation site was examined and showed complete resolution of luminal narrowing. Estimated blood loss was minimal. Biopsies were taken with a cold forceps for histology. Verification of patient identification for the specimen was done. Estimated blood loss was minimal. A large hiatal hernia was present. No other significant abnormalities were identified in a careful examination of the stomach. The duodenal bulb was normal. Impression: - Benign-appearing esophageal stenosis. Dilated. Biopsied. - Large hiatal hernia. - Normal duodenal bulb. Recommendation: - Return patient to referring hospital for ongoing care. - Full liquid diet today. - Use Protonix (pantoprazole) 40 mg PO BID for the rest of the patient's life. - Continue present medications. Procedure Code(s): --- Professional --- 43211, Esophagogastroduodenoscopy, flexible, transoral; with transendoscopic balloon dilation of esophagus (less than 30 mm diameter) 15258, 59,51, Esophagogastroduodenoscopy, flexible, transoral; with biopsy, single or multiple CPT copyright 2021 [employer]. All rights reserved. The codes documented in this report are preliminary and upon resource paraprofessional review may be revised to meet current compliance requirements. Rey Marin DO 11/26/2023 5:56:11 PM This report has been signed electronically. Number of Addenda: 0 Note Initiated On: 11/26/2023 5:13 PM
--- NOTE | 2023-11-26 17:57 | OP.CCLET_ITS ---
11/26/2023 Domonique Gilbert Md Re : Upper GI endoscopy procedure for Maria Esther Napier Dear Ofelia This procedure was performed on Sunday, November 26, 2023. My impressions and recommendations are as follows: Impressions : - Benign-appearing esophageal stenosis. Dilated. Biopsied. - Large hiatal hernia. - Normal duodenal bulb. Recommendations : - Return patient to referring hospital for ongoing care. - Full liquid diet today. - Use Protonix (pantoprazole) 40 mg PO BID for the rest of the patient's life. - Continue present medications. My findings are described in the full procedure note, which is enclosed. If I can be of further assistance, please feel free to contact me at . Sincerely, Rey Marin, 11/26/2023 5:56:11 PM This report has been signed electronically.
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
== END 2023-11-26 18:17 | disposition home or self-care (01) ==
LOC: EN 14:32 → AC 14:33
PROVIDERS: PCP Internal Medicine; Referring Provider Internal Medicine; Visit Provider Internal Medicine Gastroenterology
PROC: 0DJ08ZZ Inspection of Upper Intestinal Tract, Via Natural or Artificial Opening Endoscopic (ICD-10-PCS; CPT 43235; principal; 2023-11-26 15:25)
DX: K22.2 Esophageal obstruction (principal); I48.91 Unspecified atrial fibrillation; K44.9 Diaphragmatic hernia without obstruction or gangrene; R06.09 Other forms of dyspnea; Z79.01 Long term (current) use of anticoagulants; Z79.899 Other long term (current) drug therapy; Z86.73 Personal history of transient ischemic attack (TIA), and cerebral infarction without residual deficits
CPT/HCPCS: 43249; 43239; 88305; 88341; 88342; J7120; A4216

== ENCOUNTER 2023-11-30 16:10 | Emergency (ER) | payer MEDICARE, SELFPAY ==
[2023-11-30 16:14] VITALS: BP 159/81; PULSE 111; RESP 16; TEMP 36.8; O2SAT 96; BMI 23.2
--- NOTE | 2023-11-30 16:24 | CT_ITS ---
INDICATION: constipation -- IV PO Contrast COMPARISON: 11/20/2023 and 09/17/[address] IV Contrast dosage and agent: 75 cc [id number]-370 IV. A radiation dose optimization technique was used for this scan. RADIATION DOSAGE (If Supplied By Facility): CTDIvol/DLP = ( 13.18 ) / ( 872.23 ) mGy/mGycm FINDINGS: Contrast enhanced serial CT axial images through the abdomen and pelvis with coronal and sagittal reformatted series. Multilevel respiratory motion artifact. PANCREAS: No peripancreatic fat stranding. BOWEL/MESENTERY: No significant free fluid. No free air. Although nondistended and unopacified, there is long segment distal colonic wall thickening with significant surrounding hazy fat stranding and streaky fluid, consistent with colitis. Scattered air-fluid levels within nondilated bowel loops suggesting mild associated ileus formation. GALLBLADDER: No pericholecystic fat stranding. LIVER/STOMACH: No obvious abnormality. URINARY COLLECTING SYSTEM/ KIDNEYS: No obstructing ureteral calculus. Left simple fluid attenuating renal lesion, likely renal cyst. Stable right greater than left extrarenal pelves again noted. APPENDIX: Normal caliber gas containing appendix. SPLEEN: Incidental extensive punctate calcifications of the spleen consistent with granulomas. LUNG BASES: Unremarkable. BONES: Right total hip arthroplasty, incompletely imaged, although no obvious hardware complication. Again are noted right greater than left sacral fractures. Lumbar levoscoliosis. CT/Abdomen/Pelvis WITH Contrast IMPRESSION: Distal colitis. Scattered air-fluid levels within nondilated bowel loops suggesting mild associated ileus formation. Stool burden is unremarkable. Again are noted right greater than left sacral fractures, little changed from one week prior. Electronically Signed: Walter Trammell MD at 22:46 EST ,
--- NOTE | 2023-11-30 16:25 | EX.ED.DYSGE1 ---
HPI History of Present Illness Chief Complaint: Constipation Informant: patient Onset/Context/Timing Onset: Weeks Narrative Narrative: Patient presents from TCU secondary to continued constipation. She was seen in the emergency room in late October and diagnosed for intractable low back pain. A CT scan confirmed a compression fracture across her sacrum. She is currently in TCU for rehab. She reportedly has not had a regular bowel movement in 3 weeks. She has been passing gas. They have obtained abdominal x-rays as well as given her soapsuds enemas, GoLytely, lactulose, and magnesium citrate without results. Today when they wanted to do another soapsuds enema family asked that she be transferred to the ER for evaluation. Patient was recently assessed by GI secondary to difficulty swallowing. She had esophageal stenosis noted that required dilation. [facility] Medical History Abnormal echocardiogram Acute dyspnea Arthritis Asthma Bilateral hemianopia Broken arm Chronic dyspnea Constipation Elevated troponin Glaucoma Hearing deficit Heart valve problem Hip pain with osteonecrosis History of atrial fibrillation Hx of headache Hyperlipemia Hypertension Osteoarthritis of right hip Prolapsed bladder Stroke Syncope Takotsubo cardiomyopathy Vitamin D deficiency Home Medications apixaban 2.5 mg tablet (Eliquis) 2.5 mg PO BID blood thinner 06/04/23 [History Last Taken 11/25/23 22:35] rosuvastatin 5 mg tablet (Crestor) 5 mg PO DAILY cholesterol #90 tabs 08/22/23 [Rx Last Taken Unknown] handicap placard #1 ea 09/30/23 [Rx Last Taken Unknown] acetaminophen 500 mg tablet 1,000 mg (2 x 500 mg) PO Q8 pain #0 tabs 11/22/23 [Rx Last Taken 11/26/23 04:30] oxycodone 5 mg capsule 5 mg PO Q6H PRN pain (scale score 7-10) 3 days #12 caps 11/22/23 [Rx Last Taken 11/26/23 07:30] amoxicillin 875 mg-potassium clavulanate 125 mg tablet 1 tab PO BID #20 tabs 11/30/23 [Rx Last Taken Unknown] Allergy/AdvReac Type Severity Reaction Status Date / Time procaine [From Novocain] Allergy Severe passed out Verified 11/30/23 22:49 Family History Father Heart disease Surgical History H/O neck surgery History of hip replacement History of surgery on arm S/P total right hip arthroplasty Social History household members: none current occupational status: 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 [employer] Smoking Status: Never smoker Electronic Cigarette Use: not used alcohol intake: never substance use type: does not use what type of physical activity do you participate in: none do you feel safe at home: Yes ROS ROS ED Constitutional Constitutional ED: Denies chills or fever(s) Eyes Eyes: Denies change in vision or discharge from eye(s) ENT ENT ED: Denies discharge from eye(s), rhinorrhea or sore throat Cardiovascular Cardiovascular: Denies chest pain or palpitations Respiratory/Chest Respiratory/Chest: Denies cough or dyspnea Gastrointestinal Gastrointestinal: Reports abdominal pain and constipation; Denies nausea or vomiting Genitourinary Genitourinary ED: Denies dysuria Musculoskeletal Musculoskeletal: Reports back pain; Denies extremity pain Integumentary Denies Abrasions or rash Neurologic Neurologic: Reports weakness; Denies headache(s) Psychiatric Psychiatric: Denies anxiety or depression Allergic/Immunologic Allergic/Immunologic ED: Denies lip swelling or urticaria EXAM Physical Exam Const Vital Signs: 11/30/23 16:14 11/30/23 16:30 11/30/23 17:30 Temperature 98.2 F 98.2 F Temperature Source Oral Oral Pulse Rate 111 H 107 H 80 Respiratory Rate 16 16 16 Blood Pressure 159/81 H 109/81 H 100/90 H Blood Pressure Mean 107 90 93 Pulse Ox 96 97 96 Oxygen Delivery Method Room Air Room Air Room Air 11/30/23 18:15 11/30/23 22:00 Temperature Temperature Source Pulse Rate 114 H 96 Respiratory Rate 18 22 H Blood Pressure 122/86 H 132/67 H Blood Pressure Mean 98 88 Pulse Ox 96 95 Oxygen Delivery Method Room Air Positive well nourished and well developed General Appearance ED: well developed HEENT Reports moist mucous membranes Eyes EOMs intact bilaterally Chest Wall inspection of chest normal and palpation of chest normal Resp normal respiratory effort and clear to auscultation bilaterally Cardio Rate: tachycardic Rhythm: abnormal rhythm irregularly irregular GI GI Narrative: Abdomen soft and nontender. Hypoactive bowel sounds noted. Extremity normal to inspection Psych mental status grossly normal MDM MDM MDM Narrative Medical decision making narrative: I did review the abdominal x-ray patient had performed earlier today. She does have increased stool noted along the descending colon. All of her dilated bowel loops with air are noted on the right side of the abdomen. Given this I will obtain a CT scan with p.o. and IV contrast to ensure no evidence of obstruction. Labwork obtained to evaluate for leukocytosis, anemia, and electrolyte derangement. History & Record Review Discussion w/independent historian: Patient and Family Additional record(s) reviewed:: Prior ED visit and Prior labs Lab Data Attestation: I reviewed the patient's lab results. Labs: Laboratory Results - last 24 hr 11/30/23 16:50 WBC 10.2 RBC 3.96 L Hgb 12.4 Hct 36.6 L MCV 92.4 MCH 31.3 MCHC 33.9 RDW Std Deviation 46.7 H RDW Coeff of Criselda 13.8 Plt Count 292 MPV 9.2 Immature Gran % (Auto) 0.400 Neut % (Auto) 78.0 H Lymph % (Auto) 13.1 L Sawyer % (Auto) 7.3 Eos % (Auto) 0.7 Baso % (Auto) 0.5 Absolute Neuts (auto) 8.0 H Absolute Lymphs (auto) 1.34 Nucleated RBC % 0 Sodium 138 Potassium 4.1 Chloride 103 Carbon Dioxide 30.0 Anion Gap 5 BUN 17 Creatinine 0.62 Estim Creat Clear Calc 38.94 Est GFR (MDRD) Af Amer 118 Est GFR (MDRD) Non-Af 98 BUN/Creatinine Ratio 27.4 H Glucose 101 Calcium 9.4 Radiography Diagnostic Testing: Clinical Impression(s) from Imaging Studies Abdomen/Pelvis CT 11/30/23 16:24 IMPRESSION: Distal colitis. Scattered air-fluid levels within nondilated bowel loops suggesting mild associated ileus formation. Stool burden is unremarkable. Again are noted right greater than left sacral fractures, little changed from one week prior. Electronically Signed: Walter Trammell MD at 22:46 EST , EKG Initial EKG: Attestation: I personally reviewed and interpreted this EKG as follows: Interpretation: Sinus Tachycardia (Sinus tach at 120 with left bundle branch block. Study looks similar compared to prior study from February 2023.) Treatment and Re-Evaluation :: CBC was normal white count 10.2 with 78% neutrophils. Hemoglobin is 12.4. Chemistry studies unremarkable with normal renal function. Patient did have some problems vomiting after drinking her contrast. She was given dose of IV Reglan to try to help. Before patient could even go to CT, she was on the bedside commode having frequent bowel movements. Nursing staff states that she sat there roughly 2 hours passing a lot of stool. CT scan was ultimately able to finally be performed. CT scan reveals evidence of distal colitis. Scattered air-fluid levels within the nondilated bowel loops suggest mild associated ileus formation. Stool burden is currently unremarkable. Sacral fractures are again noted. We spoke with staff at TCU. I do feel she can be discharged back there safely with oral antibiotics. This is been discussed with patient as well as family at bedside. They are comfortable with the plan. Patient be given a dose of Augmentin here with a prescription for the same. Discharge Plan Triage Chief Complaint: Constipation ED Provider: Lindy Kenneyd Dx/Rx/DC Orders Clinical Impression: Colitis, Constipation Instructions: ED Understanding Colitis, ED Constipation (Adult) Prescriptions: New amoxicillin-pot clavulanate 875-125 mg tablet 1 tab PO BID Qty: 20 0RF No Action Eliquis 2.5 mg tablet 2.5 mg PO BID Patient Comments: take 1 tablet by mouth twice a day acetaminophen 500 mg Tablet 1,000 mg PO Q8 Qty: 0 0RF oxycodone 5 mg capsule 5 mg PO Q6H PRN (Reason: pain (scale score 7-10)) 3 Days Qty: 12 0RF rosuvastatin [Crestor] 5 mg tablet 5 mg PO DAILY Qty: 90 1RF (DME) handicap placard See Rx Instructions .ROUTE .MEDSUPPLY Qty: 1 0RF Rx Instructions: Diagnosis: Impaired physical mobility Z74.09 Length of time: 4 years Primary Care Provider: Domonique Gilbert Referrals: Domonique Gilbert MD [Primary Care Provider] - Disposition Disposition: [facility] Discharge Location: [facility] Transitional Care Unit
[2023-11-30 16:30] VITALS: BP 109/81; PULSE 107; RESP 16; TEMP 36.8; O2SAT 97
[2023-11-30] MEDS: Metoclopramide 10 MG/2 ML Vial 5 MG IV (16:54)
[2023-11-30] MEDS: 0.9% Normal Saline (1000mL) 1,000 ML 150 ML IV ×2 (16:54→23:06)
--- OUTSIDE RECORDS SUMMARY | 2023-11-30 16:56 | XMS RPT_ITS | CCD ---
Author Name Unknown Address [address] [place] [address] Organization [facility] Care Team Providers Care Shift Nurse Manager Name Role Phone Yasmany MENENDEZ, Ilya Melendrez Primary Care Provider Unavailable Primary Care Provider Angelina Falcon MD Primary Care Provider NEWTON THOMAS Attending Unavailable ANGELINA GILBERT Primary Care Unavailable NEWTON THOMAS Attending Unavailable ANGELINA GILBERT Primary Care Unavailable Allergies Allergy Classification Reported Allergen(s) Allergy Type Date of Onset Reaction(s) Facility (4 sources) Procaine Drug Allergy 9 Other: See Comments, Other [facility] Work Phone: (2 sources) HMG-CoA reductase inhibitor Drug Intolerance 1 [facility] [employer] Medications Current Medications Medication Drug Class(es) Dates [...] not crush, chew, or split. 0 Active [id number] 200 actuat albuterol 0.09 mg/actuat metered dose [...] Coronary atherosclerosis; Translations: [Atherosclerotic heart disease of [place] coronary artery without angina pectoris] Onset: 04-22-2019 [...] 147.3 cm Newton Thomas MD Work Phone: [facility] 08-06-2023 12:55-0500 Body mass index (BMI) [Ratio] 20.9 kg/m2 Newton Thomas MD Work Phone: [facility] 08-06-2023 12:55-0500 Body weight 45.36 kg Newton Thomas MD Work Phone: [facility] 08-06-2023 12:55-0500 Diastolic blood pressure 70 mm[Hg] Newton Thomas MD Work Phone: [facility] 08-06-2023 12:55-0500 Heart rate 62 /min Newton Thomas MD Work Phone: [facility] 08-06-2023 12:55-0500 SaO2% (BldA) [Mass fraction] 97 % Newton Thomas MD Work Phone: [facility] 08-06-2023 12:55-0500 Systolic blood pressure 136 mm[Hg] Newton Thomas MD Work Phone: [facility] 03-16-2019 05:59-0400 Body temperature 37.0 Deg Lizzie [facility] Encounters Encounter Date Encounter Type Care Provider Facility Start: 09-08-2023 Letter encounter [facility] Start: 08-06-2023 End: 08-06[facility] Start: 08-06-2023 End: 08-06-2023 Office outpatient visit 25 minutes Newton Thomas MD Work Phone: [facility] Procedures Date Procedure Procedure Detail Performing [...] Author Start: 03-09-2028 Lipid panel Lipid Panel [facility] Start: 03-03-2024 End: 03-03-2024 Patient encounter procedure 03/03/2024 2:00 PM EDT Office Visit [facility] [address] [place] [address] Newton Thomas MD [address] [place], [place] [id number] [facility] Start: 08-06-2023 End: 08-06-2023 Patient encounter procedure 08/06/2023 1:00 PM EST Office Visit [facility] [address] [place] [id number] Newton Thomas MD [address] [place] [address] [facility] Start: 06-23-2023 Influenza vaccination Influenza Vaccine (#1) [facility] Start: 05-24-2023 Influenza vaccination Influenza Vaccine (#1) [facility] Start: 08-18-2022 DIABETES SCREEN DIABETES SCREEN [facility] Start: 06-23-2022 Influenza [facility] Start: 05-24-2022 Influenza vaccination INFLUENZA (Season Ended) [facility] Start: 01-15-2022 End: 03-17-2022 Comprehensive metabolic 2000 panel - Serum or Plasma COMP METABOLIC PANEL Lab Routine Essential hypertension Expected: 01/15/2022, Expires: 03/17/2022 [facility] Work Phone: Payers Date Payer Category Payer Unknown COMMERCIAL INSUR ANCE - OTHER COMMERCIAL INSURANCE OTHER [id number] 2019-Present [phone] [address] [place] [address] Indemnity [id number] 2012 Medicare [employer] PLAN MEDICARE THP SECURECARE MDCR HMO [id number] 2012-Present [phone] [address] [place] [address] [facility] [id number] 2012 Medicare HEALTH PLAN OF [place] MEDICARE THE HEALTH PLAN MEDICARE ADVANTAGE [id number] 2012-Present [address] [place] [place] [address] Medicare HMO [id number] 2012 Medicare [id number] Social History Date Type Detail Facility Start: 03-31-2019 Tobacco smoking stat [facility] Never smoked tobacco [facility] Start: 03-31-2019 Tobacco use and exposure Smokeless t obacco non-user [facility] Start: 08-05-2020 End: 08-06-2023 Alcohol intake Lifetime non-drinker (finding) [facility] Start: 08-05-2020 History SDOH Alcohol Frequency [address] [facility] Start: 1940 Sex Assigned At Not on file [facility] Tobacco smoking stat [facility] Tobacco smoking consumption unknown [facility] Start: 03-19-2023 End: 08-06-2023 Gender identity Not on file [facility] Start: 03-19-2023 End: 08-06-2023 History of Social function [facility] Medical Equipment Procedure Code Equipment Code Equipment Origin al Text Equipment Identifier Dates [id number] Implant - [id number] Start: 03-19-2019 Screw Lcp 1.5mm T4 Low Profile Stainless Steel 12mm Bone Self Tap Self - [id number] Start: 03-19-2019 Screw Lcp 2.4mm T8 Stainless Steel 14mm Bone Variable Angle Lock Self Tap - [id number] Start: 03-19-2019 Screw Lcp 2.4mm T8 Stainless Steel 16mm Bone Variable Angle Lock Self Tap - [id number] Start: 03-19-2019 Screw Lcp 2.7mm T8 Stainless Steel 14mm Bone Stardrive Self Tap Modular - [id number] Start: 03-19-2019 Screw Lcp 2.7mm T8 Stainless Steel 16mm Bone Stardrive Self Tap Modular - [id number] Start: 03-19-2019 Screw Lcp 2.7mm T8 Stainless Steel 18mm Bone Stardrive Self Tap Modular - [id number] Start: 03-19-2019 Screw Lcp 2.4mm T8 Stainless Steel 18mm Bone Variable Angle Lock Self Tap - [id number] Start: 03-19-2019 Screw Lcp 2.4mm T8 Stainless Steel 12mm Bone Variable Angle Lock Self Tap - [id number] Start: 03-24-2019 Clinical Notes 03-15-2019 to 08-06-2023 Newton Thomas MD - 08/06/2023 1:00 PM ESTTelephone Encounter - Newton Thomas MD - 06/12/2023 3:44 PM EDTTelephone Encounter - Newton Thomas MD - 06/12/2023 3:44 PM EDT Note Date & Type Note Facility 08-06-2023 History of Presen t illness Narrative [facility] [place] Card[facility]/Electrophysiology Follow Up Clinic Note Chief Complaint: [...] for 45 min. She was transferred from [place] ED to [facility] where a troponin went up to 7, [...] observe. In February 2023 she presented to [facility] with a CVA (cortical right gyral [...] LBBB. A cath in February 2019 at [facility] showed normal LM, Circ, RCA and a [...] meds. 5. Mitral Regurgitation: The echo from [facility] [place] in February 2023 does not report any [...] of SERVICE: 08/06/2023 documented in this encounter [facility] 06-12-2023 Telephone encounter Note Ok to change to Crestor. Spoke to Dr Gilbert. [facility] 06-12-2023 Miscellaneous Notes Ok to change to Crestor. Spoke to Dr Gilbert. Nurse Jossie Núñez RN, for Dr Gilbert following up, FYI Dr Gilbert will not be in on Saturday. [phone] Thomas [address] Gilbert Pt's pcp lvm 06/04/23 @ 4:39pm. Dr Ofelia Miramontes , Pt seen 06/04/23 with generalized aches and pain. Also dizziness and light headed HR laying zak 73 standing 47. PCP asking if OC would be ok with pt trying an alternative statin. documented in this encounter [facility] 06-12-2023 Telephone encounter Note Nurse Jossie Núñez RN, for Dr Gilbert following up, FYI Dr Gilbert will not be in on Saturday. [phone] [facility] 06-11-[address] Thomas will call Dr Gilbert [facility] 06-11-2023 Telephone encounter Note Pt's pcp lvm 06/04/23 @ 4:39pm. Dr Ofelia Miramontes , Pt seen 06/04/23 with generalized aches and pain. Also dizziness and light headed HR laying zak 73 standing 47. PCP asking if OC would be ok with pt trying an alternative statin. [facility] 01-15-2022 Note HNO ID: [id number] Author: Veronica Arevalo Ma Service: ? Author [...] Payor: THE HEALTH PLAN MEDICARE / Plan: [employer] HMO / Product Type: HMO / Care [...] Arevalo Ma January 15, 2022 2:31 PM [facility] 01-15-2022 Note HNO ID: [id number] Author: Veronica Arevalo Ma Service: ? Author Type: ? Type: Progress Notes Filed: 01/15/2022 2:29 PM Note Text: See outreach enc. [facility] 01-15-2022 History of Presen t illness Narrative POPULATION HEALTH NAVIGATION OUTREACH Action/FYI Pt was left a vm to return call. Pt identified by name and : YES, via phone Outreach Outcome/Action Unable to reach patient: Left message Reason for Outreach Care Gap or Scheduling/Wellness visits Payer: Payor: THE HEALTH PLAN MEDICARE / Plan: [employer] MDCR HMO / Product Type: HMO / [...] 2022 2:31 PM documented in this encounter [facility] 01-15-2022 History of Presen t illness Narrative See outreach enc. STAMP Please reach out to patient for overdue appointment for chronic disease management with myself, Dr. Jade, or Claudia Pham. Labs are ordered. If he/she is no longer following with Dr. Jade, please remove name from PCP field. Papito Hernandez APRN.COLTON documented in this encounter [facility] 01-15-2022 Note Patient Outreach (PERI MPCANDICE) MAK NAPIER ([id number]) 1940 F Date Time Provider Department 01/15/22 VERONICA AREVALO During your visit today, we recorded the following information about you: Vreonica Arevalo Ma 01/15/2022 3:00 PM Signed POPULATION HEALTH NAVIGATION OUTREACH Action/FYI Pt was left a vm to return call. Pt identified by name and : YES, via phone Outreach Outcome/Action Unable to reach patient: Left message Reason for Outreach Care Gap or Scheduling/Wellness visits Payer: Payor: THE HEALTH PLAN MEDICARE / Plan: [facility] MDCR HMO / Product Type: HMO [...] Assessed Reason for Visit: PHMA/Care Gap Outreach [3020] Prescriptions as of 01/15/2022 - metoprolol succinate [...] cardiomyopathy [I51.81] 04/22/2019 Coronary artery disease involving [place] oneill*04/22/2019 Dyslipidemia [E78.5] 04/22/2019 Essential hypertension [I10] 04/22/2019 Encounter Status:Closed by VERONICA AREVALO MA on 01/15/22 [facility] 01-15-2022 Note Patient Outreach (FA MPWS) MAK NAPIER ([id number]) 1940 F Date Time Provider Department 01/15/22 [...] [E78.5] Order(s):LIPID PANEL BASIC [SQLIPB] Order #: [id number] FUTURE COMP METABOLIC PANEL [SQCMP] Order #: [id number] FUTURE Prescriptions as of 01/15/2022 - metoprolol [...] cardiomyopathy [I51.81] 04/22/2019 Coronary artery disease involving [place] oneill*04/22/2019 Dyslipidemia [E78.5] 04/22/2019 Essential hypertension [I10] 04/22/2019 Encounter Status:Closed by VERONICA AREVALO MA on 01/15/22 [facility] 01-15-2022 Note HNO ID: [id number] Author: Papito Hernandez APRN.CNP Service: ? Author Type: Nurse Practitioner Type: Progress Notes Filed: 01/15/2022 2:29 PM Note Text: STAMP Please reach out to patient for overdue appointment for chronic disease management with myself, Dr. Jade, or Claudia Pham. Labs are ordered. If he/she is no longer following with Dr. Jade, please remove name from PCP field. Papito Hernandez APRN.CNP [facility] documented as of this encounter (statuses as of 01/15/2022) [facility] Diagnosis Essential hypertension- Primary Unspecified essential hypertension Dyslipidemia Other and unspecified hyperlipidemia documented in this encounter [facility]* Diagnosis Cryptogenic stroke (HCC)- Primary Paroxysmal atrial tachycardia Paroxysmal supraventricular tachycardia Takotsubo syndrome Primary hypertension Unspecified essential hypertension LBBB (left bundle branch block) Other left bundle branch block Mixed hyperlipidemia Coronary artery disease involving [place] coronary artery of [place] heart without angina pectoris documented in this encounter [facility] Summary Purpose Family History No Family History Records FoundNo Family History Records FoundNo Family History Records FoundNo Family History Records Found Advance Directives Documents on File Type Date Recorded Patient 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 Expl anation Advance Directive(s) 03/16/2019 3:54 PM Advance Directive(s) 03/14/2019 3:26 PM Additional Source Comments INFORMATION SOURCE (unrecogn ized section and content) DATE CREATED AUTHOR AUTHOR'S ORGANIZ ATION 08/12/2020 [facility] DATE CREATED AUTHOR AUTHOR'S ORGANIZ ATION 01/17/2022 [facility] DATE CREATED AUTHOR AUTHOR'S ORGANIZ ATION 08/08/2023 [facility] Source Comments (unrecognize d section and content) In the event this informatio n is protected by the Federal Confidentiality of Alcohol and Drug Abuse Patient Records regulations: The Federal rules restrict any use of the information to criminally investigate or prosecute any alcohol or drug abuse patient.[facility] the event this information is protected by the Federal Confidentiality of Alcohol and Drug Abuse Patient Records regulations: The Federal rules restrict any use of the information to criminally investigate or prosecute any alcohol or drug abuse patient.[facility] Care Teams (unrecognized sec tion and content) Shift Nurse Manager Relationship Specialty Start Date End Date Ilya Jade MD [address] [place], [place] [id number] PCP - General Family Practice 06/30/19 Shift Nurse Manager Relationship Specialty Start Date End Date Angelina Gilbert MD [address] [place] [address] PCP - General 03/19/23 Shift Nurse Manager Relationship Specialty Start Date End Date Angelina Gilbert MD [address] [place], [place] [id number] PCP - General 03/19/23 Reason for Visit [...] BE BASED ON THE PRIMARY CLINICAL RECORDS. [facility]. provides no warranty or guarantee of the accuracy or completeness of information in this document.
[2023-11-30 17:00] LABS: Absolute Lymphocyte Count 1.34 X10^3/uL (0.83-4.51); Basophil# 0.05 X10^3/uL; Basophil% 0.5 % (0-1); Eosinophil# 0.07 X10^3/uL; Eosinophils% 0.7 % (0-5); Hematocrit 36.6 % (37-47); Hemoglobin 12.4 g/dL (12.0-15.0); Lymphocyte # 1.34 X10^3/ul (0.83-4.51); Lymphocyte % 13.1 % (19-41); Mean Corp Hgb Conc 33.9 g/dL (32-36); Mean Corpuscular Hgb 31.3 pg (27.0-32.0); Mean Corpuscular Volume 92.4 fL (81-99); Mean Platelet Vol. 9.2 fl (6.2-12.0); Monocyte# 0.75 X10^3/uL; Monocyte% 7.3 % (0-10); NRBC Flagged by Analyzer 0 % (0-5); Neutrophil # 7.98 X10^3/uL (2.7-7.7); Platelet Count 292 K/mm3 (150-450); RBC Distribution Width CV 13.8 % (11.6-14.6); RBC Distribution Width SD 46.7 fl (35.1-43.9); Red Blood Count 3.96 M/mm3 (4.2-5.4); White Blood Count 10.2 K/mm3 (4.4-11.0)
[2023-11-30 17:13] LABS: Anion Gap 5 (5-15); BUN 17 mg/dL (7-18); BUN/Creat Ratio 27.4 RATIO (10-20); Calcium,Total 9.4 mg/dL (8.5-10.1); Chloride 103 mmol/L (98-107); Creatinine, Serum 0.62 mg/dL (0.55-1.02); EST Glomerular Filtration Rate 98 mL/min (>60); Est Glom Filt Rate - Afr Amer 118 mL/min (>60); Estimated Creatinine Clearance 38.94 ml/min; Glucose 101 mg/dL (74-106); Potassium 4.1 mmol/L (3.5-5.1); Sodium Level 138 mmol/L (136-145)
[2023-11-30 17:30] VITALS: BP 100/90; PULSE 80; RESP 16; O2SAT 96
[2023-11-30 18:15] VITALS: BP 122/86; PULSE 114; RESP 18; O2SAT 96
--- NOTE | 2023-11-30 18:25 | ED.RN ---
at 1800 pt was assisted up to bsc by marah cosme, pt still on bsc and has been passing gas and stool.
[2023-11-30] MEDS: oxyCODONE 5 MG Tablet PO (19:39)
--- NOTE | 2023-11-30 19:46 | ED.RN ---
pt had extra large bm in bsc after treatments yesterday.
[2023-11-30 22:00] VITALS: BP 132/67; PULSE 96; RESP 22; O2SAT 95
[2023-11-30] MEDS: traMADol 50 MG Tablet PO (22:24)
[2023-11-30] MEDS: Amox/Clavulanate 875 MG Tablet PO (23:05)
[2023-11-30 23:10] VITALS: BP 123/80; PULSE 96; RESP 22; TEMP 36.8; O2SAT 95
== END 2023-11-30 23:12 | disposition skilled nursing facility (03) ==
PROVIDERS: Emergency Provider Emergency Medicine; PCP Internal Medicine; Visit Provider Emergency Medicine
DX: K52.9 Noninfective gastroenteritis and colitis, unspecified (principal); K59.00 Constipation, unspecified; Z79.01 Long term (current) use of anticoagulants; Z79.899 Other long term (current) drug therapy; Z86.73 Personal history of transient ischemic attack (TIA), and cerebral infarction without residual deficits
CPT/HCPCS: 74177; 80048; 85025; 96361; 96374; 99285; J7030; Q9967; A4216

== ENCOUNTER → 2023-12-12 | Outpatient (CLI) | payer MEDICARE, SELFPAY ==
--- NOTE | 2023-12-12 16:43 | MRI_ITS ---
EXAM: MR PELVIS WITHOUT INTRAVENOUS CONTRAST CLINICAL INDICATION: SACRAL FRACTURE, LOW BACK PAIN TECHNIQUE: Multiplanar and multisequence MR images of the pelvis without intravenous contrast. COMPARISON: November 30, 2023 CT FINDINGS: BOWEL: Distal colonic diverticulosis but no acute diverticulitis. No colitis. No bowel obstruction. INTRAPERITONEAL SPACE: No free fluid. BLADDER: Unremarkable although not completely distended. BONES/JOINTS: Bilateral sacral ala insufficiency fractures with associated bone marrow edema. Additionally there is fracture with cortical discontinuity at the upper aspect of the S2 segment as seen on the sagittal MRI plane. These fractures were seen on the CT. Right total hip arthroplasty with susceptibility artifact limiting assessment of the adjacent tissues. Grade 1 degenerative anterolisthesis of L4 on L5 and of L5 on S1 with underlying moderate degenerative disc disease at these levels. SOFT TISSUES: Unremarkable. No pelvic wall hernia. LYMPH NODES: Unremarkable. No enlarged lymph nodes. MRI/Pelvis (Routine) IMPRESSION: 1. Redemonstration bilateral sacral fractures, unchanged in alignment from before. 2. Grade 1 degenerative anterolisthesis of L4 on L5 and of L5 on S1. Electronically Signed: Thanh Carreon MD at 22:10 EDT ,
== END | disposition home or self-care (01) ==
PROVIDERS: PCP Internal Medicine; Referring Provider Family Medicine Geriatric Medicine; Visit Provider Family Medicine Geriatric Medicine
DX: S32.19XA Other fracture of sacrum, initial encounter for closed fracture (principal); X58.XXXA Exposure to other specified factors, initial encounter
CPT/HCPCS: 72195

== ENCOUNTER 2023-12-13 13:38 | Day surgery (SDC) | payer MEDICARE, SELFPAY ==
[2023-12-13] VITALS (7 sets, daily range): BP systolic 135–147; BP diastolic 57–68; PULSE 62–82; RESP 16–18; TEMP 36.6–37.9; O2SAT 93–98; BMI 21.5
[2023-12-13] MEDS: Lactated Ringers 1,000 ML 15 ML IV (13:56)
[2023-12-13] MEDS: Lidocaine 0.5% (50 ml) 50 ML Vial (16:04)
[2023-12-13] MEDS: Triamcinolone Acetonide 40 MG/ML Vial (16:04)
--- NOTE | 2023-12-13 16:05 | RAD_ITS ---
EXAM: FL Fluoro (separate procedure), up to 1 hour HISTORY: CAUDAL BLOCK COMPARISON: None Technique: 1.3 cm on fluoroscopy provided for caudal block. Radiation dosage of 0.18 MGY one C-arm film obtained FINDINGS: Fluoroscopy provided for Dr. Choudhury to perform a caudal block RAD/Fluor Guidance for Spine Inj IMPRESSION: Fluoroscopy for caudal block Electronically Signed: Scott Delgado MD at 21:19 EDT ,
== END 2023-12-13 17:00 | disposition skilled nursing facility (03) ==
LOC: SDC 13:39 → AC 13:39
PROVIDERS: PCP Internal Medicine; Referring Provider Anesthesiology Pain Medicine; Visit Provider Anesthesiology Pain Medicine
PROC: 3E0S3BZ Introduction of Anesthetic Agent into Epidural Space, Percutaneous Approach (ICD-10-PCS; CPT 62282; principal; 2023-12-13 14:40)
DX: M54.18 Radiculopathy, sacral and sacrococcygeal region (principal); I48.91 Unspecified atrial fibrillation; W19.XXXA Unspecified fall, initial encounter; I10 Essential (primary) hypertension; Z79.01 Long term (current) use of anticoagulants; Z79.899 Other long term (current) drug therapy; Z86.73 Personal history of transient ischemic attack (TIA), and cerebral infarction without residual deficits
CPT/HCPCS: 62323; 01992; 64483; 77003

== ENCOUNTER → 2024-01-28 | Outpatient (CLI) | payer MEDICARE, SELFPAY ==
--- NOTE | 2024-01-28 09:21 | RAD_ITS ---
STUDY: X-RAY - MANDIBLE (COMPLETE) REASON FOR EXAM: Female, 83 years old. One week history of left-sided jaw pain. TECHNIQUE: 4 view(s) of the mandible were obtained. COMPARISON: None. FINDINGS: Multiple small lytic lesions are seen in the mandible. This may represent multiple myeloma. Bone survey recommended. Normal visualized right temporomandibular joint. Normal visualized left temporomandibular joint. Prior fusion of the lower cervical spine. The soft tissue structures are unremarkable. RAD/Mandible Min 4 Views IMPRESSION: Multiple small lytic lesions are seen in the mandible. This may represent multiple myeloma. Bone survey recommended. Electronically Signed: David Arnett MD at 10:35 EDT ,
[2024-01-28 12:35] LABS: Erythrocyte Sedimentation Rate 27 mm/hr (0-30)
[2024-01-28 12:36] LABS: Vitamin D,25 Hydroxy 67.3 ng/mL
[2024-01-28 12:38] LABS: Absolute Lymphocyte Count 1.45 X10^3/uL (0.83-4.51); Absolute Neutrophil Count 2.3 X10^3/uL (2.0-7.7); Basophil# 0.07 X10^3/uL; Basophil% 1.6 % (0-1); Eosinophils% 2.2 % (0-5); Hematocrit 38.3 % (37-47); Hemoglobin 13.5 g/dL (12.0-15.0); Lymphocyte # 1.45 X10^3/ul (0.83-4.51); Lymphocyte % 32.5 % (19-41); Mean Corp Hgb Conc 35.2 g/dL (32-36); Mean Corpuscular Hgb 31.5 pg (27.0-32.0); Mean Corpuscular Volume 89.3 fL (81-99); Mean Platelet Vol. 9.6 fl (6.2-12.0); Monocyte# 0.55 X10^3/uL; Monocyte% 12.3 % (0-10); NRBC Flagged by Analyzer 0 % (0-5); Neutrophil # 2.25 X10^3/uL (2.7-7.7); Neutrophil % 50.5 % (47-70); Platelet Count 375 K/mm3 (150-450); RBC Distribution Width CV 15.3 % (11.6-14.6); RBC Distribution Width SD 49.9 fl (35.1-43.9); Red Blood Count 4.29 M/mm3 (4.2-5.4); White Blood Count 4.5 K/mm3 (4.4-11.0)
[2024-01-28 12:40] LABS: CPK Total, Creatine Kinase 31 U/L (26-192)
== END | disposition home or self-care (01) ==
PROVIDERS: PCP Internal Medicine; Referring Provider Internal Medicine; Visit Provider Internal Medicine
DX: R68.84 Jaw pain (principal); E55.9 Vitamin D deficiency, unspecified
CPT/HCPCS: 36415; 70110; 82306; 82550; 85025; 85652

== ENCOUNTER → 2024-01-31 | Outpatient (CLI) | payer MEDICARE, SELFPAY ==
--- NOTE | 2024-01-31 08:50 | RAD_ITS ---
STUDY: X-RAY - bony survey REASON FOR EXAM: Female, 83 years old. abnormal jaw XR TECHNIQUE: Bony survey. COMPARISON: FINDINGS: The calvarium is unremarkable. Limited visualization of the mandible. Degenerative cervical changes with anterior surgical fusion of C5-C7 . Degenerative vertebral changes of the thoracal lumbar column with minimal scoliosis. Minimal retrolisthesis at L2-3. The ribs are unremarkable. The shoulders are normal. Status post ORIF of the right radius. The pelvis is unremarkable. There is a right hip prosthesis in place. The left hip is normal. The visualized lower extremities are normal. No bony blastic or lytic lesions RAD/Bone Survey Comp(Axial&Append) IMPRESSION: Unremarkable total bony survey. If bony lesions of the mandible is still suspected, correlation with CT is recommended. Electronically Signed: Husam Lui DO at 22:38 EDT ,
== END | disposition home or self-care (01) ==
PROVIDERS: PCP Internal Medicine; Referring Provider Internal Medicine; Visit Provider Internal Medicine
DX: R93.7 Abnormal findings on diagnostic imaging of other parts of musculoskeletal system (principal)
CPT/HCPCS: 77075

== ENCOUNTER → 2024-02-10 | Outpatient (CLI) | payer MEDICARE, SELFPAY ==
--- NOTE | 2024-02-10 16:33 | CT_ITS ---
STUDY: CT FACIAL BONES WITH CONTRAST REASON FOR EXAM: Female, 83 years old. Abnormal x-ray RADIATION DOSAGE (If Supplied By Facility): CTDIvol = ( 29.38 ) mGy, DLP = ( 547.46 ) mGycm TECHNIQUE: The patient was scanned in a multi detector CT scanner. Transaxial imaging was performed following the intravenous administration of IV 75mL [id number]-370. Sagittal and coronal images were reconstructed. Individualized dose optimization techniques were used for this CT. COMPARISON: Plain film from 01/28/2024 FINDINGS: Bones are demineralized. No suspicious lytic lucencies noted within the mandible. There is no evidence of mandibular fracture or suspicious osseous lesion there is anatomic alignment of the temporomandibular joints. There are also no suspicious lesions identified within the visualized calvarium. Paranasal sinuses are unremarkable, ostiomeatal complexes are widely patent and there is no evidence of significant nasal septal deviation. There is no suspicious enhancing lesion, no airway narrowing or deviation. CT/Sinus/Facial Bone WITH Contras IMPRESSION: No suspicious lucent lytic lesions identified within the mandible or calvarium. No demonstrated fracture No soft tissue swelling or induration of the subcutaneous fat to suspect acute inflammatory process No suspicious mucosal thickening or air-fluid levels within the paranasal sinuses Electronically Signed: Scott Delgado MD at 10:53 EDT ,
[2024-02-10 16:57] LABS: CREATININE FINGERSTICK < 1.0 mg/dL (0.55-1.02); EGFR FINGERSTICK > 60.0000 mL/min (>60)
== END | disposition home or self-care (01) ==
LOC: CT 16:31
PROVIDERS: PCP Internal Medicine; Referring Provider Internal Medicine; Visit Provider Internal Medicine
DX: R68.84 Jaw pain (principal); R93.89 Abnormal findings on diagnostic imaging of other specified body structures
CPT/HCPCS: 70487; Q9967

== ENCOUNTER 2024-06-14 16:07 | Emergency (ER) | payer MEDICARE, SELFPAY ==
[2024-06-14 16:08] VITALS: BP 167/120; PULSE 75; RESP 16; TEMP 36; O2SAT 98
[2024-06-14 16:29] VITALS: BMI 17.4
--- NOTE | 2024-06-14 17:24 | ED.VIS.GI ---
HPI <Dr. Chris Olivas MD - Last Filed: 06/14/24 20:04> HPI - GI History of Present Illness Chief Complaint: Constipation Informant: patient and family Nausea/Vomiting/Emesis GI Symptom: Negative for Nausea or Vomiting Diarrhea/Melena/Hematochezia GI Symptom: Positive for - (Constipation for 2 weeks. Very small bowel movements.); Negative for Diarrhea, Melena or Hematochezia Onset: Weeks Associated Symptoms Associated Symptoms: Positive for Frequency; Negative for Dysuria, Hematuria or Urgency Narrative Narrative: 84-year-old female lives at home history of A-fib on Eliquis and a bladder prolapse. Says she has had constipation for 2 weeks. Very small bowel movements. Denies really abdominal pain or distention. No vomiting. States she had very limited amount of a few drops of blood intermittently. Denies any dysuria. Has had some frequency. She has a history of a prolapsed bladder. Prior similar symptoms: Yes Recent Illness/Hospitalization: Yes [facility] <Dr. Chris Olivas MD - Last Filed: 06/14/24 20:04> [facility] Medical History History of atrial fibrillation Constipation Prolapsed bladder Hip pain with osteonecrosis Asthma Abnormal echocardiogram Bilateral hemianopia Elevated troponin Stroke Chronic dyspnea Acute dyspnea Heart valve problem Hearing deficit Hx of headache Glaucoma Arthritis Broken arm Vitamin D deficiency Osteoarthritis of right hip Takotsubo cardiomyopathy Hyperlipemia Syncope Hypertension Home Medications ?Medication ?Instructions ?Recorded ?Last Taken ?Type apixaban 2.5 mg tablet (Eliquis) 2.5 mg PO BID blood thinner 06/04/23 12/09/23 History handicap placard #1 ea 09/30/23 Unknown Rx acetaminophen 500 mg tablet 1,000 mg (2 x 500 mg) PO Q8 #0 tabs 12/18/23 Unknown Rx tramadol 50 mg tablet 50 mg PO Q6H PRN PRN Pain Score 12/18/23 Unknown Rx 1-5 7 days #28 tabs ascorbic acid (vitamin C) 500 mg 1 g (2 x 500 mg) PO DAILY #180 tabs 01/08/24 Unknown Rx chewable tablet (Acerola C) denosumab 60 mg/mL subcutaneous 60 mg subcut [id number] #1 mL 01/08/24 Unknown Rx syringe (Prolia) ergocalciferol (vitamin D2) 50 mcg 50 mcg PO DAILY #90 tabs 01/08/24 Unknown Rx (2,000 unit) tablet pantoprazole 40 mg tablet,delayed 40 mg PO BID #180 tabs 01/08/24 Unknown Rx release (Protonix) rosuvastatin 5 mg tablet (Crestor) 5 mg PO DAILY cholesterol #90 tabs 01/08/24 Unknown Rx lisinopril 40 mg tablet 20 mg (1/2 x 40 mg) PO DAILY PRN 01/10/24 Unknown Rx BP Hold for SBP less than 130 mmHg #30 tabs cyclobenzaprine 5 mg tablet 5 mg PO TID PRN pain #15 tabs 01/29/24 Unknown Rx linaclotide 72 mcg capsule 72 mcg PO DAILY #30 caps 06/04/24 Unknown Rx (Linzess) Allergy/AdvReac Type Severity Reaction Status Date / Time procaine (From Novocain) Allergy Severe passed out Verified 01/28/24 08:20 Family History Father Heart disease Surgical History History of hip replacement S/P total right hip arthroplasty History of surgery on arm H/O neck surgery Social History household members: none current occupational status: 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 Chris Olivas MD - Last Filed: 06/14/24 20:04> ROS ED ROS Narrative Constipation. Denies any vomiting, abdominal pain or fever. Constitutional Constitutional ED: Denies fever(s) ENT ENT ED: Denies ear pain Cardiovascular Cardiovascular: Denies chest pain Respiratory/Chest Respiratory/Chest: Denies cough or dyspnea Gastrointestinal Gastrointestinal: Reports constipation; Denies abdominal pain, diarrhea, melena, nausea or vomiting Genitourinary Genitourinary ED: Denies dysuria or hematuria Musculoskeletal Musculoskeletal: Denies arthralgias or back pain Integumentary Denies abscess Neurologic Neurologic: Denies headache(s) Psychiatric Psychiatric: Denies anxiety or depression Endocrine Endocrinology: Denies polydipsia Hematologic/Lymphatic Hematologic/Lymphatic: Denies easy bleeding Allergic/Immunologic Allergic/Immunologic ED: Denies mouth swelling EXAM <Dr. Chris Olivas MD - Last Filed: 06/14/24 20:04> Physical Exam Narrative Exam Narrative: Well-appearing 84-year-old female. Vital signs are stable blood pressure elevated 167/120. She does not look septic toxic or in any distress. Sitting upright in bed. I believe her daughter is at bedside. H EENT exam unremarkable. Neck nontender. Lungs clear equal symmetrical bilaterally. Heart rate about 70 no murmur. Chest wall ribs nontender. Abdomen soft, nontender, nondistended, normal bowel sounds without peritoneal signs. No pulsatile mass. No obstruction or distention. Rectal exam done showed no blood or stool in the rectal vault. No mass or obvious hemorrhoid. Moving all 4 extremities. Nontender no edema. Neurologically she is awake and alert with no focal motor deficits. Answering questions and following commands. Const Vital Signs: 06/14/24 16:08 Temperature 96.8 F L Temperature Source Temporal Pulse Rate 75 Respiratory Rate 16 Blood Pressure 167/120 H Blood Pressure Mean 135 Pulse Ox 98 Oxygen Delivery Method Room Air Positive well nourished and well developed; Negative for obese, cachectic, contractures or unkempt General Appearance ED: well developed and NAD; Negative for unkempt, cachectic, contractures or pallor Nutritional Appearance: Negative for cachectic or obese HEENT Reports moist mucous membranes normocephalic and atraumatic; Negative for trauma or tenderness Eyes PERRL and EOMs intact bilaterally General Eye ED: Negative for pale conjunctiva or scleral icterus Neck no lymphadenopathy and supple Lymph Lymphatic: Negative for other Resp normal respiratory effort and clear to auscultation bilaterally Effort and Inspection: Negative for respiratory distress Auscultation: Negative for rales, rhonchi or wheezes Cardio regular rate, regular rhythm, S1 normal heart sound, S2 normal heart sound and no murmurs Rate: Negative for bradycardia or tachycardic Rhythm: Negative for abnormal rhythm GI non-tender, non-distended and no masses Inspection: Negative for abdominal distention Auscultation: normoactive bowel sounds Palpation: soft; Negative for tender, guarding, hernia, mass or rebound tenderness present Back/Spine no CVA tenderness General Back: Negative for CVA tenderness Cervical Spine: Negative for cervical spine tenderness Thoracic Spine / Upper Back: Negative for thoracic spinal tenderness Lumbar Spine / Lower Back: Negative for lumbar spinal tenderness Coccyx: Negative for other Extremity full ROM General Extremety ED: Negative for edema or tenderness General Extremity: Negative for edema Neuro CN's II-XII intact bilaterally and moves all extremities Sensorium / Orientation: alert, oriented to person, oriented to place and oriented to time; Negative for orientation impaired or confused Motor Exam: strength 5/5 throughout Psych mental status grossly normal and thought process normal Appearance: Negative for unkempt Attitude: No agitated Mood & Affect: Negative for depressed, anxious or tearful Skin no wounds General Skin Exam: Negative for jaundice or pallor Lesions: no lesions Rashes: no rashes Trauma: Negative for abrasion Nails: Negative for discolored <Dr. Dc Bradley MD - Last Filed: 06/14/24 18:31> Physical Exam Const Vital Signs: 06/14/24 16:08 Temperature 96.8 F L Temperature Source Temporal Pulse Rate 75 Respiratory Rate 16 Blood Pressure 167/120 H Blood Pressure Mean 135 Pulse Ox 98 Oxygen Delivery Method Room Air MDM <Dr. Chris Olivas MD - Last Filed: 06/14/24 20:04> MDM MDM Narrative Medical decision making narrative: 84-year-old female with constipation. KUB be obtained. UA will be obtained also due to frequency but has prior from the prolapsed bladder. A urine sample on the counter does not look infected. Rectal exam showed no blood and no stool in rectal vault. Repeat exam patient is doing well at 8 PM. Abdomen benign. Should be discharged to home with GoLytely 2 L treated for constipation. History & Record Review Discussion w/independent historian: Patient and Family Additional record(s) reviewed:: Prior inpatient record, Prior outpatient record, Prior ED visit and Prior labs Lab Data Attestation: I reviewed the patient's lab results. Lab results narrative: Urinalysis shows no infection. No nitrates. No white or red cells. Only rare bacteria. KUB consistent with fecal retention, constipation. Labs: Laboratory Results - last 24 hr 06/14/24 16:42 Urine Color Yellow Urine Clarity Clear Urine pH 6.5 Ur Specific [place] 1.010 Urine Protein Negative Urine Glucose (UA) Normal Urine Ketones Negative Urine Occult Blood 10 H Urine Nitrite Negative Urine Bilirubin Negative Urine Urobilinogen Normal Ur Leukocyte Esterase Negative Urine RBC 0 SEEN Urine WBC 0 SEEN Ur Squamous Epith Cells 0 SEEN Ur Transition Epith Cell 0-5 SEEN Urine Bacteria RARE Urine Mucus 0 SEEN Radiography Diagnostic Testing: Clinical Impression(s) from Imaging Studies KUB X-Ray 06/14/24 17:50 IMPRESSION: Suspect constipation. Electronically Signed: Casper Arshad MD at 18:34 EDT , KUB single view, interpreted by myself shows increased stool consistent with constipation. No bowel obstruction. Interpreted both by myself and radiologist. <Dr. Dc Bradley MD - Last Filed: 06/14/24 18:31> [facility] Lab Data Labs: Laboratory Results - last 24 hr 06/14/24 16:42 Urine Color Yellow Urine Clarity Clear Urine pH 6.5 Ur Specific [place] 1.010 Urine Protein Negative Urine Glucose (UA) Normal Urine Ketones Negative Urine Occult Blood 10 H Urine Nitrite Negative Urine Bilirubin Negative Urine Urobilinogen Normal Ur Leukocyte Esterase Negative Urine RBC 0 SEEN Urine WBC 0 SEEN Ur Squamous Epith Cells 0 SEEN Ur Transition Epith Cell 0-5 SEEN Urine Bacteria RARE Urine Mucus 0 SEEN UA is negative. Radiography Chest X-Ray - ED: 1 View and Read by ED Physician (KUB is remarkable for significant amount of fecal stasis.) Diagnostic Testing: Clinical Impression(s) from Imaging Studies KUB X-Ray 06/14/24 17:50 IMPRESSION: Suspect constipation. Electronically Signed: Casper Arshad MD at 18:34 EDT , Treatment and Re-Evaluation :: Plan is to discharge to home. Discharge Plan Triage Chief Complaint: Constipation ED Provider: Chris Olivas Dx/Rx/DC Orders Clinical Impression: Acute constipation Instructions: ED Constipation (Adult) Prescriptions: No Action Eliquis 2.5 mg tablet 2.5 mg PO BID Patient Comments: take 1 tablet by mouth twice a day pantoprazole [Protonix] 40 mg tablet,delayed release (DR/EC) 40 mg PO BID Qty: 180 1RF ascorbic acid (vitamin C) [Acerola C] 500 mg tablet,chewable 1 g PO DAILY Qty: 180 1RF rosuvastatin [Crestor] 5 mg tablet 5 mg PO DAILY Qty: 90 1RF ergocalciferol (vitamin D2) 50 mcg (2,000 unit) tablet 50 mcg PO DAILY Qty: 90 1RF Prolia 60 mg/mL syringe 60 mg subcut [id number] Qty: 1 0RF acetaminophen 500 mg Tablet 1,000 mg PO Q8 Qty: 0 0RF tramadol 50 mg Tablet 50 mg PO Q6H PRN PRN (Reason: Pain Score 1-5) 7 Days Qty: 28 0RF (DME) handicap placard See Rx Instructions .ROUTE .MEDSUPPLY Qty: 1 0RF Rx Instructions: Diagnosis: Impaired physical mobility Z74.09 Length of time: 4 years lisinopril 40 mg tablet 20 mg PO DAILY PRN (Reason: BP Hold for SBP less than 130 mmHg) Qty: 30 0RF cyclobenzaprine 5 mg tablet 5 mg PO TID PRN (Reason: pain) Qty: 15 0RF Linzess 72 mcg capsule 72 mcg PO DAILY Qty: 30 0RF Primary Care Provider: Domonique Gilbert Referrals: Domonique Gilbert MD [Primary Care Provider] - Activity Restrictions/Additional Instructions: Drink a 16 ounce glass of GoLytely starting tomorrow morning every hour until you have a large bowel movement. Plenty of fluids. And fiber to help with constipation. Stool softener as needed. Follow-up with your doctor if not improving. Return if worse. Print Language: [place] Disposition Disposition: Home, Self Care
[2024-06-14 17:49] LABS: Mucous, Urine 0 SEEN /hpf (<or=2+); Red Blood Cells-Urine 0 SEEN /hpf (0-5); Squamous Epithelial Cells - UA 0 SEEN /hpf (5-10); White Blood Cells 0 SEEN /hpf (0-5)
--- NOTE | 2024-06-14 17:50 | RAD_ITS ---
STUDY: X-RAY - ABDOMEN/PELVIS REASON FOR EXAM: Female, 84 years old. CONSTIPATION TECHNIQUE: Single AP view of the abdomen / pelvis. COMPARISON: None. FINDINGS: Normal visualized lung bases. There is an abundance of fecal material throughout the colon. The visualized liver, spleen and kidneys are grossly normal in size and morphology. Normal soft tissue structures. Status post right hip arthroplasty. RAD/Abdomen Single View IMPRESSION: Suspect constipation. Electronically Signed: Casper Arshad MD at 18:34 EDT ,
[2024-06-14 17:56] LABS: Color, Urine Yellow (Yellow); Glucose, Dipstick Normal (Normal); Ketone-Dipstick Negative (Negative); Leukocyte Esterase-Dipstick Negative /ul (Negative); Nitrite-Dipstick Negative (Negative); Occult Blood-Urine 10 /ul (Negative); Protein-Dipstick Negative (Negative); Urine Bilirubin Dipstick Negative (Negative); Urine Clarity Clear (Clear); Urine Urobilinogen Normal (Normal); Urine pH 6.5 (5.0 - 8.0)
[2024-06-14 18:05] LABS: Bacteria RARE /hpf (None Seen); Transitional Epithelial - Ur 0-5 SEEN /hpf (0-5)
[2024-06-14 20:07] VITALS: PULSE 72; RESP 16; O2SAT 100
[2024-06-14] MEDS: Electrolyte Solution/Peg's 4000 ML 2000 ML PO (20:36)
[2024-06-14 20:37] VITALS: BP 170/78; PULSE 65; RESP 18; TEMP 36.6; O2SAT 98
== END 2024-06-14 20:39 | disposition home or self-care (01) ==
PROVIDERS: Emergency Provider Emergency Medicine; PCP Internal Medicine; Visit Provider Emergency Medicine
DX: K59.00 Constipation, unspecified (principal); I48.91 Unspecified atrial fibrillation; I10 Essential (primary) hypertension; E78.5 Hyperlipidemia, unspecified; Z79.01 Long term (current) use of anticoagulants; Z79.899 Other long term (current) drug therapy
CPT/HCPCS: 74018; 81001; 99282

== ENCOUNTER → 2024-07-11 | Outpatient (CLI) | payer MEDICARE, SELFPAY ==
--- NOTE | 2024-07-11 09:20 | RAD_ITS ---
STUDY: X-RAY - ABDOMEN/PELVIS REASON FOR EXAM: Female, 84 years old. sitz marker day 3 TECHNIQUE: Frontal view COMPARISON: None. FINDINGS: Normal visualized lung bases. There is an unremarkable bowel gas pattern. Colonic fecal retention in the ascending colon. There is no demonstrated free abdominal air. Sitzmarks markers are noted within the ascending colon. Normal soft tissue structures. Osteopenia. Degenerative vertebral changes. Mild lumbar scoliosis. There is a right hip prosthesis. RAD/Abdomen Single View IMPRESSION: Sitzmarks markers are noted within the ascending colon. Electronically Signed: Husam Lui DO at 16:20 EDT ,
== END | disposition home or self-care (01) ==
LOC: RAD 09:07
PROVIDERS: PCP Internal Medicine; Referring Provider Student in an Organized Health Care Education/Training Program; Visit Provider Student in an Organized Health Care Education/Training Program
DX: K59.00 Constipation, unspecified (principal)
CPT/HCPCS: 74018

== ENCOUNTER → 2024-07-13 | Outpatient (CLI) | payer MEDICARE, SELFPAY ==
--- NOTE | 2024-07-13 16:45 | RAD_ITS ---
STUDY: X-RAY - ABDOMEN/PELVIS REASON FOR EXAM: Female, 84 years old. sitz marker day 5 TECHNIQUE: Single AP view of the abdomen / pelvis. COMPARISON: 07/11/2024 FINDINGS: Normal visualized lung bases. Multiple Sitzmarkers noted now all are in the sigmoid colon. There is a moderate amount of colonic fecal material. There is no demonstrated free abdominal air. The visualized liver, spleen and kidneys are grossly normal in size and morphology. Normal soft tissue structures. There are diffuse degenerative changes of the visualized lumbar spine. Replaced right hip joint free of complication RAD/Abdomen Single View IMPRESSION: Sitzmarks all now noted in the sigmoid colon Electronically Signed: Scott Delgado MD at 9:25 EDT ,
== END | disposition home or self-care (01) ==
LOC: RAD 16:30
PROVIDERS: PCP Internal Medicine; Referring Provider Student in an Organized Health Care Education/Training Program; Visit Provider Student in an Organized Health Care Education/Training Program
DX: K59.00 Constipation, unspecified (principal)
CPT/HCPCS: 74018

== ENCOUNTER → 2024-08-05 | Outpatient (CLI) | payer MEDICARE, SELFPAY ==
[2024-08-05 18:19] LABS: Amphetamine Urine VISTA NEGATIVE (<1000 ng/mL); Barbiturate Urine VISTA NEGATIVE (< 200 ng/mL); Benzodiazepine Urine VISTA NEGATIVE (< 200 ng/mL); Cocaine Urine VISTA NEGATIVE (< 300 ng/mL); Ecstacy Urine VISTA NEGATIVE (< 500 ng/mL); Methadone Urine VISTA NEGATIVE (< 300 ng/mL); PCP Urine VISTA NEGATIVE (< 25 ng/mL); THC Urine VISTA NEGATIVE (< 50 ng/mL); Vista UDS pH Range 5
== END | disposition home or self-care (01) ==
PROVIDERS: PCP Internal Medicine; Referring Provider Anesthesiology Pain Medicine; Visit Provider Anesthesiology Pain Medicine
DX: F11.20 Opioid dependence, uncomplicated (principal)
CPT/HCPCS: 80307

== ENCOUNTER 2024-10-23 17:54 | Emergency (ER) | payer MEDICARE, SELFPAY ==
[2024-10-23 17:55] VITALS: BP 173/83; PULSE 86; RESP 16; TEMP 36.1; O2SAT 98
--- NOTE | 2024-10-23 18:05 | RAD_ITS ---
PROCEDURE: RIBS UNI MIN 3V W/PA CHEST REASON FOR EXAM: Fall TECHNIQUE: Frontal and bilateral oblique views of the bilateral ribs. Frontal view of the chest. COMPARISON: 03/08/2023. FINDINGS: The heart size is normal. Aortic calcifications in the arch. Ectatic aorta. Hyperexpanded lungs. No acute infiltrate. No pneumothorax or pleural effusion. No displaced rib fractures are identified. RAD/Ribs Uni Min 3V w/PA Chest IMPRESSION: 1. NO EVIDENCE OF ACUTE RIB FRACTURE OR PNEUMOTHORAX. 2. COPD changes with no acute infiltrate. Reading Location: [facility]
[2024-10-23 18:52] VITALS: BMI 17.7
--- NOTE | 2024-10-23 19:42 | EDS_ITS ---
HPI <MARILY Lopes - Last Filed: 10/23/24 19:53> History of Present Illness Chief Complaint: Chest Other Narrative Narrative: Patient is an 84-year-old female with history of stroke, A-fib, chronic back pain presenting to the emerged from after injuring the right side of her ribs on a table while she was in pain management. Patient states this occurred yesterday, however she continued to have pain, some worsening pain with breathing. Patient is here with her daughter and here for evaluation. [facility] <MARILY Lopes - Last Filed: 10/23/24 19:53> [facility] Medical History (Updated 10/23/24 @ 19:53 by MARILY Lopes) History of atrial fibrillation Constipation Prolapsed bladder Hip pain with osteonecrosis Asthma Abnormal echocardiogram Bilateral hemianopia Elevated troponin Stroke Chronic dyspnea Acute dyspnea Heart valve problem Hearing deficit Hx of headache Glaucoma Arthritis Broken arm Vitamin D deficiency Osteoarthritis of right hip Takotsubo cardiomyopathy Hyperlipemia Syncope Hypertension Home Medications ?Medication ?Instructions ?Recorded ?Last Taken ?Type apixaban 2.5 mg tablet (Eliquis) 2.5 mg PO BID blood t hinner 06/04/23 12/09/23 History handicap placard #1 ea 09/30/23 Unknown Rx acetaminophen 500 mg tablet 1,000 mg (2 x 500 mg) PO Q 8 #0 tabs 12/18/23 Unknown Rx tramadol 50 mg tablet 50 mg PO Q6H PRN PRN Pain Sc ore 12/18/23 Unknown Rx 1-5 7 days #28 tabs ascorbic acid (vitamin C) 500 mg 1 g (2 x 500 mg) PO D AILY #180 tabs 01/08/24 U nknown Rx chewable tablet (Acerola C) denosumab 60 mg/mL subcutaneous 60 mg subcut [id number] #1 mL 01/08/24 Unknown Rx syringe (Prolia) rosuvastatin 5 mg tablet (Crestor) 5 mg PO DAILY debora sterol #90 tabs 01/08/24 Unknown Rx lisinopril 40 mg tablet 20 mg (1/2 x 40 mg) PO DAILY PRN 01/10/24 Unknown Rx BP Hold for SBP less than 130 mmHg #30 tabs cyclobenzaprine 5 mg tablet 5 mg PO TID PRN pain #15 t abs 05/08/24 Unknown Rx linaclotide 145 mcg capsule 145 mcg PO DAILY #30 caps 06/15/24 Unknown Rx ergocalciferol (vitamin D2) 50 mcg 50 mcg PO DAILY #90 tabs 06/29/24 Unknown Rx (2,000 unit) tablet pantoprazole 40 mg tablet,delayed 40 mg PO QDAY #90 ta bs 06/30/24 Unknown Rx release (Protonix) plecanatide 3 mg tablet (Trulance) 3 mg PO QDAY #60 ta bs 10/06/24 Unknown Rx Allergy/AdvReac Type Severity Reaction Status Date / Time procaine (From Novocain) Allergy Severe passed out Verified 10/23/24 17:54 Family History Father Heart disease Surgical History History of hip replacement S/P total right hip arthroplasty History of surgery on arm H/O neck surgery Social History household members: none current occupational 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 Status: Never smoker Electronic Cigarette Use: not used alcohol intake: never substance use type: does not use what type of physical activity do you participate in: none do you feel safe at home: Yes ROS <MARILY Lopes - Last Filed: 10/23/24 19:53> ROS ED ROS Narrative Constitutional: Negative for fever, chills, weight loss, weakness Eyes: Negative for vision loss, vision change, double vision ENT: Negative for any sore throat, ear pain, congestion Cardiovascular: Negative for any chest pain, tightness, palpitations Respiratory: Negative for any cough, sputum production, hemoptysis, dyspnea, dyspnea on exertion, orthopnea Gastrointestinal: Negative for any abdominal pain, nausea, vomiting, diarrhea, constipation, blood in stool, blood in vomit : Negative for any urinary frequency, dysuria, retention, blood in urine Muscle skeletal: Negative for any neck pain, back pain. Positive right sided rib pain Neurological: Negative for any headache, syncope, dizziness Skin: Negative for any rashes, itching, abrasions, lacerations Psychiatric: Negative for any depression, anxiety, stress, suicidal ideation, homicidal ideation Hematologic: Negative for any excessive bruising, easy bleeding EXAM <MARILY Lopes - Last Filed: 10/23/24 19:53> Physical Exam Narrative Exam Narrative: Vital signs reviewed. HEET: Head normocephalic atraumatic, TMs clear bilaterally. Posterior pharynx is clear, moist mucous membranes. Nares clear bilaterally. Neck: Supple with no lymphadenopathy or tenderness. No signs of meningismus. Cardiac: Regular rate and rhythm no murmurs gallops or rubs, equal peripheral pulses bilaterally. Respiratory: Lungs clear to auscultation bilaterally. Positive right sided anterior chest wall tenderness, as well as the lateral chest wall tenderness. No crepitus. No signs of trauma. Equal breath sounds. Abdomen: Soft, nontender, nondistended. No abdominal bruit or pulsatile masses. No hepatosplenomegaly Extremities: No peripheral edema, no signs of gross trauma or deformity. Active full range of motion of all extremities. Neuro: Cranial nerves II through XII intact, no focal neurological deficits. Skin: Clean dry and intact with no rash, purpura, petechiae, vesicles or pust ules. Backs/flank: No CVA tenderness, no midline spinal tenderness, no deformity. Psych: Normal mood and affect. No SI, HI or acute psychosis. Const Vital Signs: 10/23/24 17:55 Temperature 97 F L Temperature Source Temporal Pulse Rate 86 Respiratory Rate 16 Blood Pressure 173/83 H Blood Pressure Mean 113 Pulse Ox 98 Oxygen Delivery Method Room Air <Dr. Prashant Robert DO - Last Filed: 10/23/24 20:41> Physical Exam Const Vital Signs: 10/23/24 17:55 Temperature 97 F L Temperature Source Temporal Pulse Rate 86 Respiratory Rate 16 Blood Pressure 173/83 H Blood Pressure Mean 113 Pulse Ox 98 Oxygen Delivery Method Room Air [facility] <MARILY Lopes - Last Filed: 10/23/24 19:53> MDM Radiography Diagnostic Testing: Clinical Impression(s) from Imaging Studies Ribs w/Chest X-Ray 10/23/24 18:05 IMPRESSION: 1. NO EVIDENCE OF ACUTE RIB FRACTURE OR PNEUMOTHORAX. 2. COPD changes with no acute infiltrate. Reading Location: [facility] Treatment and Re-Evaluation :: Differential diagnosis includes however is not limited to: Rib fracture, pneumothorax, hemothorax, rib contusion, pneumonia Patient appears generally well, vital signs are stable, patient is nontoxic- appearing. Presenting to the emergency department with right rib pain this been ongoing for the last 24 hours. This is after an incident that occurred yesterday in the afternoon. Patient was given oxycodone here. X-rays of the right rib series showed no evidence of acute rib fracture or pneumothorax. There is some COPD changes however there is no acute infiltrate. Patient at this time will continue take her tramadol at home. She was given an incentive spirometer. Patient will use this multiple times every hour. She was given return precautions. All questions answered, stable for discharge. <Dr. Prashant Robert, DO - Last Filed: 10/23/24 20:41> [facility] Narrative Medical decision making narrative: I have personally performed a face to face assessment of the patient and have reviewed the MANDY Note. I performed a substantive portion of the visit including all aspects of the following. My bazan findings include: History: Patient presents with right-sided rib pain that began yesterday. P atient states that someone at Dr. Choudhury's office lifted her up onto the table and she injured her right ribs at that time. Patient states her pain is worse with breathing. Patient describes it as aching. Patient states it is over the right side of her chest. Patient states nothing makes it better. Patient states she took her pain medications at home with no improvement. Exam: Vital signs are stable. Patient is afebrile. Patient is in no acute distress. Heart was regular rate and rhythm. Lungs are clear and equal bilaterally. There is adequate respiratory effort noted. There is tenderness over the right lateral chest wall. There is no bony crepitance or step-off. There is no subcutaneous emphysema noted. Abdomen is soft. There is no tenderness. Medical Decision Making: Differential diagnosis includes rib fracture, pneumothorax, ankle contusion. X-rays of the right ribs will be obtained to assess for fracture and pneumothorax. Patient was given a dose of oxycodone here. X-rays of the right ribs were obtained. There are 5 views. On my independent interpretation, there is no acute fracture. There is no pneumothorax. Radiologist also interpreted the x- rays and agrees. Patient was advised of her findings. Patient was instructed to continue her pain medication as prescribed by her pain management physician. Patient was instructed to follow-up with her primary care physician in 5 to 7 days. Patient was instructed to return if worse in any way. Patient understood and was agreeable with plan. All questions were answered. Radiography Diagnostic Testing: Clinical Impression(s) from Imaging Studies Ribs w/Chest X-Ray 10/23/24 18:05 IMPRESSION: 1. NO EVIDENCE OF ACUTE RIB FRACTURE OR PNEUMOTHORAX. 2. COPD changes with no acute infiltrate. [facility] Discharge [facility] Triage Chief Complaint: Chest Other ED Midlevel Provider: Arnaud Bustos ED Provider: Prashant Robert Dx/Rx/DC Orders Prescriptions: No Action Eliquis 2.5 mg tablet 2.5 mg PO BID Patient Comments: take 1 tablet by mouth twice a day ascorbic acid (vitamin C) [Acerola C] 500 mg tablet,chewable 1 g PO DAILY Qty: 180 1RF rosuvastatin [Crestor] 5 mg tablet 5 mg PO DAILY Qty: 90 1RF Prolia 60 mg/mL syringe 60 mg subcut [id number] Qty: 1 0RF Trulance 3 mg tablet 3 mg PO QDAY Qty: 60 2RF acetaminophen 500 mg Tablet 1,000 mg PO Q8 Qty: 0 0RF tramadol 50 mg Tablet 50 mg PO Q6H PRN PRN (Reason: Pain Score 1-5) 7 Days Qty: 28 0RF (DME) handicap placard See Rx Instructions .ROUTE .MEDSUPPLY Qty: 1 0RF Rx Instructions: Diagnosis: Impaired physical mobility Z74.09 Length of time: 4 years lisinopril 40 mg tablet 20 mg PO DAILY PRN (Reason: BP Hold for SBP less than 130 mmHg) Qty: 30 0RF cyclobenzaprine 5 mg tablet 5 mg PO TID PRN (Reason: pain) Qty: 15 0RF linaclotide 145 mcg capsule 145 mcg PO DAILY Qty: 30 0RF ergocalciferol (vitamin D2) 50 mcg (2,000 unit) tablet 50 mcg PO DAILY Qty: 90 1RF pantoprazole [Protonix] 40 mg tablet,delayed release (DR/EC) 40 mg PO QDAY Qty: 90 0RF Primary Care Provider: Domonique Gilbert Referrals: Domonique Gilbert MD [Primary Care Provider] - Print Language: Yakut
== END 2024-10-23 20:00 | disposition home or self-care (01) ==
PROVIDERS: Emergency Provider Emergency Medicine; PCP Internal Medicine; Visit Provider Emergency Medicine
DX: R07.89 Other chest pain (principal); I10 Essential (primary) hypertension; E78.5 Hyperlipidemia, unspecified; Z79.899 Other long term (current) drug therapy
CPT/HCPCS: 71101; 99282

== ENCOUNTER 2024-10-30 01:05 | Observation (INO) | payer MEDICARE, SELFPAY ==
[2024-10-30] VITALS (16 sets, daily range): BP systolic 85–171; BP diastolic 49–123; PULSE 52–118; RESP 16–20; TEMP 36.1–36.9; O2SAT 97–100; BMI 18.0; BMI 17.2
--- NOTE | 2024-10-30 01:19 | ED.VIS.FEGU ---
HPI HPI - Female History of Present Illness Chief Complaint: Complaint Informant: patient and family Narrative Narrative: Here with daughter unable to urinate with increasing discomfort. History of bladder prolapse, no surgical repair. Eliquis for history of A-fib. No fevers. Increasing discomfort. Last urination a few hours ago. [facility] Medical History History of atrial fibrillation Constipation Prolapsed bladder Hip pain with osteonecrosis Asthma Bilateral hemianopia Stroke Heart valve problem Hearing deficit Glaucoma Arthritis Vitamin D deficiency Osteoarthritis of right hip Takotsubo cardiomyopathy Hyperlipemia Hypertension Home Medications ?Medication ?Instructions ?Recorded ?Last Taken ?Type apixaban 2.5 mg tablet (Eliquis) 2.5 mg PO BID blood thinner 06/04/23 10/29/24 22:00 History handicap placard #1 ea 09/30/23 Unknown Rx tramadol 50 mg tablet 50 mg PO Q6H PRN PRN Pain Score 12/18/23 10/29/24 11:00 Rx 1-5 7 days #28 tabs lisinopril 40 mg tablet 20 mg (1/2 x 40 mg) PO DAILY PRN 01/10/24 10/29/24 20:57 Rx BP Hold for SBP less than 130 mmHg #30 tabs ergocalciferol (vitamin D2) 50 mcg 50 mcg PO DAILY #90 tabs 06/29/24 10/29/24 12:00 Rx (2,000 unit) tablet pantoprazole 40 mg tablet,delayed 40 mg PO QDAY #90 tabs 06/30/24 10/29/24 08:00 Rx release (Protonix) acetaminophen 500 mg tablet 1,000 mg PO Q8 PRN pain 10/30/24 Unknown History oxycodone 5 mg tablet 5 mg PO BID 10/30/24 10/29/24 14:58 History plecanatide 3 mg tablet (Trulance) 3 mg PO DAILY 10/30/24 10/29/24 08:00 History Allergy/AdvReac Type Severity Reaction Status Date / Time procaine (From Novocain) Allergy Severe passed out Verified 10/30/24 01:06 Family History Father Heart disease Hypertension Mother Heart disease Hypertension Surgical History History of hip replacement S/P total right hip arthroplasty History of surgery on arm H/O neck surgery Social History household members: none 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 occupational 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: Never smoker Electronic Cigarette Use: not used alcohol intake: never substance use type: does not use what type of physical activity do you participate in: none do you feel safe at home: Yes ROS ROS ED Constitutional Constitutional ED: Reports sweats; Denies chills or fever(s) ENT ENT ED: Denies sore throat Cardiovascular Cardiovascular: Denies chest pain, leg edema, palpitations or racing heartbeat Respiratory/Chest Respiratory/Chest: Denies cough, dyspnea or dyspnea on exertion Gastrointestinal Gastrointestinal: Reports abdominal pain; Denies diarrhea, nausea or vomiting Genitourinary Genitourinary ED: Reports other Details: Urine retention ; Denies dysuria, hematuria or urinary frequency Musculoskeletal Musculoskeletal: Denies back pain, extremity pain or neck pain Integumentary Denies rash or wounds Neurologic Neurologic: Denies headache(s), paresthesias or weakness EXAM Physical Exam Const Vital Signs: 10/30/24 01:06 10/30/24 01:34 10/30/24 02:57 Temperature 98.4 F Temperature Source Oral Pulse Rate 118 H 98 Pulse Rate [Lying] 74 Pulse Rate [Sitting (for 1 minute prior to obtaining)] 82 Pulse Rate [Standing (for 1 minute prior to obtaining)] 88 Respiratory Rate 20 H 18 Blood Pressure 171/123 H 130/57 H Blood Pressure [Lying] 146/72 H Blood Pressure [Sitting (for 1 minute prior to obtaining)] 155/91 H Blood Pressure [Standing (for 1 minute prior to obtaining)] 148/83 H Blood Pressure Mean 139 81 Blood Pressure Mean [Lying] 96 Blood Pressure Mean [Sitting (for 1 minute prior to obtaining)] 112 Blood Pressure Mean [Standing (for 1 minute prior to obtaining)] 104 Pulse Ox 99 99 Oxygen Delivery Method Room Air Room Air 10/30/24 03:00 Temperature Temperature Source Pulse Rate 72 Pulse Rate [Lying] Pulse Rate [Sitting (for 1 minute prior to obtaining)] Pulse Rate [Standing (for 1 minute prior to obtaining)] Respiratory Rate 18 Blood Pressure 148/83 H Blood Pressure [Lying] Blood Pressure [Sitting (for 1 minute prior to obtaining)] Blood Pressure [Standing (for 1 minute prior to obtaining)] Blood Pressure Mean 104 Blood Pressure Mean [Lying] Blood Pressure Mean [Sitting (for 1 minute prior to obtaining)] Blood Pressure Mean [Standing (for 1 minute prior to obtaining)] Pulse Ox 99 Oxygen Delivery Method Room Air Positive well nourished and well developed Constitutional Narrative: Uncomfortable, nontoxic General Appearance ED: well developed HEENT Reports moist mucous membranes normocephalic and atraumatic Eyes General Eye ED: Yes normal appearance of both eyes Neck full ROM Chest Wall Chest: Negative for tenderness Resp normal respiratory effort and normal air movement Effort and Inspection: symmetric chest movement; Negative for respiratory distress Cardio regular rhythm and no murmurs Rate: tachycardic Peripheral Pulses: pulses 2+ throughout GI normal to inspection, nondistended, normoactive bowel sounds GI Narrative: Suprapubic tenderness. Palpation: Negative for guarding or rebound tenderness present Narrative: Nursing present for evaluation vaginal area there was no gross prolapsing vaginal canal. Extremity normal to inspection General Extremety ED: Negative for edema or tenderness General Extremity: Negative for edema Neuro oriented x3 and no sensory deficits noted Sensorium / Orientation: awake and alert Skin no rashes or lesions noted and no wounds MDM MDM MDM Narrative Medical decision making narrative: Interventions / MDM: Differential diagnosis: Urine retention, bladder prolapse dizziness, unstable gait Diagnosis considered but do not suspect: UTI however urine negative My EKG interpretation: Sinus rate of 71, no ST or T wave changes, left bundle branch block. EKG looks similar to EKG on 02/2023. Imaging independently reviewed and interpreted by myself: CT brain: No acute process per radiology. 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 External documents reviewed: ED visit from little week ago for rib injury. Test considered but not ordered:N/A ED course: Suprapubic discomfort bladder scan more than 575 cc. There is no gross visualization of prolapse into the vaginal canal. Will place Chaudhry catheter, will send urine. 0135: Chaudhry in place 850 cc yellow clear urine was emptied. Significant symptoms improved. Blood pressure heart rate improved. Urine pending. Per nursing when placing Chaudhry catheter they did see the bulging bladder with prolapse intravaginally. 0200: Urine negative for infection. Nursing will teach patient transition over a leg bag for daytime use. She will be given follow-up with urology. 0220: Preparations for discharge home, patient reported she was dizzy and unable to keep her eyes open. She ambulates with walker at home. She was able in the walkway walking slowly stating she feels dizzy. Daughter reports she normally walks faster. There is no focal deficits. Patient lives alone. Further workup her symptoms with EKG labs CT brain. Will reevaluate. Per daughter patient has been in transitional care unit in the past. 0305: Orthostatics negative. White count 8.5 hemoglobin 13.2 platelets 218. 0318: CT scan with no acute findings. Electrolytes normal creatinine 0.54. Sodium 143 potassium 3.3. Oral replacement ordered. 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 She denies any visual changes. She does report slight headache. Dizziness now improving. Daughter is concerned for recurrent episode similar to her presentation in the past. She reported symptoms started before she came to emergency department when she complained of her urine retention. Her gait is worse than when she came in during ambulation. With her stroke history, I will discuss with hospitalist for admission for further workup. 0344: I spoke with Dr. Nguyen who will evaluate the patient for admission. Re-evaluation: stable Disposition discussed with patient/family/significant other: Patient and daughter Case discussed with consulting clinician: Hospitalist This note was generated with Heavy dictation software. It may contain incorrect words, spelling, and punctuation that were not noted in checking the note before signing. Lab Data Attestation: I reviewed the patient's lab results. Labs: Laboratory Results - last 24 hr 10/30/24 10/30/24 01:27 02:37 WBC 8.5 RBC 3.99 L Hgb 13.2 Hct 37.4 MCV 93.7 MCH 33.1 H MCHC 35.3 RDW Std Deviation 43.9 RDW Coeff of Criselda 12.9 Plt Count 218 MPV 9.7 Immature Gran % (Auto) 0.500 Neut % (Auto) 80.5 H Lymph % (Auto) 11.2 L [place] % (Auto) 6.8 Eos % (Auto) 0.4 Baso % (Auto) 0.6 Absolute Neuts (auto) 6.9 Absolute Lymphs (auto) 0.95 Nucleated RBC % 0 Sodium 143 Potassium 3.3 L Chloride 107 Carbon Dioxide 29.0 Anion Gap 7 BUN 12 Creatinine 0.54 L Estim Creat Clear Calc 32.97 Est GFR (MDRD) Af Amer 140 Est GFR (MDRD) Non-Af 116 BUN/Creatinine Ratio 22.4 H Glucose 102 Calcium 9.8 Magnesium 2.0 Urine Color Yellow Urine Clarity Clear Urine pH 6.0 Ur Specific [place] 1.010 Urine Protein Negative Urine Glucose (UA) Normal Urine Ketones Negative Urine Occult Blood 10 H Urine Nitrite Negative Urine Bilirubin Negative Urine Urobilinogen Normal Ur Leukocyte Esterase Negative Urine RBC 0 SEEN Urine WBC 0 SEEN Ur Squamous Epith Cells 0 SEEN Urine Bacteria 0 SEEN Urine Mucus 0 SEEN Radiography Diagnostic Testing: Clinical Impression(s) from Imaging Studies Brain CT 10/30/24 02:21 IMPRESSION: 1. No acute intracranial process. If clinical concern for acute ischemia, MRI is a more sensitive exam. 2. Chronic small vessel ischemic disease. 3. Atrophy. One or more dose reduction techniques were used (e.g., Automated exposure control, adjustment of the mA and/or kV according to patient size, use of iterative reconstruction technique). Reading Location: [facility] Discharge Plan Triage Chief Complaint: Complaint ED Provider: Dwight Hudson Dx/Rx/DC Orders Clinical Impression: Acute retention of urine, Bladder prolapse, Hypokalemia, Dizziness Primary Care Provider: Domonique Gilbert Disposition Disposition: Home, Self Care Discharge Date/Time: 10/30/24 04:23
[2024-10-30 01:31] LABS: Bacteria 0 SEEN /hpf (None Seen); Mucous, Urine 0 SEEN /hpf (<or=2+); Red Blood Cells-Urine 0 SEEN /hpf (0-5); Squamous Epithelial Cells - UA 0 SEEN /hpf (5-10); White Blood Cells 0 SEEN /hpf (0-5)
[2024-10-30 01:32] LABS: Color, Urine Yellow (Yellow); Glucose, Dipstick Normal (Normal); Ketone-Dipstick Negative (Negative); Leukocyte Esterase-Dipstick Negative /ul (Negative); Nitrite-Dipstick Negative (Negative); Occult Blood-Urine 10 /ul (Negative); Protein-Dipstick Negative (Negative); Urine Bilirubin Dipstick Negative (Negative); Urine Clarity Clear (Clear); Urine Urobilinogen Normal (Normal)
--- NOTE | 2024-10-30 02:21 | EKG12_ITS ---
Test Reason : DIZZINESS Blood Pressure : */* mmHG Vent. Rate : 71 BPM Atrial Rate : 71 BPM P-R Int : 154 ms QRS Dur : 134 ms QT Int : 450 ms P-R-T Axes : 56 -31 114 degrees QTcB Int : 489 ms Sinus rhythm with Premature atrial complexes Left axis deviation Left bundle branch block Abnormal ECG Confirmed by CHIQUITA MENENDEZ, KAN ([id number]), publication editor ABRAHAN LOCKHART ([id number]) on 11/02/2024 6:35:41 AM Referred By: Confirmed By: KAN PORRAS MD
--- NOTE | 2024-10-30 02:21 | CT_ITS ---
PROCEDURE: BRAIN/HEAD WITHOUT CONTRAST REASON FOR EXAM: Dizziness. TECHNIQUE: Multiple, axial CT images of the brain are obtained without intravenous contrast. Coronal and sagittal 2D reformatted images were provided for better evaluation. COMPARISON: MRI brain from 03/09/2023. FINDINGS: There is prominence of the ventricles and sulci indicative of atrophy. Confluent areas of periventricular and deep white matter hypoattenuation likely relates to chronic small vessel ischemic disease. There is a chronic area of encephalomalacia in the right occipital lobe likely related to a prior infarct. No midline shift or mass effect is present. No acute intracranial hemorrhage, mass, or acute territorial infarction is seen per CT criteria. Bingham-white junction is preserved. Cerebrovascular calcifications are identified. Calvarium is intact. There is chronic scalloping of the outer table of the calvarium along the posterior bilateral parietal calvarium. Visualized paranasal sinuses are clear. CT/Brain/Head without Contrast IMPRESSION: 1. No acute intracranial process. If clinical concern for acute ischemia, MRI is a more sensitive exam. 2. Chronic small vessel ischemic disease. 3. Atrophy. One or more dose reduction techniques were used (e.g., Automated exposure contr ol, adjustment of the mA and/or kV according to patient size, use of iterative reconstruction technique). Reading Location: [facility]
[2024-10-30 02:42] LABS: Absolute Lymphocyte Count 0.95 X10^3/uL (0.83-4.51); Absolute Neutrophil Count 6.9 X10^3/uL (2.0-7.7); Basophil# 0.05 X10^3/uL; Basophil% 0.6 % (0-1); Eosinophil# 0.03 X10^3/uL; Eosinophils% 0.4 % (0-5); Hematocrit 37.4 % (37-47); Hemoglobin 13.2 g/dL (12.0-15.0); Lymphocyte # 0.95 X10^3/ul (0.83-4.51); Lymphocyte % 11.2 % (19-41); Mean Corp Hgb Conc 35.3 g/dL (32-36); Mean Corpuscular Hgb 33.1 pg (27.0-32.0); Mean Corpuscular Volume 93.7 fL (81-99); Mean Platelet Vol. 9.7 fl (6.2-12.0); Monocyte# 0.58 X10^3/uL; Monocyte% 6.8 % (0-10); NRBC Flagged by Analyzer 0 % (0-5); Neutrophil # 6.87 X10^3/uL (2.7-7.7); Neutrophil % 80.5 % (47-70); Platelet Count 218 K/mm3 (150-450); RBC Distribution Width CV 12.9 % (11.6-14.6); RBC Distribution Width SD 43.9 fl (35.1-43.9); Red Blood Count 3.99 M/mm3 (4.2-5.4); White Blood Count 8.5 K/mm3 (4.4-11.0)
[2024-10-30] MEDS: 0.9% Normal Saline (500mL Bag) 500 ML 999 ML IV (02:50)
[2024-10-30 03:07] LABS: Anion Gap 7 (5-15); BUN 12 mg/dL (7-18); BUN/Creat Ratio 22.4 RATIO (10-20); Calcium,Total 9.8 mg/dL (8.5-10.1); Chloride 107 mmol/L (98-107); Creatinine, Serum 0.54 mg/dL (0.55-1.02); EST Glomerular Filtration Rate 116 mL/min (>60); Est Glom Filt Rate - Afr Amer 140 mL/min (>60); Estimated Creatinine Clearance 32.97 ml/min; Glucose 102 mg/dL (74-106); Potassium 3.3 mmol/L (3.5-5.1); Sodium Level 143 mmol/L (136-145)
[2024-10-30] MEDS: Potassium Chloride Oral Tablet 20 MEQ PO (03:24)
--- NOTE | 2024-10-30 03:43 | PCM.HP.STD ---
HPI - General General Date of Admission: 10/30/24 Date of Service: 10/30/24 Chief Complaint: Urinary retention, dizziness, headache. HPI Narrative The patient is an 84-year-old female with past medical history asthma, history CVA, hypertension, hyperlipidemia, PAF who presents to the [facility] ED on 10/30/2026 initially primarily because of complaint of difficulty urinating with retention and concern for complete bladder prolapse with history of prolapse. Patient with unremarkable urinalysis with eventual Chaudhry catheter placement with urine output immediately. Patient was following evaluation set to discharge to home however while in the ED at approximately 2 AM patient reported onset of dizziness which she describes as room spinning and reported that she had been having a mild headache since prior to ED arrival which was a similar headache which she had when she had her stroke remotely which left her with vision deficits to the left eye. In the ED there is also concern that maybe her gait is mildly abnormal noted to be more slow than normal. In the ED upon hospitalist evaluation she has complete resolution of the dizziness. Workup in the ED included T98.4, heart rate 119, BP 171/123, respiratory rate 20, 99% on room air with most recent repeat vitals heart rate 72, BP 140/83, respiratory rate 18, 99% on room air, orthostatics negative, CBC with WBC 8.5, hemoglobin 13.2, platelet 218 without marked shift, BMP with potassium 3.3 otherwise unremarkable, CT of the head with no acute intracranial findings with chronic small vessel ischemic disease and atrophy, EKG with SR without acute evidence of ischemia. [facility] Medical History History of atrial fibrillation Constipation Prolapsed bladder Hip pain with osteonecrosis Asthma Bilateral hemianopia Stroke Heart valve problem Hearing deficit Glaucoma Arthritis Vitamin D deficiency Osteoarthritis of right hip Takotsubo cardiomyopathy Hyperlipemia Hypertension Home Medications ?Medication ?Instructions ?Recorded ?Last Taken ?Type apixaban 2.5 mg tablet (Eliquis) 2.5 mg PO BID blood thinner 06/04/23 12/09/23 History handicap placard #1 ea 09/30/23 Unknown Rx acetaminophen 500 mg tablet 1,000 mg (2 x 500 mg) PO Q8 #0 tabs 12/18/23 Unknown Rx tramadol 50 mg tablet 50 mg PO Q6H PRN PRN Pain Score 12/18/23 Unknown Rx 1-5 7 days #28 tabs ascorbic acid (vitamin C) 500 mg 1 g (2 x 500 mg) PO DAILY #180 tabs 01/08/24 Unknown Rx chewable tablet (Acerola C) lisinopril 40 mg tablet 20 mg (1/2 x 40 mg) PO DAILY PRN 01/10/24 Unknown Rx BP Hold for SBP less than 130 mmHg #30 tabs linaclotide 145 mcg capsule 145 mcg PO DAILY #30 caps 06/15/24 Unknown Rx ergocalciferol (vitamin D2) 50 mcg 50 mcg PO DAILY #90 tabs 06/29/24 Unknown Rx (2,000 unit) tablet pantoprazole 40 mg tablet,delayed 40 mg PO QDAY #90 tabs 06/30/24 Unknown Rx release (Protonix) oxycodone 5 mg tablet 5 mg PO BID 10/30/24 Unknown History Allergy/AdvReac Type Severity Reaction Status Date / Time procaine (From Novocain) Allergy Severe passed out Verified 10/30/24 01:06 Family History Father Heart disease Hypertension Mother Heart disease Hypertension Surgical History History of hip replacement S/P total right hip arthroplasty History of surgery on arm H/O neck surgery Social History household members: none current occupational 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 HEENT: + Transient dizziness/vertigo, headache, chronic left eye vision decreased. Eyes: + Chronic left eye vision deficits. No double vision or yellow sclerae. Ears, Nose, Throat: No hearing loss, sneezing, congestion, runny nose or sore throat. SKIN: No rash or itching, lesions, wounds. CARDIOVASCULAR: No chest pain, chest pressure or chest discomfort, palpitations, edema, orthopnea, syncopal events. RESPIRATORY: No shortness of breath, cough or sputum, wheezing, hemoptysis. GASTROINTESTINAL: + Transient nausea with dizziness now resolved. No anorexia, vomiting or diarrhea, abdominal pain, melena, BRBPR. GENITOURINARY: + Urinary retention with bladder prolapse history. No dysuria, frequency, urgency. NEUROLOGICAL: + Headache, dizziness/vertigo. No syncope, paralysis, ataxia, numbness or tingling in the extremities, focal weakness, change in bowel or bladder control, seizure. MUSCULOSKELETAL: + muscle, back pain, joint pain or stiffness. HEMATOLOGIC: No anemia. + Easy bleeding/bruising. LYMPHATICS: No enlarged nodes. No history of splenectomy. PSYCHIATRIC: No history of depression or anxiety. ENDOCRINOLOGIC: No reports of sweating, cold or heat intolerance. No polyuria or polydipsia. ALLERGIES: + History of asthma. Vital Signs Vital Signs Vital Signs: 10/30/24 01:06 10/30/24 01:34 10/30/24 02:57 Temperature 98.4 F Temperature Source Oral Pulse Rate 118 H 98 Pulse Rate [Lying] 74 Pulse Rate [Sitting (for 1 minute prior to obtaining)] 82 Pulse Rate [Standing (for 1 minute prior to obtaining)] 88 Respiratory Rate 20 H 18 Blood Pressure 171/123 H 130/57 H Blood Pressure [Lying] 146/72 H Blood Pressure [Sitting (for 1 minute prior to obtaining)] 155/91 H Blood Pressure [Standing (for 1 minute prior to obtaining)] 148/83 H Blood Pressure Mean 139 81 Blood Pressure Mean [Lying] 96 Blood Pressure Mean [Sitting (for 1 minute prior to obtaining)] 112 Blood Pressure Mean [Standing (for 1 minute prior to obtaining)] 104 Pulse Ox 99 99 Oxygen Delivery Method Room Air Room Air 10/30/24 03:00 Temperature Temperature Source Pulse Rate 72 Pulse Rate [Lying] Pulse Rate [Sitting (for 1 minute prior to obtaining)] Pulse Rate [Standing (for 1 minute prior to obtaining)] Respiratory Rate 18 Blood Pressure 148/83 H Blood Pressure [Lying] Blood Pressure [Sitting (for 1 minute prior to obtaining)] Blood Pressure [Standing (for 1 minute prior to obtaining)] Blood Pressure Mean 104 Blood Pressure Mean [Lying] Blood Pressure Mean [Sitting (for 1 minute prior to obtaining)] Blood Pressure Mean [Standing (for 1 minute prior to obtaining)] Pulse Ox 99 Oxygen Delivery Method Room Air Weight Weight: 86 lb 6.739 oz Body Mass Index (BMI) 18.0 Physical Exam Narrative Physical Examination: General: Awake, alert, oriented x >[address], month, year, present and cooperative, seated upright in the ED bed in no apparent distress, notes resolution of dizziness. Skin: Normal color, normal turgor, no icterus, no cyanosis except occasional stage ecchymoses. HEENT: AT/NC, EOMI, PERRLA, MMM, no carotid bruits or JVD noted, + does have chronic mild left vision deficits from previous CVA. Lungs: Mild diminished, greater bases, appropriate effort, no rales, ronchi or wheezing. Heart: Regular rate and rhythm; no gallop, rub audible. Abdomen: Soft, thin habitus, NTTP leading to palpation of the suprapubic region status post Chaudhry placement, ND, hyperactive BS, no HSM. Extremities: No cyanosis, clubbing, or edema. Neurological: Patient awake, alert, oriented as noted, cognitive function suspect baseline intact; pupils equally reactive to light and accommodation, cranial nerves grossly normal,, chronic left eye vision deficits unchanged, no persistent vertiginous symptoms, no nystagmus noted, moving all 4 extremities, no focal deficits, strength moderately globally decreased secondary to age and underlying comorbidities somewhat hampered by Chaudhry catheter placement, finger-nose and [id number] appropriate, sensation intact, negative Babinski. Psychiatric: Affect appears normal, very talkative and bubbly, no acute evidence of depressive or anxiety feelings. Results Lab / Micro Data 10/30/24 02:37 10/30/24 02:37 Labs: Laboratory Results - last 24 hr 10/30/24 01:27: Urine Color Yellow, Urine Clarity Clear, Urine pH 6.0, Ur Specific [place] 1.010, Urine Protein Negative, Urine Glucose (UA) Normal, Urine Ketones Negative, Urine Occult Blood 10 H, Urine Nitrite Negative, Urine Bilirubin Negative, Urine Urobilinogen Normal, Ur Leukocyte Esterase Negative, Urine RBC 0 SEEN, Urine WBC 0 SEEN, Ur Squamous Epith Cells 0 SEEN, Urine Bacteria 0 SEEN, Urine Mucus 0 SEEN 10/30/24 02:37: WBC 8.5, RBC 3.99 L, Hgb 13.2, Hct 37.4, MCV 93.7, MCH 33.1 H, MCHC 35.3, RDW Std Deviation 43.9, RDW Coeff of Criselda 12.9, Plt Count 218, MPV 9.7, Immature Gran % (Auto) 0.500, Neut % (Auto) 80.5 H, Lymph % (Auto) 11.2 L, Gregory % (Auto) 6.8, Eos % (Auto) 0.4, Baso % (Auto) 0.6, Absolute Neuts (auto) 6.9, Absolute Lymphs (auto) 0.95, Nucleated RBC % 0, Sodium 143, Potassium 3.3 L, Chloride 107, Carbon Dioxide 29.0, Anion Gap 7, BUN 12, Creatinine 0.54 L, Estim Creat Clear Calc 32.97, Est GFR (MDRD) Af Amer 140, Est GFR (MDRD) Non-Af 116, BUN/Creatinine Ratio 22.4 H, Glucose 102, Calcium 9.8 Imaging Radiology Impression Brain CT 10/30/24 02:21 IMPRESSION: 1. No acute intracranial process. If clinical concern for acute ischemia, MRI is a more sensitive exam. 2. Chronic small vessel ischemic disease. 3. Atrophy. One or more dose reduction techniques were used (e.g., Automated exposure control, adjustment of the mA and/or kV according to patient size, use of iterative reconstruction technique). Reading Location: [facility] Assessment & Plan Assessment/Plan (1) Acute retention of urine: (2) Dizziness: PLAN: Plan The patient is an 84-year-old female with past medical history asthma, history CVA, hypertension, hyperlipidemia, PAF who presents to the [facility] ED on 10/30/2026 initially primarily because of complaint of difficulty urinating with retention and concern for complete bladder prolapse with history of prolapse with onset mild headache and slower gait than baseline. #1. Dizziness, headache with gait alteration/slowing concerning for possible TIA/CVA although lower supsicion with history of previous with left eye vision deficits: Will admit to PCU, will obtain MRI Brain, CTA head and neck, ECHO, PT/OT/Speech/Nutrition evaluation per protocol. Will allow permissive HTN, maintain on aspirin, Eliquis, add statin w/ AM FLP, fall precautions. Mag, TSH, FLP, HgbA1c requested. Maintain on fall and aspiration precautions. #2. Acute Urinary retention with history of bladder prolapse: Urinalysis unremarkable, notable output with Chaudhry placement, will maintain Chaudhry catheter with initiation of Flomax, will recommend follow-up outpatient discharge with urology. #3. Hypokalemia: Admission K+ 3.3, magnesium level requested, supplementation given, repeat level in AM. #4. PAF: Not on any rate or rhythm agent, will continue patient home Eliquis regimen. #5. Asthma: Not on any chronic inhaler, will have as needed albuterol, encourage head of bed and I-S. #6. Hypertension: Temporarily holding, continue permissive hypertension with as needed agents per stroke protocol in the interim. #7. Hyperlipidemia: Not on statin therapy per current list with no allergy noted, FLP in AM. #8. Chronic constipation: Wilkening the patient home linaclotide home regimen. #9. GERD: We will continue patient on PPI. #10. DVT prophylaxis: We will continue patient home Eliquis regimen. #11. CODE status: Patient DOMINIQUE is her daughter who is present and living will is currently in place. Discussed CODE status at length including difference between FULL code, DNR-CCA and DNR-CC status. Following discussions about the differences in these status, requested full CODE STATUS. Charges/Coding Visit Charges Inpatient E&M: 11222 Init Hosp L3
--- NOTE | 2024-10-30 03:49 | CT_ITS ---
PROCEDURE: STROKE CTA HEAD AND NECK W/CON REASON FOR EXAM: Stroke TECHNIQUE: CTA imaging of the head and neck from the aortic arch to the skull vertex with intravenous contrast. 3D and MIP reconstructions. COMPARISON: October 30, 2024 FINDINGS: CTA HEAD FINDINGS: Internal carotid arteries: No acute thrombus or dissection.Mild atherosclerotic calcifications present at the carotid siphons without significant stenosis. Vertebrobasilar arteries: No acute thrombus or dissection. Intracranial arteries: No acute thrombus, dissection, aneurysm or vascular malformation. Venous sinuses: Unremarkable. CTA NECK FINDINGS: Aorta and proximal great vessels: No acute thrombus or dissection. Common carotid arteries: No acute thrombosis or dissection.Atherosclerotic calcifications are present at the carotid bulbs without significant stenosis. Internal carotid arteries: No acute thrombosis or dissection. Vertebral arteries: No acute thrombosis or dissection. Bones: Cervical fusion hardware spanning C5 through C7 in good alignment. There are acdz-os-dnsivlhj multilevel degenerative changes. Soft tissues: A couple of tiny thyroid nodules noted. CT/STROKE CTA Head AND Neck W/Con IMPRESSION: 1. No acute arterial abnormality of the head and neck. Reading Location: [facility]
--- NOTE | 2024-10-30 04:32 | ECHOD_ITS ---
Reason For Study: TIA/CVA Procedure This was a 2D Doppler, Color Flow transthoracic echocardiogram. Exam performed portable in patient room. Left Ventricle Normal LV size. Moderate eccentric left ventricular hypertrophy. The left ventricular ejection fraction is 50 %. No regional wall motion abnormalities noted. Right Ventricle Normal RV size. Normal systolic function. Atria Normal left atrium. Normal right atrium. Patent foramen ovale. Mitral Valve Bileaflet diffuse mitral valve thickening. There is mild to moderate mitral annular calcification. Mild (1+) eccentric mitral valve insufficiency. Tricuspid Valve Normal tricuspid valve. Mild tricuspid valve insufficiency. Pulmonary artery systolic pressure is 20 mmHg. Aortic Valve Trisinus/trileaflet aortic valve. Mild focal aortic valve calcification. Mild (1+) aortic valve insufficiency. Pulmonic Valve Normal pulmonic valve. Great Vessels Normal aortic root. The pulmonary artery is normal size. Normal inferior vena cava. Pericardium/Pleural No pericardial effusion. MMode/2D Measurements & Calculations LVIDd: 3.6 cm IVSd: 1.4 cm LVOT diam: 1.9 cm LVIDs: 2.8 cm LVPWd: 0.88 cm LVOT area: 2.9 cm2 RVDd: 3.3 cm FS: 23.8 % _ asc Aorta Diam: 2.9 cm LAV(MOD-bp): 31.1 ml LVAd ap4: 21.2 cm2 LAV(MOD-bp) Indexed: 24.9 ml/m2 LVLd ap4: 6.9 cm LAV(MOD-sp2): 37.7 ml EDV(MOD- sp4): 51.2 ml LAV(MOD-sp4): 20.4 ml EDV(sp4- el): 55.0 ml LVAs ap4: 13.5 cm2 LVLs ap4: 5.9 cm ESV(MOD- sp4): 24.4 ml ESV(sp4- el): 26.3 ml EF(MOD- sp4): 52.3 % EF(sp4- el): 52.2 % _ LVAd ap2: 20.4 cm2 SV(MOD-sp4): 26.8 ml SV(MOD- sp2): 22.4 ml LVLd ap2: 7.3 cm SI(MOD-sp4): 21.5 ml/m2 SI(MOD- sp2): 17.9 ml/m2 EDV(MOD-sp2): 46.4 ml EDV(sp2-el): 48.5 ml LVAs ap2: 13.8 cm2 LVLs ap2: 6.6 cm ESV(MOD-sp2): 24.0 ml ESV(sp2-el): 24.8 ml EF(MOD-sp2): 48.2 % _ SV(sp4-el): 28.7 ml Ao sinus diam: 2.[address] Junction: 2.2 cm _ LA dimension(2D): 2.5 cm LA A4 area: 9.6 cm2 RA A4 area: 8.1 cm2 _ TAPSE: 1.7 cm Time Measurements MV dec time: 0.41 sec Doppler Measurements & Calculations MV E max ahmet: 56.6 cm/sec Lat Peak E' Ahmet: 7.8 cm/sec Med Peak E' Ahmet: 5.3 cm/sec MV A max ahmet: 88.0 cm/sec E/E' lat: 7.2 E/E' med: 10.6 MV E/A: 0.64 _ MV dec slope: 138.2 cm/sec2 Ao V2 max: 201.2 cm/sec LV V1 max: 113.1 cm/sec Ao max P.2 mmHg LV V1 max P.1 mmHg Ao V2 mean: 137.2 cm/sec LV V1 mean P.0 mmHg Ao mean P.5 mmHg LV V1 mean: 84.4 cm/sec Ao V2 VTI: 37.2 cm LV V1 VTI: 21.9 cm AV (velocity ratio): 0.59 GALINA(I,D): 1.7 cm2 GALINA(V,D): 1.6 cm2 _ SV(LVOT): 63.9 ml PA V2 max: 105.3 cm/sec PI end-d ahmet: 88.4 cm/sec _ TR max ahmet: 204.0 cm/sec TR max P.7 mmHg ECHO/Echo Complete Interpretation Summary Normal LV size. The left ventricular ejection fraction is 50 %. There is mild to moderate mitral annular calcification. Moderate eccentric left ventricular hypertrophy. Ordering Physician: Deidra Nguyen Performed By: Emani White RDCS
--- NOTE | 2024-10-30 04:32 | MRI_ITS ---
EXAM: BRAIN WITHOUT CONTRAST CLINICAL HISTORY: Possible stroke COMPARISON: Reviewed TECHNIQUE: Multiplanar multisequence MRI of the brain was performed without contrast according to standard departmental protocol. FINDINGS: Moderate chronic changes. No evidence of restricted diffusion or acute infarct. No extra-axial fluid collection. No mass effect or midline shift. Brain parenchymal signal intensity is normal. The ventricles and sulci are unremarkable for patient's age. The sella is normal. The major intracranial flow voids are preserved. The calvarium is unremarkable. Orbits are unremarkable. The paranasal sinuses are unremarkable. Mastoid air cells are unremarkable. MRI/Brain without Contrast IMPRESSION: No acute brain MR process. Reading Location: [facility]
[2024-10-30] MEDS: traMADol 50 MG Tablet PO ×2 (05:14→14:11)
[2024-10-30] MEDS: 0.9% Normal Saline (1000mL) 1,000 ML 100 ML IV (05:15)
[2024-10-30] MEDS: Tamsulosin HCl 0.4 MG Capsule PO (06:37)
[2024-10-30 08:46] LABS: Cholesterol 176 mg/dL (200); High Density Lipoprotein 94 mg/dL; Triglycerides 88 mg/dL; Very Low Density Lipoprotein 18 mg/dL (5-40)
--- NOTE | 2024-10-30 09:12 | CASEMGMT ---
Discharge Planning A list of?SNF providers including quality and resource use data and consistent with the patient's preferred geographic region, medical needs, and insurance network was created in [employer] Guide.? This list was provided to the [facility]. Diana Mccormack, Discharge Planning Asst
[2024-10-30] MEDS: oxyCODONE 5 MG Tablet PO ×2 (09:36→22:08)
[2024-10-30] MEDS: APIXABAN 2.5 MG TABLET (WCH) PO ×2 (11:16→22:07)
[2024-10-30] MEDS: Pantoprazole Sodium 40 MG Tablet PO (11:16)
[2024-10-30] MEDS: Aspirin 81 MG TAB.CHEW PO (11:17)
[2024-10-30] MEDS: Potassium Chloride Oral Tablet 20 MEQ 40 MEQ PO (11:21)
--- NOTE | 2024-10-30 12:12 | CASEMGMT ---
Social Work PHQ9 depression screen completed due to possible stroke. Score of 0. Pt denies any depressive feelings. RISA Arroyo
--- NOTE | 2024-10-30 12:14 | CASEMGMT ---
Addendum entered by Kaya Ann 10/30/24 13:33: Social Work Precert has been obtained. Per insurance, pt will need to be in the hospital 24 hours before she can admit to TCU. Physician notified that pt can discharge to TCU on Saturday. Green sheet on chart to facilitate weekend discharge. Pt and dgt updated. Plan: TCU, on Saturday if medically ready RISA Arroyo Addendum entered by Kaya Ann 10/30/24 12:55: Social Work TCU is able to accept and precert started at this time. Pt and dgt updated. Green sheet on chart to accommodate a weekend discharge if precert is obtained. Plan: TCU, pending precert RISA Arroyo Original Note: Social Work SW met with pt and dgt to discuss discharge plans. Pt lives at home alone in a one story home with 1 step to enter. Pt has been independent with ADLS. Dgt provides transportation assists as needed and gets groceries for pt. Pt feels she is weak and not able to return home alone at this time and would like short term rehab. A list of SNF providers including quality and resource use data and consistent with the patient?s preferred geographic region, medical needs, and insurance network were provided from the [employer] Guide. Pt preferred provider is [facility]. Referral sent to [facility] in TCU. Will await determination of acceptance. Plan: TCU, pending acceptance and precert RISA Arroyo
[2024-10-30] MEDS: 0.9% Normal Saline (1000mL) 1,000 ML 999 ML IV ×2 (14:06→18:29)
[2024-10-30] MEDS: Lidocaine 5% Patch 1 PATCH TOPICAL (14:07)
--- NOTE | 2024-10-30 14:16 | CHAPLAIN ---
Type of Pastoral Visit _x__ Initial Visit ___ Follow-up Visit ___ On-call Visit ___ General Patient Visit ___ Spiritual Assessment ___ Family Conference ___ Bereavement ___ Rapid Response ___ Code Blue ___ Other (describe below) Pastoral Care Referral From _x__ Patient ___ Family ___ Nurse ___ Physician ___ Service Desk Director ___ Magnetic Tape Typewriter Operator ___ Other (describe below) Sacrament/Intervention ___ Active listening ___ Anointing ___ Anabaptism ___ Bereavement ___ Communion ___ [place] exploration ___ ___ Life review ___ Prayer ___ Reconciliation ___ Sacrament of Sick _x__ Supportive presence ___ Wedding ___ Other (describe below) Pastoral Comments patient and her daughter are in the room; pt reports that she has no concerns, is being cared for, and has the support of her daughter; lunch tray came and pt is ready to eat;
--- NOTE | 2024-10-30 15:20 | PN_ITS ---
Subjective Subjective Patient seen and examined. Her daughter was by her bedside. She complained of a bit of dizziness. She was admitted on account of dizziness and urinary retention. She does have a history of bladder prolapse. She had Chaudhry catheter inserted in the ED. There is concern for stroke so CT of the brain was done which was negative. She is awaiting MRI of the brain today. She also complains of right flank pain due to her having hurt her ribs. She says her pain management doctor has her on oxycodone and tramadol for management of lower back pain and the rib pain. She alternates the tramadol and oxycodone and she has been on this regimen previously before. She has otherwise remained hemodynamically stable. Objective Data Objective Data Vital Signs: Vital Signs Temp Pulse Resp BP Pulse Ox O2 Del Method 97.6 F L 52 L 16 94/51 L 97 Room Air 10/30/24 14:50 10/30/24 14:50 10/30/24 14:50 10/30/24 14:50 10/30/24 14:50 10/30/24 14:50 Oxygen Delivery Method Room Air Weight: 82 lb 3.719 oz Body Mass Index (BMI) 17.2 Intake & Output: Intake and Output for Last 24 Hours 10/28/24 10/29/24 10/30/24 23:59 23:59 23:59 Intake Total 1430 / 1430 Output Total 3200 / 3200 Balance -1770 / -1770 Lab / Micro Data 10/30/24 02:37 10/30/24 02:37 Labs: Laboratory Results - last 24 hr 10/30/24 01:27: Urine Color Yellow, Urine Clarity Clear, Urine pH 6.0, Ur Specific Seymour 1.010, Urine Protein Negative, Urine Glucose (UA) Normal, Urine Ketones Negative, Urine Occult Blood 10 H, Urine Nitrite Negative, Urine Bilirubin Negative, Urine Urobilinogen Normal, Ur Leukocyte Esterase Negative, Urine RBC 0 SEEN, Urine WBC 0 SEEN, Ur Squamous Epith Cells 0 SEEN, Urine Bacteria 0 SEEN, Urine Mucus 0 SEEN 10/30/24 02:37: WBC 8.5, RBC 3.99 L, Hgb 13.2, Hct 37.4, MCV 93.7, MCH 33.1 H, MCHC 35.3, RDW Std Deviation 43.9, RDW Coeff of Criselda 12.9, Plt Count 218, MPV 9.7, Immature Gran % (Auto) 0.500, Neut % (Auto) 80.5 H, Lymph % (Auto) 11.2 L, Ad[place] % (Auto) 6.8, Eos % (Auto) 0.4, Baso % (Auto) 0.6, Absolute Neuts (auto) 6.9, Absolute Lymphs (auto) 0.95, Nucleated RBC % 0, Sodium 143, Potassium 3.3 L , Chloride 107, Carbon Dioxide 29.0, Anion Gap 7, BUN 12, Creatinine 0.54 L, Estim Creat Clear Calc 32.97, Est GFR (MDRD) Af Amer 140, Est GFR (MDRD) Non-Af 116, BUN/Creatinine Ratio 22.4 H, Glucose 102, Calcium 9.8, Magnesium 2.0, Triglycerides 88, Cholesterol 176, LDL Cholesterol 64, VLDL Cholesterol 18, HDL Cholesterol 94, TSH 1.350 Radiography Diagnostic Testing: Radiology Impression Brain CT 10/30/24 02:21 IMPRESSION: 1. No acute intracranial process. If clinical concern for acute ischemia, MRI is a more sensitive exam. 2. Chronic small vessel ischemic disease. 3. Atrophy. One or more dose reduction techniques were used (e.g., Automated exposure control, adjustment of the mA and/or kV according to patient size, use of iterative reconstruction technique). Reading Location: [facility] Head/Neck CTA 10/30/24 03:49 IMPRESSION: 1. No acute arterial abnormality of the head and neck. Reading Location: [facility] Physical Exam Const alert, oriented x3 and no apparent distress Constitutional Narrative: frail General Appearance: cooperative HEENT normocephalic, head/scalp atraumatic and moist oral mucous membranes Eyes PERRL and EOMs intact bilaterally Neck no lymphadenopathy and supple Lymph Lymphatic: no lymphadenopathy noted and no lymphedema noted Resp Resp Narrative: mildly diminished breath sounds bibasally, no wheezes or crackles. On room air. Cardio regular rate, regular rhythm, S1 normal heart sound, S2 normal heart sound and no murmurs GI normal to inspection, nondistended, normoactive bowel sounds, soft to palpation, non-tender and non-distended Extremity normal capillary refill, no clubbing, cyanosis or edema and no calf tenderness Extremity Narrative: has tenderness with palpation over right flank due to bruised ribs. General Extremity: no tenderness to palpation of joints or extremities Skin General Skin Exam: no breakdown Neuro CN's II-XII intact bilaterally, no focal motor deficits and no sensory deficits noted Motor Exam: general weakness Psych thought process normal and cooperative Appearance: appropriate Assessment & Plan Assessment/Plan (1) Hypokalemia: (2) Acute retention of urine: (3) Bladder prolapse: (4) Dizziness: (5) Contusion of rib: PLAN: Plan #Dizziness and stroke like symptoms * Concerning for stroke. Daughter says she has similar symptoms during her previous stroke. * CT of the brain showed no acute intracranial pathology. CT of the head and neck showed no hemodynamically significant stenosis. * MRI of the brain done * 2D echo also done and read is pending * PT OT on board. Fall precautions. On aspirin and Eliquis as well as high intensity statin. #Orthostatic hypotension * orthostatics positive. Being hydrated with IVF. * monitor orthostatics * fall precautions * #Acute urinary retention in the setting of bladder prolapse * Urinalysis showed no evidence of UTI. Patient does have a history of bladder prolapse. Chaudhry catheter inserted. Patient is initiated on Flomax. * Follow-up with urology on outpatient basis * #Hypokalemia: Replace and trend. #Paroxysmal A-fib: * Currently rate controlled. * Not on any rate limiting medication. * He is hypotensive so this may be the reason why. * On Eliquis. #Hypertension: BP meds on hold due to hypotension. Orthostatics were also positive. Hydrate with IV fluids and trend BP. #GERD: On PPI DVT prophylaxis: on eliquis Charges/Coding Visit Charges Inpatient E&M: 32228 Subs Hosp L2
[2024-10-30] MEDS: 0.9% Normal Saline (1000mL) 1,000 ML 150 ML IV (20:02)
[2024-10-30] MEDS: Atorvastatin Calcium 40 MG Tablet PO (22:08)
[2024-10-31 02:06] VITALS: BMI 17.2
[2024-10-31] MEDS: 0.9% Normal Saline (1000mL) 1,000 ML 150 ML IV (02:56)
[2024-10-31 03:00] VITALS: BP 120/60; PULSE 65; RESP 16; TEMP 36.7; O2SAT 97
[2024-10-31] MEDS: traMADol 50 MG Tablet PO ×2 (03:06→16:44)
[2024-10-31 04:06] VITALS: BMI 20.4
[2024-10-31 06:53] VITALS: O2SAT 94
[2024-10-31 07:14] LABS: Absolute Lymphocyte Count 1.17 X10^3/uL (0.83-4.51); Absolute Neutrophil Count 1.5 X10^3/uL (2.0-7.7); Basophil# 0.02 X10^3/uL; Basophil% 0.6 % (0-1); Eosinophil# 0.11 X10^3/uL; Eosinophils% 3.5 % (0-5); Hematocrit 29.1 % (37-47); Hemoglobin 10.1 g/dL (12.0-15.0); Lymphocyte # 1.17 X10^3/ul (0.83-4.51); Lymphocyte % 37.6 % (19-41); Mean Corp Hgb Conc 34.7 g/dL (32-36); Mean Corpuscular Hgb 33.6 pg (27.0-32.0); Mean Corpuscular Volume 96.7 fL (81-99); Mean Platelet Vol. 10.3 fl (6.2-12.0); Monocyte# 0.32 X10^3/uL; Monocyte% 10.3 % (0-10); NRBC Flagged by Analyzer 0 % (0-5); Neutrophil # 1.48 X10^3/uL (2.7-7.7); Neutrophil % 47.7 % (47-70); Platelet Count 165 K/mm3 (150-450); RBC Distribution Width CV 13.5 % (11.6-14.6); RBC Distribution Width SD 47.7 fl (35.1-43.9); Red Blood Count 3.01 M/mm3 (4.2-5.4); White Blood Count 3.1 K/mm3 (4.4-11.0)
[2024-10-31 07:44] LABS: ALB/GLOB Ratio 1.1 RATIO (0.9-2.4); AST(SGOT) 20 U/L (15-37); Alanine Aminotransfer ALT/SGPT 15 U/L (13-56); Albumin, Serum 2.5 g/dL (3.2-5.0); Alkaline Phosphatase 64 U/L (45-117); Anion Gap 4 (5-15); BUN 9 mg/dL (7-18); BUN/Creat Ratio 27.4 RATIO (10-20); Calcium,Total 8.4 mg/dL (8.5-10.1); Chloride 116 mmol/L (98-107); Creatinine, Serum 0.33 mg/dL (0.55-1.02); EST Glomerular Filtration Rate 204 mL/min (>60); Est Glom Filt Rate - Afr Amer 246 mL/min (>60); Estimated Creatinine Clearance 37.35 ml/min; Globulin 2.3 g/dL (2.2-4.2); Glucose 82 mg/dL (74-106); Potassium 4.3 mmol/L (3.5-5.1); Protein, Total 4.8 g/dL (6.4-8.2); Sodium Level 143 mmol/L (136-145)
[2024-10-31 08:21] VITALS: BP 150/66; PULSE 59; RESP 16; TEMP 36.6; O2SAT 98
[2024-10-31] MEDS: APIXABAN 2.5 MG TABLET (WCH) PO (08:34)
[2024-10-31] MEDS: Aspirin 81 MG TAB.CHEW PO (08:34)
[2024-10-31] MEDS: Lidocaine 5% Patch 1 PATCH TOPICAL (08:35)
[2024-10-31] MEDS: Pantoprazole Sodium 40 MG Tablet PO (08:35)
[2024-10-31] MEDS: oxyCODONE 5 MG Tablet PO (09:55)
--- NOTE | 2024-10-31 12:37 | PN_ITS ---
Subjective Subjective Patient seen and examined. She feels well today. She had no active complaints. Her MRI of the brain was negative for stroke. She is now amenable to placement she is awaiting placement. Review of systems otherwise negative. She was hypotensive late yesterday but her BP improved with IVF. Objective Data Objective Data Vital Signs: Vital Signs Temp Pulse Resp BP Pulse Ox O2 Del Method 97.8 F 59 L 16 150/66 H 98 Room Air 10/31/24 08:21 10/31/24 08:21 10/31/24 08:21 10/31/24 08:21 10/31/24 08:21 10/31/24 08:25 Oxygen Delivery Method Room Air Weight: 97 lb 14.164 oz Body Mass Index (BMI) 20.4 Intake & Output: Intake and Output for Last 24 Hours 10/29/24 10/30/24 10/31/24 23:59 23:59 23:59 Intake Total 4430 / 4430 2000 / 2000 Output Total 3200 / 3950 1100 / 1100 Balance 1230 / 480 900 / 900 Lab / Micro Data 10/31/24 05:50 10/31/24 05:50 Labs: Laboratory Results - last 24 hr 10/31/24 05:50: WBC 3.1 L, RBC 3.01 L, Hgb 10.1 L, Hct 29.1 L, MCV 96.7, MCH 33.6 H, MCHC 34.7, RDW Std Deviation 47.7 H, RDW Coeff of Criselda 13.5, Plt Count 165, MPV 10.3, Immature Gran % (Auto) 0.300, Neut % (Auto) 47.7, Lymph % (Auto) 37.6, Mchenry % (Auto) 10.3 H, Eos % (Auto) 3.5, Baso % (Auto) 0.6, Absolute Neuts (auto) 1.5 L, Absolute Lymphs (auto) 1.17, Nucleated RBC % 0, Sodium 143, Potassium 4.3, Chloride 116 H, Carbon Dioxide 23.0, Anion Gap 4 L, BUN 9, C reatinine 0.33 L, Estim Creat Clear Calc 37.35, Est GFR (MDRD) Af Amer 246, Est GFR (MDRD) Non-Af 204, BUN/Creatinine Ratio 27.4 H, Glucose 82, Calcium 8.4 L, Total Bilirubin 0.60, AST 20, ALT 15, Alkaline Phosphatase 64, Total Protein 4.8 L, Albumin 2.5 L, Globulin 2.3, Albumin/Globulin Ratio 1.1 Micro: Microbiology 10/30/24 01:27 Urine Catheter - Catheter Urine Culture - Preliminary Culture exhibits no growth. Radiography Diagnostic Testing: Radiology Impression Brain MRI 10/30/24 04:32 IMPRESSION: No acute brain MR process. Reading Location: [facility] Echocardiogram 10/30/24 04:32 Interpretation Summary Normal LV size. The left ventricular ejection fraction is 50 %. There is mild to moderate mitral annular calcification. Moderate eccentric left ventricular hypertrophy. Ordering Physician: Deidra Nguyen Performed By: Emani White RDCS Physical Exam Const alert, oriented x3 and no apparent distress Constitutional Narrative: frail General Appearance: cooperative HEENT normocephalic, head/scalp atraumatic and moist oral mucous membranes Eyes PERRL and EOMs intact bilaterally Neck no lymphadenopathy and supple Lymph Lymphatic: no lymphadenopathy noted and no lymphedema noted Resp Resp Narrative: mildly diminished breath sounds bibasally, no wheezes or crackles. On room air. Cardio regular rate, regular rhythm, S1 normal heart sound, S2 normal heart sound and no murmurs GI normal to inspection, nondistended, normoactive bowel sounds, soft to palpation, non-tender and non-distended Extremity normal capillary refill, no clubbing, cyanosis or edema and no calf tenderness Extremity Narrative: has mild tenderness with palpation over right flank due to bruised ribs. General Extremity: no tenderness to palpation of joints or extremities Skin General Skin Exam: no breakdown Neuro CN's II-XII intact bilaterally, no focal motor deficits and no sensory deficits noted Motor Exam: general weakness Psych thought process normal and cooperative Appearance: appropriate Assessment & Plan Assessment/Plan (1) Hypokalemia: (2) Acute retention of urine: (3) Bladder prolapse: (4) Dizziness: (5) Contusion of rib: PLAN: Plan #Dizziness and stroke like symptoms * Concerning for stroke. Daughter says she has similar symptoms during her previous stroke. * CT of the brain showed no acute intracranial pathology. CT of the head and neck showed no hemodynamically significant stenosis. * MRI of the brain done was negative for any evidence of a stroke * 2D echo also done showed EF of 50% with no regional wall motion abnormalities noted. * PT OT on board. Fall precautions. On aspirin and Eliquis as well as high intensity statin. #Orthostatic hypotension * orthostatics were positive patient was aggressively hydrated with IV fluids. * Flomax held. Bps improved. * monitor orthostatics * fall precautions * #Acute urinary retention in the setting of bladder prolapse * Urinalysis showed no evidence of UTI. Patient does have a history of bladder prolapse. Chaudhry catheter inserted. Patient is initiated on Flomax. Will hold Flomax due to hypotension. * Follow-up with urology on outpatient basis * #Hypokalemia: Replace and trend. #Paroxysmal A-fib: * Currently rate controlled. * Not on any rate limiting medication. * He is hypotensive so this may be the reason why. * On Eliquis. #Hypertension: BP meds on hold due to hypotension. Orthostatics were also positive. will monitor and resume BP meds as needed. #GERD: On PPI DVT prophylaxis: on eliquis Charges/Coding Visit Charges Inpatient E&M: 22547 Subs Hosp L2
--- NOTE | 2024-10-31 14:18 | CASEMGMT ---
Addendum entered by Valarie Sandoval 10/31/24 14:48: Social Work- BARTOLO spoke with dtr, in patient room, to provide update on planned discharge. Pt dtr agreeable and has pt clothes with her, awaiting transfer to TCU. Plan: TCU; skilled level of care [facility] Cu[facility] Addendum entered by Valarie Sandoval 10/31/24 14:32: Physician reports pt is medically ready and will discharge. Green sheet on chart for nursing to make final arrangements. Plan: TCU; skilled level of care [facility] Cu[facility] Original Note: Social Work- SW advised physician, if medically ready, that pt is able to discharge today per previous SW documentation. SW remains available to follow. Plan: TCU; Skilled level of care [facility] Cu[facility]
--- NOTE | 2024-10-31 15:02 | TREXTCAR_ITS ---
Diet Diet Order/Speech Therapy: 10/30/24 04:32 Diet: Cardiac - Heart Healthy Food consistency:: Regular Liquid Consistency:: Regular/Thin Routine Orders/Code Status Enema Type: Fleetz Enema Frequency: Daily PRN Suppository Type: Dulcolax 10mg Suppository Frequency: Daily PRN DC O2, CPAP, BIPAP needs Home O2 Discharge instructions: No Therapies Weight Bearing: Weight bearing as tolerated Physical Therapy: Eval and Treat Occupational Therapy: Eval and Treat Problem/Diagnosis (1) Hypokalemia: Status: Acute Code(s): E87.6 - Hypokalemia (2) Acute retention of urine: Status: Acute Code(s): R33.8 - Other retention of urine (3) Bladder prolapse: Status: Acute (4) Dizziness: Status: Acute Code(s): R42 - Dizziness and giddiness (5) Contusion of rib: Status: Inactive Code(s): S20.219A - Contusion of unspecified front wall of thorax, initial encounter Plan #Dizziness and stroke like symptoms * Concerning for stroke. Daughter says she has similar symptoms during her previous stroke. * CT of the brain showed no acute intracranial pathology. CT of the head and neck showed no hemodynamically significant stenosis. * MRI of the brain done was negative for any evidence of a stroke * 2D echo also done showed EF of 50% with no regional wall motion abnormalities noted. * PT OT on board. Fall precautions. On aspirin and Eliquis as well as high intensity statin. #Orthostatic hypotension * orthostatics were positive patient was aggressively hydrated with IV fluids. * Flomax held. Bps improved. * monitor orthostatics * fall precautions * #Acute urinary retention in the setting of bladder prolapse * Urinalysis showed no evidence of UTI. Patient does have a history of bladder prolapse. Chaudhry catheter inserted. Patient is initiated on Flomax. Will hold Flomax due to hypotension. * Follow-up with urology on outpatient basis * #Hypokalemia: Replace and trend. #Paroxysmal A-fib: * Currently rate controlled. * Not on any rate limiting medication. * He is hypotensive so this may be the reason why. * On Eliquis. #Hypertension: BP meds on hold due to hypotension. Orthostatics were also positive. will monitor and resume BP meds as needed. #GERD: On PPI DVT prophylaxis: on eliquis Allergies/Procedures Done in Hospital Allergies procaine (From Novocain) Allergy (Severe, Verified 10/30/24 01:06) passed out Procedures: 2-D Echocardiogram Type of Care/Length of Stay Estimated LOS: Convalescent Care Less Than 30 days Type of Care Needed: Skilled Rehab Potential: Fair Prognosis: Fair Additional Orders/Day of Discharge Day of Discharge: 10/31/24 Dietary and Speech Recommendations Dietitian Recommendations/Changes: Continue Cardiac diet d/t work-up for possible recent stroke. Will order 120mL Ensure Plus High Protein 4x daily with medpass to provide supplemental energy Discharge Plan Admission Admit Date/Time: 10/30/24 16:11 Primary Reason for Your Visit: dizziness, stroke like symptoms Attending Provider: Connie Baez Primary Care Provider: Domonique Gilbert Consulting Providers: Deidra Nguyen Instructions Patient Instructions: Dizziness Fainting Causes Discharge Orders/Prescriptions Prescriptions: Continued Eliquis 2.5 mg tablet 2.5 mg PO BID Patient Comments: take 1 tablet by mouth twice a day oxycodone 5 mg tablet 5 mg PO BID acetaminophen 500 mg Tablet 1,000 mg PO Q8 PRN (Reason: pain) Trulance 3 mg tablet 3 mg PO DAILY tramadol 50 mg Tablet 50 mg PO Q6H PRN PRN (Reason: Pain Score 1-5) 7 Days Qty: 28 0RF (DME) handicap placard See Rx Instructions .ROUTE .MEDSUPPLY Qty: 1 0RF Rx Instructions: Diagnosis: Impaired physical mobility Z74.09 Length of time: 4 years lisinopril 40 mg tablet 20 mg PO DAILY PRN (Reason: BP Hold for SBP less than 130 mmHg) Qty: 30 0RF ergocalciferol (vitamin D2) 50 mcg (2,000 unit) tablet 50 mcg PO DAILY Qty: 90 1RF pantoprazole [Protonix] 40 mg tablet,delayed release (DR/EC) 40 mg PO QDAY Qty: 90 0RF Referrals / Follow Up: Domonique Gilbert MD [Primary Care Provider] - Lidya Samayoa MD [Med Staff - Active Staff] - 3-5 Days Disposition Disposition (needs filled in before D/C Order can be placed): Detention Facility
--- NOTE | 2024-10-31 15:06 | DS.PCM_ITS ---
Providers Date of Admission: 10/30/24 Date of Discharge: 10/31/24 Primary Care Physician: Dr. Domonique Gilbert MD Reason For Visit: URINARY RETENTION DIZZINESS Diagnosis Discharge Diagnosis (1) Hypokalemia: Status: Acute Code(s): E87.6 - Hypokalemia (2) Acute retention of urine: Status: Acute Code(s): R33.8 - Other retention of urine (3) Bladder prolapse: Status: Acute (4) Dizziness: Status: Acute Code(s): R42 - Dizziness and giddiness (5) Contusion of rib: Status: Inactive Code(s): S20.219A - Contusion of unspecified front wall of thorax, initial encounter Plan #Dizziness and stroke like symptoms * Concerning for stroke. Daughter says she has similar symptoms during her previous stroke. * CT of the brain showed no acute intracranial pathology. CT of the head and neck showed no hemodynamically significant stenosis. * MRI of the brain done was negative for any evidence of a stroke * 2D echo also done showed EF of 50% with no regional wall motion abnormalities noted. * PT OT on board. Fall precautions. On aspirin and Eliquis as well as high intensity statin. #Orthostatic hypotension * orthostatics were positive patient was aggressively hydrated with IV fluids. * Flomax held. Bps improved. * monitor orthostatics * fall precautions * #Acute urinary retention in the setting of bladder prolapse * Urinalysis showed no evidence of UTI. Patient does have a history of bladder prolapse. Chaudhry catheter inserted. Patient is initiated on Flomax. Will hold Flomax due to hypotension. * Follow-up with urology on outpatient basis * #Hypokalemia: Replace and trend. #Paroxysmal A-fib: * Currently rate controlled. * Not on any rate limiting medication. * He is hypotensive so this may be the reason why. * On Eliquis. #Hypertension: BP meds on hold due to hypotension. Orthostatics were also positive. will monitor and resume BP meds as needed. #GERD: On PPI DVT prophylaxis: on eliquis Medications at Discharge Home Medications apixaban 2.5 mg tablet (Eliquis) 2.5 mg PO BID blood thinner 06/04/23 handicap placard #1 ea 09/30/23 tramadol 50 mg tablet 50 mg PO Q6H PRN PRN Pain Score 1-5 7 days #28 tabs 12/18/23 lisinopril 40 mg tablet 20 mg (1/2 x 40 mg) PO DAILY PRN BP Hold for SBP less than 130 mmHg #30 tabs 01/10/24 ergocalciferol (vitamin D2) 50 mcg (2,000 unit) tablet 50 mcg PO DAILY #90 tabs 06/29/24 pantoprazole 40 mg tablet,delayed release (Protonix) 40 mg PO QDAY #90 tabs 06/30/24 acetaminophen 500 mg tablet 1,000 mg PO Q8 PRN pain 10/30/24 oxycodone 5 mg tablet 5 mg PO BID 10/30/24 plecanatide 3 mg tablet (Trulance) 3 mg PO DAILY 10/30/24 Hospital Course Operations None Procedures 2-D Echocardiogram Summary of Care Provided Minutes Spent on Discharge: 45 Hospital Course: Patient is an 84-year-old female with a past medical history as outlined was admitted through the ED on 10/30/2024 with complaint of difficulty urination with retention. She did have a history of bladder prolapse and was concerned that this was worsening. On admission urinalysis showed no evidence of UTI and plan was to discharge her home. However started having dizziness in the ED and described it as the room spinning around her. She also complained of a mild headache and said the headache was similar to when she had had her stroke previously. There was therefore concern for stroke so she was admitted for stroke rule out. CT of the brain showed no acute intracranial pathology. CBC and BMP were unremarkable. EKG showed sinus rhythm with no acute ST changes. MRI of the brain done showed no evidence of stroke. CT of the head and neck also showed no evidence of hemodynamically significant stenosis. Hospital course was complicated by hypotension which resolved with IV fluids. She was started on Flomax but this was discontinued due to the hypotension. She work with therapy and was deemed as needing skilled care. She was therefore discharged to senior care home on 10/31/2024. She is to follow-up with her primary care doctor within 1 to 2 weeks. Patient seen and examined prior to discharge. She felt well and had no active complaints. She had been complaining of flank pain due to rib contusion but said this had improved. Review of systems otherwise negative. Labs and vitals reviewed. Medication reviewed and reconciled. She was also referred to urology on outpatient basis. Physical Exam Const alert, oriented x3 and no apparent distress Constitutional Narrative: frail General Appearance: cooperative and comfortable Orientation / Consciousness: awake Exam Limitations: no limitations HEENT normocephalic, head/scalp atraumatic, hearing grossly normal bilaterally and moist oral mucous membranes Mouth: oral and palatal mucosa normal Eyes PERRL, EOMs intact bilaterally and conjunctivae normal Neck no lymphadenopathy and supple Lymph Lymphatic: no lymphadenopathy noted and no lymphedema noted Resp Resp Narrative: mildly diminished breath sounds bibasally, no wheezes or crackles. On room air. Cardio regular rate, regular rhythm, S1 normal heart sound, S2 normal heart sound and no murmurs GI normal to inspection, nondistended, normoactive bowel sounds, soft to palpation, non-tender and non-distended Extremity normal capillary refill, no clubbing, cyanosis or edema and no calf tenderness Extremity Narrative: has mild tenderness with palpation over right flank due to bruised ribs. General Extremity: no tenderness to palpation of joints or extremities Skin General Skin Exam: no breakdown Neuro oriented x3, CN's II-XII intact bilaterally, moves all extremities, no focal motor deficits and no sensory deficits noted Sensorium / Orientation: awake and oriented to person Motor Exam: general weakness Psych thought process normal and cooperative Appearance: appropriate Weight / BMI Weight Weight: 97 lb 14.164 oz Body Mass Index (BMI) 20.4 ABG / Lab / Microbiology Data 10/31/24 05:50 10/31/24 05:50 Laboratory: Laboratory Results - last 24 hr 10/31/24 05:50: WBC 3.1 L, RBC 3.01 L, Hgb 10.1 L, Hct 29.1 L, MCV 96.7, MCH 33.6 H, MCHC 34.7, RDW Std Deviation 47.7 H, RDW Coeff of Criselda 13.5, Plt Count 165, MPV 10.3, Immature Gran % (Auto) 0.300, Neut % (Auto) 47.7, Lymph % (Auto) 37.6, Ballard % (Auto) 10.3 H, Eos % (Auto) 3.5, Baso % (Auto) 0.6, Absolute Neuts (auto) 1.5 L, Absolute Lymphs (auto) 1.17, Nucleated RBC % 0, Sodium 143, Potassium 4.3, Chloride 116 H, Carbon Dioxide 23.0, Anion Gap 4 L, BUN 9, C reatinine 0.33 L, Estim Creat Clear Calc 37.35, Est GFR (MDRD) Af Amer 246, Est GFR (MDRD) Non-Af 204, BUN/Creatinine Ratio 27.4 H, Glucose 82, Calcium 8.4 L, Total Bilirubin 0.60, AST 20, ALT 15, Alkaline Phosphatase 64, Total Protein 4.8 L, Albumin 2.5 L, Globulin 2.3, Albumin/Globulin Ratio 1.1 Microbiology: Microbiology 10/30/24 01:27 Urine Catheter - Catheter Urine Culture - Preliminary Culture exhibits no growth. Radiography Diagnostic Testing: Radiology Impression Brain MRI 10/30/24 04:32 IMPRESSION: No acute brain MR process. Reading Location: [facility] Echocardiogram 10/30/24 04:32 Interpretation Summary Normal LV size. The left ventricular ejection fraction is 50 %. There is mild to moderate mitral annular calcification. Moderate eccentric left ventricular hypertrophy. Ordering Physician: Deidra Nguyen Performed By: Emani White RDCS D/C Instructions Discharge Diet: Low fat / Low cholesterol Discharge Activity: Return to Normal Activity Weight Bearing Status: Weight bearing as tolerated Call your doctor if you observe: Fever of 101 or Higher, Shortness of breath, Dizziness, Swelling in the ankles, Chest pain and Uncontrolled pain DC O2, CPAP, BIPAP Needs Home O2 Discharge instructions: No Meaningful Use Info Meaningful Use Meaningful Use Diagnoses (Choose all that apply): None applicable Ischemic Stroke Statin Dosing Therapy Reference: STATIN DOSE THERAPY REFERENCE: * Patients > 75 years receive moderate or high dose statin therapy. * Patients 75 years or YOUNGER should receive HIGH intensity statin dose unless contraindicated. You will be required to document reason for non-treatment if statin daily dose does not meet guidelines. HIGH DOSE STATIN THERAPY DAILY Atorvastatin > than or = to 40 mg Rosuvastatin > than or = to 20 mg Amlodipine + Atorvastatin > than or = to 2.5/40 mg Ezetimibe + Simvastatin 10/80 mg Simvastatin 80mg Discharge Plan Admission Admit Date/Time: 10/30/24 16:11 Primary Reason for Your Visit: dizziness, stroke like symptoms Attending Provider: Connie Baez Primary Care Provider: Domonique Gilbert Consulting Providers: Deidra Nguyen Instructions Patient Instructions: Dizziness Fainting Causes Discharge Orders/Prescriptions Prescriptions: Continued Eliquis 2.5 mg tablet 2.5 mg PO BID Patient Comments: take 1 tablet by mouth twice a day oxycodone 5 mg tablet 5 mg PO BID acetaminophen 500 mg Tablet 1,000 mg PO Q8 PRN (Reason: pain) Trulance 3 mg tablet 3 mg PO DAILY tramadol 50 mg Tablet 50 mg PO Q6H PRN PRN (Reason: Pain Score 1-5) 7 Days Qty: 28 0RF (DME) handicap placard See Rx Instructions .ROUTE .MEDSUPPLY Qty: 1 0RF Rx Instructions: Diagnosis: Impaired physical mobility Z74.09 Length of time: 4 years lisinopril 40 mg tablet 20 mg PO DAILY PRN (Reason: BP Hold for SBP less than 130 mmHg) Qty: 30 0RF ergocalciferol (vitamin D2) 50 mcg (2,000 unit) tablet 50 mcg PO DAILY Qty: 90 1RF pantoprazole [Protonix] 40 mg tablet,delayed release (DR/EC) 40 mg PO QDAY Qty: 90 0RF Referrals / Follow Up: Domonique Gilbert MD [Primary Care Provider] - Lidya Samayoa MD [Med Staff - Active Staff] - 3-5 Days Disposition Disposition (needs filled in before D/C Order can be placed): Assisted Facility Charges/Coding Visit Charges Inpatient E&M: 99857 Disch Hosp >30min
[2024-10-31] MEDS: Tamsulosin HCl 0.4 MG Capsule PO (16:44)
[2024-11-01 16:31] LABS: Hemoglobin A1c 4.8 % (3.8-5.6)
== END 2024-10-31 16:50 | disposition skilled nursing facility (03) | DRG 149 ==
LOC: ED 03:44 → PCU 04:25
PROVIDERS: Admitting Provider Family Medicine; Emergency Provider Emergency Medicine; PCP Internal Medicine; Referring Provider Student in an Organized Health Care Education/Training Program; Visit Provider Student in an Organized Health Care Education/Training Program
DX: R42 Dizziness and giddiness (principal); I48.0 Paroxysmal atrial fibrillation; I95.1 Orthostatic hypotension; I69.312 Visuospatial deficit and spatial neglect following cerebral infarction; I10 Essential (primary) hypertension; E78.5 Hyperlipidemia, unspecified; E87.6 Hypokalemia; K21.9 Gastro-esophageal reflux disease without esophagitis; K59.09 Other constipation; N81.10 Cystocele, unspecified; R33.8 Other retention of urine; R51.9 Headache, unspecified; Z79.01 Long term (current) use of anticoagulants; Z79.899 Other long term (current) drug therapy; R26.89 Other abnormalities of gait and mobility; J45.909 Unspecified asthma, uncomplicated
CPT/HCPCS: 36415; 51702; 70450; 70496; 70498; 70551; 80048; 80053; 80061; 81001; 83036; 83735; 84443; 85025; 87086; 92610; 93005; 93306; 96360; 96361; 97162; 97166; 97802; 99221; 99285; Q9967; A4216; G0378

== ENCOUNTER 2024-10-31 17:17 | Inpatient (IN) | payer MEDICARE, SELFPAY ==
[2024-10-31 17:35] VITALS: BP 159/71; PULSE 67; RESP 16; TEMP 36.1; O2SAT 99; BMI 18.3
--- NOTE | 2024-10-31 18:00 | HP.PCM_ITS ---
HPI - General General Date of Admission: 10/31/24 Date of Service: 11/02/24 Chief Complaint: Here for rehabilitation. HPI Narrative MAK SNOW, is a 84 Female who presents with followin10/30/2024 [facility] ED with complaint. Unable to urinate, increasing discomfort. History of bladder prolapse, last urination few hours ago. Bladderscan 575cc. Contreras drained 850cc, urinalysis sent, bladder prolapse noted by nursing staff. Urinalysis negative. Patient dizzy, unable to go home. 10/30/2024 Admit [facility]. MRI brain, CTA head/neck, Echo, PT/OT/ST, add statin for stroke. Tamsulosin, indwelling contreras catheter for urinary retention. Supplement potassium 3.3. 10/30/[address] brain negative, MRI brain done, results pending. Right flank pain, 2/2 hurt ribs, takes Tramadol, oxycodone at home from pain management. IV fluids for orthostasis. 10/30/2024 MRI brain negative for stroke. 10/31/2024 Admit to TCU with debility, here for rehabilitation, strengthening, prior to discharge home alone. [facility] Medical History (Updated 10/31/24 @ 18:[address] Robb Soni MD) Hyperlipemia History of atrial fibrillation Constipation Prolapsed bladder Hip pain with osteonecrosis Asthma Bilateral hemianopia Stroke Heart valve problem Hearing deficit Glaucoma Arthritis Vitamin D deficiency Osteoarthritis of right hip Takotsubo cardiomyopathy Hypertension Home Medications ?Medication ?Instructions ?Recorded ?Last Taken ?Type apixaban 2.5 mg tablet (Eliquis) 2.5 mg PO BID blood t hinner 06/04/23 10/31/24 08:35 History handicap placard #1 ea 09/30/23 Unknown Rx tramadol 50 mg tablet 50 mg PO Q6H PRN PRN Pain Sc ore 12/18/23 10/31/24 03:05 Rx 1-5 7 days #28 tabs lisinopril 40 mg tablet 20 mg (1/2 x 40 mg) PO DAILY PRN 01/10/24 10/29/24 20:57 Rx BP Hold for SBP less than 130 mmHg #30 tabs ergocalciferol (vitamin D2) 50 mcg 50 mcg PO DAILY Sup plement #90 tabs 06/29/24 10/29/24 12:00 Rx (2,000 unit) tablet pantoprazole 40 mg tablet,delayed 40 mg PO QDAY GERD # 90 tabs 06/30/24 10/31/24 08:35 Rx release (Protonix) acetaminophen 500 mg tablet 1,000 mg PO Q8 PRN pain Unknown History oxycodone 5 mg tablet 5 mg PO BID Pain 10/30/24 09:55 History plecanatide 3 mg tablet (Trulance) 3 mg PO DAILY IBS 0 10/30/24 10/29/24 08:00 History Allergy/AdvReac Type Severity Reaction Status Date / Time procaine (From Novocain) Allergy Severe passed out Verified 10/30/24 01:06 Family History Father Heart disease Hypertension Mother Heart disease Hypertension Surgical History History of hip replacement S/P total right hip arthroplasty History of surgery on arm H/O neck surgery Social History household members: none current occupational 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 Status: Never smoker Electronic Cigarette Use: not used alcohol intake: never substance use type: does not use what type of physical activity do you participate in: none do you feel safe at home: Yes ROS Constitutional Constitutional: Reports weakness; Denies chills, fever(s) or weight gain ENT HEENT: Denies headache(s), nasal congestion or nasal discharge Cardiovascular Cardiovascular: Denies chest pain or palpitations Respiratory/Chest Respiratory/Chest: Denies cough, excessive phlegm production or shortness of breath with exertion Gastrointestinal Gastrointestinal: Denies abdominal pain, nausea or vomiting Genitourinary Genitourinary: Denies dysuria Musculoskeletal Musculoskeletal: Denies joint pain or joint swelling Integumentary Integumentary: Denies rash or wounds Neurologic Neurologic: Denies focal weakness, numbness or tingling Psychiatric Psychiatric: Denies anxiety, auditory hallucinations, depression, homicidal ideation or suicidal ideation Vital Signs Vital Signs Vital Signs: 10/31/24 17:35 Temperature 97.0 F L Temperature Source Temporal Pulse Rate 67 Respiratory Rate 16 Blood Pressure 159/71 H Blood Pressure Mean 100 Blood Pressure Source Monitor Pulse Ox 99 Oxygen Delivery Method Room Air Weight Weight: 39.689 kg Body Mass Index (BMI) 18.3 Physical Exam Const alert General Appearance: cooperative HEENT normocephalic Eyes PERRL and EOMs intact bilaterally Neck supple, no JVD and no carotid bruits Resp normal respiratory effort, normal air movement and clear to auscultation bilaterally Cardio regular rate and regular rhythm GI normal to inspection, nondistended, normoactive bowel sounds, non-tender and non-distended Extremity normal capillary refill General Extremity: Negative for edema Skin no rashes or lesions noted General Skin Exam: no breakdown Psych affect normal Appearance: appropriate Results Lab / Micro Data 11/01/24 05:47 11/02/24 05:15 Assessment & Plan Assessment/Plan (1) Debility: (2) Urinary retention: (3) Bladder prolapse: (4) Dizziness: (5) Orthostatic hypotension: (6) Atrial fibrillation: (7) Hyperlipemia: (8) Essential (primary) hypertension: (9) GERD (gastroesophageal reflux disease): (10) Chronic constipation: PLAN: Plan 84 year old female with below past medical history hospitalized for urinary retention 2/2 bladder prolapse, complicated by dizziness 2/2 orthostatic hypotension, stroke ruled out, admitted to TCU with debility, here for rehabilitation, strengthening, prior to discharge home alone. * Debility - PT/OT. * Pain - Tylenol 1000mg q6 prn pain (1-5), Tramadol 50mg q6 prn pain (6-10), Oxycodone 5mg bid. * Bowel - Trulance 3mg daily (resident's home supply). * Adult immunization - Administer pneumonia vaccine, covid vaccine, flu vaccine as appropriate. * DVT prophylaxis - on Eliquis. * Atrial fibrillation - Eliquis 2.5mg bid. * Vitamin D deficiency - D3 50mg daily. * Hypertension - Lisinopril 20mg daily * GERD - Pantoprazole 40mg daily.
[2024-10-31] MEDS: oxyCODONE 5 MG Tablet PO (22:00)
[2024-10-31] MEDS: APIXABAN 2.5 MG TABLET (WCH) PO (22:01)
[2024-11-01] MEDS: traMADol 50 MG Tablet PO (01:02)
[2024-11-01 06:05] LABS: Absolute Lymphocyte Count 0.86 X10^3/uL (0.83-4.51); Absolute Neutrophil Count 2.5 X10^3/uL (2.0-7.7); Basophil# 0.06 X10^3/uL; Basophil% 1.5 % (0-1); Eosinophil# 0.18 X10^3/uL; Eosinophils% 4.5 % (0-5); Hematocrit 32.3 % (37-47); Hemoglobin 11.6 g/dL (12.0-15.0); Lymphocyte # 0.86 X10^3/ul (0.83-4.51); Lymphocyte % 21.7 % (19-41); Mean Corp Hgb Conc 35.9 g/dL (32-36); Mean Corpuscular Hgb 33.5 pg (27.0-32.0); Mean Corpuscular Volume 93.4 fL (81-99); Mean Platelet Vol. 9.9 fl (6.2-12.0); Monocyte# 0.39 X10^3/uL; Monocyte% 9.8 % (0-10); NRBC Flagged by Analyzer 0 % (0-5); Neutrophil # 2.45 X10^3/uL (2.7-7.7); Platelet Count 182 K/mm3 (150-450); RBC Distribution Width SD 44.3 fl (35.1-43.9); Red Blood Count 3.46 M/mm3 (4.2-5.4)
[2024-11-01 06:27] LABS: Anion Gap 5 (5-15); BUN 7 mg/dL (7-18); BUN/Creat Ratio 20.3 RATIO (10-20); Calcium,Total 9.2 mg/dL (8.5-10.1); Chloride 110 mmol/L (98-107); Creatinine, Serum 0.34 mg/dL (0.55-1.02); EST Glomerular Filtration Rate 192 mL/min (>60); Est Glom Filt Rate - Afr Amer 232 mL/min (>60); Estimated Creatinine Clearance 33.38 ml/min; Glucose 89 mg/dL (74-106); Potassium 3.4 mmol/L (3.5-5.1); Sodium Level 141 mmol/L (136-145)
[2024-11-01 08:35] VITALS: BP 141/63; PULSE 77; RESP 17; TEMP 36.3; O2SAT 92
[2024-11-01] MEDS: Pantoprazole Sodium 40 MG Tablet PO (08:38)
[2024-11-01] MEDS: APIXABAN 2.5 MG TABLET (WCH) PO ×2 (08:38→21:03)
[2024-11-01] MEDS: PLECANATIDE 3 MG TABLET PO (08:38)
[2024-11-01] MEDS: Lisinopril 20 MG Tablet PO (08:39)
[2024-11-01] MEDS: Cholecalciferol (VIT D3) 25 MCG TABLET (1,000 UNITS) 50 MCG PO (08:39)
[2024-11-01] MEDS: Lidocaine 5% Patch 1 PATCH TOPICAL (08:46)
[2024-11-01] MEDS: Tuberculin,Purif.prot.deriv. 50 TU/ML Vial 0.1 ML ID (08:47)
[2024-11-01] MEDS: oxyCODONE 5 MG Tablet PO ×2 (09:37→21:03)
[2024-11-01] MEDS: Potassium Chloride Oral Tablet 20 MEQ 40 MEQ PO (12:15)
[2024-11-02 06:14] LABS: Anion Gap 6 (5-15); BUN 13 mg/dL (7-18); BUN/Creat Ratio 31.5 RATIO (10-20); Calcium,Total 9.1 mg/dL (8.5-10.1); Chloride 108 mmol/L (98-107); Creatinine, Serum 0.41 mg/dL (0.55-1.02); EST Glomerular Filtration Rate 156 mL/min (>60); Est Glom Filt Rate - Afr Amer 189 mL/min (>60); Estimated Creatinine Clearance 33.38 ml/min; Glucose 90 mg/dL (74-106); Potassium 4.1 mmol/L (3.5-5.1); Sodium Level 141 mmol/L (136-145)
--- NOTE | 2024-11-02 08:59 | NURSING ---
Offered covid vaccine, VIS provided. Resident declines at this time.
[2024-11-02] MEDS: Cholecalciferol (VIT D3) 25 MCG TABLET (1,000 UNITS) 50 MCG PO (09:12)
[2024-11-02] MEDS: Lisinopril 20 MG Tablet PO (09:13)
[2024-11-02] MEDS: Lidocaine 5% Patch 1 PATCH TOPICAL (09:13)
[2024-11-02] MEDS: Potassium Chloride Oral Tablet 10 MEQ PO (09:13)
[2024-11-02] MEDS: PLECANATIDE 3 MG TABLET PO (09:13)
[2024-11-02] MEDS: APIXABAN 2.5 MG TABLET (WCH) PO ×2 (09:13→21:58)
[2024-11-02] MEDS: Pantoprazole Sodium 40 MG Tablet PO (09:13)
[2024-11-02] MEDS: oxyCODONE 5 MG Tablet PO ×2 (09:16→21:58)
[2024-11-02 09:25] VITALS: BP 144/82; PULSE 80
--- NOTE | 2024-11-02 12:11 | NURSING ---
Laundry Presser Note;Activity Asset: Maya Mayo is independent in her choice of daily activities w/reminders. She enjoys reading the daily chronicle, watching tv, spending time with family. She welcomes visits w/packing and stamping machine operator and therapy dog when available. Staff will encourage social activities, remind her of weekly activities and respect her right to say no.
[2024-11-02 15:39] VITALS: BP 155/62; PULSE 66; RESP 16; TEMP 36.7; O2SAT 98
--- NOTE | 2024-11-02 16:51 | PHA.CONS_ITS ---
Documented by User: Rocio Chen 11/02/24 16:58 TCU RX Drug Regimen Review Subjective/Objective Subjective/Objective Subjective: TCU Admission. 84 YOF presented to ER with complaint. Hospitalized for urinary retention 2/2 bladder prolapse, complicated by dizziness 2/2 orthostatic hypotension, stroke ruled out. Admitted to TCU with debility for strengthening and rehabilitation. Objective: Allergies procaine (From Novocain) Allergy (Severe, Verified 10/30/24 01:06) passed out Current Medications Generic Name Dose Route Start Last Admin Trade Name Freq PRN Reason Stop Dose Admin Acetaminophen 1,000 mg 10/31/24 18:09 Acetaminophen 500 Mg Tablet PO Q6H PRN Pain Score 1-5 Apixaban 2.5 mg 10/31/24 22:00 11/02/24 09:13 Apixaban 2.5 Mg Tablet ([facility]) PO 2.5 mg BID OLLIE Administration Cholecalciferol 50 mcg 11/01/24 10:00 11/02/24 09:12 Cholecalciferol (Vit D3) 25 Mcg Tablet (1,000 Units) PO 50 mcg DAILY OLLIE Administration Lidocaine 1 patch 11/01/24 10:00 11/02/24 09:13 Lidocaine 5% Patch TOPICAL 1 patch DAILY OLLIE Administration Protocol Lisinopril 20 mg 11/01/24 10:00 11/02/24 09:13 Lisinopril 20 Mg Tablet PO 20 mg DAILY OLLIE Administration Protocol Oxycodone HCl 5 mg 10/31/24 22:00 11/02/24 09:16 Oxycodone 5 Mg Tablet PO 5 mg BID OLLIE Administration Pantoprazole Sodium 40 mg 11/01/24 10:00 11/02/24 09:13 Pantoprazole Sodium 40 Mg Tablet PO 40 mg DAILY OLLIE Administration Potassium Chloride 10 meq 11/02/24 08:00 11/02/24 09:13 Potassium Chloride Oral Tablet 10 Meq PO 10 meq DAILYCM OLLIE Administration Sodium Chloride 10 - 40 ml 10/31/24 17:43 0.9% Saline Lock 10 Ml Syringe IV UD PRN SALINE FLUSH Tramadol HCl 50 mg 10/31/24 17:47 11/01/24 01:02 Tramadol 50 Mg Tablet PO 50 mg Q6H PRN PRN Administration Pain Score 6-10 or Pre PT/OT Tuberculin PPD 0.1 ml 11/08/24 10:00 Tuberculin,Purif.Prot.Deriv. 50 Tu/Ml Vial ID 11/08/24 10:01 X1 ONE Problem List Chronic constipation (Chronic) GERD (gastroesophageal reflux disease) (Acute) Essential (primary) hypertension (Acute) Hyperlipemia (Acute) Orthostatic hypotension (Acute) Urinary retention (Acute) Dizziness (Acute) Bladder prolapse (Acute) Atrial fibrillation (Acute) Vital Signs Temp Pulse Resp BP Pulse Ox O2 Del Method 98.1 F 66 16 155/62 H 98 Room Air 11/02/24 15:39 11/02/24 15:39 11/02/24 15:39 11/02/24 15:39 11/02/24 15:39 11/02/24 16:08 Oxygen Delivery Method Room Air Weight: 39.689 kg Body Mass Index (BMI) 18.3 Sodium 141 mmol/L (136-145) 11/02/24 05:15 Potassium 4.1 mmol/L (3.5-5.1) 11/02/24 05:15 Chloride 108 mmol/L (98-107) H 11/02/24 05:15 Carbon Dioxide 27.0 mmol/L (21.0-32.0) 11/02/24 05:15 Anion Gap 6 (5-15) 11/02/24 05:15 BUN 13 mg/dL (7-18) 11/02/24 05:15 Creatinine 0.41 mg/dL (0.55-1.02) L 11/02/24 05:15 Est GFR (MDRD) Af Amer 189 mL/min (>60) 11/02/24 05:15 Est GFR (MDRD) Non-Af 156 mL/min (>60) 11/02/24 05:15 BUN/Creatinine Ratio 31.5 RATIO (10-20) H 11/02/24 05:15 Glucose 90 mg/dL (74-106) 11/02/24 05:15 Assessment/Plan: 1. Pain: acetaminophen 1000mg PO Q6h PRN pain 1-5, tramadol 50mg PO Q6H PRN pain 6-10, lidocaine 5% patch 1 patch topical daily and oxycodone 5mg PO BID. Please continue to monitor for increased pain, PRN usage, constipation, respiratory depression, renal function, rash and falls (Janine). Resident has had 1 dose of tramadol for a pain score of 8 in the ribs/hips. 2. Bowel: Trulance 3mg PO daily. Please continue to monitor for constipation (last documented bowel movement 10/30.) 3. Atrial fibrillation: apixaban 2.5mg PO BID. Dose appropriate as age is >80 a nd weight is <60kg. Please continue to monitor for S/S of bleeding/stroke and hemoglobin (last 11.6g/dL). 4. Hypertension: lisinopril 20mg PO daily. Please continue to monitor BP (last 155/62), potassium (last 4.1mmol/L), cough and renal function. 5. GERD: pantoprazole 40mg PO daily. Please continue to monitor for S/S of GERD and diarrhea (BEERs). 6. Vitamin D deficiency: cholecalciferol 50mcg PO daily. Please continue to monitor vitamin D (last 01/28/24). 7. Hypokalemia (K=3.4mmol/L 11/01): potassium chloride 10mEq PO daily. Please continue to monitor potassium. Assessment/Plan for indications treated with psychotropic medications: None Medical chart and medication regimen reviewed. The following medication irregularities or issues were identified: None Date Date of Note: 11/02/24 Documented by User: Dr. Robb Soni MD 11/02/24 17:32 TCU RX Drug Regimen Review Provider Comments Provider responsibility Provider Comments to Recommendations by Pharmacy Agree
[2024-11-03] MEDS: traMADol 50 MG Tablet PO ×2 (05:35→16:50)
[2024-11-03 06:20] VITALS: RESP 16; O2SAT 96
[2024-11-03 09:54] VITALS: BP 134/66; PULSE 77; RESP 16; TEMP 36.1; O2SAT 95
[2024-11-03] MEDS: Lidocaine 5% Patch 1 PATCH TOPICAL (09:56)
[2024-11-03] MEDS: oxyCODONE 5 MG Tablet PO ×2 (09:56→22:09)
[2024-11-03] MEDS: Pantoprazole Sodium 40 MG Tablet PO (09:56)
[2024-11-03] MEDS: APIXABAN 2.5 MG TABLET (WCH) PO ×2 (09:56→22:10)
[2024-11-03] MEDS: Potassium Chloride Oral Tablet 10 MEQ PO (09:56)
[2024-11-03] MEDS: Cholecalciferol (VIT D3) 25 MCG TABLET (1,000 UNITS) 50 MCG PO (09:57)
[2024-11-03] MEDS: PLECANATIDE 3 MG TABLET PO (09:57)
[2024-11-03] MEDS: Lisinopril 20 MG Tablet PO (09:57)
--- NOTE | 2024-11-03 15:18 | CASEMGMT ---
Social Work SW met with patient to complete initial assessment. Introduced self and role. Verified contacts. Patient confirmed code status as full code. Pt has advanced directives on file, but no addresses or phone numbers listed. SW to speak with dtr at POC meeting tomorrow to discuss updating. SW educated to [facility] insurance witn NRD 11/09. However, pt is adlib and requesting to DC. IDT to discuss at POC meeting tomorrow with family. SW will continue to follow for DC planning. Mare Stein MSW ASSISTANT GROCERY STORE MANAGER
[2024-11-03 15:30] VITALS: BMI 17.0
--- NOTE | 2024-11-03 15:50 | NURSING ---
pt updated on staff member testing for covid, declined notifying family
--- NOTE | 2024-11-03 15:58 | CHAPLAIN ---
Type of Pastoral Visit _x__ Initial Visit ___ Follow-up Visit ___ On-call Visit ___ General Patient Visit ___ Spiritual Assessment ___ Family Conference ___ Bereavement ___ Rapid Response ___ Code Blue ___ Other (describe below) Pastoral Care Referral From __x_ Patient ___ Family ___ Nurse ___ Physician ___ Internal Grinder ___ Personal Care Service Provider ___ Other (describe below) Sacrament/Intervention _x__ Active listening ___ Anointing ___ Temple ___ Bereavement ___ Communion ___ [place] exploration ___ _x__ Life review _x__ Prayer ___ Reconciliation ___ Sacrament of Sick ___ Supportive presence ___ Wedding ___ Other (describe below) Pastoral Comments patient was seen in PCU last week but she did not remember this press clipper; pt is talkative and asks questions of the press clipper; pt is positive in attitude and has hope to go home soon; pt has good family support that lives very close to her; pt welcomes a prayer
[2024-11-04] MEDS: PLECANATIDE 3 MG TABLET PO (08:00)
[2024-11-04] MEDS: Potassium Chloride Oral Tablet 10 MEQ PO (08:00)
[2024-11-04] MEDS: Cholecalciferol (VIT D3) 25 MCG TABLET (1,000 UNITS) 50 MCG PO (08:01)
[2024-11-04] MEDS: APIXABAN 2.5 MG TABLET (WCH) PO ×2 (08:01→22:42)
[2024-11-04] MEDS: Pantoprazole Sodium 40 MG Tablet PO (08:01)
[2024-11-04] MEDS: Lisinopril 20 MG Tablet PO (08:01)
[2024-11-04] MEDS: oxyCODONE 5 MG Tablet PO ×2 (08:05→22:42)
[2024-11-04 08:06] VITALS: BP 148/68; PULSE 68
[2024-11-04] MEDS: Lidocaine 5% Patch 1 PATCH TOPICAL (09:47)
--- NOTE | 2024-11-04 09:55 | CASEMGMT ---
Social Work SW met with pt at bedside and dtr via conference call for care plan meeting. Discussed patient's progress in PT/OT/ST/SN. Educated to [facility] insurance with NRD 11/09. Provided written communication on insurance process and copay coverage during stay. SW educated to the incompletion of the advanced directives on file. SW offered to complete new documents or suggested following up immigration attorney to update documents. Dtr dtated immigration attorney has retired and appreciative for this worker to complete new documents. Pt agreed. SW to complete prior to DC. Pt is adlib and requesting to DC home. Dtr expressed no concerns. IDT agreeable to set DC. Offered DC 11/08. Pt/dtr accepted. Dtr to transport. SW offered HHC vs OP therapy. pt denied continued therapy as she has HEPs that she will continue. Pt denied DME needs. Plan: DC home alone 11/08, no needs Mare Stein MSW TRANSFER CONTROLLER
--- NOTE | 2024-11-04 12:53 | CASEMGMT ---
Social Work SW completed new advanced directives. Original and copy provided to pt. Copies placed on chart. Mare Stein SUPERVISOR DOG LICENSE OFFICER REHAB OFFICE COORDINATOR
[2024-11-04] MEDS: traMADol 50 MG Tablet PO (15:37)
[2024-11-04 16:00] VITALS: BP 123/63; PULSE 67; RESP 16; TEMP 37.3; O2SAT 98
--- NOTE | 2024-11-04 18:53 | DS.PCM_ITS ---
Providers Date of Admission: 10/31/24 Primary Care Physician: Dr. Domonique Gilbert MD Reason For Visit: URINARY RETENTION AND DIZZINESS Diagnosis Discharge Diagnosis (1) Debility: Status: Resolved Code(s): R53.81 - Other malaise (2) Urinary retention: Status: Acute Code(s): R33.9 - Retention of urine, unspecified (3) Bladder prolapse: Status: Acute (4) Dizziness: Status: Acute Code(s): R42 - Dizziness and giddiness (5) Orthostatic hypotension: Status: Acute Code(s): I95.1 - Orthostatic hypotension (6) Atrial fibrillation: Status: Acute Code(s): I48.91 - Unspecified atrial fibrillation (7) Hyperlipemia: Status: Acute Code(s): E78.5 - Hyperlipidemia, unspecified (8) Essential (primary) hypertension: Status: Acute Code(s): I10 - Essential (primary) hypertension (9) GERD (gastroesophageal reflux disease): Status: Acute Code(s): K21.9 - Gastro-esophageal reflux disease without esophagitis (10) Chronic constipation: Status: Chronic Code(s): K59.09 - Other constipation Plan 84 year old female with below past medical history hospitalized for urinary retention 2/2 bladder prolapse, complicated by dizziness 2/2 orthostatic hypotension, stroke ruled out, admitted to TCU with debility, here for rehabilitation, strengthening, prior to discharge home alone. * Debility - PT/OT. * Pain - Tylenol 1000mg q6 prn pain (1-5), Tramadol 50mg q6 prn pain (6-10), Oxycodone 5mg bid. * Bowel - Trulance 3mg daily (resident's home supply). * Adult immunization - Administer pneumonia vaccine, covid vaccine, flu vaccine as appropriate. * DVT prophylaxis - on Eliquis. * Atrial fibrillation - Eliquis 2.5mg bid. * Vitamin D deficiency - D3 50mg daily. * Hypertension - Lisinopril 20mg daily * GERD - Pantoprazole 40mg daily. Medications at Discharge Home Medications apixaban 2.5 mg tablet (Eliquis) 2.5 mg PO BID blood thinner 06/04/23 handicap placard #1 ea 09/30/23 tramadol 50 mg tablet 50 mg PO Q6H PRN PRN Pain Score 1-5 7 days #28 tabs 12/18/23 lisinopril 40 mg tablet 20 mg (1/2 x 40 mg) PO DAILY PRN BP Hold for SBP less than 130 mmHg #30 tabs 01/10/24 ergocalciferol (vitamin D2) 50 mcg (2,000 unit) tablet 50 mcg PO DAILY Supplement #90 tabs 06/29/24 pantoprazole 40 mg tablet,delayed release (Protonix) 40 mg PO QDAY GERD #90 tabs 06/30/24 oxycodone 5 mg tablet 5 mg PO BID Pain 10/30/24 plecanatide 3 mg tablet (Trulance) 3 mg PO DAILY IBS 10/30/24 potassium chloride 10 mEq tablet,extended release(part/cryst) 10 meq PO DAILYCM 30 days #30 tabs 11/04/24 Hospital Course Operations None Procedures None Summary of Care Provided Minutes Spent on Discharge: 30 Hospital Course: 84 year old female with below past medical history hospitalized for urinary retention 2/2 bladder prolapse, complicated by dizziness 2/2 orthostatic hypotension, stroke ruled out, admitted to TCU with debility, here for rehabilitation, strengthening, prior to discharge home alone. Discharge home alone 11/08/2024, No needs. Physical Exam Const alert General Appearance: cooperative HEENT normocephalic Eyes PERRL and EOMs intact bilaterally Neck supple, no JVD and no carotid bruits Resp normal respiratory effort, normal air movement and clear to auscultation bilaterally Cardio regular rate and regular rhythm GI normal to inspection, nondistended, normoactive bowel sounds, non-tender and non-distended Extremity normal capillary refill General Extremity: Negative for edema Skin no rashes or lesions noted General Skin Exam: no breakdown Psych affect normal Appearance: appropriate Weight / BMI Weight Weight: 36.968 kg Body Mass Index (BMI) 17.0 ABG / Lab / Microbiology Data 11/01/24 05:47 11/02/24 05:15 Microbiology: Microbiology 11/04/24 05:30 Nasal Secretion SARS-CoV-2 Antigen (Rapid) - Final D/C Instructions Discharge Diet: No restrictions Discharge Activity: Return to Normal Activity, May Shower and Use Walker Weight Bearing Status: Weight bearing as tolerated Call your doctor if you observe: Fever of 101 or Higher, Inability to urinate, Inability to have a bowel movement, Shortness of breath, Dizziness, Fainting spells, Swelling in the ankles, Chest pain and Uncontrolled pain DC O2, CPAP, BIPAP Needs Home O2 Discharge instructions: No Additional Instructions: Discharge home alone 11/08/2024, No needs. Meaningful Use Info Meaningful Use Meaningful Use Diagnoses (Choose all that apply): None applicable Ischemic Stroke Statin Dosing Therapy Reference: STATIN DOSE THERAPY REFERENCE: * Patients > 75 years receive moderate or high dose statin therapy. * Patients 75 years or YOUNGER should receive HIGH intensity statin dose unless contraindicated. You will be required to document reason for non-treatment if statin daily dose does not meet guidelines. HIGH DOSE STATIN THERAPY DAILY Atorvastatin > than or = to 40 mg Rosuvastatin > than or = to 20 mg Amlodipine + Atorvastatin > than or = to 2.5/40 mg Ezetimibe + Simvastatin 10/80 mg Simvastatin 80mg Discharge Plan Admission Admit Date/Time: 10/31/24 17:17 Primary Reason for Your Visit: Debility. Attending Provider: Robb Soni Chi Primary Care Provider: Domonique Gilbert Instructions Additional Instructions / Restrictions: Discharge home alone 11/08/2024, No needs. Discharge Orders/Prescriptions Prescriptions: New potassium chloride 10 mEq Tablet,Er Particles/Crystals 10 meq PO DAILYCM 30 Days Qty: 30 0RF Continued Eliquis 2.5 mg tablet 2.5 mg PO BID Patient Comments: take 1 tablet by mouth twice a day oxycodone 5 mg tablet 5 mg PO BID Trulance 3 mg tablet 3 mg PO DAILY tramadol 50 mg Tablet 50 mg PO Q6H PRN PRN (Reason: Pain Score 1-5) 7 Days Qty: 28 0RF lisinopril 40 mg tablet 20 mg PO DAILY PRN (Reason: BP Hold for SBP less than 130 mmHg) Qty: 30 0RF ergocalciferol (vitamin D2) 50 mcg (2,000 unit) tablet 50 mcg PO DAILY Qty: 90 1RF pantoprazole [Protonix] 40 mg tablet,delayed release (DR/EC) 40 mg PO QDAY Qty: 90 0RF Discontinued acetaminophen 500 mg Tablet 1,000 mg PO Q8 PRN (Reason: pain) No Action (DME) handicap placard See Rx Instructions .ROUTE .MEDSUPPLY Qty: 1 0RF Rx Instructions: Diagnosis: Impaired physical mobility Z74.09 Length of time: 4 years Referrals / Follow Up: Domonique Gilbert MD [Primary Care Provider] - 11/24/24 1:30 pm (Earliest appt that coordinates with dtr's work schedule ) Disposition Disposition (needs filled in before D/C Order can be placed): Home, Self Care
[2024-11-05] MEDS: APIXABAN 2.5 MG TABLET (WCH) PO ×2 (08:59→21:10)
[2024-11-05] MEDS: Lisinopril 20 MG Tablet PO (08:59)
[2024-11-05] MEDS: oxyCODONE 5 MG Tablet PO ×2 (08:59→21:10)
[2024-11-05] MEDS: Pantoprazole Sodium 40 MG Tablet PO (08:59)
[2024-11-05] MEDS: Cholecalciferol (VIT D3) 25 MCG TABLET (1,000 UNITS) 50 MCG PO (08:59)
[2024-11-05] MEDS: PLECANATIDE 3 MG TABLET PO (08:59)
[2024-11-05] MEDS: Lidocaine 5% Patch 1 PATCH TOPICAL (08:59)
[2024-11-05] MEDS: Potassium Chloride Oral Tablet 10 MEQ PO (08:59)
[2024-11-05 09:10] VITALS: BP 133/54; PULSE 70
[2024-11-05] MEDS: traMADol 50 MG Tablet PO (11:43)
--- NOTE | 2024-11-05 13:45 | MDS.RN ---
MDS pain assessment complete.
[2024-11-05 15:02] VITALS: BP 116/66; PULSE 96; RESP 16; TEMP 36.6; O2SAT 96
[2024-11-06 07:02] LABS: Absolute Lymphocyte Count 1.47 X10^3/uL (0.83-4.51); Basophil# 0.05 X10^3/uL; Basophil% 1.7 % (0-1); Eosinophil# 0.12 X10^3/uL; Eosinophils% 4.1 % (0-5); Hematocrit 32.6 % (37-47); Hemoglobin 11.2 g/dL (12.0-15.0); Lymphocyte # 1.47 X10^3/ul (0.83-4.51); Lymphocyte % 50.2 % (19-41); Mean Corp Hgb Conc 34.4 g/dL (32-36); Mean Corpuscular Hgb 32.8 pg (27.0-32.0); Mean Corpuscular Volume 95.6 fL (81-99); Mean Platelet Vol. 9.8 fl (6.2-12.0); Monocyte# 0.28 X10^3/uL; Monocyte% 9.6 % (0-10); NRBC Flagged by Analyzer 0 % (0-5); Neutrophil % 34.1 % (47-70); Platelet Count 202 K/mm3 (150-450); RBC Distribution Width CV 13.2 % (11.6-14.6); RBC Distribution Width SD 45.9 fl (35.1-43.9); Red Blood Count 3.41 M/mm3 (4.2-5.4); White Blood Count 2.9 K/mm3 (4.4-11.0)
[2024-11-06 07:33] LABS: Anion Gap 2 (5-15); BUN 17 mg/dL (7-18); BUN/Creat Ratio 37.3 RATIO (10-20); Calcium,Total 9.5 mg/dL (8.5-10.1); Chloride 106 mmol/L (98-107); Creatinine, Serum 0.46 mg/dL (0.55-1.02); EST Glomerular Filtration Rate 139 mL/min (>60); Est Glom Filt Rate - Afr Amer 168 mL/min (>60); Glucose 82 mg/dL (74-106); Potassium 4.1 mmol/L (3.5-5.1); Sodium Level 139 mmol/L (136-145)
[2024-11-06 09:57] VITALS: BP 140/71; PULSE 66; RESP 16; TEMP 36.9; O2SAT 99
[2024-11-06] MEDS: APIXABAN 2.5 MG TABLET (WCH) PO ×2 (09:59→21:37)
[2024-11-06] MEDS: PLECANATIDE 3 MG TABLET PO (09:59)
[2024-11-06] MEDS: oxyCODONE 5 MG Tablet PO ×2 (09:59→21:36)
[2024-11-06] MEDS: Potassium Chloride Oral Tablet 10 MEQ PO (09:59)
[2024-11-06] MEDS: Pantoprazole Sodium 40 MG Tablet PO (09:59)
[2024-11-06] MEDS: Cholecalciferol (VIT D3) 25 MCG TABLET (1,000 UNITS) 50 MCG PO (09:59)
[2024-11-06] MEDS: Lidocaine 5% Patch 1 PATCH TOPICAL (09:59)
[2024-11-06] MEDS: Lisinopril 20 MG Tablet PO (10:00)
[2024-11-06 11:39] VITALS: PULSE 78; RESP 16; O2SAT 98
--- NOTE | 2024-11-06 14:17 | CASEMGMT ---
BIMS () and PHQ2 () interview completed on this date for MDS assessment. RISA Arroyo
[2024-11-07 02:44] VITALS: PULSE 92; O2SAT 98
[2024-11-07] MEDS: traMADol 50 MG Tablet PO ×2 (06:38→14:23)
[2024-11-07] MEDS: Lidocaine 5% Patch 1 PATCH TOPICAL (09:00)
[2024-11-07] MEDS: Potassium Chloride Oral Tablet 10 MEQ PO (09:01)
[2024-11-07] MEDS: Cholecalciferol (VIT D3) 25 MCG TABLET (1,000 UNITS) 50 MCG PO (09:02)
[2024-11-07] MEDS: PLECANATIDE 3 MG TABLET PO (09:02)
[2024-11-07] MEDS: APIXABAN 2.5 MG TABLET (WCH) PO ×2 (09:02→21:54)
[2024-11-07] MEDS: Lisinopril 20 MG Tablet PO (09:02)
[2024-11-07] MEDS: Pantoprazole Sodium 40 MG Tablet PO (09:02)
[2024-11-07] MEDS: oxyCODONE 5 MG Tablet PO ×2 (09:59→21:54)
[2024-11-07 10:59] VITALS: BP 150/72; PULSE 67; RESP 16; TEMP 36.6; O2SAT 97
[2024-11-08 06:21] VITALS: PULSE 84; RESP 16; O2SAT 99
[2024-11-08] MEDS: Lidocaine 5% Patch 1 PATCH TOPICAL (08:42)
[2024-11-08] MEDS: Potassium Chloride Oral Tablet 10 MEQ PO (08:42)
[2024-11-08] MEDS: Lisinopril 20 MG Tablet PO (08:42)
[2024-11-08] MEDS: Pantoprazole Sodium 40 MG Tablet PO (08:42)
[2024-11-08] MEDS: PLECANATIDE 3 MG TABLET PO (08:42)
[2024-11-08] MEDS: Cholecalciferol (VIT D3) 25 MCG TABLET (1,000 UNITS) 50 MCG PO (08:42)
[2024-11-08] MEDS: APIXABAN 2.5 MG TABLET (WCH) PO (08:42)
[2024-11-08] MEDS: oxyCODONE 5 MG Tablet PO (11:02)
[2024-11-08 11:04] VITALS: BP 124/59; PULSE 67; RESP 18; TEMP 36.6; O2SAT 98
--- NOTE | 2024-11-11 08:25 | MDS.RN ---
Information for the MDS was obtained from review of the clinical record, interview of resident, staff, and direct observation of resident?s care.
== END 2024-11-08 11:40 | disposition home or self-care (01) | DRG 699 ==
PROVIDERS: Admitting Provider Family Medicine Geriatric Medicine; PCP Internal Medicine; Visit Provider Family Medicine Geriatric Medicine
DX: N32.89 Other specified disorders of bladder (principal); Z68.1 Body mass index [BMI] 19.9 or less, adult; E55.9 Vitamin D deficiency, unspecified; I10 Essential (primary) hypertension; J45.909 Unspecified asthma, uncomplicated; I48.91 Unspecified atrial fibrillation; E78.5 Hyperlipidemia, unspecified; K21.9 Gastro-esophageal reflux disease without esophagitis; K59.09 Other constipation; I95.1 Orthostatic hypotension; R33.9 Retention of urine, unspecified; Z79.899 Other long term (current) drug therapy; Z79.01 Long term (current) use of anticoagulants; R63.6 Underweight
CPT/HCPCS: 36415; 80048; 85025; 87811; 92523; 97110; 97162; 97166; 97530; 97535; 97802

== ENCOUNTER → 2024-11-14 | Outpatient (CLI) | payer MEDICARE, SELFPAY ==
--- NOTE | 2024-11-14 10:24 | US_ITS ---
PROCEDURE: KIDNEY AND BLADDER REASON FOR EXAM: Urinary retention TECHNIQUE: Ultrasound of the kidneys and bladder. Real-time grayscale and color flow imaging was performed along with routine image documentation. COMPARISON: Abdomen series dated 07/13/2024. FINDINGS: Normal renal sizes, parenchymal thicknesses, and echotextures. Mild right hydronephrosis. Left inferior pole anechoic mass measuring 2.7 x 2.3 x 1.8 cm. Hyper echogenic focus in the left kidney measuring 0.4 x 0.3 x 0.3 cm. RIGHT Kidney Size: 10.2 x 4.3 x 4.5 cm. Volume: 102 mL Cortical Thickness (if discernible): 1.2 (>6 mm is normal) LEFT Kidney Size: 9.6 x 3.8 x 4.2 cm. Volume: 79 mL Cortical Thickness (if discernible): 1.1 (>6 mm is normal) BLADDER: Prevoid volume: 228 mL Postvoid volume: N/A Bladder contour. Irregular hyperechoic area in the posterior wall of the urinary bladder measuring approximately 4.0 x 1.0 cm. URETERAL JETS: RIGHT: Visualized. LEFT: Visualized. US/Kidney and Bladder IMPRESSION: 1. Left renal cyst as detailed above. 2. Mild right hydronephrosis. 3. Hyperechoic irregular lesion suspected on the posterior bladder wall. Can not exclude neoplasm. Reading Location: [facility]
== END | disposition home or self-care (01) ==
PROVIDERS: PCP Internal Medicine; Referring Provider Urology; Visit Provider Urology
DX: R33.9 Retention of urine, unspecified (principal)
CPT/HCPCS: 76770

== ENCOUNTER → 2024-12-01 | Outpatient (CLI) | payer MEDICARE, SELFPAY ==
[2024-12-01 12:50] LABS: Absolute Lymphocyte Count 1.06 X10^3/uL (0.83-4.51); Absolute Neutrophil Count 1.2 X10^3/uL (2.0-7.7); Basophil# 0.06 X10^3/uL; Basophil% 2.3 % (0-1); Eosinophil# 0.06 X10^3/uL; Eosinophils% 2.3 % (0-5); Hematocrit 36.4 % (37-47); Hemoglobin 12.8 g/dL (12.0-15.0); Lymphocyte # 1.06 X10^3/ul (0.83-4.51); Lymphocyte % 39.8 % (19-41); Mean Corp Hgb Conc 35.2 g/dL (32-36); Mean Corpuscular Hgb 33.2 pg (27.0-32.0); Mean Corpuscular Volume 94.5 fL (81-99); Mean Platelet Vol. 10.2 fl (6.2-12.0); Monocyte# 0.25 X10^3/uL; Monocyte% 9.4 % (0-10); NRBC Flagged by Analyzer 0 % (0-5); Neutrophil # 1.22 X10^3/uL (2.7-7.7); Neutrophil % 45.8 % (47-70); Platelet Count 213 K/mm3 (150-450); RBC Distribution Width CV 12.8 % (11.6-14.6); RBC Distribution Width SD 44.5 fl (35.1-43.9); Red Blood Count 3.85 M/mm3 (4.2-5.4); White Blood Count 2.7 K/mm3 (4.4-11.0)
[2024-12-01 13:36] LABS: Magnesium 2.1 mg/dL (1.5-2.2); Vitamin B12 355 pg/mL (180-914); Vitamin D,25 Hydroxy 53.8 ng/mL (30-100)
[2024-12-01 13:52] LABS: ALB/GLOB Ratio 1.7 RATIO (0.9-2.4); AST(SGOT) 27 U/L (<=31); Alanine Aminotransfer ALT/SGPT 13 U/L (<=34); Albumin, Serum 4.2 g/dL (3.4-4.8); Alkaline Phosphatase 101 U/L (35-104); Anion Gap 11 (5-15); BUN 14 mg/dL (4-19); BUN/Creat Ratio 24.4 RATIO (10-20); Calcium,Total 9.8 mg/dL (7.6-11.0); Carbon Dioxide 25.5 mmol/L (21.0-32.0); Chloride 102 mmol/L (98-108); Creatinine, Serum 0.59 mg/dL (0.70-1.20); EST Glomerular Filtration Rate 90 (>60); Globulin 2.5 g/dL (2.2-4.2); Glucose 83 mg/dL (70-99); Potassium 3.8 mmol/L (3.3-5.1); Protein, Total 6.7 g/dL (5.9-8.4); Sodium Level 138 mmol/L (133-145); Total Bilirubin 0.54 mg/dL (0.00-1.30)
== END | disposition home or self-care (01) ==
LOC: BIMLAB 09:52
PROVIDERS: PCP Internal Medicine; Referring Provider Internal Medicine; Visit Provider Internal Medicine
DX: R53.1 Weakness (principal); I48.0 Paroxysmal atrial fibrillation; I10 Essential (primary) hypertension; M81.0 Age-related osteoporosis without current pathological fracture
CPT/HCPCS: 36415; 80053; 82306; 82607; 83735; 85025

== ENCOUNTER 2025-01-07 08:28 | Outpatient (CLI) | payer MEDICARE, SELFPAY ==
[2025-01-07] VITALS (13 sets, daily range): BP systolic 142–194; BP diastolic 80–125; PULSE 69–103; RESP 14–27; O2SAT 94–100; BMI 16.9
[2025-01-07 08:44] LABS: Absolute Lymphocyte Count 1.64 X10^3/uL (0.83-4.51); Absolute Neutrophil Count 2.1 X10^3/uL (2.0-7.7); Basophil# 0.07 X10^3/uL; Basophil% 1.6 % (0-1); Eosinophils% 2.3 % (0-5); Hematocrit 36.5 % (37-47); Hemoglobin 13.3 g/dL (12.0-15.0); Lymphocyte # 1.64 X10^3/ul (0.83-4.51); Lymphocyte % 38.1 % (19-41); Mean Corp Hgb Conc 36.4 g/dL (32-36); Mean Corpuscular Hgb 33.4 pg (27.0-32.0); Mean Corpuscular Volume 91.7 fL (81-99); Mean Platelet Vol. 9.7 fl (6.2-12.0); Monocyte# 0.37 X10^3/uL; Monocyte% 8.6 % (0-10); NRBC Flagged by Analyzer 0 % (0-5); Neutrophil # 2.11 X10^3/uL (2.7-7.7); Neutrophil % 49.2 % (47-70); Platelet Count 191 K/mm3 (150-450); RBC Distribution Width CV 12.5 % (11.6-14.6); RBC Distribution Width SD 42.2 fl (35.1-43.9); Red Blood Count 3.98 M/mm3 (4.2-5.4); White Blood Count 4.3 K/mm3 (4.4-11.0)
[2025-01-07 09:07] LABS: International Normalized Ratio 1.2
[2025-01-07] MEDS: 0.9% Saline Lock 10 ML Syringe IV (09:29)
[2025-01-07] MEDS: Midazolam 2 MG/2 ML Syringe IV ×2 (09:34→09:50)
[2025-01-07] MEDS: fentaNYL 100 MCG/2 ML Ampul IV (09:37)
--- NOTE | 2025-01-07 09:45 | CT_ITS ---
PROCEDURE: BIOPSY/INJ OR NEEDLE PLACEMENT 01/07/2025 REASON FOR EXAM: BONE MARROW TECHNIQUE: The procedure as well as the benefits and possible complications including infection and bleeding were explained to the patient. Informed consent was obtained. The patient was in the prone position. The skin overlying the posterior aspect of the right posterior iliac bone was prepped and draped usual sterile fashion. Local anesthetic application was performed. Following this, the patient was given conscious sedation. The patient received 2 mg of Versed and 50 mcg of fentanyl intravenously. Conscious sedation was started at 9:34 a.m. and terminated at 9:57 a.m.. The patient was independently monitored by the department nurse. Utilizing an 11 gauge bone marrow biopsy kit, bone marrow aspiration and bone marrow biopsy of the posterior right iliac balloon was performed. The patient tolerated the procedure well. No immediate complication seen. One or more dose reduction techniques were used (e.g., Automated exposure control, adjustment of the mA and/or kV according to patient size, use of iterative reconstruction technique). RADIATION DOSE SUMMARY: CTDlvol: 9.8 mGy DLP: 231.76 mGycm COMPARISON: None FINDINGS: Successful bone marrow biopsy and aspirate from the posterior right iliac bone. CT/Biopsy/Inj or Needle Placement IMPRESSION: Successful bone marrow biopsy and aspirate from the posterior aspect of the rig ht iliac bone. The patient tolerated procedure well. No immediate complication noted. Reading Location: [place] [id number]
[2025-01-07] MEDS: Lidocaine 2% (20 ml mdv) 20 ML Vial INFILT (09:52)
[2025-01-07 10:41] LABS: Pathology Sent to OSU SEE PATHOLOGY REPORT
== END 2025-01-07 23:59 | disposition home or self-care (01) ==
PROVIDERS: Radiology Diagnostic Radiology; PCP Internal Medicine; Referring Provider Internal Medicine Medical Oncology; Visit Provider Internal Medicine Medical Oncology
DX: Z01.818 Encounter for other preprocedural examination (principal); D72.818 Other decreased white blood cell count; Z79.01 Long term (current) use of anticoagulants
CPT/HCPCS: 38222; 36415; 77012; 85025; 85610; 85730; 99156; A4216

== ENCOUNTER → 2025-02-02 | Outpatient (CLI) | payer MEDICARE, SELFPAY ==
--- NOTE | 2025-02-02 12:43 | CT_ITS ---
PROCEDURE: CT CHEST, ABD, PEL W/CONTRAST 02/02/2025 REASON FOR EXAM: LYMPHOPROLIFERATIVE DISORDER TECHNIQUE: Chest, abdomen and pelvis CT with intravenous contrast. Coronal and Sagittal reconstruction series were provided. One or more dose reduction techniques were used (e.g., Automated exposure control, adjustment of the mA and/or kV according to patient size, use of iterative reconstruction technique. PATIENT PREPARATION: Per protocol ORAL CONTRAST TYPE: None. CONTRAST: Isovue-300 VOLUME: 100mL RADIATION DOSE SUMMARY: CTDlvol: 7.6 mGy DLP: 473.43 mGycm COMPARISON: None FINDINGS: CT CHEST: Hardware: Prior fusion of the cervical spine. Lymph nodes: No suspicious lymph nodes are seen. Heart and Vasculature: Minimal coronary artery calcification. Atherosclerotic calcifications of the thoracic aorta. Pulmonary arteries are unremarkable. Lungs and Airways: Hyperinflation. The lungs are clear. Pleura: Unremarkable Bones: Increased kyphosis. Multilevel disc space narrowing with demineralization of the thoracic vertebrae. CT ABDOMEN/PELVIS: Liver: Normal size. No mass. Gallbladder: Unremarkable. Spleen: Normal size. Pancreas: Diffuse fatty atrophy. Adrenals: Unremarkable Kidneys: There is a 2.6 cm cyst in the medial midportion of the left kidney. Bladder: Unremarkable Reproductive Organs: Pessary device is seen. Bowel: No bowel obstruction. Appendix: The appendix is not identified. There is no inflammatory process identified in the right lower quadrant to suggest appendicitis. Lymph nodes: Unremarkable. Vasculature: Mild diffuse atherosclerotic calcifications are noted. Peritoneum / Retroperitoneum: Unremarkable Bones: Degenerative changes of the spine. Minimal anterior listhesis of L5 on S1 most likely secondary to facet joint osteoarthritis. Demineralization of the lumbar vertebrae. Prior right total hip replacement. CT/CT Chest, Abd, Pel w/Contrast IMPRESSION: Left renal cyst. Hyperinflation. No lymphadenopathy is seen. Reading Location: [facility]
== END | disposition home or self-care (01) ==
LOC: CT 12:43
PROVIDERS: PCP Internal Medicine; Referring Provider Internal Medicine Medical Oncology; Visit Provider Internal Medicine Medical Oncology
DX: D47.9 Neoplasm of uncertain behavior of lymphoid, hematopoietic and related tissue, unspecified (principal); D70.9 Neutropenia, unspecified
CPT/HCPCS: 71260; 74177; Q9967

== ENCOUNTER → 2025-06-08 | Outpatient (CLI) | payer MEDICARE, SELFPAY ==
--- NOTE | 2025-06-08 17:31 | RAD_ITS ---
PROCEDURE: THORACIC SPINE 3 VIEWS 06/08/2025 REASON FOR EXAM: DDD TECHNIQUE: Procedure Code: RADSPT Modality: DX Procedure: THORACIC SPINE 3 VIEWS COMPARISON: November 19, 2023 FINDINGS: Multilevel degenerative disc disease is present. Mild, likely chronic wedging of mid to inferior thoracic vertebral bodies are noted. There is similar accentuation of the thoracic kyphosis. There is levoconvex scoliosis of the lumbar spine which may have progressed compared with the previous study. Cervical fusion hardware is again noted. The lungs are hyperinflated. Atherosclerotic aortic calcifications are noted anterior to the lumbar spine. RAD/Thoracic Spine 3 Views IMPRESSION: Likely chronic degenerative and alignment changes as well as chronic mild compr ession deformities of the thoracic spine. If there is concern for acuity, consider MRI. Reading Location: [facility]
== END | disposition home or self-care (01) ==
LOC: RAD 17:22
PROVIDERS: PCP Internal Medicine; Referring Provider Anesthesiology Pain Medicine; Visit Provider Anesthesiology Pain Medicine
DX: M51.34 Other intervertebral disc degeneration, thoracic region (principal)
CPT/HCPCS: 72072